=== PATIENT | female | born 1950 | race Caucasian/White ===

== ENCOUNTER 2017-10-17 12:21 | Emergency (ER) | payer MEDICARE, OTHER, SELFPAY ==
[2017-10-17] VITALS (7 sets, daily range): BP systolic 125–179; BP diastolic 56–107; PULSE 92–113; RESP 14–18; TEMP 36.9; O2SAT 89–98; BMI 34.4
--- NOTE | 2017-10-17 12:26 | ED.NEUROSD ---
HPI - Neuro Symptoms/Deficit General Chief Complaint: Neuro Symptoms/Deficit Stated Complaint: stroke Time Seen by Provider: 10/17/17 12:24 Source: EMS Mode of arrival: EMS Limitations: altered mental status History of Present Illness HPI Narrative: EMS reports that they were called to the [facility] for patient to was found unconscious. Code stroke was called secondary to concerns of left-sided facial droop by EMS. EMS reports that blood sugar was between 60 and 70 prior to arrival. They did not give her any glucose. No other history available. Related Data Home Medications Medication Instructions Recorded Confirmed aspirin 325 mg PO DAILY 10/17/17 10/17/17 cilostazol 50 mg PO DAILY 10/17/17 10/17/17 furosemide 20 mg PO PRN PRN 10/17/17 10/17/17 ibuprofen 1 dose PO PRN PRN 10/17/17 10/17/17 insulin aspart U-100 [Novolog 1 dose SUB-Q DIRECTED 10/17/17 10/17/17 Flexpen U-100 Insulin] insulin detemir U-100 [Levemir 60 - 80 units SUB-Q QPM 10/17/17 10/17/17 FlexTouch U-100 Insuln] lisinopril 10 mg PO DAILY 10/17/17 10/17/17 Review of Systems Review of Systems unobtainable due to mental condition PFSH Social History Smoking Status: Current every day smoker Comment: Unable to obtain secondary to physical condition Exam Initial Vital Signs Initial Vital Signs: Vital Signs Temperature 98.4 F 10/17/17 12:25 Pulse Rate 113 H 10/17/17 12:25 Respiratory Rate 18 10/17/17 12:25 Blood Pressure 179/63 H 10/17/17 12:25 Pulse Oximetry 89 L 10/17/17 12:25 Const General: comfortable, well developed and well groomed Nutritional Appearance: obese Orientation: awake, oriented to person, not oriented to place, not oriented to time and confused Limitations: altered mental status HENMT Head: normal to inspection and normocephalic Ears: hearing grossly normal bilaterally Mouth: oral mucosae normal Eyes Sclera: sclerae normal Pupils: PERRL Neck Neck: No midline deformity and No tracheal deviation Resp Effort & Inspection: normal respiratory effort Auscultation: clear to auscultation bilaterally Cardio Rate: tachycardic Rhythm: regular rhythm Pulses: radial pulses present GI Inspection: non-distended Palpation: soft Skin Other: Patient 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 Neuro General: alert, awake and moves all extremities Speech: speech normal Motor: muscle tone normal throughout Sensory Exam: no sensory deficits noted Other: Cranial nerves intact except for what appears to be drooping of the left eyelid and drooping of the left side of the mouth. Tongue not deviated. Extrem Other: No gross deformities. Moves all 4 extremities to command Scores NIH Stroke Scale Level of Conciousness: Alert, keenly responsive Ask month/age: Answers both questions correctly. Open/close eyes, close hand: Performs both tasks correctly Best gaze horizontal: Normal Visual melgar: No visual loss Facial palsy: Minor paralysis, flattened nasolabial fold, asymmetry on smiling Left arm drift: No drift for full 10 sec Right arm drift: No drift for full 10 sec Left leg drift: Drifts down, not to bed Right leg drift: No drift for full 10 sec Limb ataxia: Absent Sensory on face/arms/legs: Normal, no sensory loss Best language: No aphasia, normal Dysarthria: Normal Extinction or inattention: No abnormality Total NIH Stroke scale score: 2 Course Orders Ordered: ED Orders 10/17/17 12:32 Complete Blood Count AUTO DIFF Stat Comprehensive Metabolic Panel Stat Ethanol (ETOH) Stat Partial Thromboplastin Time Stat Prolactin Stat Prothrombin Time INR Stat 10/17/17 12:48 CT angio head and neck Stat 10/17/17 12:56 Lactate (Lactic Acid) Stat Discontinued Medications Dextrose (D50w) 25 gm IV NOW ONE Stop: 10/17/17 12:48 Last Admin: 10/17/17 12:49 Dose: 25 gm Sodium Chloride (Normal Saline 0.9%) 1,000 mls @ 500 mls/hr IV BOLUS ONE Stop: 10/17/17 14:57 Last Admin: 10/17/17 13:36 Dose: 500 mls/hr Vital Signs - 8 hr 10/17/17 12:25 10/17/17 13:01 10/17/17 13:30 Temperature 98.4 F Pulse Rate 113 H 102 H 98 H Respiratory Rate 18 14 14 Blood Pressure 179/63 H Blood Pressure [Left Arm] 142/56 H 125/62 H Pulse Oximetry 89 L 94 90 L 10/17/17 14:00 10/17/17 14:30 10/17/17 15:00 Temperature Pulse Rate 94 H 93 H 92 H Respiratory Rate 14 15 17 Blood Pressure Blood Pressure [Left Arm] 142/66 H 146/107 H 141/65 H Pulse Oximetry 93 92 94 MDM - Neuro Symptoms/Deficit Lab Data Attestation: I reviewed the patient's lab results. Result diagrams: 10/17/17 12:32 10/17/17 12:32 Lab Results 10/17/17 10/17/17 10/17/17 Range/Units 12:32 12:32 12:32 WBC 8.6 (4.5-11.0) X10^3/uL RBC 3.96 L (4.0-5.2) X10^6/uL Hgb 13.7 (12.0-16.0) g/dL Hct 40.8 (36-46) % MCV 102.9 H (80-100) fL MCH 34.6 H (26-34) PG MCHC 33.6 (30-36) % RDW 14.5 (11.6-14.8) % Plt Count 266 (150-400) X10^3/uL Neut % (Auto) 53.9 (50-75) % Lymph % (Auto) 33.3 (25-40) % [place] % (Auto) 10.2 (3-14) % Eos % (Auto) 1.8 L (2-4) % Baso % (Auto) 0.8 (0-2) % Neut # (Auto) 4600 (2656-0574) /uL PT 11.6 (10.1-12.7) SECONDS INR 1.1 (0.9-1.3) APTT 24 L (26.4-36.2) SECONDS Sodium (137-145) mmol/L Potassium (3.4-5.1) mmol/L Chloride (98-107) mmol/L Carbon Dioxide (22-32) mmol/L BUN (7-17) mg/dL Creatinine (0.52-1.04) mg/dL Estimated GFR (>60) mL/min BUN/Creatinine Ratio (6-22) Glucose (80-110) mg/dL Lactate (0.7-2.1) mmol/L Calcium (8.4-10.2) mg/dL Total Bilirubin (0.2-1.3) mg/dL AST (14-36) IU/L ALT (9-52) IU/L Alkaline Phosphatase (38-126) U/L Total Protein (6.3-8.2) g/dL Albumin (3.5-5.0) g/dL Globulin (1.7-4.1) g/dL Albumin/Globulin Ratio (1.0-2.8) Prolactin (3.0-18.6) ng/mL Ethyl Alcohol Cancelled 10/17/17 10/17/17 Range/Units 12:32 12:56 WBC (4.5-11.0) X10^3/uL RBC (4.0-5.2) X10^6/uL Hgb (12.0-16.0) g/dL Hct (36-46) % MCV (80-100) fL MCH (26-34) PG MCHC (30-36) % RDW (11.6-14.8) % Plt Count (150-400) X10^3/uL Neut % (Auto) (50-75) % Lymph % (Auto) (25-40) % [place] % (Auto) (3-14) % Eos % (Auto) (2-4) % Baso % (Auto) (0-2) % Neut # (Auto) (8407-2416) /uL PT (10.1-12.7) SECONDS INR (0.9-1.3) APTT (26.4-36.2) SECONDS Sodium 138 (137-145) mmol/L Potassium 3.2 L (3.4-5.1) mmol/L Chloride 103 (98-107) mmol/L Carbon Dioxide 23 (22-32) mmol/L BUN 12 (7-17) mg/dL Creatinine 0.60 (0.52-1.04) mg/dL Estimated GFR > 60.0 (>60) mL/min BUN/Creatinine Ratio 20.0 (6-22) Glucose 73 L (80-110) mg/dL Lactate 2.9 H (0.7-2.1) mmol/L Calcium 8.5 (8.4-10.2) mg/dL Total Bilirubin 0.3 (0.2-1.3) mg/dL AST 16 (14-36) IU/L ALT 13 (9-52) IU/L Alkaline Phosphatase 79 (38-126) U/L Total Protein 6.7 (6.3-8.2) g/dL Albumin 3.5 (3.5-5.0) g/dL Globulin 3.2 (1.7-4.1) g/dL Albumin/Globulin Ratio 1.1 (1.0-2.8) Prolactin 40.9 H (3.0-18.6) ng/mL Ethyl Alcohol < [address] scan - head: Radiologist's impression: PROCEDURE: CT ANGIO HEAD AND NECK INDICATIONS: Possible stroke TECHNIQUE: Pre-contrast 4.5 mm thick sections acquired from the foramen magnum to the vertex. After the administration of intravenous contrast, 1 mm thick sections acquired from the aortic arch through the [place]. Post-contrast 4.5 mm thick sections then re-acquired from the foramen magnum to the vertex. 3-dimensional gukxlnf-kfqoactoe-bxztrhjhxn (MIP) and/or volume rendering reformats were acquired of the central intracranial vasculature and neck separately. COMPARISON: None. FINDINGS: Image quality: Excellent. BRAIN: CSF spaces: Ventricles are normal in size and shape. Basal cisterns are patent. No extra-axial fluid collections. Brain: No midline shift. No intracranial bleeds or masses. Simmons-white matter interface appears intact. Skull and face: Calvarium and facial bones appear intact, without suspicious lesions. Orbits appear normal. Sinuses: Sinuses and mastoids are clear. HEAD CT ANGIOGRAPHY: Anterior circulation: Intracranial internal carotid arteries are normal in size and flow. The flow within the paired anterior cerebral arteries is normal and symmetric. The flow within the middle cerebral arteries is normal and symmetric. The anterior communicating artery is seen. No aneurysms are seen. Posterior circulation: Visualized portions of the vertebral arteries demonstrate normal caliber, and join to form a normal appearing basilar artery. There is a prominent right posterior communicating artery seen, with an accompanying diminutive right P1 segment. This is attributed to a type origin of the right posterior cerebral artery, which is considered to be a normal developmental variant of typically no clinical consequence. Flow within the posterior cerebral arteries is normal and symmetric. No aneurysms are seen. NECK CT ANGIOGRAPHY: Carotid system: The great vessels demonstrate a conventional anatomy as they arise from the aortic arch. Prominent atherosclerotic change with calcification can be seen involving the aortic arch and the origins of the great vessels. The origins of the common carotid arteries appear patent. The common carotid arteries demonstrate normal caliber and courses. The bifurcation regions demonstrate dense atherosclerotic calcification. There is approximately 40% narrowing seen involving origin of the right internal carotid artery. The origin of the left internal carotid artery demonstrates approximately 80% narrowing. Posterior circulation: The origins of the vertebral arteries both appear widely patent. The more superior extracranial portions of both vertebral arteries also demonstrate normal courses and calibers. They join to form a normal appearing basilar artery. Soft tissues: Visualized neck soft tissues demonstrate no suspicious abnormalities. Prominent centrilobular emphysematous changes are seen at the lung apices. Bones: No suspicious bony lesions. Visualized cervical spine appears normally aligned. Degenerative changes are seen, particularly involving the lower cervical spine. IMPRESSION: No acute intracranial hemorrhage can be seen. No definite CT findings of acute stroke can be seen. No acute intracranial arterial abnormality is seen. There is approximately 80% stenosis of the origin of the left internal carotid artery, with approximately 40% narrowing of the origin of the right internal carotid artery. If there is strong clinical suspicion for an acute stroke, please consider an MRI for further evaluation, as it is more sensitive (assuming that there is no contraindication to MRI). Incidental note is made of: type origin of the right posterior cerebral artery. Any quantitative measurements of stenosis were performed using NASCET criteria. Dictated by: Bijan Otero M.D. on 10/17/2017 at 11:49 Approved by: Bijan Otero M.D. on 10/17/2017 at 11:55 ECG Data Attestation: I personally reviewed and interpreted this ECG as follows: Prior ECG tracings: not available for review Interpretation: Sinus tachycardia Ventricular rate at 0108 Normal axis Normal intervals Normal QRS Normal QTC Nonspecific ST T wave changes MDM Narrative Medical decision making narrative: Patient arrived and went straight to the CT scan for a noncontrast head CT. My wet read of this showed that there was no acute bleed. She then received a CTA of her head neck. Upon returning from the CTA a perform my evaluation. Patient did not remember waking up this morning did not remember where she was prior to coming here. Her blood sugar was 67. She was given an amp of D50. Her symptoms seem to be improving. Her last known normal was approximately 30 min prior to arrival here in the emergency department. Patient did mention that she had a history of seizures however was unsure about this. After continued evaluation here in the emergency department her blood glucose increased. She became more lucid. She states that she has had seizures in the past however if she had 1 today would be the 3rd seizure in 15 years. She is not currently on any medications. She states that she is an insulin-dependent diabetic. She states that she does remember waking up this morning and remembers going to the casino. She states that just prior to entering the casino she felt like her blood sugar was low. She states that she took a prepackaged applesauce and went to a machine and sat down. She states that right before she loses her memory a she remembers feeling just like she does when her blood sugar is low. Patient was not given tPA here in the emergency department secondary to the improvement of her symptoms. During her emergency department stay patient returned to baseline. She was alert and oriented x3. Was cognizant of what happened to her. I have high suspicion that this was a hypoglycemic episode. There is also some concern that this may have been another seizure however secondary to how she felt I feel that it is more likely hypoglycemia. She did tolerate oral intake here in the emergency department. Walked to the bathroom without problems. Knew where her car was. New were her home was. Informed patient that she needed to watch her blood sugars over the weekend. Informed her that she needed to contact her primary care doctor on Friday for follow-up. She she was given return precautions. She expressed understanding and agreement with plan. Discharge Plan Departure Patient Disposition: Home, Self-Care Clinical Impression: Hypoglycemia, Altered mental status Instructions: DI for Hypoglycemia Activity Restrictions/Additional Instructions: Continue all of your medications as directed. Call your primary care doctor on Friday for a follow-up. Return to the emergency department for any new or worsening symptoms Prescriptions: No Action cilostazol 50 mg tablet 50 mg PO DAILY RF: 0 furosemide 20 mg tablet 20 mg PO PRN PRN (Reason: Edema) RF: 0 insulin aspart U-100 [Novolog Flexpen U-100 Insulin] 100 unit/mL insulin pen 1 dose Sub-Q DIRECTED RF: 0 insulin detemir U-100 [Levemir FlexTouch U-100 Insuln] 100 unit/mL (3 mL) insulin pen 60 - 80 units Sub-Q QPM RF: 0 aspirin 325 mg Tablet 325 mg PO DAILY RF: 0 lisinopril 10 mg Tablet 10 mg PO DAILY RF: 0 ibuprofen 200 mg Tablet 1 dose PO PRN PRN (Reason: Pain, Mild) RF: 0
--- NOTE | 2017-10-17 12:48 | DI.CT.S_ITS ---
PROCEDURE: CT ANGIO HEAD AND NECK INDICATIONS: Possible stroke TECHNIQUE: Pre-contrast 4.5 mm thick sections acquired from the foramen magnum to the vertex. After the administration of intravenous contrast, 1 mm thick sections acquired from the aortic arch through the [place]. Post-contrast 4.5 mm thick sections then re-acquired from the foramen magnum to the vertex. 3-dimensional ypxgkxp-bhphtiqhf-tnpwatmzof (MIP) and/or volume rendering reformats were acquired of the central intracranial vasculature and neck separately. COMPARISON: None. FINDINGS: Image quality: Excellent. BRAIN: CSF spaces: Ventricles are normal in size and shape. Basal cisterns are patent. No extra-axial fluid collections. Brain: No midline shift. No intracranial bleeds or masses. Simmons-white matter interface appears intact. Skull and face: Calvarium and facial bones appear intact, without suspicious lesions. Orbits appear normal. Sinuses: Sinuses and mastoids are clear. HEAD CT ANGIOGRAPHY: Anterior circulation: Intracranial internal carotid arteries are normal in size and flow. The flow within the paired anterior cerebral arteries is normal and symmetric. The flow within the middle cerebral arteries is normal and symmetric. The anterior communicating artery is seen. No aneurysms are seen. Posterior circulation: Visualized portions of the vertebral arteries demonstrate normal caliber, and join to form a normal appearing basilar artery. There is a prominent right posterior communicating artery seen, with an accompanying diminutive right P1 segment. This is attributed to a type origin of the right posterior cerebral artery, which is considered to be a normal developmental variant of typically no clinical consequence. Flow within the posterior cerebral arteries is normal and symmetric. No aneurysms are seen. NECK CT ANGIOGRAPHY: Carotid system: The great vessels demonstrate a conventional anatomy as they arise from the aortic arch. Prominent atherosclerotic change with calcification can be seen involving the aortic arch and the origins of the great vessels. The origins of the common carotid arteries appear patent. The common carotid arteries demonstrate normal caliber and courses. The bifurcation regions demonstrate dense atherosclerotic calcification. There is approximately 40% narrowing seen involving origin of the right internal carotid artery. The origin of the left internal carotid artery demonstrates approximately 80% narrowing. Posterior circulation: The origins of the vertebral arteries both appear widely patent. The more superior extracranial portions of both vertebral arteries also demonstrate normal courses and calibers. They join to form a normal appearing basilar artery. Soft tissues: Visualized neck soft tissues demonstrate no suspicious abnormalities. Prominent centrilobular emphysematous changes are seen at the lung apices. Bones: No suspicious bony lesions. Visualized cervical spine appears normally aligned. Degenerative changes are seen, particularly involving the lower cervical spine. IMPRESSION: No acute intracranial hemorrhage can be seen. No definite CT findings of acute stroke can be seen. No acute intracranial arterial abnormality is seen. There is approximately 80% stenosis of the origin of the left internal carotid artery, with approximately 40% narrowing of the origin of the right internal carotid artery. If there is strong clinical suspicion for an acute stroke, please consider an MRI for further evaluation, as it is more sensitive (assuming that there is no contraindication to MRI). Incidental note is made of: type origin of the right posterior cerebral artery. Any quantitative measurements of stenosis were performed using NASCET criteria. Dictated by: Bijan Otero M.D. on 10/17/2017 at 11:49 Approved by: Bijan Otero M.D. on 10/17/2017 at 11:55
[2017-10-17 12:49] LABS: INR 1.1 (0.9-1.3); Prothrombin Time 11.6 SECONDS (10.1-12.7)
[2017-10-17] MEDS: DEXTROSE 50 % IN WATER 25 GM/50 ML SYRINGE IV (12:49)
[2017-10-17 12:51] LABS: PTT Partial Thromboplastin Tim 24 SECONDS (26.4-36.2)
[2017-10-17 12:52] LABS: Add Manual Diff / Slide Review NO; Basophils Percent Auto 0.8 % (0-2); Eosinophils Percent Auto 1.8 % (2-4); Hematocrit 40.8 % (36-46); Hemoglobin 13.7 g/dL (12.0-16.0); Lymphocytes Percent Auto 33.3 % (25-40); Mean Corpuscular HGB Conc 33.6 % (30-36); Mean Corpuscular Hemoglobin 34.6 PG (26-34); Mean Corpuscular Volume 102.9 fL (80-100); Monocytes Percent Auto 10.2 % (3-14); Neutrophils Absolute Auto 4600 /uL (3000-5900); Neutrophils Percent Auto 53.9 % (50-75); Platelet Count 266 X10^3/uL (150-400); Red Blood Cell Count 3.96 X10^6/uL (4.0-5.2); Red Cell Distribution Width 14.5 % (11.6-14.8); White Blood Cell Count 8.6 X10^3/uL (4.5-11.0)
[2017-10-17 12:55] LABS: Alanine Aminotransferase 13 IU/L (9-52); Albumin 3.5 g/dL (3.5-5.0); Albumin Globulin Ratio 1.1 (1.0-2.8); Alkaline Phosphatase 79 U/L (38-126); Aspartate Aminotransferase 16 IU/L (14-36); Bilirubin Total 0.3 mg/dL (0.2-1.3); Blood Urea Nitrogen 12 mg/dL (7-17); Calcium 8.5 mg/dL (8.4-10.2); Carbon Dioxide 23 mmol/L (22-32); Chloride 103 mmol/L (98-107); Estimated Glomerular Filt Rate > 60.0 mL/min (>60); Ethanol (ETOH) < 10 mg/dL; Globulin 3.2 g/dL (1.7-4.1); Glucose 73 mg/dL (80-110); HEMOLYSIS < 15 (0-50); Potassium 3.2 mmol/L (3.4-5.1); Sodium 138 mmol/L (137-145); Total Protein 6.7 g/dL (6.3-8.2)
[2017-10-17 13:11] LABS: Prolactin 40.9 ng/mL (3.0-18.6)
[2017-10-17 13:11] LABS: Lactate (Lactic Acid) 2.9 mmol/L (0.7-2.1)
--- NOTE | 2017-10-17 13:22 | PC.NURSE ---
Originally, patient repeatedly asking same question about what happened. She could not recall being at the casino, or passing out. Could not remember about leg wounds on left leg. Able to state where she live. After receiving d50, pt is more alert, not asking repetative questions anymore. She remembers going to the casino and up to the point of passing out.
[2017-10-17] MEDS: SODIUM CHLORIDE 0.9% 1,000 ML 500 ML IV (13:36)
[2017-10-17 16:57] LABS: Reflexed Lactate in 2 Hours Y
== END 2017-10-17 16:00 | disposition home or self-care (01) ==
PROVIDERS: Emergency Provider Emergency Medicine; PCP Physician Assistant
DX: E16.2 Hypoglycemia, unspecified (principal); R41.82 Altered mental status, unspecified; R00.0 Tachycardia, unspecified
CPT/HCPCS: 36415; 70496; 70498; 80053; 80320; 82962; 83605; 84146; 85025; 85610; 85730; 93005; 93010; 96360; 99283; 99285; 99291; Q9967

== ENCOUNTER 2017-11-28 19:13 | Inpatient (IN) | payer MEDICARE, OTHER, SELFPAY ==
[2017-11-28] VITALS (23 sets, daily range): BP systolic 82–184; BP diastolic 39–77; PULSE 112–132; RESP 14–116; TEMP 35.9–37.6; O2SAT 82–100; BMI 31.5
[2017-11-28] MEDS: SUCCINYLCHOLINE 200 MG/10 ML VIAL 120 MG IV (19:15)
[2017-11-28] MEDS: SODIUM CHLORIDE 0.9% 1,000 ML 1000 ML IV ×2 (19:15→21:34)
--- NOTE | 2017-11-28 19:21 | DI.CT.S_ITS ---
PROCEDURE: CT HEAD/BRAIN WO CON INDICATIONS: found down right josie neglect TECHNIQUE: Noncontrast 4.5 mm thick angled axial sections acquired from the foramen magnum to the vertex, with coronal and sagittal reformats. For radiation dose reduction, the following was used: automated exposure control, adjustment of mA and/or kV according to patient size. COMPARISON: None. FINDINGS: Image quality: Excellent. CSF spaces: Basal cisterns are patent. No extra-axial fluid collections. Ventricles are normal in size and shape. Brain: No midline shift. No intracranial masses or hemorrhage. Simmons-white matter interface is normal. Skull and face: Calvarium and visualized facial bones are intact, without suspicious lesions. Sinuses: Visualized sinuses and mastoids are clear. IMPRESSION: Normal for age, source of current symptoms is not seen. Dictated by: Giovanni Barahona M.D. on 11/28/2017 at 19:50 Approved by: Giovanni Barahona M.D. on 11/28/2017 at 19:51
--- NOTE | 2017-11-28 19:22 | DI.RAD.S_ITS ---
PROCEDURE: XR CHEST 1V INDICATIONS: intubated TECHNIQUE: One view of the chest was acquired. COMPARISON: [facility], CR, XR CHEST 2VW, 08/16/2015, 17:24. FINDINGS: Surgical changes and devices: Endotracheal tube appears in normal position. Lungs and pleura: No pleural effusions or pneumothorax. Lungs are abnormal with a generalized interstitial prominence and mild pulmonary edema. Mediastinum: Mediastinal contours appear normal. Heart size is normal. Bones and chest wall: No suspicious bony lesions. Overlying soft tissues appear unremarkable. IMPRESSION: Pulmonary edema pattern bilaterally, suspect retrocardiac left lower lobe mild atelectasis. Endotracheal tube in normal position. Dictated by: Giovanni Barahona M.D. on 11/28/2017 at 19:33 Approved by: Giovanni Barahona M.D. on 11/28/2017 at 19:33
[2017-11-28] MEDS: PROPOFOL 200 MG/20 ML VIAL 40 MG IV ×2 (19:25→19:29)
[2017-11-28] MEDS: PROPOFOL 1,000 MG/100 ML VIAL 3 MG IV (19:31)
[2017-11-28] MEDS: MIDAZOLAM 5 MG/ML VIAL 2.5 MG IV (19:35)
[2017-11-28] MEDS: LORazepam 2 MG/ML SYRINGE 1 MG IV (20:04)
--- NOTE | 2017-11-28 20:20 | PC.NURSE ---
PROPOFOL DRIP TITRATED
--- NOTE | 2017-11-28 20:20 | PC.NURSE ---
PROPOFOL DRIP TITRATED PER VERBAL ORDERS BY PROVIDER. PT BITING ET TUBE. PT RESTLESS.
[2017-11-28] MEDS: ETOMIDATE 2 MG/ML VIAL 10 MG IV (20:26)
[2017-11-28] MEDS: HYDROMORPHONE 2 MG INJ 1 MG IV (20:28)
[2017-11-28] MEDS: LORazepam 2 MG/ML SYRINGE IV (20:34)
[2017-11-28 20:51] LABS: Add Manual Diff / Slide Review NO; Basophils Percent Auto 0.6 % (0-2); Hematocrit 51.4 % (36-46); Hemoglobin 16.9 g/dL (12.0-16.0); Lymphocytes Percent Auto 3.4 % (25-40); Mean Corpuscular HGB Conc 32.8 % (30-36); Mean Corpuscular Hemoglobin 34.1 PG (26-34); Mean Corpuscular Volume 103.8 fL (80-100); Monocytes Percent Auto 8.5 % (3-14); Neutrophils Absolute Auto 10400 /uL (3000-5900); Neutrophils Percent Auto 87.5 % (50-75); Platelet Count 239 X10^3/uL (150-400); Red Blood Cell Count 4.95 X10^6/uL (4.0-5.2); Red Cell Distribution Width 14.8 % (11.6-14.8); White Blood Cell Count 11.9 X10^3/uL (4.5-11.0)
[2017-11-28 20:54] LABS: INR 1.1 (0.9-1.3); Prothrombin Time 12.1 SECONDS (10.1-12.7)
[2017-11-28 20:57] LABS: PTT Partial Thromboplastin Tim 27 SECONDS (26.4-36.2)
[2017-11-28 20:58] LABS: Bacteria Urine None Seen; RBC Urine None Seen (0-5/HPF); WBC Urine None Seen (0-5/HPF)
[2017-11-28 21:00] LABS: Alanine Aminotransferase 17 IU/L (9-52); Albumin 4.2 g/dL (3.5-5.0); Albumin Globulin Ratio 1.4 (1.0-2.8); Alkaline Phosphatase 86 U/L (38-126); Aspartate Aminotransferase 21 IU/L (14-36); BUN Creatinine Ratio 31.8 (6-22); Bilirubin Total 0.9 mg/dL (0.2-1.3); Blood Urea Nitrogen 35 mg/dL (7-17); Calcium 9.5 mg/dL (8.4-10.2); Carbon Dioxide 13 mmol/L (22-32); Chloride 97 mmol/L (98-107); Creatine Kinase 196 U/L (30-135); Estimated Glomerular Filt Rate 49.7 mL/min (>60); Globulin 3.1 g/dL (1.7-4.1); HEMOLYSIS 15 (0-50); Sodium 132 mmol/L (137-145); Total Protein 7.3 g/dL (6.3-8.2)
[2017-11-28 21:00] LABS: Bilirubin Urine UA NEGATIVE (NEGATIVE); Color Urine UA YELLOW; Glucose Urine UA 2+ g/dL (Normal); Ketones Urine UA 3+ (NEGATIVE); Leukocyte Esterase Urine UA NEGATIVE (NEGATIVE); Nitrite Urine UA Negative (Negative); Occult Blood Urine UA 2+ (Negative); Protein Urine UA 2+ (Negative); Urobilinogen Urine UA 0.2 E.U./dL (0.2)
--- NOTE | 2017-11-28 21:00 | PC.NURSE ---
PT PROPOFOL DRIP TITRATED PER PROVIDER VERBAL ORDERS. PT BITING ET TUBE. PT RESTLESS.
[2017-11-28 21:03] LABS: Ketones (Beta-Hydroxybutyrate) 6.13 mmol/L (<0.27)
[2017-11-28 21:15] LABS: CKMB % Relative Index 1.6 % (1.5-5.0); Creatine Kinase MB 3.14 ng/mL (<2.37)
[2017-11-28 21:17] LABS: Glucose 595 mg/dL (80-110)
[2017-11-28 21:23] LABS: Appearance Urine UA Slightly Cloudy
[2017-11-28 21:23] LABS: Procalcitonin 0.08 ng/mL (<0.5)
[2017-11-28 21:26] LABS: Amorphous Sediment Urine 1+; Culture Indicated Urine Cult Not Indicated
[2017-11-28 21:33] LABS: Ethanol (ETOH) < 10 mg/dL
[2017-11-28 21:54] LABS: Urine Amphetamines Negative (Negative); Urine Cocaine Negative (Negative); Urine Methamphetamines Negative (Negative); Urine Morphine/Opi cutoff 2000 Negative (Negative); Urine Tetrahydrocannabinol Negative (Negative)
[2017-11-28 21:55] LABS: Urine Barbiturates Negative (Negative); Urine Benzodiazepines Negative (Negative); Urine MDMA Negative (Negative); Urine Methadone Negative (Negative); Urine Oxycodone Negative (Negative); Urine Phencyclidine Negative (Negative); Urine Tricyclic Antidepressant Negative (Negative)
--- NOTE | 2017-11-28 23:22 | PC.NURSE ---
221- Patient arrived via stretcher vented and sedated. Transferred to bed in room 103. Patient ETT 7.5 and 20 at the lip. Patient has a wound to the left genao, skin otherwise intact. Peripheral pulses attained via doppler. Cotto draining clear yellow urine. Propofol running at 25mic/kg/min. BG 433. Iv from the ER in the Left forearm, another IV started in the ICU to the right antecube. Patients wrists are restrained with soft wrist restraints per protocol. Patients last known normal was on the 26 of November.
[2017-11-29] VITALS (33 sets, daily range): BP systolic 70–156; BP diastolic 31–93; PULSE 91–136; RESP 10–29; TEMP 36.1–37; O2SAT 93–100
--- NOTE | 2017-11-29 | DI.RAD.S_ITS ---
PROCEDURE: XR CHEST 1V INDICATIONS: ventilated TECHNIQUE: One view of the chest was acquired. COMPARISON: [facility], CR, XR CHEST 2VW, 08/16/2015, 17:24. [facility], CR, XR CHEST 1V, 11/28/2017, 19:23. FINDINGS: Surgical changes and devices: The endotracheal tube tip is 5 cm above sabas. There is a nasogastric tube within the stomach. Lungs and pleura: Bilateral interstitial infiltrates are present, unchanged. No pleural effusions or pneumothorax. Lungs are clear. Mediastinum: Mediastinal contours appear normal. Heart size is normal. Bones and chest wall: No suspicious bony lesions. Overlying soft tissues appear unremarkable. IMPRESSION: Stable chest. Dictated by: Stefanie Vences M.D. on 11/29/2017 at 8:10 Approved by: Stefanie Vences M.D. on 11/29/2017 at 8:12
--- NOTE | 2017-11-29 00:21 | PM.HP.1 ---
History of Present Illness Date Patient Seen: 11/29/17 Time Patient Seen: 00:21 Chief complaint: Unresponsive Narrative: Critical care history and physical. Patient is a 67-year-old female who was found down unresponsive. Her sister had called her today she did not answer so she came in over to check on her. The last time she talked to her sister was on November 26 so she has been not heard of for 2 days. Uncertain how long she has actually been down however. She was unresponsive and was intubated due to failure to per tube protect her airway she was reportedly thrashing about but not responsive to verbal commands. Currently she is heavily sedated with propofol on the ventilator she responds to painful stimuli moving in response to pain but no does not open her eyes to pain or to spontaneously. 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, managed as type 1 (Acute) Hyperlipidemia (Acute) Peripheral vascular disease (Acute) Sleep apnea in adult (Acute) Family & Social History Social History: household members none Prior Living Arrangements House Safety & Behavioral: Feels Safe in Current Unwilling to Answer Environment Been Physically Hurt or Unwilling to Answer Threatened By a Person Suicidal Ideation Description None Suicide Plan Description No Plan Tobacco & Substance use: Tobacco type cigarettes Smoking Status Current every day smoker alcohol intake frequency 0-2 drinks per day Substance Use Type does not use Meds Home Medications Medication Instructions Recorded Confirmed Type aspirin 325 mg PO QDAY #0 05/15/16 History atorvastatin [Lipitor] 5 mg PO QDAY #0 05/15/16 History cilostazol 50 mg PO QDAY #0 05/15/16 History ibuprofen [Advil] 600 mg PO Q6HP PRN #0 05/15/16 History lisinopril 10 mg PO QDAY #0 05/15/16 History insulin glargine [Lantus U-100 40 u SQ HS #0 05/29/16 History Insulin] insulin lispro [Humalog U-100 0 u SQ #0 05/29/16 History Insulin] aspirin 325 mg PO DAILY 10/17/17 10/17/17 History cilostazol 50 mg PO DAILY 10/17/17 10/17/17 History furosemide 20 mg PO PRN PRN 10/17/17 10/17/17 History ibuprofen 1 dose PO PRN PRN 10/17/17 10/17/17 History insulin aspart U-100 [Novolog 1 dose SUB-Q DIRECTED 10/17/17 10/17/17 History Flexpen U-100 Insulin] insulin detemir U-100 [Levemir 60 - 80 units SUB-Q QPM 10/17/17 10/17/17 History FlexTouch U-100 Insuln] lisinopril 10 mg PO DAILY 10/17/17 10/17/17 History Allergies Allergy/AdvReac Type Severity Reaction Status Date / Time adhesive [ADHESIVE] Allergy Unknown RASH, Unverified 08/06/17 12:57 ITCHING, TEARS SKIN Latex, Natural Rubber Allergy Unknown RASH, Unverified 08/06/17 12:57 [LATEX, NATURAL RUBBER] ITCHING Penicillins [PENICILLINS] Allergy Unknown EXTREME Unverified 08/06/17 12:57 HEADACHES Review of Systems Review of Systems due to endotracheal tube and unobtainable due to mental condition Exam Vital Signs (past 8 hours): - 11/28/17 19:05 11/28/17 19:20 11/28/17 19:40 Temperature 99.6 F 99.2 F Pulse Rate 118 H 128 H 132 H Respiratory Rate 32 H 26 H 14 Blood Pressure 171/75 H Blood Pressure [Left Arm] 184/49 H 157/75 H Pulse Oximetry 100 86 L 82 L 11/28/17 19:50 11/28/17 20:00 11/28/17 20:10 Temperature Pulse Rate 129 H 124 H 117 H Respiratory Rate 14 14 14 Blood Pressure Blood Pressure [Left Arm] 148/69 H 87/47 L 82/44 L Pulse Oximetry 100 100 100 11/28/17 20:20 11/28/17 20:29 11/28/17 20:30 Temperature Pulse Rate 116 H 118 H 117 H Respiratory Rate 14 14 Blood Pressure Blood Pressure [Left Arm] 92/39 L 92/39 L 105/43 L Pulse Oximetry 100 100 100 11/28/17 20:40 11/28/17 20:50 11/28/17 21:00 Temperature Pulse Rate 119 H 119 H 118 H Respiratory Rate 14 14 14 Blood Pressure Blood Pressure [Left Arm] 118/45 L 106/43 L 124/43 H Pulse Oximetry 100 100 100 11/28/17 21:07 11/28/17 21:10 11/28/17 21:20 Temperature Pulse Rate 118 H 120 H 119 H Respiratory Rate 14 14 Blood Pressure Blood Pressure [Left Arm] 124/43 H 136/63 H 124/55 H Pulse Oximetry 100 100 11/28/17 21:35 11/28/17 21:50 11/28/17 22:05 Temperature Pulse Rate 117 H 117 H 119 H Respiratory Rate 14 14 14 Blood Pressure 147/77 H Blood Pressure [Left Arm] 130/59 H 130/59 H Pulse Oximetry 98 100 100 11/28/17 22:35 11/28/17 22:40 11/28/17 22:50 Temperature 96.6 F L Pulse Rate 119 H 114 H Respiratory Rate 17 116 H 15 Blood Pressure 134/62 H 125/59 H 125/60 H Blood Pressure [Left Arm] Pulse Oximetry 100 100 100 11/28/17 23:30 Temperature 96.9 F L Pulse Rate 113 H Respiratory Rate 16 Blood Pressure 126/58 H Blood Pressure [Left Arm] Pulse Oximetry 100 Fraction of Inspired Oxygen 40 Oxygen Delivery Method Mechanical Ventilation Narrative Exam Narrative: Patient intubated she does not respond to verbal commands she does move in response to painful stimuli endotracheal tube is in place Lungs coarse breath sounds throughout Heart tachycardic systolic murmur is noted Abdomen is soft obese bowel sounds hypoactive Extremities decreased pulses in both feet they were detectable by Doppler. Trace edema bilateral distal lower extremities are cool to touch. Distal genao there is a ulceration that is dressed there is also scar from surgery on the medial lower leg that is healed no longer open Neuro exam she does not respond to verbal commands she does withdraw and localized pain. Objective Labs Result Diagrams: 11/28/17 20:35 11/28/17 20:35 Labs: Laboratory Results - last 24 hr 11/28/17 11/28/17 11/28/17 20:12 20:12 20:35 WBC 11.9 H RBC 4.95 Hgb 16.9 H Hct 51.4 H MCV 103.8 H MCH 34.1 H MCHC 32.8 RDW 14.8 Plt Count 239 Neut % (Auto) 87.5 H Lymph % (Auto) 3.4 L Faulkner % (Auto) 8.5 Eos % (Auto) 0.0 L Baso % (Auto) 0.6 Neut # (Auto) 76859 H PT INR APTT Sodium Potassium Chloride Carbon Dioxide BUN Creatinine Estimated GFR BUN/Creatinine Ratio Glucose Lactate Calcium Total Bilirubin AST ALT Alkaline Phosphatase Total Creatine Kinase CK-MB (CK-2) CK-MB (CK-2) Rel Index Troponin I Total Protein Albumin Globulin Albumin/Globulin Ratio Procalcitonin Urine Color Yellow Urine Appearance Slightly cloudy Urine pH 5.0 Ur Specific [place] 1.020 Urine Protein 2+ H Urine Glucose (UA) 2+ Urine Ketones 3+ H Urine Occult Blood 2+ H Urine Nitrate Negative Urine Bilirubin Negative Urine Urobilinogen 0.2 Ur Leukocyte Esterase Negative Urine RBC None seen Urine WBC None seen Amorphous Sediment 1+ Urine Bacteria None seen Ur Culture Indicated? Cult not indicated Micro UA Comment Not Reportable Urine Opiates Screen Negative Ur Oxycodone Screen Negative Urine Methadone Screen Negative Ur Barbiturates Screen Negative U Tricyclic Antidepress Negative Ur Phencyclidine Scrn Negative Ur Amphetamines Screen Negative U Methamphetamines Scrn Negative Ur MDMA Scrn (Ecstasy) Negative U Benzodiazepines Scrn Negative Urine Cocaine Screen Negative U Marijuana (THC) Screen Negative Ethyl Alcohol Ketones 11/28/17 11/28/17 11/28/17 20:35 20:35 20:35 WBC RBC Hgb Hct MCV MCH MCHC RDW Plt Count Neut % (Auto) Lymph % (Auto) [place] % (Auto) Eos % (Auto) Baso % (Auto) Neut # (Auto) PT INR APTT Sodium 132 L Potassium 5.0 Chloride 97 L Carbon Dioxide 13 L BUN 35 H Creatinine 1.10 H Estimated GFR 49.7 L BUN/Creatinine Ratio 31.8 H Glucose 595 H* Lactate 3.0 H Calcium 9.5 Total Bilirubin 0.9 AST 21 ALT 17 Alkaline Phosphatase 86 Total Creatine Kinase 196 H CK-MB (CK-2) 3.14 H CK-MB (CK-2) Rel Index 1.6 Troponin I 0.050 H Total Protein 7.3 Albumin 4.2 Globulin 3.1 Albumin/Globulin Ratio 1.4 Procalcitonin 0.08 Urine Color Urine Appearance Urine pH Ur Specific [place] Urine Protein Urine Glucose (UA) Urine Ketones Urine Occult Blood Urine Nitrate Urine Bilirubin Urine Urobilinogen Ur Leukocyte Esterase Urine RBC Urine WBC Amorphous Sediment Urine Bacteria Ur Culture Indicated? Micro UA Comment Urine Opiates Screen Ur Oxycodone Screen Urine Methadone Screen Ur Barbiturates Screen U Tricyclic Antidepress Ur Phencyclidine Scrn Ur Amphetamines Screen U Methamphetamines Scrn Ur MDMA Scrn (Ecstasy) U Benzodiazepines Scrn Urine Cocaine Screen U Marijuana (THC) Screen Ethyl Alcohol Ketones 6.13 H 11/28/17 11/28/17 20:35 20:35 WBC RBC Hgb Hct MCV MCH MCHC RDW Plt Count Neut % (Auto) Lymph % (Auto) [place] % (Auto) Eos % (Auto) Baso % (Auto) Neut # (Auto) PT 12.1 INR 1.1 APTT 27 D Sodium Potassium Chloride Carbon Dioxide BUN Creatinine Estimated GFR BUN/Creatinine Ratio Glucose Lactate Calcium Total Bilirubin AST ALT Alkaline Phosphatase Total Creatine Kinase CK-MB (CK-2) CK-MB (CK-2) Rel Index Troponin I Total Protein Albumin Globulin Albumin/Globulin Ratio Procalcitonin Urine Color Urine Appearance Urine pH Ur Specific [place] Urine Protein Urine Glucose (UA) Urine Ketones Urine Occult Blood Urine Nitrate Urine Bilirubin Urine Urobilinogen Ur Leukocyte Esterase Urine RBC Urine WBC Amorphous Sediment Urine Bacteria Ur Culture Indicated? Micro UA Comment Urine Opiates Screen Ur Oxycodone Screen Urine Methadone Screen Ur Barbiturates Screen U Tricyclic Antidepress Ur Phencyclidine Scrn Ur Amphetamines Screen U Methamphetamines Scrn Ur MDMA Scrn (Ecstasy) U Benzodiazepines Scrn Urine Cocaine Screen U Marijuana (THC) Screen Ethyl Alcohol < 10 Ketones Assessment & Plan Plan: Assessment/Plan Narrative: One. DKA with acidosis on blood gas 7.21 and bicarb of 13 on her chemistry profile. Patient will be treated aggressively with IV fluids she had positive ketones noted on her serum also. IV fluids with normal saline and IV insulin. We will start D5 half normal saline when her blood glucose drops below 150. We will watch carefully like to lytes potassium phosphorus calcium and kidney function. Uncertain as to the etiology of the DKA hopefully as she wakes up she give us more history 2. Respiratory failure patient intubated due to unable to protect her airway she is oxygenating well on the ventilator with FiO2 of 40% P O2 of 97 so there is an AA gradient x-ray showing some pulmonary edema plan to place her on some Lasix IV once a day 3. Hypertension plan to hold oral lisinopril but give her enalapril IV 4. Acute metabolic encephalopathy secondary to DKA possible underlying infection we will culture her blood and watch carefully for any signs of infection. 5. Pulmonary edema by chest x-ray plan to check her BNP echo done a few months ago showed normal systolic function. Plan to check troponin and recheck BNP. 6. History of peripheral vascular disease with an ulcer on her lower extremities plan to continue Local dressing for that 7. DVT prophylaxis Lovenox to be used Scores [facility] [place] coma scale eye opening: None Tiffany coma scale verbal response: None Tiffany coma scale motor response: Localising Tiffany coma scale total score: 7 Quality VTE Deep Vein Thrombosis/Pulmonary Embolism Present on Admission: No
[2017-11-29] MEDS: SODIUM CHLORIDE 0.9% 1,000 ML 150 ML IV ×4 (00:30→20:20)
[2017-11-29 00:44] LABS: Reflexed Lactate in 2 Hours Y
[2017-11-29 00:56] LABS: HCO3 ABG 12 mmol/L (23-27); Oxygen Saturation ABG 98 % (95-100); PCO2 ABG 29.2 mmHg (35-45); PO2 ABG 127 mmHg (80-105); TCO2 ABG 13 mmol/L (23-27); pH ABG 7.22 (7.35-7.45)
[2017-11-29 00:57] LABS: Fractionated Inspired Oxygen 50
[2017-11-29 00:59] LABS: HCO3 ABG 14 mmol/L (23-27); PO2 ABG 97 mmHg (80-105); TCO2 ABG 15 mmol/L (23-27); pH ABG 7.24 (7.35-7.45)
[2017-11-29 01:00] LABS: Fractionated Inspired Oxygen 40; Oxygen Saturation ABG 96 % (95-100)
[2017-11-29] MEDS: ENALAPRILAT 1.25 MG/ML VIAL 0.625 MG IV ×3 (01:00→18:47)
[2017-11-29 01:20] LABS: Lactate 2HR (Lactic Acid Rflx) 1.6 mmol/L (0.7-2.1)
[2017-11-29] MEDS: PROPOFOL 1,000 MG/100 ML VIAL 17.011 MG IV (02:06)
--- NOTE | 2017-11-29 02:58 | ED_ITS ---
HPI - General Adult General Chief complaint: Altered Mental Status Stated complaint: Unresponsive Time Seen by Provider: 11/28/17 19:21 Source: family and EMS Mode of arrival: EMS Limitations: altered mental status and physical limitation History of Present Illness HPI narrative: Patient is a 67-year-old female diabetic found down for at least 2 days. She and her sister apparently are very close her sister did not talk to her yesterday she did not hear from her today and sent a neighbor over who found her down. Glucose, 2 red high for EMS. He was brought to the ED immediately intubated for airway protection. Minimally responsive. Having all left sided gaze. No sign of trauma. Related Data Home Medications Medication Instructions Recorded Confirmed aspirin 325 mg PO QDAY #0 05/15/16 atorvastatin [Lipitor] 5 mg PO QDAY #0 05/15/16 cilostazol 50 mg PO QDAY #0 05/15/16 ibuprofen [Advil] 600 mg PO Q6HP PRN #0 05/15/16 lisinopril 10 mg PO QDAY #0 05/15/16 insulin glargine [Lantus U-100 40 u SQ HS #0 05/29/16 Insulin] insulin lispro [Humalog U-100 0 u SQ #0 05/29/16 Insulin] aspirin 325 mg PO DAILY 10/17/17 10/17/17 cilostazol 50 mg PO DAILY 10/17/17 10/17/17 furosemide 20 mg PO PRN PRN 10/17/17 10/17/17 ibuprofen 1 dose PO PRN PRN 10/17/17 10/17/17 insulin aspart U-100 [Novolog 1 dose SUB-Q DIRECTED 10/17/17 10/17/17 Flexpen U-100 Insulin] insulin detemir U-100 [Levemir 60 - 80 units SUB-Q QPM 10/17/17 10/17/17 FlexTouch U-100 Insuln] lisinopril 10 mg PO DAILY 10/17/17 10/17/17 Allergies Allergy/AdvReac Type Severity Reaction Status Date / Time adhesive [ADHESIVE] Allergy Intermediate RASH, Verified 11/29/17 01:59 ITCHING, TEARS SKIN Latex, Natural Rubber Allergy Intermediate RASH, Verified 11/29/17 02:01 [LATEX, NATURAL RUBBER] ITCHING Penicillins [PENICILLINS] Allergy Intermediate EXTREME Verified 11/29/17 02:01 HEADACHES Review of Systems Review of Systems Unable to obtain [facility] Medical History 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, managed as type 1 (Acute) Hyperlipidemia (Acute) Peripheral vascular disease (Acute) Sleep apnea in adult (Acute) Family History Father Diabetes mellitus Coronary artery disease Mother Coronary artery disease Diabetes mellitus Social History household members: none Smoking Status: Current every day smoker Exam Initial Vital Signs Initial Vital Signs: Vital Signs Temperature 99.6 F 11/28/17 19:05 Pulse Rate 118 H 11/28/17 19:05 Respiratory Rate 32 H 11/28/17 19:05 Blood Pressure 171/75 H 11/28/17 19:05 Pulse Oximetry 100 11/28/17 19:05 Const General: acute distress, ill appearing, lethargic and No well hydrated Other: GAze off to the left severely dry mucous membranes minimally responsive to pain poor gag reflex HENMT Head: normal to inspection, normocephalic and atraumatic Mouth: No moist mucous membranes and malodorous breath Eyes Alignment and Position: alignment normal Pupils: PERRL Neck Neck: normal visual inspection and No JVD Chest Chest: normal inspection of the chest Resp Effort & Inspection: decreased respiratory effort, no stridor and tachypneic Cardio Rate: regular rate and tachycardic Heart Sounds: S1 normal and S2 normal GI Palpation: soft, No firm and No tender Skin General: no rashes or lesions noted, crusts (Around lips), dry skin, No ecchymosis and No erythema Neuro Comatose Patient: response to noxious stimuli absent Procedures Intubation Time out performed: Yes sedative: Etomidate Mg Given: 10 paralytic: Succinylcholine Mg Given: 120 Laryngoscope: other ([place] scope) ET Tube Size: 7.5 Tube Secured Depth (cm): 21 Tube Secured Location: lips Tube Placement Confirmation: Visualized tube passing through cords, Equal breath sounds bilaterally, No breath sounds over epigastrium, Confirmation by capnometry and Chest Xray Patient Tolerated Procedure: Well Intubation Complications: none Course Orders Ordered: ED Orders 11/28/17 19:21 CT head/brain wo con Stat EKG-12 Lead Stat 11/28/17 19:22 XR chest 1V Stat 11/28/17 20:05 Arterial Blood Gas Urgent 11/28/17 20:12 Urinalysis and Microscopic Stat Urine Drug Screen, Rapid Stat 11/28/17 20:25 Blood Culture Stat 11/28/17 20:35 Complete Blood Count AUTO DIFF Stat Comprehensive Metabolic Panel Stat Ethanol (ETOH) Stat Ketones (Beta-Hydroxybutyrate) Stat Lactate (Lactic Acid) Stat Partial Thromboplastin Time Stat Procalcitonin Stat Prothrombin Time INR Stat Troponin & CK Cardiac Panel Stat 11/28/17 22:45 MRSA PCR Urgent 11/28/17 23:57 Determine readiness for weanin RT PROTOCOL Ventilator Order 11/29/17 Wound Culture and Gram Stain Urgent 11/29/17 00:00 Consult to Dietitian, Adult Routine XR chest 1V DAILY Complete Blood Count AUTO DIFF DAILY Comprehensive Metabolic Panel DAILY Endotracheal tube suction As needed 11/29/17 00:20 Consult to Respiratory Therapy Evaluate & Treat 11/29/17 00:25 ABG [Arterial Blood Gas] Stat 11/29/17 01:00 Lactate 4HR (Lactic Acid Rflx) Stat 11/29/17 05:00 B Type Natriuretic Peptide Routine Magnesium Routine Thyroid Stimulating Hormone Routine Troponin I Routine 11/30/17 00:00 XR chest 1V DAILY Complete Blood Count AUTO DIFF DAILY Comprehensive Metabolic Panel DAILY 12/01/17 00:00 XR chest 1V DAILY Complete Blood Count AUTO DIFF DAILY Comprehensive Metabolic Panel DAILY 12/02/17 00:00 XR chest 1V DAILY Complete Blood Count AUTO DIFF DAILY Comprehensive Metabolic Panel DAILY 12/03/17 00:00 XR chest 1V DAILY Complete Blood Count AUTO DIFF DAILY Comprehensive Metabolic Panel DAILY 12/04/17 00:00 XR chest 1V DAILY Complete Blood Count AUTO DIFF DAILY Comprehensive Metabolic Panel DAILY 12/05/17 00:00 XR chest 1V DAILY Complete Blood Count AUTO DIFF DAILY Comprehensive Metabolic Panel DAILY 12/06/17 00:00 XR chest 1V DAILY Complete Blood Count AUTO DIFF DAILY Comprehensive Metabolic Panel DAILY 12/07/17 00:00 XR chest 1V DAILY Complete Blood Count AUTO DIFF DAILY Comprehensive Metabolic Panel DAILY 12/08/17 00:00 XR chest 1V DAILY Complete Blood Count AUTO DIFF DAILY Comprehensive Metabolic Panel DAILY 12/09/17 00:00 XR chest 1V DAILY Complete Blood Count AUTO DIFF DAILY Comprehensive Metabolic Panel DAILY 12/10/17 00:00 XR chest 1V DAILY Complete Blood Count AUTO DIFF DAILY Comprehensive Metabolic Panel DAILY 12/11/17 00:00 XR chest 1V DAILY Complete Blood Count AUTO DIFF DAILY Comprehensive Metabolic Panel DAILY 12/12/17 00:00 XR chest 1V DAILY Complete Blood Count AUTO DIFF DAILY Comprehensive Metabolic Panel DAILY Dextrose (D50w) 25 gm IV PRN PRN PRN Reason: Hypoglycemia Enalaprilat (Vasotec) 0.625 mg IV Q6H ANDRES Last Admin: 11/29/17 01:00 Dose: 0.625 mg Enoxaparin Sodium (Lovenox) 40 mg SUBCUT DAILY ANDRES Furosemide (Lasix) 20 mg IV DAILY ANDRES Propofol (Propofol) 1,000 mg in 100 mls @ 9 mls/hr IV TITRATE ANDRES; Protocol Last Titration: 11/29/17 00:00 Dose: 30 mcg/kg/min, 15.948 mls/hr Titration: 11/28/17 22:05 Dose: 0 mcg/kg/min, 0 mls/hr Titration: 11/28/17 21:00 Dose: 28.21 mcg/kg/min, 15 mls/hr Titration: 11/28/17 20:20 Dose: 18.81 mcg/kg/min, 10 mls/hr Admin: 11/28/17 19:31 Dose: 3 mls/hr Insulin Human Regular 100 unit (/ Sodium Chloride) 100 mls @ 6 mls/hr IV TITRATE ANDRES; Protocol Propofol (Propofol) 1,000 mg in 100 mls @ 2.658 mls/hr IV TITRATE ANDRES; Protocol Last Admin: 11/29/17 02:06 Dose: 32 mcg/kg/min, 17.011 mls/hr Insulin Human Regular 100 unit (/ Sodium Chloride) 100 mls @ 0 mls/hr IV TITRATE ANDRES; Protocol Sodium Chloride (Normal Saline 0.9%) 1,000 mls @ 150 mls/hr IV CONT ANDRES Stop: 11/30/17 00:14 Last Admin: 11/29/17 00:30 Dose: 150 mls/hr Dextrose/Sodium Chloride (Dextrose 5%-0.45% Ns) 1,000 mls @ 125 mls/hr IV CONT PRN PRN Reason: BG<150 Ondansetron HCl (Zofran) 4 mg IV Q4H PRN PRN Reason: Nausea And Vomiting Pantoprazole Sodium (Protonix) 40 mg IV DAILY ANDRES Discontinued Medications Etomidate (Amidate) 10 mg IV NOW ONE Stop: 11/28/17 19:16 Last Admin: 11/28/17 20:26 Dose: 10 mg Hydromorphone HCl (Dilaudid) 1 mg IV NOW ONE Stop: 11/28/17 20:05 Last Admin: 11/28/17 20:28 Dose: 1 mg Sodium Chloride (Normal Saline 0.9%) 1,000 mls @ 1,000 mls/hr IV BOLUS ONE Stop: 11/28/17 22:15 Last Infusion: 11/28/17 22:05 Dose: 0 mls/hr Admin: 11/28/17 21:34 Dose: 1,000 mls/hr Sodium Chloride (Normal Saline 0.9%) 1,000 mls @ 1,000 mls/hr IV BOLUS ONE Stop: 11/28/17 20:14 Last Infusion: 11/28/17 20:15 Dose: 0 mls/hr Admin: 11/28/17 19:15 Dose: 1,000 mls/hr Lorazepam (Ativan) 1 mg IV NOW ONE Stop: 11/28/17 20:05 Last Admin: 11/28/17 20:04 Dose: 1 mg Lorazepam (Ativan) 2 mg IV NOW ONE Stop: 11/28/17 20:35 Last Admin: 11/28/17 20:34 Dose: 2 mg Midazolam HCl (Versed) 2.5 mg IV NOW ONE Stop: 11/28/17 17:36 Last Admin: 11/28/17 19:35 Dose: 2.5 mg Propofol (Diprivan) 40 mg IV NOW ONE Stop: 11/28/17 19:26 Last Admin: 11/28/17 19:25 Dose: 40 mg Propofol (Diprivan) 40 mg IV NOW ONE Stop: 11/28/17 19:30 Last Admin: 11/28/17 19:29 Dose: 40 mg Succinylcholine Chloride (Quelicin) 120 mg IV PROTOCOL ONE Stop: 11/28/17 17:16 Last Admin: 11/28/17 19:15 Dose: 120 mg Vital Signs - 8 hr 11/28/17 19:20 11/28/17 19:40 11/28/17 19:50 Temperature 99.2 F Pulse Rate 128 H 132 H 129 H Respiratory Rate 26 H 14 14 Blood Pressure Blood Pressure [Left Arm] 184/49 H 157/75 H 148/69 H Pulse Oximetry 86 L 82 L 100 11/28/17 20:00 11/28/17 20:10 11/28/17 20:20 Temperature Pulse Rate 124 H 117 H 116 H Respiratory Rate 14 14 14 Blood Pressure Blood Pressure [Left Arm] 87/47 L 82/44 L 92/39 L Pulse Oximetry 100 100 100 11/28/17 20:29 11/28/17 20:30 11/28/17 20:40 Temperature Pulse Rate 118 H 117 H 119 H Respiratory Rate 14 14 Blood Pressure Blood Pressure [Left Arm] 92/39 L 105/43 L 118/45 L Pulse Oximetry 100 100 100 11/28/17 20:50 11/28/17 21:00 11/28/17 21:07 Temperature Pulse Rate 119 H 118 H 118 H Respiratory Rate 14 14 Blood Pressure Blood Pressure [Left Arm] 106/43 L 124/43 H 124/43 H Pulse Oximetry 100 100 11/28/17 21:10 11/28/17 21:20 11/28/17 21:35 Temperature Pulse Rate 120 H 119 H 117 H Respiratory Rate 14 14 14 Blood Pressure Blood Pressure [Left Arm] 136/63 H 124/55 H 130/59 H Pulse Oximetry 100 100 98 11/28/17 21:50 11/28/17 22:05 11/28/17 22:35 Temperature 96.6 F L Pulse Rate 117 H 119 H 119 H Respiratory Rate 14 14 17 Blood Pressure 147/77 H 134/62 H Blood Pressure [Left Arm] 130/59 H Pulse Oximetry 100 100 100 11/28/17 22:40 11/28/17 22:50 11/28/17 23:30 Temperature 96.9 F L Pulse Rate 114 H 113 H Respiratory Rate 116 H 15 16 Blood Pressure 125/59 H 125/60 H 126/58 H Blood Pressure [Left Arm] Pulse Oximetry 100 100 100 11/29/17 00:00 11/29/17 01:00 11/29/17 02:00 Temperature Pulse Rate 115 H 128 H 127 H Respiratory Rate 17 20 26 H Blood Pressure 117/54 L 107/50 L 110/50 L Blood Pressure [Left Arm] Pulse Oximetry 100 99 99 Medical Decision Making MDM Narrative Medical decision making narrative: Patient found unresponsive with unknown down time. His she is noted to be in DKA with a pH of 7.2 and anion gap of 22. Once she was intubated she actually started to move both arms her. He was sedated with propofol and benzodiazepines. According to family she does have a history of drinking alcohol. Head CT is negative for any acute bleeding. Normal saline and insulin drip started. Patient has no children and her 9 years ago. Sister is DPOA. Dr. Heath has been updated and symptoms test results. he will be into the ICU to see and evaluate patient. Lab Data Lab results reviewed: Yes I reviewed the patient's lab results. Lab results narrative: Anion gap 22 Result diagrams: 11/28/17 20:35 11/28/17 20:35 Lab Results 11/28/17 11/28/17 11/28/17 Range/Units 20:05 20:12 20:12 WBC (4.5-11.0) X10^3/uL RBC (4.0-5.2) X10^6/uL Hgb (12.0-16.0) g/dL Hct (36-46) % MCV (80-100) fL MCH (26-34) PG MCHC (30-36) % RDW (11.6-14.8) % Plt Count (150-400) X10^3/uL Neut % (Auto) (50-75) % Lymph % (Auto) (25-40) % [place] % (Auto) (3-14) % Eos % (Auto) (2-4) % Baso % (Auto) (0-2) % Neut # (Auto) (4908-4265) /uL PT (10.1-12.7) SECONDS INR (0.9-1.3) APTT (26.4-36.2) SECONDS ABG pH 7.22 L* (7.35-7.45) ABG pCO2 29.2 L (35-45) mmHg ABG pO2 127 H (80-105) mmHg ABG HCO3 12 L (23-27) mmol/L ABG Total CO2 13 L (23-27) mmol/L ABG O2 Saturation 98 (95-100) % ABG Base Excess -16.0 L (-2-3) mmol/L FiO2 50 Sodium (137-145) mmol/L Potassium (3.4-5.1) mmol/L Chloride (98-107) mmol/L Carbon Dioxide (22-32) mmol/L BUN (7-17) mg/dL Creatinine (0.52-1.04) mg/dL Estimated GFR (>60) mL/min BUN/Creatinine Ratio (6-22) Glucose (80-110) mg/dL Lactate (0.7-2.1) mmol/L Calcium (8.4-10.2) mg/dL Total Bilirubin (0.2-1.3) mg/dL AST (14-36) IU/L ALT (9-52) IU/L Alkaline Phosphatase (38-126) U/L Total Creatine Kinase (30-135) U/L CK-MB (CK-2) (<2.37) ng/mL CK-MB (CK-2) Rel Index (1.5-5.0) % Troponin I (0.01-0.034) ng/mL Total Protein (6.3-8.2) g/dL Albumin (3.5-5.0) g/dL Globulin (1.7-4.1) g/dL Albumin/Globulin Ratio (1.0-2.8) Procalcitonin (<0.5) ng/mL Urine Color Yellow Urine Appearance Slightly cloudy Urine pH 5.0 (4.5-8.0) Ur Specific [place] 1.020 (1.000-1.035) Urine Protein 2+ H (Negative) Urine Glucose (UA) 2+ (Normal) g/dL Urine Ketones 3+ H (NEGATIVE) Urine Occult Blood 2+ H (Negative) Urine Nitrate Negative (Negative) Urine Bilirubin Negative (NEGATIVE) Urine Urobilinogen 0.2 (0.2) E.U./dL Ur Leukocyte Esterase Negative (NEGATIVE) Urine RBC None seen (0-5/HPF) Urine WBC None seen (0-5/HPF) Amorphous Sediment 1+ Urine Bacteria None seen (None) Ur Culture Indicated? Cult not indicated Micro UA Comment Not Reportable Nasal Screen MRSA (PCR) (Negative) Urine Opiates Screen Negative (Negative) Ur Oxycodone Screen Negative (Negative) Urine Methadone Screen Negative (Negative) Ur Barbiturates Screen Negative (Negative) U Tricyclic Antidepress Negative (Negative) Ur Phencyclidine Scrn Negative (Negative) Ur Amphetamines Screen Negative (Negative) U Methamphetamines Scrn Negative (Negative) Ur MDMA Scrn (Ecstasy) Negative (Negative) U Benzodiazepines Scrn Negative (Negative) Urine Cocaine Screen Negative (Negative) U Marijuana (THC) Screen Negative (Negative) Ethyl Alcohol mg/dL Ketones (<0.27) mmol/L 11/28/17 11/28/17 11/28/17 Range/Units 20:35 20:35 20:35 WBC 11.9 H (4.5-11.0) X10^3/uL RBC 4.95 (4.0-5.2) X10^6/uL Hgb 16.9 H (12.0-16.0) g/dL Hct 51.4 H (36-46) % MCV 103.8 H (80-100) fL MCH 34.1 H (26-34) PG MCHC 32.8 (30-36) % RDW 14.8 (11.6-14.8) % Plt Count 239 (150-400) X10^3/uL Neut % (Auto) 87.5 H (50-75) % Lymph % (Auto) 3.4 L (25-40) % [place] % (Auto) 8.5 (3-14) % Eos % (Auto) 0.0 L (2-4) % Baso % (Auto) 0.6 (0-2) % Neut # (Auto) 52001 H (6149-4970) /uL PT (10.1-12.7) SECONDS INR (0.9-1.3) APTT (26.4-36.2) SECONDS ABG pH (7.35-7.45) ABG pCO2 (35-45) mmHg ABG pO2 (80-105) mmHg ABG HCO3 (23-27) mmol/L ABG Total CO2 (23-27) mmol/L ABG O2 Saturation (95-100) % ABG Base Excess (-2-3) mmol/L FiO2 Sodium 132 L (137-145) mmol/L Potassium 5.0 (3.4-5.1) mmol/L Chloride 97 L (98-107) mmol/L Carbon Dioxide 13 L (22-32) mmol/L BUN 35 H (7-17) mg/dL Creatinine 1.10 H (0.52-1.04) mg/dL Estimated GFR 49.7 L (>60) mL/min BUN/Creatinine Ratio 31.8 H (6-22) Glucose 595 H* (80-110) mg/dL Lactate (0.7-2.1) mmol/L Calcium 9.5 (8.4-10.2) mg/dL Total Bilirubin 0.9 (0.2-1.3) mg/dL AST 21 (14-36) IU/L ALT 17 (9-52) IU/L Alkaline Phosphatase 86 (38-126) U/L Total Creatine Kinase 196 H (30-135) U/L CK-MB (CK-2) 3.14 H (<2.37) ng/mL CK-MB (CK-2) Rel Index 1.6 (1.5-5.0) % Troponin I 0.050 H (0.01-0.034) ng/mL Total Protein 7.3 (6.3-8.2) g/dL Albumin 4.2 (3.5-5.0) g/dL Globulin 3.1 (1.7-4.1) g/dL Albumin/Globulin Ratio 1.4 (1.0-2.8) Procalcitonin 0.08 (<0.5) ng/mL Urine Color Urine Appearance Urine pH (4.5-8.0) Ur Specific [place] (1.000-1.035) Urine Protein (Negative) Urine Glucose (UA) (Normal) g/dL Urine Ketones (NEGATIVE) Urine Occult Blood (Negative) Urine Nitrate (Negative) Urine Bilirubin (NEGATIVE) Urine Urobilinogen (0.2) E.U./dL Ur Leukocyte Esterase (NEGATIVE) Urine RBC (0-5/HPF) Urine WBC (0-5/HPF) Amorphous Sediment Urine Bacteria (None) Ur Culture Indicated? Micro UA Comment Nasal Screen MRSA (PCR) (Negative) Urine Opiates Screen (Negative) Ur Oxycodone Screen (Negative) Urine Methadone Screen (Negative) Ur Barbiturates Screen (Negative) U Tricyclic Antidepress (Negative) Ur Phencyclidine Scrn (Negative) Ur Amphetamines Screen (Negative) U Methamphetamines Scrn (Negative) Ur MDMA Scrn (Ecstasy) (Negative) U Benzodiazepines Scrn (Negative) Urine Cocaine Screen (Negative) U Marijuana (THC) Screen (Negative) Ethyl Alcohol mg/dL Ketones 6.13 H (<0.27) mmol/L 11/28/17 11/28/17 11/28/17 Range/Units 20:35 20:35 20:35 WBC (4.5-11.0) X10^3/uL RBC (4.0-5.2) X10^6/uL Hgb (12.0-16.0) g/dL Hct (36-46) % MCV (80-100) fL MCH (26-34) PG MCHC (30-36) % RDW (11.6-14.8) % Plt Count (150-400) X10^3/uL Neut % (Auto) (50-75) % Lymph % (Auto) (25-40) % [place] % (Auto) (3-14) % Eos % (Auto) (2-4) % Baso % (Auto) (0-2) % Neut # (Auto) (0512-1948) /uL PT 12.1 (10.1-12.7) SECONDS INR 1.1 (0.9-1.3) APTT 27 D (26.4-36.2) SECONDS ABG pH (7.35-7.45) ABG pCO2 (35-45) mmHg ABG pO2 (80-105) mmHg ABG HCO3 (23-27) mmol/L ABG Total CO2 (23-27) mmol/L ABG O2 Saturation (95-100) % ABG Base Excess (-2-3) mmol/L FiO2 Sodium (137-145) mmol/L Potassium (3.4-5.1) mmol/L Chloride (98-107) mmol/L Carbon Dioxide (22-32) mmol/L BUN (7-17) mg/dL Creatinine (0.52-1.04) mg/dL Estimated GFR (>60) mL/min BUN/Creatinine Ratio (6-22) Glucose (80-110) mg/dL Lactate 3.0 H (0.7-2.1) mmol/L Calcium (8.4-10.2) mg/dL Total Bilirubin (0.2-1.3) mg/dL AST (14-36) IU/L ALT (9-52) IU/L Alkaline Phosphatase (38-126) U/L Total Creatine Kinase (30-135) U/L CK-MB (CK-2) (<2.37) ng/mL CK-MB (CK-2) Rel Index (1.5-5.0) % Troponin I (0.01-0.034) ng/mL Total Protein (6.3-8.2) g/dL Albumin (3.5-5.0) g/dL Globulin (1.7-4.1) g/dL Albumin/Globulin Ratio (1.0-2.8) Procalcitonin (<0.5) ng/mL Urine Color Urine Appearance Urine pH (4.5-8.0) Ur Specific [place] (1.000-1.035) Urine Protein (Negative) Urine Glucose (UA) (Normal) g/dL Urine Ketones (NEGATIVE) Urine Occult Blood (Negative) Urine Nitrate (Negative) Urine Bilirubin (NEGATIVE) Urine Urobilinogen (0.2) E.U./dL Ur Leukocyte Esterase (NEGATIVE) Urine RBC (0-5/HPF) Urine WBC (0-5/HPF) Amorphous Sediment Urine Bacteria (None) Ur Culture Indicated? Micro UA Comment Nasal Screen MRSA (PCR) (Negative) Urine Opiates Screen (Negative) Ur Oxycodone Screen (Negative) Urine Methadone Screen (Negative) Ur Barbiturates Screen (Negative) U Tricyclic Antidepress (Negative) Ur Phencyclidine Scrn (Negative) Ur Amphetamines Screen (Negative) U Methamphetamines Scrn (Negative) Ur MDMA Scrn (Ecstasy) (Negative) U Benzodiazepines Scrn (Negative) Urine Cocaine Screen (Negative) U Marijuana (THC) Screen (Negative) Ethyl Alcohol < 10 mg/dL Ketones (<0.27) mmol/L 11/28/17 11/29/17 11/29/17 Range/Units 22:45 00:25 01:00 WBC (4.5-11.0) X10^3/uL RBC (4.0-5.2) X10^6/uL Hgb (12.0-16.0) g/dL Hct (36-46) % MCV (80-100) fL MCH (26-34) PG MCHC (30-36) % RDW (11.6-14.8) % Plt Count (150-400) X10^3/uL Neut % (Auto) (50-75) % Lymph % (Auto) (25-40) % [place] % (Auto) (3-14) % Eos % (Auto) (2-4) % Baso % (Auto) (0-2) % Neut # (Auto) (1792-9112) /uL PT (10.1-12.7) SECONDS INR (0.9-1.3) APTT (26.4-36.2) SECONDS ABG pH 7.24 L* (7.35-7.45) ABG pCO2 32.0 L (35-45) mmHg ABG pO2 97 (80-105) mmHg ABG HCO3 14 L (23-27) mmol/L ABG Total CO2 15 L (23-27) mmol/L ABG O2 Saturation 96 (95-100) % ABG Base Excess -14.0 L (-2-3) mmol/L FiO2 40 Sodium (137-145) mmol/L Potassium (3.4-5.1) mmol/L Chloride (98-107) mmol/L Carbon Dioxide (22-32) mmol/L BUN (7-17) mg/dL Creatinine (0.52-1.04) mg/dL Estimated GFR (>60) mL/min BUN/Creatinine Ratio (6-22) Glucose (80-110) mg/dL Lactate 1.6 (0.7-2.1) mmol/L Calcium (8.4-10.2) mg/dL Total Bilirubin (0.2-1.3) mg/dL AST (14-36) IU/L ALT (9-52) IU/L Alkaline Phosphatase (38-126) U/L Total Creatine Kinase (30-135) U/L CK-MB (CK-2) (<2.37) ng/mL CK-MB (CK-2) Rel Index (1.5-5.0) % Troponin I (0.01-0.034) ng/mL Total Protein (6.3-8.2) g/dL Albumin (3.5-5.0) g/dL Globulin (1.7-4.1) g/dL Albumin/Globulin Ratio (1.0-2.8) Procalcitonin (<0.5) ng/mL Urine Color Urine Appearance Urine pH (4.5-8.0) Ur Specific [place] (1.000-1.035) Urine Protein (Negative) Urine Glucose (UA) (Normal) g/dL Urine Ketones (NEGATIVE) Urine Occult Blood (Negative) Urine Nitrate (Negative) Urine Bilirubin (NEGATIVE) Urine Urobilinogen (0.2) E.U./dL Ur Leukocyte Esterase (NEGATIVE) Urine RBC (0-5/HPF) Urine WBC (0-5/HPF) Amorphous Sediment Urine Bacteria (None) Ur Culture Indicated? Micro UA Comment Nasal Screen MRSA (PCR) Negative for mrsa (Negative) Urine Opiates Screen (Negative) Ur Oxycodone Screen (Negative) Urine Methadone Screen (Negative) Ur Barbiturates Screen (Negative) U Tricyclic Antidepress (Negative) Ur Phencyclidine Scrn (Negative) Ur Amphetamines Screen (Negative) U Methamphetamines Scrn (Negative) Ur MDMA Scrn (Ecstasy) (Negative) U Benzodiazepines Scrn (Negative) Urine Cocaine Screen (Negative) U Marijuana (THC) Screen (Negative) Ethyl Alcohol mg/dL Ketones (<0.27) mmol/L Imaging Data CT scan - head: Radiologist's impression: PROCEDURE: CT HEAD/BRAIN WO CON INDICATIONS: found down right josie neglect TECHNIQUE: Noncontrast 4.5 mm thick angled axial sections acquired from the foramen magnum to the vertex, with coronal and sagittal reformats. For radiation dose reduction, the following was used: automated exposure control, adjustment of mA and/or kV according to patient size. COMPARISON: None. FINDINGS: Image quality: Excellent. CSF spaces: Basal cisterns are patent. No extra-axial fluid collections. Ventricles are normal in size and shape. Brain: No midline shift. No intracranial masses or hemorrhage. Simmons-white matter interface is normal. Skull and face: Calvarium and visualized facial bones are intact, without suspicious lesions. Sinuses: Visualized sinuses and mastoids are clear. IMPRESSION: Normal for age, source of current symptoms is not seen. Dictated by: Giovanni Barahona M.D. on 11/28/2017 at 19:50 Chest x-ray: Attestation: I personally reviewed and interpreted this imaging study as follows: My impression: ETT noted in right mainstem Radiologist's impression: PROCEDURE: XR CHEST 1V INDICATIONS: intubated TECHNIQUE: One view of the chest was acquired. COMPARISON: [facility], , XR CHEST 2VW, 08/16/2015, 17:24. FINDINGS: Surgical changes and devices: Endotracheal tube appears in normal position. Lungs and pleura: No pleural effusions or pneumothorax. Lungs are abnormal with a generalized interstitial prominence and mild pulmonary edema. Mediastinum: Mediastinal contours appear normal. Heart size is normal. Bones and chest wall: No suspicious bony lesions. Overlying soft tissues appear unremarkable. IMPRESSION: Pulmonary edema pattern bilaterally, suspect retrocardiac left lower lobe mild atelectasis. Endotracheal tube in normal position. Dictated by: Giovanni Barahona M.D. on 11/28/2017 at 19:33 ECG Data Attestation: I personally reviewed and interpreted this ECG as follows: Prior ECG tracings: available for review Interpretation: Sinus tachycardia rate [address] changes Discharge Plan Departure Patient Disposition: Admitted As Inpatient Discharge Date/Time: 11/28/17 22:05 Interventions: ED Discharge Assessment Last Done: 11/28/17 22:05 Admit Date/Time: 11/28/17 21:58 Admit Provider: Tod Heath
[2017-11-29 05:25] LABS: Add Manual Diff / Slide Review NO; Basophils Percent Auto 0.4 % (0-2); Hematocrit 46.7 % (36-46); Lymphocytes Percent Auto 7.9 % (25-40); Mean Corpuscular HGB Conc 34.3 % (30-36); Mean Corpuscular Hemoglobin 34.7 PG (26-34); Mean Corpuscular Volume 101.2 fL (80-100); Neutrophils Absolute Auto 8800 /uL (3000-5900); Neutrophils Percent Auto 77.7 % (50-75); Platelet Count 228 X10^3/uL (150-400); Red Blood Cell Count 4.62 X10^6/uL (4.0-5.2); Red Cell Distribution Width 14.6 % (11.6-14.8); White Blood Cell Count 11.3 X10^3/uL (4.5-11.0)
[2017-11-29 05:37] LABS: Alanine Aminotransferase 19 IU/L (9-52); Albumin 3.6 g/dL (3.5-5.0); Albumin Globulin Ratio 1.1 (1.0-2.8); Alkaline Phosphatase 80 U/L (38-126); Aspartate Aminotransferase 22 IU/L (14-36); BUN Creatinine Ratio 37.5 (6-22); Bilirubin Total 0.7 mg/dL (0.2-1.3); Blood Urea Nitrogen 45 mg/dL (7-17); Calcium 9.7 mg/dL (8.4-10.2); Carbon Dioxide 18 mmol/L (22-32); Chloride 106 mmol/L (98-107); Estimated Glomerular Filt Rate 44.9 mL/min (>60); Globulin 3.2 g/dL (1.7-4.1); Glucose 330 mg/dL (80-110); HEMOLYSIS < 15 (0-50); Potassium 3.8 mmol/L (3.4-5.1); Sodium 136 mmol/L (137-145); Total Protein 6.8 g/dL (6.3-8.2)
[2017-11-29] MEDS: PROPOFOL 1,000 MG/100 ML VIAL 18.606 MG IV (06:14)
[2017-11-29 07:17] LABS: Magnesium 2.3 mg/dL (1.6-2.3)
[2017-11-29 07:30] LABS: Troponin I 0.109 ng/mL (0.01-0.034)
[2017-11-29] MEDS: ENOXAPARIN 40 MG/0.4 ML SYRINGE SUBCUT (08:33)
[2017-11-29] MEDS: FUROSEMIDE 20 MG/2 ML VIAL IV (08:33)
[2017-11-29] MEDS: PANTOPRAZOLE 40 MG VIAL IV (08:33)
[2017-11-29] MEDS: DEXTROSE 5%-0.45% NS 1,000 ML 125 ML IV (10:43)
[2017-11-29] MEDS: INSULIN REGULAR, HUMAN 100 UNIT in SODIUM CHLORIDE 0.9% 100 ML IV (13:02)
--- NOTE | 2017-11-29 14:38 | PC.NURSE ---
pt with cpap trial x 1.5 h and unable to maintain resp rate above 10, all propofol off since about 10am with no purposeful movement noted- occassional upward right gaze - family at [facility] and updated frequently, fay patent, iv insulin per current dka orders - copious amount of thick clear oral secretions and whitish from ett
--- NOTE | 2017-11-29 15:25 | CM.DANOTE ---
Patient is a 67 year old female who was admitted to ICU on 11/28/17 for DKA/Unresponsive. Pt has [facility] and [facility] for insurance and her PCP is Dr. Gayle Lassiter. EMR was reviewed. Per MD, pt still currently intubated on Vent and will try weaning trial today. Per RN, pt tolerated about an hour off vent but then had to be placed back on and has not had sedation since around 1000 today and pt is still nonresponsive. SW met bedside with pt, who could not participate in discussion, and pt's sister Nhung (Fiona) ([phone]) who lives in [place] and explained role. Fiona confirmed that the pt lives in [facility] alone but has supportive friends nearby and pt's brother lives in [facility] and 2 other sisters live in [place] and plan to fly out in the next day or two. Fiona is not aware if pt has completed DPOA pwk in the past but plans to be bedside with the pt while she is admitted and states that she can stay with the pt at discharge if needed. Pt seems to have been declining in health over the past few months with infections that are not healing and an incident about a month ago at the [facility] where she passed out for a little bit according to Fiona. Pt does not have a hx of HH or SNF and has been able to be Independent with ADL's at baseline with no need for caregivers and still drives. SW needs unclear at this time. Plan: SW to follow closely to determine d/c planning needs and bedside assessment with pt when more medically appropriate and responsive. 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 Is this patient on Medicare? Yes Is the admit diagnosis the same? Yes Prior Living Arrangements House Household Members none Type of transporation used prior to Drives own vehicle admit Independent with ADL's Yes Is patient alert and oriented? No: Intubated and nonresponsive Caregiver for Another No Comment Pt independent with ADL's at baseline. Comment Pt still intubated and d/c needs unclear at this time. Discharge Plan [facility] Transportation Arrangement Pt's sister fiona is bedside and plans to be available for d/c planning needs. Review Status In Process Next Review Type Discharge Review
--- NOTE | 2017-11-29 17:52 | P.PN_ITS ---
Subjective Interval history: There has been no new events no new problems since admission. The patient was admitted with DKA she is on insulin drip for this with improvement of her acidemia and her glucose Exam Vital Signs (past 8 hours): - 11/29/17 10:30 11/29/17 11:30 11/29/17 13:11 Temperature 97.5 F L Pulse Rate 97 H 101 H 105 H Respiratory Rate 19 20 Blood Pressure 97/51 L 110/55 L 105/55 L Pulse Oximetry 100 11/29/17 13:30 11/29/17 15:46 11/29/17 17:00 Temperature 97.8 F Pulse Rate 105 H 105 H 101 H Respiratory Rate 18 14 14 Blood Pressure 110/54 L 125/56 H 113/56 L Pulse Oximetry 100 99 99 Fraction of Inspired Oxygen 30 Oxygen Delivery Method Mechanical Ventilation Narrative Exam Narrative: General: Intubated and sedated HEENT normocephalic atraumatic extraocular movement was intact pupils equal round reactive funduscopic exam was not viewed oral pharynx not viewed because of being intubated Neck: Supple without thyromegaly bruits or jugular venous distention Lungs: Clear to auscultation Heart: Regular rhythm S1-S2 was normal renal issues rubs murmurs gallops present Abdomen: Benign bowel sounds active Extremities: No clubbing edema or cyanosis Neurologic: Grossly physiologic Psychiatric is stated above patient is sedated Objective Labs Result Diagrams: 11/29/17 04:30 11/29/17 04:30 Labs: Laboratory Results - last 24 hr 11/28/17 11/28/17 11/28/17 20:05 20:12 20:12 WBC RBC Hgb Hct MCV MCH MCHC RDW Plt Count Neut % (Auto) Lymph % (Auto) [place] % (Auto) Eos % (Auto) Baso % (Auto) Neut # (Auto) PT INR APTT ABG pH 7.22 L* ABG pCO2 29.2 L ABG pO2 127 H ABG HCO3 12 L ABG Total CO2 13 L ABG O2 Saturation 98 ABG Base Excess -16.0 L FiO2 50 Sodium Potassium Chloride Carbon Dioxide BUN Creatinine Estimated GFR BUN/Creatinine Ratio Glucose Lactate Calcium Magnesium Total Bilirubin AST ALT Alkaline Phosphatase Total Creatine Kinase CK-MB (CK-2) CK-MB (CK-2) Rel Index Troponin I B-Natriuretic Peptide Total Protein Albumin Globulin Albumin/Globulin Ratio Procalcitonin TSH Urine Color Yellow Urine Appearance Slightly cloudy Urine pH 5.0 Ur Specific [place] 1.020 Urine Protein 2+ H Urine Glucose (UA) 2+ Urine Ketones 3+ H Urine Occult Blood 2+ H Urine Nitrate Negative Urine Bilirubin Negative Urine Urobilinogen 0.2 Ur Leukocyte Esterase Negative Urine RBC None seen Urine WBC None seen Amorphous Sediment 1+ Urine Bacteria None seen Ur Culture Indicated? Cult not indicated Micro UA Comment Not Reportable Nasal Screen MRSA (PCR) Urine Opiates Screen Negative Ur Oxycodone Screen Negative Urine Methadone Screen Negative Ur Barbiturates Screen Negative U Tricyclic Antidepress Negative Ur Phencyclidine Scrn Negative Ur Amphetamines Screen Negative U Methamphetamines Scrn Negative Ur MDMA Scrn (Ecstasy) Negative U Benzodiazepines Scrn Negative Urine Cocaine Screen Negative U Marijuana (THC) Screen Negative Ethyl Alcohol Ketones 11/28/17 11/28/17 11/28/17 20:35 20:35 20:35 WBC 11.9 H RBC 4.95 Hgb 16.9 H Hct 51.4 H MCV 103.8 H MCH 34.1 H MCHC 32.8 RDW 14.8 Plt Count 239 Neut % (Auto) 87.5 H Lymph % (Auto) 3.4 L [place] % (Auto) 8.5 Eos % (Auto) 0.0 L Baso % (Auto) 0.6 Neut # (Auto) 18538 H PT INR APTT ABG pH ABG pCO2 ABG pO2 ABG HCO3 ABG Total CO2 ABG O2 Saturation ABG Base Excess FiO2 Sodium 132 L Potassium 5.0 Chloride 97 L Carbon Dioxide 13 L BUN 35 H Creatinine 1.10 H Estimated GFR 49.7 L BUN/Creatinine Ratio 31.8 H Glucose 595 H* Lactate Calcium 9.5 Magnesium Total Bilirubin 0.9 AST 21 ALT 17 Alkaline Phosphatase 86 Total Creatine Kinase 196 H CK-MB (CK-2) 3.14 H CK-MB (CK-2) Rel Index 1.6 Troponin I 0.050 H B-Natriuretic Peptide Total Protein 7.3 Albumin 4.2 Globulin 3.1 Albumin/Globulin Ratio 1.4 Procalcitonin 0.08 TSH Urine Color Urine Appearance Urine pH Ur Specific [place] Urine Protein Urine Glucose (UA) Urine Ketones Urine Occult Blood Urine Nitrate Urine Bilirubin Urine Urobilinogen Ur Leukocyte Esterase Urine RBC Urine WBC Amorphous Sediment Urine Bacteria Ur Culture Indicated? Micro UA Comment Nasal Screen MRSA (PCR) Urine Opiates Screen Ur Oxycodone Screen Urine Methadone Screen Ur Barbiturates Screen U Tricyclic Antidepress Ur Phencyclidine Scrn Ur Amphetamines Screen U Methamphetamines Scrn Ur MDMA Scrn (Ecstasy) U Benzodiazepines Scrn Urine Cocaine Screen U Marijuana (THC) Screen Ethyl Alcohol Ketones 6.13 H 11/28/17 11/28/17 11/28/17 20:35 20:35 20:35 WBC RBC Hgb Hct MCV MCH MCHC RDW Plt Count Neut % (Auto) Lymph % (Auto) [place] % (Auto) Eos % (Auto) Baso % (Auto) Neut # (Auto) PT 12.1 INR 1.1 APTT 27 D ABG pH ABG pCO2 ABG pO2 ABG HCO3 ABG Total CO2 ABG O2 Saturation ABG Base Excess FiO2 Sodium Potassium Chloride Carbon Dioxide BUN Creatinine Estimated GFR BUN/Creatinine Ratio Glucose Lactate 3.0 H Calcium Magnesium Total Bilirubin AST ALT Alkaline Phosphatase Total Creatine Kinase CK-MB (CK-2) CK-MB (CK-2) Rel Index Troponin I B-Natriuretic Peptide Total Protein Albumin Globulin Albumin/Globulin Ratio Procalcitonin TSH Urine Color Urine Appearance Urine pH Ur Specific [place] Urine Protein Urine Glucose (UA) Urine Ketones Urine Occult Blood Urine Nitrate Urine Bilirubin Urine Urobilinogen Ur Leukocyte Esterase Urine RBC Urine WBC Amorphous Sediment Urine Bacteria Ur Culture Indicated? Micro UA Comment Nasal Screen MRSA (PCR) Urine Opiates Screen Ur Oxycodone Screen Urine Methadone Screen Ur Barbiturates Screen U Tricyclic Antidepress Ur Phencyclidine Scrn Ur Amphetamines Screen U Methamphetamines Scrn Ur MDMA Scrn (Ecstasy) U Benzodiazepines Scrn Urine Cocaine Screen U Marijuana (THC) Screen Ethyl Alcohol < 10 Ketones 11/28/17 11/29/17 11/29/17 22:45 00:25 01:00 WBC RBC Hgb Hct MCV MCH MCHC RDW Plt Count Neut % (Auto) Lymph % (Auto) [place] % (Auto) Eos % (Auto) Baso % (Auto) Neut # (Auto) PT INR APTT ABG pH 7.24 L* ABG pCO2 32.0 L ABG pO2 97 ABG HCO3 14 L ABG Total CO2 15 L ABG O2 Saturation 96 ABG Base Excess -14.0 L FiO2 40 Sodium Potassium Chloride Carbon Dioxide BUN Creatinine Estimated GFR BUN/Creatinine Ratio Glucose Lactate 1.6 Calcium Magnesium Total Bilirubin AST ALT Alkaline Phosphatase Total Creatine Kinase CK-MB (CK-2) CK-MB (CK-2) Rel Index Troponin I B-Natriuretic Peptide Total Protein Albumin Globulin Albumin/Globulin Ratio Procalcitonin TSH Urine Color Urine Appearance Urine pH Ur Specific [place] Urine Protein Urine Glucose (UA) Urine Ketones Urine Occult Blood Urine Nitrate Urine Bilirubin Urine Urobilinogen Ur Leukocyte Esterase Urine RBC Urine WBC Amorphous Sediment Urine Bacteria Ur Culture Indicated? Micro UA Comment Nasal Screen MRSA (PCR) Negative for mrsa Urine Opiates Screen Ur Oxycodone Screen Urine Methadone Screen Ur Barbiturates Screen U Tricyclic Antidepress Ur Phencyclidine Scrn Ur Amphetamines Screen U Methamphetamines Scrn Ur MDMA Scrn (Ecstasy) U Benzodiazepines Scrn Urine Cocaine Screen U Marijuana (THC) Screen Ethyl Alcohol Ketones 11/29/17 11/29/17 11/29/17 04:30 04:30 04:30 WBC 11.3 H RBC 4.62 Hgb 16.0 Hct 46.7 H MCV 101.2 H MCH 34.7 H MCHC 34.3 RDW 14.6 Plt Count 228 Neut % (Auto) 77.7 H Lymph % (Auto) 7.9 L [place] % (Auto) 14.0 Eos % (Auto) 0.0 L Baso % (Auto) 0.4 Neut # (Auto) 8800 H PT INR APTT ABG pH ABG pCO2 ABG pO2 ABG HCO3 ABG Total CO2 ABG O2 Saturation ABG Base Excess FiO2 Sodium 136 L Potassium 3.8 D Chloride 106 Carbon Dioxide 18 L BUN 45 H Creatinine 1.20 H Estimated GFR 44.9 L BUN/Creatinine Ratio 37.5 H Glucose 330 H D Lactate Calcium 9.7 Magnesium 2.3 Total Bilirubin 0.7 AST 22 ALT 19 Alkaline Phosphatase 80 Total Creatine Kinase CK-MB (CK-2) CK-MB (CK-2) Rel Index Troponin I 0.109 H B-Natriuretic Peptide Total Protein 6.8 Albumin 3.6 Globulin 3.2 Albumin/Globulin Ratio 1.1 Procalcitonin TSH Urine Color Urine Appearance Urine pH Ur Specific [place] Urine Protein Urine Glucose (UA) Urine Ketones Urine Occult Blood Urine Nitrate Urine Bilirubin Urine Urobilinogen Ur Leukocyte Esterase Urine RBC Urine WBC Amorphous Sediment Urine Bacteria Ur Culture Indicated? Micro UA Comment Nasal Screen MRSA (PCR) Urine Opiates Screen Ur Oxycodone Screen Urine Methadone Screen Ur Barbiturates Screen U Tricyclic Antidepress Ur Phencyclidine Scrn Ur Amphetamines Screen U Methamphetamines Scrn Ur MDMA Scrn (Ecstasy) U Benzodiazepines Scrn Urine Cocaine Screen U Marijuana (THC) Screen Ethyl Alcohol Ketones 11/29/17 11/29/17 11/29/17 04:30 04:30 12:50 WBC RBC Hgb Hct MCV MCH MCHC RDW Plt Count Neut % (Auto) Lymph % (Auto) [place] % (Auto) Eos % (Auto) Baso % (Auto) Neut # (Auto) PT INR APTT ABG pH ABG pCO2 ABG pO2 ABG HCO3 ABG Total CO2 ABG O2 Saturation ABG Base Excess FiO2 Sodium Potassium Chloride Carbon Dioxide BUN Creatinine Estimated GFR BUN/Creatinine Ratio Glucose Lactate Calcium Magnesium Total Bilirubin AST ALT Alkaline Phosphatase Total Creatine Kinase CK-MB (CK-2) CK-MB (CK-2) Rel Index Troponin I 0.080 H B-Natriuretic Peptide 200.0 H Total Protein Albumin Globulin Albumin/Globulin Ratio Procalcitonin TSH 1.40 Urine Color Urine Appearance Urine pH Ur Specific [place] Urine Protein Urine Glucose (UA) Urine Ketones Urine Occult Blood Urine Nitrate Urine Bilirubin Urine Urobilinogen Ur Leukocyte Esterase Urine RBC Urine WBC Amorphous Sediment Urine Bacteria Ur Culture Indicated? Micro UA Comment Nasal Screen MRSA (PCR) Urine Opiates Screen Ur Oxycodone Screen Urine Methadone Screen Ur Barbiturates Screen U Tricyclic Antidepress Ur Phencyclidine Scrn Ur Amphetamines Screen U Methamphetamines Scrn Ur MDMA Scrn (Ecstasy) U Benzodiazepines Scrn Urine Cocaine Screen U Marijuana (THC) Screen Ethyl Alcohol Ketones Assessment & Plan Plan: Assessment/Plan Narrative: 1. DKA Her glucoses are now better controlled and 218, 295, 198, 198, 209 Her acidemia as an improved with her C02 18. Will continue to follow her Chem panel to follow her CO2 2.. ACUTE RENAL INSUFFICIENCY THIS IS SECONDARY TO HER DKA. WILL CONTINUE FLUID RESUSCITATION WILL CONTINUE SERIAL BMPS 3. VENT DEPENDENT RESPIRATORY FAILURE PATIENT WILL BE ON WEANING TRIALS TODAY AND HOPEFULLY SHE WILL BE ABLE TO BE EXTUBATED Quality VTE Deep Vein Thrombosis/Pulmonary Embolism Present on Admission: No
[2017-11-29] MEDS: PROPOFOL 1,000 MG/100 ML VIAL 10.632 MG IV (19:02)
[2017-11-30] VITALS (38 sets, daily range): BP systolic 99–159; BP diastolic 47–100; PULSE 74–136; RESP 14–26; TEMP 35.8–37.2; O2SAT 86–100; BMI 34.5
--- NOTE | 2017-11-30 | DI.RAD.S_ITS ---
PROCEDURE: XR CHEST 1V INDICATIONS: intubated TECHNIQUE: One view of the chest was acquired. COMPARISON: [facility], CR, XR CHEST 1V, 11/30/2017, 0:12. [facility], CR, XR CHEST 1V, 11/29/2017, 5:41. [facility], CR, XR CHEST 1V, 11/28/2017, 19:23. FINDINGS: Surgical changes and devices: Endotracheal tube in normal position, and the esophagogastric tube is no longer seen. Lungs and pleura: No pleural effusions or pneumothorax. Lungs are mildly edematous. Mediastinum: Mediastinal contours appear normal. Heart size is normal. Bones and chest wall: No suspicious bony lesions. Overlying soft tissues appear unremarkable. IMPRESSION: Mild generalized pulmonary edema, endotracheal tube in normal position. Dictated by: Giovanni Barahona M.D. on 11/30/2017 at 12:06 Approved by: Giovanni Barahona M.D. on 11/30/2017 at 12:14
--- NOTE | 2017-11-30 | DI.RAD.S_ITS ---
PROCEDURE: XR CHEST 1V INDICATIONS: vent TECHNIQUE: One view of the chest was acquired. COMPARISON: [facility], CT, THORAX WITHOUT CONTRAST, 05/21/2016, 10:32. [facility], CR, XR CHEST 1V, 11/29/2017, 5:41. [facility], CR, XR CHEST 1V, 11/28/2017, 19:23. FINDINGS: Surgical changes and devices: Endotracheal tube in normal position, nasogastric tube side port extends below the EG junction. Lungs and pleura: No pleural effusions or pneumothorax. Lungs are mildly edematous and the inspiratory volume is reduced. The edema pattern is mildly improved. Mediastinum: Mediastinal contours appear normal. Heart size is normal. Bones and chest wall: No suspicious bony lesions. Overlying soft tissues appear unremarkable. IMPRESSION: A definite source of respiratory insufficiency is not found. Endotracheal and nasogastric tubes appear in normal position. Mild generalized pulmonary edema pattern. Mild improvement from recent chest length films. Dictated by: Giovanni Barahona M.D. on 11/30/2017 at 9:34 Approved by: Giovanni Barahona M.D. on 11/30/2017 at 9:35
[2017-11-30] MEDS: ENALAPRILAT 1.25 MG/ML VIAL 0.625 MG IV ×3 (00:01→14:37)
[2017-11-30] MEDS: SODIUM CHLORIDE 0.9% 1,000 ML 150 ML IV ×2 (02:29→20:19)
[2017-11-30] MEDS: PROPOFOL 1,000 MG/100 ML VIAL 15.948 MG IV ×3 (02:29→21:54)
[2017-11-30 05:40] LABS: Add Manual Diff / Slide Review NO; Basophils Percent Auto 0.2 % (0-2); Eosinophils Percent Auto 0.1 % (2-4); Hematocrit 44.8 % (36-46); Lymphocytes Percent Auto 10.4 % (25-40); Mean Corpuscular HGB Conc 33.4 % (30-36); Mean Corpuscular Volume 101.8 fL (80-100); Monocytes Percent Auto 12.3 % (3-14); Neutrophils Absolute Auto 8900 /uL (3000-5900); Platelet Count 169 X10^3/uL (150-400); Red Cell Distribution Width 14.6 % (11.6-14.8); White Blood Cell Count 11.6 X10^3/uL (4.5-11.0)
[2017-11-30 05:52] LABS: Alanine Aminotransferase 33 IU/L (9-52); Albumin 3.1 g/dL (3.5-5.0); Albumin Globulin Ratio 1.1 (1.0-2.8); Alkaline Phosphatase 69 U/L (38-126); Aspartate Aminotransferase 95 IU/L (14-36); BUN Creatinine Ratio 45.7 (6-22); Bilirubin Total 0.6 mg/dL (0.2-1.3); Blood Urea Nitrogen 32 mg/dL (7-17); Calcium 9.2 mg/dL (8.4-10.2); Carbon Dioxide 22 mmol/L (22-32); Chloride 112 mmol/L (98-107); Estimated Glomerular Filt Rate > 60.0 mL/min (>60); Globulin 2.9 g/dL (1.7-4.1); Glucose 205 mg/dL (80-110); HEMOLYSIS 16 (0-50); Magnesium 2.4 mg/dL (1.6-2.3); Potassium 3.3 mmol/L (3.4-5.1); Sodium 143 mmol/L (137-145)
[2017-11-30] MEDS: PANTOPRAZOLE 40 MG VIAL IV (09:34)
[2017-11-30] MEDS: FUROSEMIDE 20 MG/2 ML VIAL IV (09:34)
[2017-11-30] MEDS: ENOXAPARIN 40 MG/0.4 ML SYRINGE SUBCUT (09:34)
[2017-11-30] MEDS: ALBUTEROL/IPRATROPIUM 3 ML AMPUL INH (10:30)
[2017-11-30] MEDS: RACEPINEPHRINE 0.5 ML NEB INH ×2 (10:35→10:37)
[2017-11-30] MEDS: methylPREDNISolone 125 MG/2 ML VIAL 60 MG IV ×2 (10:45→18:02)
[2017-11-30] MEDS: POTASSIUM CHLORIDE 40 MEQ in SODIUM CHLORIDE 0.9% 500 ML 130 ML IV (12:42)
[2017-11-30 13:08] LABS: Oxygen Saturation ABG 88 % (95-100); PCO2 ABG 34.1 mmHg (35-45); PO2 ABG 57 mmHg (80-105); pH ABG 7.35 (7.35-7.45)
[2017-11-30 13:09] LABS: Fractionated Inspired Oxygen 30
--- NOTE | 2017-11-30 13:23 | PC.NURSE ---
PT EXTUBATED FOLLOWING WEANING PROTOCOLS AND ORDERS RECEIVED ( CPAP TRIAL LASTING 2 HOURS) POST EXTUBATION PT BECAME STRIDOROUS AND BEGAN TO DESAT , - REQUIIRED RESPIRATORY TO ASSIST VENTILATION BY BAGGING PT AND BRINGING SATURATIONS BACK UP TO AN ACCEPTABLE LEVEL- REINTUBATED BY ER MD, AND RESITUATED ON VENTILATOR, RESTRAINTS REAPPLIED AND PROPOFOL RESTARTED TO ALLOW FOR EASE OF VENTILATION- UPDATE TO FAMILY, STEROIDS INITIATED AND INSULIN GTT CONTINUES
[2017-11-30] MEDS: PROPOFOL 1,000 MG/100 ML VIAL 21.264 MG IV (14:38)
[2017-11-30] MEDS: INSULIN REGULAR, HUMAN 100 UNIT in SODIUM CHLORIDE 0.9% 100 ML IV (15:06)
[2017-11-30] MEDS: PROPOFOL 1,000 MG/100 ML VIAL 26.58 MG IV (17:54)
--- NOTE | 2017-11-30 19:51 | PC.NURSE ---
Addendum entered by Soledad Elizabeth R.N. 11/30/17 23:23: Pt has bilateral soft wrist restraints. pt turned and restraints checked every 1-2 hours. Original Note: Addendum entered by Soledad Elizabeth R.N. 11/30/17 22:04: pt initially restless, wakeful. IV tubing connection to IV was loose, leaking. Had to increase propofol to 50 mcg to get pt sedated again. Right AC IV patent, flushes, but is positional. When pt moves arm, IV occludes. New IV started in left forearm. Took 5 tries between 2 RNs to get new IV. RT titrated FiO2 down to 35%. vent set at 14 bpm, pt breathing 15-16 after sedated. Pt is frequently sweaty. Full bath given. Oral care done with each repositioning and also by RT. Original Note: hari kenny
--- NOTE | 2017-11-30 20:47 | PM.PN.1 ---
Subjective Interval history: This morning the patient had gone through weaning trial and did well. It was felt that she was stable and could be extubated. She was extubated. Post extubation she developed expiratory stridor. She was treated with racemic epinephrine and despite this her respiratory status remained poor and she required re-intubation. Exam Vital Signs (past 8 hours): - 11/30/17 13:09 11/30/17 14:17 11/30/17 14:18 Temperature Pulse Rate 101 H 98 H Respiratory Rate 19 19 17 Blood Pressure 145/65 H 146/64 H Pulse Oximetry 98 99 95 11/30/17 16:30 11/30/17 18:00 11/30/17 18:15 Temperature 97.7 F 98.5 F Pulse Rate 103 H 96 H 88 Respiratory Rate 15 19 Blood Pressure 144/62 H 151/77 H 151/77 H Pulse Oximetry 100 98 11/30/17 19:00 11/30/17 20:00 Temperature 97.1 F L 96.5 F L Pulse Rate 87 77 Respiratory Rate 16 15 Blood Pressure 132/65 H 121/56 H Pulse Oximetry 99 99 Fraction of Inspired Oxygen 0.40 Oxygen Delivery Method Aerosol Mask Oxygen Flow Rate 3 Narrative Exam Narrative: General: Intubated and sedated HEENT normocephalic atraumatic extraocular movement was intact pupils equal round reactive funduscopic exam was not viewed oral pharynx not viewed because of being intubated Neck: Supple without thyromegaly bruits or jugular venous distention Lungs: Clear to auscultation Heart: Regular rhythm S1-S2 was normal renal issues rubs murmurs gallops present Abdomen: Benign bowel sounds active Extremities: The left leg is warm to touch but there is no erythema induration fluctuance noted. There is a healed wound of the medial left lower extremity. Neurologic: Grossly physiologic Psychiatric is stated above patient is sedated Objective Labs Result Diagrams: 11/30/17 04:38 11/30/17 04:38 Labs: Laboratory Results - last 24 hr 11/30/17 11/30/17 11/30/17 04:38 04:38 12:48 WBC 11.6 H RBC 4.40 Hgb 15.0 Hct 44.8 MCV 101.8 H MCH 34.0 MCHC 33.4 RDW 14.6 Plt Count 169 Neut % (Auto) 77.0 H Lymph % (Auto) 10.4 L [place] % (Auto) 12.3 Eos % (Auto) 0.1 L Baso % (Auto) 0.2 Neut # (Auto) 8900 H ABG pH 7.35 ABG pCO2 34.1 L ABG pO2 57 L ABG HCO3 -7 L ABG Total CO2 19 L ABG O2 Saturation 88 L ABG Base Excess 20.0 H FiO2 30 Sodium 143 Potassium 3.3 L Chloride 112 H Carbon Dioxide 22 BUN 32 H Creatinine 0.70 Estimated GFR > 60.0 BUN/Creatinine Ratio 45.7 H Glucose 205 H D Calcium 9.2 Magnesium 2.4 H Total Bilirubin 0.6 AST 95 H ALT 33 Alkaline Phosphatase 69 Total Protein 6.0 L Albumin 3.1 L Globulin 2.9 Albumin/Globulin Ratio 1.1 Assessment & Plan Plan: Assessment/Plan Narrative: 1. DKA This has resolved. Her CO2 is now 22. Her glucoses are now better controlled and 177, 183, 1, 153 She will remain on her insulin infusion. The patient is on steroids for her inflammatory process leading to her stridor and her glycemic control will worsen slightly. But she is on insulin infusion 2.. ACUTE RENAL INSUFFICIENCY This was secondary to her DKA. With fluid resuscitation her creatinine has normalized and is 0 0.70 today she still has some mild intravascular volume depletion as her BUN is still mildly elevated at 32. Will continue her IV fluid resuscitation WILL CONTINUE SERIAL BMPS 3. VENT DEPENDENT RESPIRATORY FAILURE She still requires vent support. As mentioned in subjective above weaning trial was successful however postextubation patient developed expiratory stridor and despite treatment continued to have poor pulmonary function and required re-intubation To hopefully prevent a future problem with post extubation expiratory stridor the patient is on intravenous steroids Quality VTE Deep Vein Thrombosis/Pulmonary Embolism Present on Admission: No
[2017-11-30 21:11] LABS: HCO3 ABG 19 mmol/L (23-27)
[2017-11-30 21:12] LABS: TCO2 ABG 20 mmol/L (23-27)
[2017-12-01] VITALS (29 sets, daily range): BP systolic 120–165; BP diastolic 48–80; PULSE 67–97; RESP 0–27; TEMP 36.1–36.9; O2SAT 90–100
--- NOTE | 2017-12-01 | DI.RAD.S_ITS ---
PROCEDURE: XR CHEST 1V INDICATIONS: vent TECHNIQUE: One view of the chest was acquired. COMPARISON: [facility], CR, XR CHEST 1V, 11/30/2017, 11:06. FINDINGS: Surgical changes and devices: Endotracheal tube is present with tip 4.4 cm above the sabas. Lungs and pleura: No pleural effusions or pneumothorax. Minimal atelectasis at the left base medially. interval resolution of mild pulmonary edema on prior study.. Mediastinum: Mediastinal contours appear normal. Heart size is normal. Aortic calcifications. Bones and chest wall: No suspicious bony lesions. Overlying soft tissues appear unremarkable. IMPRESSION: 1. Mild left lower lobe atelectasis otherwise lung is clear. 2. Endotracheal tube in expected location. Dictated by: Zach Oliveira M.D. on 12/01/2017 at 8:25 Approved by: Zach Oliveira M.D. on 12/01/2017 at 8:26
[2017-12-01] MEDS: methylPREDNISolone 125 MG/2 ML VIAL 60 MG IV ×4 (00:15→18:01)
[2017-12-01] MEDS: ENALAPRILAT 1.25 MG/ML VIAL 0.625 MG IV ×4 (00:20→18:03)
[2017-12-01] MEDS: PROPOFOL 1,000 MG/100 ML VIAL 18.606 MG IV (02:59)
[2017-12-01] MEDS: SODIUM CHLORIDE 0.9% 1,000 ML 150 ML IV (03:46)
[2017-12-01 05:51] LABS: Add Manual Diff / Slide Review NO; Basophils Percent Auto 0.1 % (0-2); Hematocrit 44.9 % (36-46); Hemoglobin 14.9 g/dL (12.0-16.0); Mean Corpuscular HGB Conc 33.2 % (30-36); Mean Corpuscular Hemoglobin 33.8 PG (26-34); Mean Corpuscular Volume 101.6 fL (80-100); Monocytes Percent Auto 4.4 % (3-14); Neutrophils Absolute Auto 10300 /uL (3000-5900); Neutrophils Percent Auto 89.5 % (50-75); Platelet Count 158 X10^3/uL (150-400); Red Blood Cell Count 4.42 X10^6/uL (4.0-5.2); Red Cell Distribution Width 15.1 % (11.6-14.8); White Blood Cell Count 11.5 X10^3/uL (4.5-11.0)
[2017-12-01 06:04] LABS: Alanine Aminotransferase 34 IU/L (9-52); Albumin 3.2 g/dL (3.5-5.0); Alkaline Phosphatase 68 U/L (38-126); Aspartate Aminotransferase 79 IU/L (14-36); BUN Creatinine Ratio 46.7 (6-22); Bilirubin Total 0.4 mg/dL (0.2-1.3); Blood Urea Nitrogen 28 mg/dL (7-17); Calcium 9.4 mg/dL (8.4-10.2); Carbon Dioxide 24 mmol/L (22-32); Chloride 115 mmol/L (98-107); Estimated Glomerular Filt Rate > 60.0 mL/min (>60); Globulin 3.1 g/dL (1.7-4.1); Glucose 215 mg/dL (80-110); HEMOLYSIS 19 (0-50); Potassium 3.6 mmol/L (3.4-5.1); Sodium 148 mmol/L (137-145); Total Protein 6.3 g/dL (6.3-8.2)
--- NOTE | 2017-12-01 09:17 | PM.PN.1 ---
Subjective Date Patient Seen: 12/01/17 Time Patient Seen: 09:18 Interval history: Events reviewed. Patient seen and examined. Patient is intubated. She is unable to provide any verbal history. Exam Vital Signs (past 8 hours): - 12/01/17 02:00 12/01/17 04:00 12/01/17 06:00 Temperature 96.9 F L Pulse Rate 75 78 68 Respiratory Rate 16 17 14 Blood Pressure 151/55 H 162/78 H 120/55 L Pulse Oximetry 98 99 100 12/01/17 06:21 12/01/17 07:17 12/01/17 08:00 Temperature 97.3 F L Pulse Rate 71 71 75 Respiratory Rate 11 L Blood Pressure 120/55 L 145/77 H 154/74 H Pulse Oximetry 100 12/01/17 08:45 Temperature Pulse Rate Respiratory Rate Blood Pressure Pulse Oximetry 98 Fraction of Inspired Oxygen 35 Oxygen Delivery Method Mechanical Ventilation Oxygen Flow Rate 3 Narrative Exam Narrative: HEENT: Normocephalic atraumatic, extraocular muscles are intact, patient is intubated Lungs: Decreased but clear to auscultation CV: Regular rate rhythm normal S1 and S2 Abdomen: Soft nontender nondistended Extremities: No edema, left lower extremity with a 2 x 4 cm open ulcer. Objective Labs Result Diagrams: 12/01/17 04:47 12/01/17 04:47 Labs: Laboratory Results - last 24 hr 11/30/17 12/01/17 12/01/17 12:48 04:47 04:47 WBC 11.5 H RBC 4.42 Hgb 14.9 Hct 44.9 MCV 101.6 H MCH 33.8 MCHC 33.2 RDW 15.1 H Plt Count 158 Neut % (Auto) 89.5 H Lymph % (Auto) 6.[address] [place] % (Auto) 4.4 Eos % (Auto) 0.0 L Baso % (Auto) 0.1 Neut # (Auto) 80403 H ABG pH 7.35 ABG pCO2 34.1 L ABG pO2 57 L ABG HCO3 19 L ABG Total CO2 20 L ABG O2 Saturation 88 L ABG Base Excess -7.0 L FiO2 30 Sodium 148 H Potassium 3.6 Chloride 115 H Carbon Dioxide 24 BUN 28 H Creatinine 0.60 Estimated GFR > 60.0 BUN/Creatinine Ratio 46.7 H Glucose 215 H Calcium 9.4 Total Bilirubin 0.4 AST 79 H ALT 34 Alkaline Phosphatase 68 Total Protein 6.3 Albumin 3.2 L Globulin 3.1 Albumin/Globulin Ratio 1.0 Assessment & Plan Plan: Assessment/Plan Narrative: Diabetic ketoacidosis improved Respiratory failure currently intubated, plan today is for breathing trial and extubation Type 2 diabetes improved Hypernatremia will replace with D5W and labs in the morning Quality VTE Deep Vein Thrombosis/Pulmonary Embolism Present on Admission: No
--- NOTE | 2017-12-01 09:21 | P.PN_ITS ---
Subjective Date Patient Seen: 12/01/17 Time Patient Seen: 09:18 Interval history: Events reviewed. Patient seen and examined. Patient is intubated. She is unable to provide any verbal history. Exam Vital Signs (past 8 hours): - 12/01/17 02:00 12/01/17 04:00 12/01/17 06:00 Temperature 96.9 F L Pulse Rate 75 78 68 Respiratory Rate 16 17 14 Blood Pressure 151/55 H 162/78 H 120/55 L Pulse Oximetry 98 99 100 12/01/17 06:21 12/01/17 07:17 12/01/17 08:00 Temperature 97.3 F L Pulse Rate 71 71 75 Respiratory Rate 11 L Blood Pressure 120/55 L 145/77 H 154/74 H Pulse Oximetry 100 12/01/17 08:45 Temperature Pulse Rate Respiratory Rate Blood Pressure Pulse Oximetry 98 Fraction of Inspired Oxygen 35 Oxygen Delivery Method Mechanical Ventilation Oxygen Flow Rate 3 Narrative Exam Narrative: HEENT: Normocephalic atraumatic, extraocular muscles are intact , patient is intubated Lungs: Decreased but clear to auscultation CV: Regular rate rhythm normal S1 and S2 Abdomen: Soft nontender nondistended Extremities: No edema, left lower extremity with a 2 x 4 cm open ulcer. Objective Labs Result Diagrams: 12/01/17 04:47 12/01/17 04:47 Labs: Laboratory Results - last 24 hr 11/30/17 12/01/17 12/01/17 12:48 04:47 04:47 WBC 11.5 H RBC 4.42 Hgb 14.9 Hct 44.9 MCV 101.6 H MCH 33.8 MCHC 33.2 RDW 15.1 H Plt Count 158 Neut % (Auto) 89.5 H Lymph % (Auto) 6.0 L [place] % (Auto) 4.4 Eos % (Auto) 0.0 L Baso % (Auto) 0.1 Neut # (Auto) 71500 H ABG pH 7.35 ABG pCO2 34.1 L ABG pO2 57 L ABG HCO3 19 L ABG Total CO2 20 L ABG O2 Saturation 88 L ABG Base Excess -7.0 L FiO2 30 Sodium 148 H Potassium 3.6 Chloride 115 H Carbon Dioxide 24 BUN 28 H Creatinine 0.60 Estimated GFR > 60.0 BUN/Creatinine Ratio 46.7 H Glucose 215 H Calcium 9.4 Total Bilirubin 0.4 AST 79 H ALT 34 Alkaline Phosphatase 68 Total Protein 6.3 Albumin 3.2 L Globulin 3.1 Albumin/Globulin Ratio 1.0 Assessment & Plan Plan: Assessment/Plan Narrative: Diabetic ketoacidosis improved Respiratory failure currently intubated, plan today is for breathing trial and extubation Type 2 diabetes improved Hypernatremia will replace with D5W and labs in the morning Quality VTE Deep Vein Thrombosis/Pulmonary Embolism Present on Admission: No
[2017-12-01] MEDS: ENOXAPARIN 40 MG/0.4 ML SYRINGE SUBCUT (10:09)
[2017-12-01] MEDS: PANTOPRAZOLE 40 MG VIAL IV (10:10)
[2017-12-01] MEDS: FUROSEMIDE 20 MG/2 ML VIAL IV (10:16)
[2017-12-01] MEDS: PROPOFOL 1,000 MG/100 ML VIAL 7.974 MG IV (10:27)
[2017-12-01] MEDS: RACEPINEPHRINE 0.5 ML NEB INH ×4 (11:54→21:35)
--- NOTE | 2017-12-01 12:57 | PC.NURSE ---
PT EXTUBATED TO 3L NC AT 1120- WHISPER VOICE, MOIST HARSH STRONG PRODUCTIVE COUGH- INSTRUCTED ON SELF USE OF YANKAUR TO ASSIST WITH SECRETIONS, LUNGS COARSE BILAT, INSULIN GTT CONTINUES - MONITORING BLOOD GLUCOSE Q 2 H, WILL ATTEMPT NURSING SWALLOW STUDY PT RECUPERATES FROM EXTUBATION- SHE DID REQUIRE RACEMIC INHALANT X 1 FROM RESP THERAPY.
[2017-12-01] MEDS: SODIUM CHLORIDE 0.9% 1,000 ML 50 ML IV (14:13)
--- NOTE | 2017-12-01 16:55 | PC.NURSE ---
Addendum entered by Soledad Elizabeth R.N. 12/01/17 23:10: pt weaned to room air with sats 94% while awake. When pt fell asleep, sats dropped to 86%. O2 added at 2 L/min via high flow nasal cannula with humidity. sats now up to 94%. Original Note: Addendum entered by Soledad Elizabeth R.N. 12/01/17 20:28: Sat pt at edge of bed. Pt tends to lean backwards and slightly right. 2 person assist with FWW to stand up. Pt was leaning backwards, unable to keep weight over her heels. Sat back down and positioned in bed to partial chair position. Bed alarm on. Original Note: hari note Pt asked for water. Gave pt a teaspoon of cold water via spoon. pt immediately coughed and choked. Made pt NPO and ordered speech therapy consult.
[2017-12-01] MEDS: INSULIN REGULAR, HUMAN 100 UNIT in SODIUM CHLORIDE 0.9% 100 ML IV (19:58)
[2017-12-02] VITALS (19 sets, daily range): BP systolic 133–180; BP diastolic 48–80; PULSE 77–100; RESP 15–20; TEMP 36.1–37.1; O2SAT 87–100
[2017-12-02] MEDS: methylPREDNISolone 125 MG/2 ML VIAL 60 MG IV ×3 (00:01→11:54)
[2017-12-02] MEDS: ENALAPRILAT 1.25 MG/ML VIAL 0.625 MG IV ×4 (00:03→17:40)
[2017-12-02] MEDS: RACEPINEPHRINE 0.5 ML NEB INH ×3 (00:51→14:19)
[2017-12-02 05:43] LABS: Add Manual Diff / Slide Review NO; Basophils Percent Auto 0.2 % (0-2); Hematocrit 45.2 % (36-46); Hemoglobin 15.2 g/dL (12.0-16.0); Lymphocytes Percent Auto 3.7 % (25-40); Mean Corpuscular HGB Conc 33.6 % (30-36); Mean Corpuscular Hemoglobin 34.2 PG (26-34); Mean Corpuscular Volume 101.7 fL (80-100); Monocytes Percent Auto 4.7 % (3-14); Neutrophils Absolute Auto 9800 /uL (3000-5900); Neutrophils Percent Auto 91.4 % (50-75); Platelet Count 169 X10^3/uL (150-400); Red Blood Cell Count 4.44 X10^6/uL (4.0-5.2); Red Cell Distribution Width 15.1 % (11.6-14.8); White Blood Cell Count 10.8 X10^3/uL (4.5-11.0)
[2017-12-02 05:50] LABS: Alanine Aminotransferase 33 IU/L (9-52); Albumin 3.2 g/dL (3.5-5.0); Alkaline Phosphatase 66 U/L (38-126); Aspartate Aminotransferase 44 IU/L (14-36); Bilirubin Total 0.6 mg/dL (0.2-1.3); Blood Urea Nitrogen 35 mg/dL (7-17); Calcium 9.8 mg/dL (8.4-10.2); Carbon Dioxide 28 mmol/L (22-32); Chloride 117 mmol/L (98-107); Estimated Glomerular Filt Rate > 60.0 mL/min (>60); Globulin 3.1 g/dL (1.7-4.1); Glucose 197 mg/dL (80-110); HEMOLYSIS < 15 (0-50); Potassium 3.1 mmol/L (3.4-5.1); Sodium 153 mmol/L (137-145); Total Protein 6.3 g/dL (6.3-8.2)
[2017-12-02] MEDS: SODIUM CHLORIDE 0.9% 1,000 ML 50 ML IV (08:15)
[2017-12-02] MEDS: FUROSEMIDE 20 MG/2 ML VIAL IV (08:16)
[2017-12-02] MEDS: ENOXAPARIN 40 MG/0.4 ML SYRINGE SUBCUT (08:16)
[2017-12-02] MEDS: PANTOPRAZOLE 40 MG VIAL IV (08:19)
--- NOTE | 2017-12-02 10:34 | CM.DANOTE ---
DCP Assessment Per MD and RN, pt extubated successfully and now tolerating room air and voice is hoarse but pt is alert and oriented and able to communicate. ST ordered for swallow eval due to having challenging with drinking liquids. PT/OT likely to be ordered today due to pt feeling weak and below baseline. SW met bedside with pt and explained role and pt alert and oriented and confirmed that she does not remember what happened that led to her being found down in her home. Pt states that she has completed DPOA pwk previously and states her DPOA is her sister Nhung Orona ([phone] cell, ) and SW encouraged her to get the hospital a copy. Pt confirms that she is Independent at baseline and is feeling weaker than normal and is looking forward to ST/PT/OT evals to determine her d/c planning needs and seems to be motivated to leave the hospital when medically stable. Pt states that her other 2 sisters are flying in from [place] and between her 3 sisters and one brother she should have adequate support at d/c. Plan: SW to follow closely after ST/PT/OT eval and recommendations to determine pt's d/c planning needs of possible home with family support vs SNF rehab. DENICE Samaniego
--- NOTE | 2017-12-02 12:49 | ST.IPIE ---
Current Diagnoses Type 1 diabetes mellitus with ketoacidosis with coma (11/28/17) Past Medical History (This Medical Record has been edited. 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, managed as type 1 (Acute Medical) On insulin since 1997 history of hypoglycemic seizure in 2006 and 2001 Hyperlipidemia (Acute Medical) Peripheral vascular disease (Acute Medical) Left common femoral [id number] popliteal artery bypass in 2010 redo left femoral popliteal below the knee bypass with reverse greater saphenous vein 2018 left femoral endarterectomy also 2018 Sleep apnea in adult (Acute Medical) ST IP Initial Evaulation Report LUMBER SORTER Clinical Swallow Evaluation Start: 12/02/17 11:17 Freq: Status: Active Protocol: Document 12/02/17 11:18 MRM (Rec: 12/02/17 11:22 MRM [id number]) Clinical Swallow Evaluation Session Time Visit Start Time 10:25 Visit Stop Time 10:50 Total Visit Minutes [address] Velarde Reason for Referral Extubation Setting Assessment Location Acute Care Visit Type Note Type Initial Evaluation Next Note Type Next Note Type Treatment Note Patient Information Identification Type Name Date of ID Wristband History Patient is a 67-year-old female admitted to [facility] on 11/28/17 after being found down and unresponsive at home. She was intubate don 11/28 for airway protection. Extubation was attempted on 11/30 but was unsuccessful due to poor respiratory tolerance. She was reintubated on 11/30 and extubated at 11:35 on 12/01. A swallow evaluation was ordered per protocol. Subjective Observations Patient awake and alert, resting in bed with no family present. RT student present for obesrvation. No complaint of pain pre/post evaluation. Patinet's O2 bebeto and respiratory rate fluctuated significantly throughout the evaluation. Patient presented with a left facial droop. Evaluation Liquids Trialed Ice Chips [place] [facility] Type Dependent Feeding Oral Impairment Mildly Impaired Oral Strategies Upright at 90 degrees Double Swallow Oral Phase Comments Mild oral impairment observed with reduced lingual ROM and strength. Observed slowed, mildly dysarthric speech as well. Suspect reduced lingua- velar seal. No oral residue observed, however, no trials of solids performed. Pharyngeal Impairment Severely Impaired Pharyngeal Strategies Sitting Upright (90 deg) Chin Tuck Double Swallow Effortful Swallow [place]n Maneuver Small Bites and Sips Pharyngeal Phase Comments Observed immediate and significant s/s of aspiration after ice chips x2 and 1/4 tsp sip of nectar thick water. Cough unproductive and suction required. Watery eyes. Hyolaryngeal elevation/ excursion significantly reduced. Mild elevation, minimal excursion. Suspect aspiration with thin and nectar thick liquids. Findings Dysphagia Type Severe pharyngeal dyspahgia Rehabilitation Potential Good Impressions Patient presents with severe pharyngeal dysphagia significant for immediate s/s of aspiration with ice chips and nectar thick water. LUMBER SORTER provided strategies to improve PO tolerance such as brief oral hold, chin tuck, effortful swallow, double swallow, throat clear/swallow, etc. However, these strategies were unsuccessful in preventing consistent s/s of aspiration. Due to patient' s intubation/extubation/ intubation which occurred since 11/28 and her reportedly new difficulty tolerating PO, LUMBER SORTER will recommend NPO and MBS to determine the nature and safety of the patient's swallow function. Diet Recommendations Liquids Order NPO Diet Order NPO Medication Recommendations Not Recommended by Mouth Comments Hold all PO until MBS can be completed this afternoon Aspiration Precautions Recommended Precautions Upright at 90 Degrees Frequent Rest Periods Small Bites/Sips Effortful Swallow Double Swallow Check for Pocketing Supersupraglottic Swallow Ama Maneuvor Treatment Plan Placement Recommendations after Intermediate Facility Discharge Appropriate for Therapy Yes Therapy Recommendations An MBS is strongly recommended prior to initiation of diet. NPO until MBS can be compelted . Dysphagia Goals Patient will participate in MBS to determine the nature and safety of her swallow function post-extubation. Patient will tolerate the safest, least restrictive diet , post-MBS findings, in order to maintain adequate nutrition /hydration. LUMBER SORTER Oral Motor Exam Start: 12/02/17 11:17 Freq: Status: Active Protocol: Document 12/02/17 11:25 [facility] (Rec: 12/02/17 12:48 [facility] [id number]) Oral Motor Examination Face Facial Symmetry Left Side Asymmetry Facial Movement Controlled Comments Left facial droop Mouth Teeth Characteristics Missing Dental Appliance Pucker Lips Droops Left Smile Reduced ROM Puff Cheeks Reduced Strength Tongue Size Normal Comments Left-sided weakness. Lingual ROM and strength reduced Tongue Movement Protrusion/Retraction Strength Mildly Reduced Protrusion/Retraction Range of Movement Reduced Protrusion/Retraction Coordination Mildly Discoordinated Elevation/Depression Strength Mildly Reduced Elevation/Despression Range of Movement Reduced elevation Elevation/Depression Coordination Mildly Discoordinated Lateralization Strength Mildly Reduced Lateralization Range of Movement Reduced Lateralization Coordination Mildly Discoordinated Comments General reduced lingual strength Palate Soft Palate Description Normal Normal Arch Hard Palate Description Normal Normal Arch Velopharyngeal Movement WFL Hyolaryngeal Movement Hyolaryngeal Movement Reduced Elevation Reduced Excursion Hyolaryngeal Movement Comments Significantly reduced elevation and excirsion Volitional Cough/Swallow Comments Unproductive,breathy cough and throat clear, raspy sounding voice and cough
--- NOTE | 2017-12-02 14:11 | PC.NURSE ---
Day Shift Note Alert and oriented to self and place, reports little memory of admission or hospital course. Denies pain. Voice is hoarse, upper airway coarseness/rhonchi. Insp. wheeze bilaterally. Weak, coarse, and ineffective cough. Tolerated RA whil at rest in bed but required 2L NC after transferring to chair (RA sats 87%). 2 person assist to transfer with FWW, unsteady on feet/weak. Insulin gtt infusing and titrating per order. NPO per speech therapy, coughing with mouth swabs. Barium swallow to be done tomorrow morning. Call light within reach using appropriately to make needs known.
--- NOTE | 2017-12-02 14:11 | ST.IPDYTX ---
SVP MONETIZATION Dysphagia Treatment SVP MONETIZATION Dysphagia Treatment Start: 12/02/17 11:17 Freq: Status: Active Protocol: Document 12/02/17 14:04 MRM (Rec: 12/02/17 14:10 MRM [id number]) Dysphagia Treatment Session Time Visit Start Time 13:35 Visit Stop Time 14:55 Total Visit Minutes 20 Setting Assessment Location Acute Care Visit Type Note Type Treatment Note Next Note Type Next Note Type Treatment Note Patient Information Identification Type Name ID Wristband Subjective Observations Patient awake, sitting up in chair. Using lemon swabs and coughing immediately after swallow initiation. This was observed by RN and SVP MONETIZATION. SVP MONETIZATION spoke with nursing regarding the patient's preparation before MBS. RN and SVP MONETIZATION agreed that the patient is still very medically compromised and continues to show significant respiratory weakness. At this time, RN did not feel confident that the MBS would be safest for the patient. RN requested that MBS be postponed until tomorrow to allow patient more time post- extubation. SVP MONETIZATION agreed to this . MBS rescheduled for Friday at 1300. SVP MONETIZATION spoke with patient who agreed to this change. Dr Velarde present to round and agreed to the schedule change as well. Treatment Liquids Trialed Ice Chips Oral Strategies Upright at 90 degrees Other Pharyngeal Strategies Sitting Upright (90 deg) Double Swallow Effortful Swallow Additional Dysphagia Treatment Throat clear, double swallow Strategies Treatment Activities SVP MONETIZATION observed patient's use of lemon swab and noted immediate s/s of aspiration. SVP MONETIZATION did trial ice chips x2 with cues for moistening the mouth and then spitting out ice chip into cup. However, x2 s/s of aspiration were again observed . Respiratory rate shifted from high 20s to high 30s after these two episodes as well. SVP MONETIZATION provided extensive education regarding the breathing/swallowing coordination required for success and recommended discontinuing ice chips due to consistent s/s of aspiration. Patient verablized understanding. Lemon swabs not recommended as well due to consistent coughing observed. Assessment Patient Response to Treatment Poor Rehab Potential Good Assessment of Improvement Patient continues to demonstrate s/s of aspiration with ice chips and lemon swabs . Hyolaryngeal elevation and excursion continue be minimal and voicing is severely reduced as well. Patient unable to demonstrate safety with minimal ice chips and immediate expectoration. Recommend continue NPO and MBS to be performed tomorrow, per nursing request. Diet Recommendations Recommendations Continue Current Diet Liquids Order NPO Diet Order NPO/Alternative Means of Nutrition/Hydration Medication Recommendations Not Recommended by Mouth Treatment Plan Therapy Recommendations An MBS is strongly recommended prior to initiation of diet. NPO until MBS can be compelted . Dysphagia Goals Patient will participate in MBS to determine the nature and safety of her swallow function post-extubation. Patient will tolerate the safest, least restrictive diet , post-MBS findings, in order to maintain adequate nutrition /hydration.
--- NOTE | 2017-12-02 14:16 | PM.PN.1 ---
Subjective Date Patient Seen: 12/02/17 Time Patient Seen: 14:16 Interval history: Her voice is very hoarse. She is unable to pass a swallow evaluation. She will have a modified barium swallow tomorrow. She is hungry She has no shortness of breath Exam Vital Signs (past 8 hours): - 12/02/17 08:05 12/02/17 09:00 12/02/17 09:30 Temperature 98.5 F Pulse Rate 80 Respiratory Rate 15 Blood Pressure 159/79 H Pulse Oximetry 98 96 93 12/02/17 12:18 12/02/17 12:28 Temperature 98.5 F Pulse Rate 84 Respiratory Rate 20 Blood Pressure 160/65 H Pulse Oximetry 87 L 92 Fraction of Inspired Oxygen 35 Oxygen Delivery Method Nasal Cannula Oxygen Flow Rate 2 Narrative Exam Narrative: HEENT: NC/AT, EOMI, ORopharyx clear Neck: supple Lungs: Decreased breath sounds coarse bilaterally CV: RRR nl S1S2 Abd: soft/non tender/ non distended Ext: 1+ edema on left leg, with bandage over leg ulcer Objective Labs Result Diagrams: 12/02/17 04:53 12/02/17 04:53 Labs: Laboratory Results - last 24 hr 12/02/17 12/02/17 04:53 04:53 WBC 10.8 RBC 4.44 Hgb 15.2 Hct 45.2 MCV 101.7 H MCH 34.2 H MCHC 33.6 RDW 15.1 H Plt Count 169 Neut % (Auto) 91.4 H Lymph % (Auto) 3.7 L [place] % (Auto) 4.7 Eos % (Auto) 0.0 L Baso % (Auto) 0.2 Neut # (Auto) 9800 H Sodium 153 H Potassium 3.1 L Chloride 117 H Carbon Dioxide 28 BUN 35 H Creatinine 0.70 Estimated GFR > 60.0 BUN/Creatinine Ratio 50.0 H Glucose 197 H Calcium 9.8 Total Bilirubin 0.6 AST 44 H ALT 33 Alkaline Phosphatase 66 Total Protein 6.3 Albumin 3.2 L Globulin 3.1 Albumin/Globulin Ratio 1.0 Assessment & Plan (1) Hypernatremia: Problem details: Will increase free water and discontinue IV Lasix. Recheck labs in am Current visit: Yes Status: Acute (2) DKA (diabetic ketoacidoses): Problem details: Patient has improved glucose control. Will discontinue insulin drip and start basal/bolus insulin Current visit: Yes Status: Acute (3) Hypokalemia: Problem details: Will replace potassium in IVF today Current visit: Yes Status: Acute (4) Dysphagia: Problem details: Modified barium swallow evaluation tomorrow Current visit: Yes Status: Acute (5) Respiratory failure: Current visit: Yes Status: Acute Quality VTE Deep Vein Thrombosis/Pulmonary Embolism Present on Admission: No
[2017-12-02] MEDS: DEXTROSE 5% IV (14:41)
[2017-12-02] MEDS: POTASSIUM CHLORIDE IV (14:41)
[2017-12-02] MEDS: WATER IV (14:41)
[2017-12-02] MEDS: NICOTINE 21 MG PATCH TOP (14:41)
[2017-12-02] MEDS: INSULIN ASPART 100 UNIT/ML INSULN PEN SUBCUT ×2 (15:33→21:15)
--- NOTE | 2017-12-02 15:50 | PC.NURSE ---
Addendum entered by Kelly Calvert R.N. 12/02/17 22:51: 2200 - Pt c/o of bilateral hip pain. 7 of 10. Aching Pt requested to ambulate, however generalized weakness results in unsteady gait even with transfer to [facility]. Pt educated to safety. Offered chair following commode use. Pt declined. Warm blanket provided. MD notified of reports of pain. Orders obtained. Bed alarm on. Original Note: 1530 - Insulin gtt off. Sub Q insulin given as ordered. Monitor.
[2017-12-02 16:35] LABS: Alanine Aminotransferase 45 IU/L (9-52)
[2017-12-02 17:11] LABS: Hepatitis B Surface Antigen NEGATIVE s/c (NEGATIVE)
[2017-12-02 17:31] LABS: HIV 1 and 2 Antibody NEGATIVE (NEGATIVE); Hep C Virus Ab w/Reflex Quant NEGATIVE s/c (NEGATIVE)
[2017-12-02] MEDS: INSULIN DETEMIR 100 UNIT/ML INSULN.PEN 20 UNIT SUBCUT (21:15)
[2017-12-02] MEDS: MORPHINE 2 MG/ML INJ 1 MG IV (22:16)
[2017-12-03] VITALS (9 sets, daily range): BP systolic 151–168; BP diastolic 63–83; PULSE 73–89; RESP 14–22; TEMP 36.2–36.9; O2SAT 90–96
[2017-12-03] MEDS: ENALAPRILAT 1.25 MG/ML VIAL 0.625 MG IV ×4 (00:51→18:33)
[2017-12-03] MEDS: INSULIN ASPART 100 UNIT/ML INSULN PEN SUBCUT ×4 (02:19→17:58)
[2017-12-03] MEDS: MORPHINE 2 MG/ML INJ 1 MG IV (02:26)
[2017-12-03 05:52] LABS: Add Manual Diff / Slide Review NO; Basophils Percent Auto 0.2 % (0-2); Hematocrit 50.5 % (36-46); Lymphocytes Percent Auto 7.6 % (25-40); Mean Corpuscular HGB Conc 33.6 % (30-36); Mean Corpuscular Hemoglobin 34.5 PG (26-34); Mean Corpuscular Volume 102.5 fL (80-100); Monocytes Percent Auto 6.8 % (3-14); Neutrophils Absolute Auto 7900 /uL (3000-5900); Neutrophils Percent Auto 85.4 % (50-75); Platelet Count 169 X10^3/uL (150-400); Red Blood Cell Count 4.92 X10^6/uL (4.0-5.2); Red Cell Distribution Width 14.8 % (11.6-14.8); White Blood Cell Count 9.3 X10^3/uL (4.5-11.0)
[2017-12-03 06:19] LABS: Alanine Aminotransferase 51 IU/L (9-52); Albumin 3.6 g/dL (3.5-5.0); Albumin Globulin Ratio 1.2 (1.0-2.8); Alkaline Phosphatase 75 U/L (38-126); Aspartate Aminotransferase 45 IU/L (14-36); BUN Creatinine Ratio 57.1 (6-22); Blood Urea Nitrogen 40 mg/dL (7-17); Calcium 9.5 mg/dL (8.4-10.2); Carbon Dioxide 32 mmol/L (22-32); Chloride 109 mmol/L (98-107); Estimated Glomerular Filt Rate > 60.0 mL/min (>60); Globulin 3.1 g/dL (1.7-4.1); Glucose 386 mg/dL (80-110); HEMOLYSIS < 15 (0-50); Potassium 3.4 mmol/L (3.4-5.1); Sodium 150 mmol/L (137-145); Total Protein 6.7 g/dL (6.3-8.2)
[2017-12-03 06:29] LABS: Macrocytosis 3+
--- NOTE | 2017-12-03 08:00 | ST.IPDYTX ---
SECURITIES COUNSELOR Dysphagia Treatment SECURITIES COUNSELOR Dysphagia Treatment Start: 12/03/17 0800 Freq: Status: Active Protocol: Document 12/03/17 08:00 TLC (Rec: 12/03/17 14:44 TLC [id number]) Dysphagia Treatment Session Time Total Visit Minutes 15 Setting Assessment Location Acute Care Visit Type Note Type Treatment Note Next Note Type Next Note Type Treatment Note Patient Information Identification Type Name Subjective Observations Patient was awake and moving from the chair to the bed when I entered the room. She was oriented, pleasant and conversant. Treatment Liquids Trialed Ice Chips Oral Strategies Upright at 90 degrees Other Pharyngeal Strategies Sitting Upright (90 deg) Double Swallow Effortful Swallow Additional Dysphagia Treatment Throat clear, double swallow Strategies Treatment Activities Thermal tactile stimulation applied to oral cavity with swallow elicited x10. Trial of ice chips x5 resulted in coughing on 2 occasions. Education provided to patient regarding general swallow anatomy and physiology as well as MBSS. Assessment Patient Response to Treatment Fair Rehab Potential Good Assessment of Improvement Nursing reports patient's voice is somewhat stronger today compared to yesterday, though still weak and hoarse. Patient reports swallowing is effortful, but not painful. Diet Recommendations Comment Continue NPO, MBS @ 1300 today Treatment Plan Dysphagia Goals Patient will participate in MBS to determine the nature and safety of her swallow function post-extubation. Patient will tolerate the safest, least restrictive diet , post-MBS findings, in order to maintain adequate nutrition /hydration.
[2017-12-03] MEDS: PANTOPRAZOLE 40 MG VIAL IV (08:28)
[2017-12-03] MEDS: ENOXAPARIN 40 MG/0.4 ML SYRINGE SUBCUT (08:29)
[2017-12-03] MEDS: INSULIN DETEMIR 100 UNIT/ML INSULN.PEN 20 UNIT SUBCUT (08:29)
--- NOTE | 2017-12-03 09:25 | PT.IIE ---
Current Diagnoses Type 1 diabetes mellitus with ketoacidosis with coma (11/28/17) Other specified diabetes mellitus with ketoacidosis without coma (11/28/17) Hyperosmolality and hypernatremia (11/28/17) Hypokalemia (11/28/17) Respiratory failure, unspecified, unspecified whether with hypoxia or hypercapnia (11/28/17) Dysphagia, unspecified (11/28/17) Medical History (This Medical Record has been edited. 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, managed as type 1 (Acute) Hyperlipidemia (Acute) Peripheral vascular disease (Acute) Sleep apnea in adult (Acute) Physical Therapy Inpatient Evaluation/Re-Eval M1 PT/OT-IP Prior Functional Status Start: 12/03/17 10:14 Freq: NEEDED Status: Active Protocol: Document 12/03/17 09:25 MDD (Rec: 12/03/17 10:37 [facility] [id number]) Medical Review Prior Functional Status Medical History Reviewed Yes Communication normal Mobility and Gait independent, occasionally used a walking stick for community ambulation Activities of Daily Living and IADL's independent with cooking, cleaning, showering, driving Social History Household Members none Living Arrangements House Number of Floors (Floors) One Floor Number of Stairs To Enter/Railing? 2 stairs to enter, R railing Home Environment Standard Height Toilet High Toilet Walk in Shower Home Equipment Front Wheel Walker Employment Status Unemployed Additional Social History Comment Has 3 sisters that will be coming to stay with her for the next few weeks. M2 PT-IP Current Condition Start: 12/03/17 10:14 Freq: NEEDED Status: Active Protocol: Document 12/03/17 09:25 MDD (Rec: 12/03/17 10:37 [facility] [id number]) Physical Therapy Current Condition Current Condition Evaluation Date 12/03/17 Treatment Diagnosis DKA, impaired mobility Onset Date 11/28/17 M3 PT-IP Subjective Start: 12/03/17 10:14 Freq: NEEDED Status: Active Protocol: Document 12/03/17 09:25 MDD (Rec: 12/03/17 10:37 [facility] [id number]) Subjective Physical Therapy Visit Type Type Initial Evaluation Visit Start Time 08:59 Visit Stop Time 09:25 Total Visit Minutes 26 Notes O2 sats on RA 93% sitting EOB. Attempted to read O2 sats after activity, but pulse oximeter was not functioning. Continue to monitor with activity. Number of HEAD OF MARKETING Visits 0 Physical Therapy Visit Comments Patient Comments She reports she is excited to get up with PT today. Therapy Pain Assessment Pain When Pain Assessed During Mobility Pain Present Pain Present Pain Reported Location anterior hips Intensity 5 Scale Used Numeric (1 - 10) Description Aching M4 PT-IP Mobility and Gait Start: 12/03/17 10:14 Freq: NEEDED Status: Active Protocol: Document 12/03/17 09:25 MDD (Rec: 12/03/17 10:37 [facility] [id number]) PT-Bed Mobility Assessment Rolling Level of Assist Independent Supine to Sit Supine to Sit Standby Assistance Bedrails Sit to Supine Sit to Supine Independent Scooting Scooting to Edge of Bed Independent Scooting Up and Down in Bed Independent PT-Transfer Assessment Sit to and From Stand Sit to and from Stand Minimal Assistance Equipment Transfer Assistive Device Gait Belt Front Wheeled Walker Gait Assessment Gait Gait Assistance Required: Contact Guard Assist Minimum Assistance Distance (Feet) (feet) 50 Assistive Devices Assistive Device Gait Belt Front Wheeled Walker Gait Deviations General Gait Pattern Decreased Feet Clearance Wide Based Gait Comments Gait Comments mild L foot drop, requires cues for dorsiflexing L ankle, increasing hip flexion. Pt with some difficulty navigating the walker, running into things on the L PT-Balance Assessment Sitting Balance and Reactions Static Sitting Balance Ability Normal Dynamic Sitting Balance Ability Normal Standing Balance and Reactions Static Standing Balance Ability Fair Dynamic Standing Balance Ability Fair Balance Tests Romberg unsteady, requires UE assist on FWW M5 PT-IP Objective Assessments Start: 12/03/17 10:14 Freq: NEEDED Status: Active Protocol: Document 12/03/17 09:25 MDD (Rec: 12/03/17 10:37 [facility] [id number]) Orientation Orientation/Cognition Level of Alertness Alert Orientation Name Age Birthday Month Date Year Day of Week Place Situation Language Function Ability No Deficits Noted Safety Awareness Decreased Safety Awareness Memory Description No Deficits Noted Comments Pt's voice is hoarse, but clear and intelligible. Gross Range of Motion Lower Extremity ROM Assessment Within Functional Limits Strength Lower Extremity Strength Assessment Left Impaired Hip R hip flexion 4/5, L 4+/5, hip IR/ER 4+/5 B Knee R knee extension 4/5, L knee extension 4+/5, R knee flexion 4/5, L 4+/5 Ankle 1/5 L ankle dorsiflexion Comments Strength Comments Pt reports weakness in L ankle is new Sensation Assessment Sensation Gross Sensation Left LE Impaired Light Touch Absent Sensation Description Paresthesia Numbness Comments Sensation Comments light touch sensation absent L medial malleolus, impaired plantar surface of foot to shins M6 PT-IP Treatment Start: 12/03/17 10:14 Freq: NEEDED Status: Active Protocol: Document 12/03/17 09:25 MDD (Rec: 12/03/17 10:37 [facility] [id number]) Physical Therapy Treatment Education Education Provided Precautions Safety M7 PT-IP Assessment and Plan Start: 12/03/17 10:14 Freq: NEEDED Status: Active Protocol: Document 12/03/17 09:25 MDD (Rec: 12/03/17 10:37 [facility] [id number]) PT Summary Assessment and Plan Potential Rehabilitation Potential Good Status of Condition at Evaluation Evolving Summary Impairments Pain Strength Bed Mobility Transfers Gait Activity Tolerance Progress Towards Goals Progressing Toward Goals Assessment Summary Pt demonstrates some deficits with bed mobility, balance and gait this day. She presents well below her prior functional baseline. Will benefit from inpatient therapy to maximize function for safe d/c home. Goals Bed Mobility Goal Independent Transfer Goal Independent Gait Goal Independent Gait Distance 50 with FWW Other Goals Ascend/descend 2 steps with R railing Frequency of Treatment Frequency Of Treatment Once a Day Treatment Plan Physical Therapy Treatment Plan Bed Mobility Training Transfer Training Gait Training Therapeutic Exercise Balance Retraining Discharge Planning Recommendations To Nursing Amount of Assist Needed 1 Person Assist Discharge Recommendations PT Discharge Recommendations Home with Assistance Home Health
--- NOTE | 2017-12-03 10:45 | OT.IP.EVAL ---
Current Diagnoses Type 1 diabetes mellitus with ketoacidosis with coma (11/28/17) Other specified diabetes mellitus with ketoacidosis without coma (11/28/17) Hyperosmolality and hypernatremia (11/28/17) Hypokalemia (11/28/17) Respiratory failure, unspecified, unspecified whether with hypoxia or hypercapnia (11/28/17) Dysphagia, unspecified (11/28/17) Past Medical History (This Medical Record has been edited. 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, managed as type 1 (Acute) Hyperlipidemia (Acute) Peripheral vascular disease (Acute) Sleep apnea in adult (Acute) Occupational Therapy Inpatient Evaluation/Re-Eval M1 PT/OT-IP Prior Functional Status Start: 12/03/17 10:14 Freq: NEEDED Status: Active Protocol: Document 12/03/17 10:45 PJM (Rec: 12/03/17 13:31 PJM [id number]) Medical Review Prior Functional Status Medical History Reviewed Yes Diet/Fluid Consistency Regular Communication normal Mobility and Gait independent, occasionally used a walking stick for community ambulation Activities of Daily Living and IADL's independent with cooking, cleaning, showering, driving Prior Functional Level (Other details) Pt's sister lives 50 miles away and calls her daily. Social History Household Members none Living Arrangements House Number of Floors (Floors) One Floor Number of Stairs To Enter/Railing? 2 stairs to enter, R railing Home Environment Standard Height Toilet High Toilet Walk in Shower Home Equipment Front Wheel Walker Employment Status Unemployed Additional Social History Comment Has 3 sisters that will be coming to stay with her for the next few weeks. M2 OT-IP Current Condition Start: 12/03/17 13:08 Freq: Status: Active Protocol: Document 12/03/17 10:45 PJM (Rec: 12/03/17 13:31 PJM [id number]) Occupational Therapy Current Condition Current Condition Evaluation Date 12/03/17 Treatment Diagnosis decreased self care, mobility, cognition s/p diabetic coma w /intubation Post Operative Precautions Other Precautions NPO with barium swallow pending, fall risk M3 OT- IP Subjective and Pain Start: 12/03/17 13:08 Freq: Status: Active Protocol: Document 12/03/17 10:45 PJM (Rec: 12/03/17 13:31 PJM [id number]) OT- Subjective Occupational Therapy Visit Type Type Initial Evaluation Visit Start Time 01:10 Visit Stop Time 10:45 Total Visit Minutes 35 Occupational Therapy Visit Comments Patient Comments I think my voice is getting a little better. Patient/Caregiver Goals to get stronger and go home OT Pain Assessment Pain When Pain Assessed After Treatment Pain Present Pain Present Pain Reported Location Left Calf Intensity 7 Scale Used Numeric (1 - 10) Description Aching M4 OT- IP ADL's Start: 12/03/17 13:08 Freq: Status: Active Protocol: Document 12/03/17 10:45 PJM (Rec: 12/03/17 13:31 PJ [id number]) OT [id number] Comments OT Self-Feeding Comments Pt NPO at present. OT ADL-Grooming General Evaluation Grooming Ability Standby Assistance Areas Needing Assistance Face Washing Comments OT Grooming Comments after set up in bed OT ADL-Dressing General Eval Lower Body Dressing Ability Minimal Assistance Areas Needing Assistance Retrieving/Set-up of Clothing Pants/Shorts Socks Comments OT Dressing Comments Pt needs CGA for standing balance and min assist to pull pants over hips. Pt SBA with B socks seated EOB ,but with decreased dynamic sitting balance noted. OT ADL-Toileting Comments OT Toileting Comments did not occur, set up BSC over toilet so pt can walk to bathroom with RN assist OT ADL-Bathing Bathing Type Bathing Type Shower General Evaluation Bathing Ability Minimal Assistance Devices Bathing Equipment Hand Held Shower Sprayer Shower Chair without Arms Grab Bars Comments OT Bathing Comments Pt did most of bathing but decreased standing balance for franck care per COKE BURNER. Recommend shower seat for home. Began education re: bathroom safety equipment options. M5 OT- IP IADL's Start: 12/03/17 13:08 Freq: Status: Active Protocol: Document 12/03/17 10:45 PJM (Rec: 12/03/17 13:31 PJ [id number]) OT-Instrumental Activities of Daily Living Deficits IADL Deficits Identified Deficits Home Safety Awareness Awareness of Need for Assistance at Home Good Awareness Medication Management Medication Management Caregiver Provides Supervision Medication Management Comments Recommend RN for diabetic management Money Management Money Management Caregiver Provides Supervision Money Management Comments Pt's sister is POA and can supervise/assist with finances PRN. Meal Preparation Meal Preparation Caregiver Provides Assist Meal Preparation Comments Sisters to assist with meal prep at home Leadership Development Manager Leadership Development Manager Caregiver Provides Assist Leadership Development Manager Comments Sisters to provide assist at home Driving Driving Caregiver Provides Assist Driving Comments Sisters to provide assist M6 OT- IP Functional Cognition Start: 12/03/17 13:08 Freq: Status: Active Protocol: Document 12/03/17 10:45 PJM (Rec: 12/03/17 13:31 PJ [id number]) Cognitive Factors Limiting Selfcare Function Cognitive Ability Level of Alertness Alert Patient Orientation Name Month Date Year Attention Span Ability Capable of Focused Attention Ability to Follow Commands Able to Follow One Step Commands Memory Description Short Term Impaired Safety Awareness Underestimates Need for Assistance Problem Solving Ability Needs Assist to Identify Solutions Cognitive Comments Cognitive Assessment Comments Pt demonstrating short term memory deficits re: date and place and needs to look at white board for clues. OT- Vision and Hearing OT- Hearing Assessment OT- Hearing Assessment WFL OT- Vision Assessment Visual Acuity WFL Glasses For Reading Vision Assessment Comments Pt wears glasses for reading and driving. Denies any recent vision changes. She reads all clock accurately. M7 OT- IP Mobility and Balance Start: 12/03/17 13:08 Freq: Status: Active Protocol: Document 12/03/17 10:45 PJM (Rec: 12/03/17 13:31 [facility] [id number]) OT- Bed Mobility Assessment Rolling Type of Rolling Roll to Right Level of Assistance Standby Assistance Head of Bed Elevated Bedrails Supine to Sit Supine to Sit Assist Standby Assistance Head of Bed Elevated Bedrails Sit to Supine Sit to Supine Assist Standby Assistance Head of Bed Elevated Scooting Scooting to Edge of Bed Standby Assistance OT-Transfer Assessment Sit to and From Stand Sit to and from Stand Contact Guard Assistance OT- Balance Assessment Sitting Balance and Reactions Static Sitting Balance Ability Good Dynamic Sitting Balance Ability Fair Standing Balance and Reactions Static Standing Balance Ability Fair Dynamic Standing Balance Ability Fair M8 OT- IP Objective Assessments Start: 12/03/17 13:08 Freq: Status: Active Protocol: Document 12/03/17 10:45 PJM (Rec: 12/03/17 13:31 [facility] [id number]) OT Gross Range of Motion Upper Extremity Range of Motion Assessment Within Functional Limits ROM Impairments LUE lags at shoulder during BUE AROM. OT Strength Upper Extremity Strength Assessment Within Functional Limits Comments Strength Comments No obvious focal weakness noted except mild LUE lag with BUE AROM OT- Coordination Assessment Comments Coordination Comments Appears WFL; further assessment to follow OT-Muscle Tone Assessment Muscle Tone WNL Yes OT Sensation Assessment Comments Summary Comments Pt detects lt touch in BUE/ hands. Edema Edema Present Edema Comments generalized LLE edema M9 OT- IP Assessment and Plan Start: 12/03/17 13:08 Freq: Status: Active Protocol: Document 12/03/17 10:45 PJM (Rec: 12/03/17 13:31 PJM [id number]) OT Summary Assessment and Plan Potential Rehabilitation Potential Good Analytic Complexity at Evaluation Moderate Summary OT Impairments Strength Balance Functional Cognition Functional Mobility Grooming Dressing Toileting Bathing Toilet Transfers Shower Transfers Assessment Summary Moderate complexity OT assessment completed due to pt 's complex medical issues including diabetic coma requiring intubation x2 for respiratory distress. Pt currently has performance deficits in functional cognition with short term memory deficits noted. Pt also has deficits in transfers/ functional mobility, standing grooming, dressing, bathing and toileting. Pt had loss of balance when standing for part of shower per COKE BURNER. Pt currently NPO and awaiting barium swallow. Pt will benefit from OT services here to address the goals below. Pt reports that she has 3 sisters who will provide 24 hr assist for several weeks. Two sisters are here from [place] . Goals Grooming Goal Independent Dressing Goal Independent Toileting Goal Independent Bathing Goal Standby Assistance Toilet Transfer Goal Standby Assistance Shower Transfer Goal Standby Assistance OT-Other Goals Pt able to feed self independently with good safety awareness when allowed PO intake. Days to Meet Goals 5 Frequency of Treatment Frequency Of Treatment Once a Day Treatment Plan OT Treatment Plan ADL Training Functional Cognition Training Functional Mobility Patient/Family Education Discharge Planning Discharge Recommendations OT Discharge Recommendations Home with 24/7 Assist, home health RN/OT/PT Home Equipment Needs shower seat, grab bars by shower and toilet
[2017-12-03] MEDS: WATER IV ×2 (12:12→22:11)
[2017-12-03] MEDS: POTASSIUM CHLORIDE IV ×2 (12:12→22:11)
[2017-12-03] MEDS: DEXTROSE 5% IV ×2 (12:12→22:11)
[2017-12-03] MEDS: ALBUTEROL/IPRATROPIUM 3 ML AMPUL INH ×2 (12:51→19:01)
--- NOTE | 2017-12-03 13:00 | DI.RAD.S_ITS ---
PROCEDURE: FL BARIUM SWALLOW W SPEECH INDICATIONS: aspiration TECHNIQUE: Examination was conducted in conjunction with speech pathology per standard protocol. In the lateral projection, filming was performed of the patient swallowing. AP projection filming may also be performed with patient swallowing. COMPARISON: None. FINDINGS: Function: The oral preparatory phase appears normal, with proper containment. However, subsequent swallowing resulted in frequent anterior penetration and aspiration of thin and nectar thick liquids into the upper tracheal airway, with associated coughing. No pathologic vallecular pooling. Morphology: No cricopharyngeal bar is identified. No cervical esophageal webs. No Zenker's diverticulum. No strictures. IMPRESSION: Recurrent aspiration, mild in overall severity, with thin and nectar thick liquids. Please also refer to the dedicated speech therapy report which will be independently generated. Dictated by: Giovanni Barahona M.D. on 12/03/2017 at 13:49 Approved by: Giovanni Barahona M.D. on 12/03/2017 at 13:50
--- NOTE | 2017-12-03 13:57 | PM.PN.1 ---
Subjective Date Patient Seen: 12/03/17 Interval history: Patient is somewhat despondent as she failed during the modified barium swallow She reports some shortness of breath. She is somewhat tearful. Patient reports she misses her to dogs Exam Vital Signs (past 8 hours): - 12/03/17 06:13 12/03/17 07:41 12/03/17 12:30 Temperature 98 F 97.8 F Pulse Rate 85 89 80 Respiratory Rate 18 20 Blood Pressure 157/63 H 168/74 H 157/83 H Pulse Oximetry 93 96 12/03/17 12:51 Temperature Pulse Rate 83 Respiratory Rate 15 Blood Pressure Pulse Oximetry 94 Fraction of Inspired Oxygen 35 Oxygen Delivery Method Room Air Oxygen Flow Rate 0 Narrative Exam Narrative: Lungs: decreased breath sounds but clear to auscultation CV:RRR nl Sl S2 Abd: soft/ non tender/ nondistended Ext: no edema, right leg with dressing along anterior lower extremity Objective Labs Result Diagrams: 12/03/17 05:15 12/03/17 05:15 Labs: Laboratory Results - last 24 hr 12/02/17 12/02/17 12/03/17 15:45 15:45 05:15 WBC 9.3 RBC 4.92 Hgb 17.0 H Hct 50.5 H MCV 102.5 H MCH 34.5 H MCHC 33.6 RDW 14.8 Plt Count 169 Neut % (Auto) 85.4 H Lymph % (Auto) 7.6 L Sweet Grass % (Auto) 6.8 Eos % (Auto) 0.0 L Baso % (Auto) 0.2 Neut # (Auto) 7900 H RBC Morphology Not Reportable Macrocytosis 3+ H Sodium Potassium Chloride Carbon Dioxide BUN Creatinine Estimated GFR BUN/Creatinine Ratio Glucose Calcium Total Bilirubin AST ALT 45 Alkaline Phosphatase Total Protein Albumin Globulin Albumin/Globulin Ratio Hep Bs Antigen Negative Hepatitis C Antibody Negative HIV 1&2 Antibody Negative 12/03/17 05:15 WBC RBC Hgb Hct MCV MCH MCHC RDW Plt Count Neut % (Auto) Lymph % (Auto) Sweet Grass % (Auto) Eos % (Auto) Baso % (Auto) Neut # (Auto) RBC Morphology Macrocytosis Sodium 150 H Potassium 3.4 Chloride 109 H Carbon Dioxide 32 BUN 40 H Creatinine 0.70 Estimated GFR > 60.0 BUN/Creatinine Ratio 57.1 H Glucose 386 H D Calcium 9.5 Total Bilirubin 1.0 AST 45 H ALT 51 Alkaline Phosphatase 75 Total Protein 6.7 Albumin 3.6 Globulin 3.1 Albumin/Globulin Ratio 1.2 Hep Bs Antigen Hepatitis C Antibody HIV 1&2 Antibody Assessment & Plan (1) Respiratory failure: Problem details: Continue current treatment plan. The patient has been successfully extubated. Current visit: Yes Status: Acute (2) Dysphagia: Problem details: Modified barium swallow evaluation tomorrow Will continue to keep NPO for now her NPO for now Current visit: Yes Status: Acute (3) Hypernatremia: Problem details: Will increase free water and discontinue IV Lasix. Recheck labs in am Current visit: Yes Status: Acute (4) DKA (diabetic ketoacidoses): Problem details: Patient has improved glucose control. Will discontinue insulin drip and start basal/bolus insulin Will increase her insulin Current visit: Yes Status: Acute Quality VTE Deep Vein Thrombosis/Pulmonary Embolism Present on Admission: No
--- NOTE | 2017-12-03 14:13 | ST.SWALLOW ---
Care Team Visit Care Team Role Provider Type Gayle Decker PA-C Family Provider Physician Primary Care Provider Specialty: Internal Medicine Address: [address] [place] [address] Email: Laverne Joe DO Emergency Provider Physician Specialty: Emergency Medicine Address: [address] [place] [address] Email: Tod Heath MD Admit Provider Physician Attending Provider Specialty: Internal Medicine Address: [address] [place] [address] Email: Modified Barium Swallow Study MANUFACTURING QUALITY TECHNICIAN Modified Barium Swallow Study Start: 12/02/17 11:17 Freq: Status: Active Protocol: Document 12/03/17 13:48 MRM (Rec: 12/03/17 14:13 MRM [id number]) Modified Barium Swallow Study Total Time Visit Start Time 13:00 Visit Stop Time 14:00 Total Visit Minutes [address] Velarde Reason for Referral Aspiration after extubation Setting Setting Acute Care Patient Information Identification Type Name ID Wristband Patient History Patient is a 67-year-old female admitted to [facility] on 11/28/17 after being found down and unresponsive at home. She was intubate don 11/28 for airway protection. Extubation was attempted on 11/30 but was unsuccessful due to poor respiratory tolerance. She was reintubated on 11/30 and extubated at 11:35 on 12/01. A swallow evaluation was ordered per protocol. Swallow evaluation completed on 12/02/17 . Patient demonstrated significant s/s of aspiration with ice chips x2 and nectar thick liquids. Patient was made NPO and an MBS was ordered. MANUFACTURING QUALITY TECHNICIAN followed up to see patient later in the day to reassess and these symptoms continued to be present. At that time, nursing requested that MANUFACTURING QUALITY TECHNICIAN delay the MBS until to allow the patient more time to recover in the ICU. The MBS was rescheduled from 12/02/17 to 12/03/17. Subjective Observations Patient arrived to the radiology suite for MBS following a breathing treatment with respiratory therapy. RT and RT student present to observe. MANUFACTURING QUALITY TECHNICIAN had suction set up for patient, should she need it. No complaints of pain. Patient awake and oriented, able to verbalize understanding of the procedure of the MBS. Dr. Barahona present during the study. Patient Positioning Position View Lateral Imaging Lateral View Textures Administered Trials Presented Thin Liquid via Spoon [place] Liquid via Spoon [place] Liquid via Cup Honey Liquid via Spoon Oral Phase Source: MBSIMP (TM) (C) Bolus Specific Scoring Grid Lip Closure No Impairment (WNL) Tongue Control During Bolus Hold Minimal Impairment Bolus Prep/Mastication Moderate Impairment Bolus Transport/Lingual Motion Moderate Impairment A/P Lingual Propulsion Delay WFL Oral Residue No Impairment (WNL) Residue Clearing Minimal Impairment Nasal Regurgitation No Additional Oral Phase Observations Moderate oral dysphagia secondary to reduced lingual strength and ROM. Reduced bolus control and propulsion evident in all trials. Lingua- velar seal functional, but slightly reduced, allowing trace amount of liquid to leak into pharynx prior to swallow initiation. Minimal oral residue observed after the swallow. Patient able to clear oral residue without cues from MANUFACTURING QUALITY TECHNICIAN. Pharyngeal Phase Source: MBSIMP (TM) (C) Bolus Specific Scoring Grid Delayed Initiation of Pharyngeal Swallow Yes Number of Seconds Delayed (seconds) 1 second Soft Palate Elevation Mild Impairment Tongue Base Strength/Range of Motion Moderate Impairment Residue Along the Tongue Base Yes Clearance of Residue Along Tongue Base Mild Impairment Laryngeal Elevation Severe Impairment Anterior Hyoid Movement Severe Impairment Epiglottic Range of Motion Severe Impairment Vallecular Residue Yes: Mild-moderate amount Clearance of Vallecular Residue Mild Impairment Laryngeal Vestibular Closure Severe Impairment Pharyngeal Contraction Moderate Impairment Posterior Pharyngeal Wall Residue Yes Clearance of Posterior Pharyngeal Wall Mild Impairment Residue Upper Esophageal Sphincter Opening Mild Impairment Residue in the Pyriform Sinuses Yes: Trace amount Clearance of Residue in the Pyriform Mild Impairment Sinuses Esophageal Clearance Upright Position Mild Impairment Pharyngoesophageal Backflow Observed No Additional Pharyngeal Phase Observations Severe pharyngeal dysphagia. Aspiration of all liquids - thin, nectar and honey. A/P View Esophageal Observations Esophageal Function No significant findings. Please see Radiologist's report for further details Clinical Impressions Dysphagia Type Severe oropharyngeal dysphagia Findings Patient presents with severe oropharyngeal dysphagia following extubation. Trials completed: Thin liquid via spoon x2, nectar thick liquid via spoon x2, cup with chin tuck x1, cup without chin tuck x1, honey thick liquid via spoon without chin tuck x1 . Observed reduced lingual strength and coordination, allowing premature posterior spillage into pharynx and reducing bolus control during swallow initiation. Delayed swallow initiation to the level of the pyriform sinuses consistently. Observed minimal epiglottic inversion secondary to severely reduced hyolaryngeal elevation and excursion as well as reduced tongue base strength. As a result, minimal to no epiglottic inversion achieved, allowing opening to the laryngeal vestibule consistently. In addition, laryngeal elevation was reduced, which contributed to decreased larynegal seal. Liquids observed to spill past the valleculae into the pyriform sinuses prior to swallow intiation, then penetrate forward into the laryngeal vestibule and to the level of the folds during the swallow. Aspiration occurred after penetration. Delayed, breathy and unproductive cough response observed after each episode of aspiration. Penetration and aspiration consistently worse with implementation of chin tuck due to insufficient laryngeal closure and premature spillage leaking into laryngeal vestibule. Mild oropharyngeal residue observed on tongue base, mildly in valleculae and in the pyriform sinuses after swallow. Able to clear without difficulty. Observed what appeared to be a cervical osteophyte at C5-C6. Please see Radiologist's report for further details. Further trials discontinued due to consistent aspiration. RECOMMEND: NPO due to consistent aspiration with thin, nectar and honey thick. Intense oroparhygeal exercises to improve strength in order to safely trial additional PO intake, when able. Rehabilitation Potential Excellent Patient Appropriate for Therapy Yes Recommendations Diet Liquids Order NPO Diet Order NPO/Alternative Means of Nutrition/Hydration Medication Recommendation Not Recommended by Mouth Additional Dietary Needs Reminders to Use Strategies Aspiration Precautions Recommended Precautions Upright at 90 Degrees Effortful Swallow Double Swallow Supraglottic Swallow Supersupraglottic Swallow Ama Maneuvor Additional Precautions Strict oral care and liquid swish and spit to help with dry mouth Treatment Plan Therapy Recommendations Inpatient Speech Therapy Outpatient Speech Therapy Oral Motor Exercises Lingual Exercises Base of Tongue Exercises Vocal Fold Adduction Exercises Compensatory Strategy Education GERD/Vocal Hygiene Education Recommended Referrals Primary Care Physician Compensatory Strategies Recommendations Sitting Upright (90 deg) Double Swallow Supraglottic Swallow Supersupraglottic Swallow Mendelsonn Maneuver Short Term Goals Patient will complete oropahryngeal exercises to improve overall strength needed to improve swallow function. Patient will improve on layngeal function in order to safely trial PO. Patient will complete thorough oral care prior to lingual swish and spit. Final Inspector Truck Trailer Goals Patient will improve in oropharyngeal strength in order to safetly participate in repeat MBS and/or PO trials for possible diet upgrade. Patient will tolerate the safest, least restrictive diet without overt s/s of aspiration. Placement Recommendation After Discharge Half-Way Facility Outpatient Therapy Additional Recommendations/Comments MANUFACTURING QUALITY TECHNICIAN to follow up with Dr Velarde to discuss proper nutrition/ hydration plan following NPO recommendations after MBS.
[2017-12-03] MEDS: NICOTINE 21 MG PATCH TOP (14:40)
--- NOTE | 2017-12-03 14:53 | PC.NURSE ---
Day Shift Note Alert and oriented to self and place, confusion related to time and occ. to sequence of events. Up walking in halls with PT, transferring into bathroom with 1 person assist. Weakness present to BLEs and greater to LLE. Oxygen sats 92-94% on RA. Exp. rhonchi to bilateral lung melgar. No coarseness or wheezing noted, upper airway clear on AM assessment. Voice continues to be hoarse and cough is weak and ineffective. Impulsive, bed alarm on. Barium swallow done this afternoon - see DRAWER IN STITCH BONDING MACHINE report.
--- NOTE | 2017-12-03 15:12 | CM.DPC ---
DCP Cont: Patient is NPO at this time, due to swallowing issues. Is to have barium swallow tomorrow. P.T/O.T to work with patient to determine if she will be able to go home, or skilled facility. P: DCP to continue to plan and assess. to be determined whether patient is in need of snf, as opposed to going home. Camila Ruiz RN/Range Management Specialist
[2017-12-03] MEDS: INSULIN DETEMIR 100 UNIT/ML INSULN.PEN 25 UNIT SUBCUT (21:05)
--- NOTE | 2017-12-03 22:02 | PC.NURSE ---
2100- Patient remains very hoarse and c/o feeling hungry. Patient is aware of the NPO status and understands that her swallow is not safe. Patient is compliant lemon swabs provided for comfort. Patient lungs are bronchial sounding and expiratory rhonchi. saturation is 90%
[2017-12-04] VITALS (19 sets, daily range): BP systolic 143–174; BP diastolic 73–102; PULSE 64–87; RESP 13–20; TEMP 36.1–37.5; O2SAT 88–97
--- NOTE | 2017-12-04 | DI.CT.S_ITS ---
PROCEDURE: CT CHEST W CON INDICATIONS: r/o malignancy TECHNIQUE: After the administration of intravenous contrast, 5 mm thick sections acquired from the pulmonary apices to the posterior costophrenic angles. 7 mm thick coronal and sagittal MIP reformats were acquired. For radiation dose reduction, the following was used: automated exposure control, adjustment of mA and/or kV according to patient size. COMPARISON: [facility], CT, THORAX WITHOUT CONTRAST, 05/21/2016, 10:32. FINDINGS: Image quality: Excellent. Lungs and pleura: No acute consolidation. Upper lobe predominant centrilobular emphysema. No pleural effusions or pneumothorax. Central and peripheral airways are patent and normal in caliber. Mediastinum: Heart size is normal. There are coronary artery calcifications No pericardial effusion. No mediastinal or hilar adenopathy by size criteria. Few calcified mediastinal lymph nodes Thoracic aorta and central pulmonary arteries are normal in size. Esophagus is normal in caliber. No hiatal hernia. Bones and chest wall: No suspicious bony lesions. No vertebral body compression fractures. No axillary or supraclavicular adenopathy by size criteria. Thyroid gland unremarkable. Abdomen: Hepatic steatosis is seen. There are multiple cystic lesions within the pancreatic body and uncinate process measuring 1.4 x 0.9 cm on image 61 series 2 and approximately 0.9 x 0.9 cm body on image 58. These may be unchanged since 05/21/16 although limited evaluation and comparison if no contrast on the prior study. Probable geographic fatty infiltration involving the left lobe of the liver image 51 series 2 which is also unchanged. Nonobstructive left renal calculus measuring 2 mm. IMPRESSION: Overall, no acute disease or interval change since 05/21/16. Multiple cystic foci within the pancreas, and cystic pancreatic neoplasm cannot be entirely excluded. I suspect there is unchanged appearance since 05/21/16 however limited comparison given no contrast enhancement on the prior study. If clinically warranted, pancreatic protocol contrast-enhanced CT or MRI could be performed for further assessment Additional chronic and incidental findings as above. Dictated by: Mateusz Han M.D. on 12/04/2017 at 18:27 Approved by: Mateusz Han M.D. on 12/04/2017 at 18:37
[2017-12-04] MEDS: ENALAPRILAT 1.25 MG/ML VIAL 0.625 MG IV ×5 (00:17→23:52)
[2017-12-04] MEDS: INSULIN ASPART 100 UNIT/ML INSULN PEN SUBCUT ×3 (00:20→12:49)
[2017-12-04] MEDS: ALBUTEROL/IPRATROPIUM 3 ML AMPUL INH ×2 (04:57→20:55)
[2017-12-04 05:52] LABS: BUN Creatinine Ratio 51.7 (6-22); Blood Urea Nitrogen 31 mg/dL (7-17); Calcium 9.1 mg/dL (8.4-10.2); Carbon Dioxide 33 mmol/L (22-32); Chloride 105 mmol/L (98-107); Estimated Glomerular Filt Rate > 60.0 mL/min (>60); Glucose 330 mg/dL (80-110); HEMOLYSIS < 15 (0-50); Potassium 3.1 mmol/L (3.4-5.1); Sodium 145 mmol/L (137-145)
[2017-12-04] MEDS: POTASSIUM CHLORIDE IV (08:20)
[2017-12-04] MEDS: WATER IV (08:20)
[2017-12-04] MEDS: DEXTROSE 5% IV (08:20)
--- NOTE | 2017-12-04 08:25 | ST.IPDYTX ---
WASTEWATER PLANT OPERATOR Dysphagia Treatment WASTEWATER PLANT OPERATOR Dysphagia Treatment Start: 12/02/17 11:17 Freq: Status: Active Protocol: Document 12/04/17 08:16 TLC (Rec: 12/04/17 08:25 TLC [id number]) Dysphagia Treatment Session Time Visit Start Time 07:45 Visit Stop Time 08:15 Total Visit Minutes 30 Setting Assessment Location Acute Care Visit Type Note Type Treatment Note Next Note Type Next Note Type Treatment Note Patient Information Identification Type Name Subjective Observations Patient awake, sitting up in bed. She agreed to participate in dysphagia therapy. Treatment Treatment Activities Provided patient with handout and education on pharyngeal strengthening exercises: Yuridia, Effortful, Michael, Shaker. Patient able to demonstrate understanding by performing exercises following therapist model. Completed Shaker exercise (isotonic x8 reps, isometric for 10 seconds x5 reps), Effortful swallow x5, michael x3, shaker x5. Discussed recommendations for performing each exercise 10xs at least 3x/day. More if able to tolerate. Patient expressed understanding. Nursing education provided re: recommendations for completing exercises as well as oral care. Assessment Patient Response to Treatment Good Rehab Potential Good Assessment of Improvement No visible change since yesterday. Voice remains hoarse, weak. Cough nonproductive. Rehab potential is good given patient's age and cognitive ability to complete exercises as recommended. Diet Recommendations Comment Continue NPO Treatment Plan Dysphagia Goals Patient will complete oropharyngeal exercises ( effortful, michael, shaker and yuridia) to improve overall strength needed to improve swallow function. Patient will complete thorough oral care prior to lingual swish and spit.
[2017-12-04] MEDS: methylPREDNISolone 125 MG/2 ML VIAL 60 MG IV (09:17)
[2017-12-04] MEDS: ENOXAPARIN 40 MG/0.4 ML SYRINGE SUBCUT (09:17)
[2017-12-04] MEDS: PANTOPRAZOLE 40 MG VIAL IV (09:18)
[2017-12-04] MEDS: INSULIN DETEMIR 100 UNIT/ML INSULN.PEN 25 UNIT SUBCUT (09:18)
--- NOTE | 2017-12-04 10:30 | PT.IPTN ---
Current Diagnoses Type 1 diabetes mellitus with ketoacidosis with coma (11/28/17) Other specified diabetes mellitus with ketoacidosis without coma (11/28/17) Hyperosmolality and hypernatremia (11/28/17) Hypokalemia (11/28/17) Respiratory failure, unspecified, unspecified whether with hypoxia or hypercapnia (11/28/17) Dysphagia, unspecified (11/28/17) Physical Therapy Treatment Note M2 PT-IP Current Condition Start: 12/03/17 10:14 Freq: NEEDED Status: Active Protocol: Document 12/03/17 09:25 MDD (Rec: 12/03/17 10:37 MDD [id number]) Physical Therapy Current Condition Current Condition Evaluation Date 12/03/17 Treatment Diagnosis DKA, impaired mobility Onset Date 11/28/17 M3 PT-IP Subjective Start: 12/03/17 10:14 Freq: NEEDED Status: Active Protocol: Document 12/04/17 10:30 MDD (Rec: 12/04/17 12:40 MDD [id number]) Subjective Physical Therapy Visit Type Type Treatment Note Visit Start Time 09:51 Visit Stop Time 10:30 Total Visit Minutes 39 Notes SpO2 on RA at 93%, dropped to 86% with activity, but returned to > 90% within 1 minute seated rest. Number of PEWTER FINISHER Visits 0 Therapy Pain Assessment Pain Present Pain Present Denied Pain M4 PT-IP Mobility and Gait Start: 12/03/17 10:14 Freq: NEEDED Status: Active Protocol: Document 12/03/17 09:25 MDD (Rec: 12/03/17 10:37 MDD [id number]) PT-Bed Mobility Assessment Rolling Level of Assist Independent Supine to Sit Supine to Sit Standby Assistance Bedrails Sit to Supine Sit to Supine Independent Scooting Scooting to Edge of Bed Independent Scooting Up and Down in Bed Independent PT-Transfer Assessment Sit to and From Stand Sit to and from Stand Minimal Assistance Equipment Transfer Assistive Device Gait Belt Front Wheeled Walker Gait Assessment Gait Gait Assistance Required: Contact Guard Assist Minimum Assistance Distance (Feet) (feet) 50 Assistive Devices Assistive Device Gait Belt Front Wheeled Walker Gait Deviations General Gait Pattern Decreased Feet Clearance Wide Based Gait Comments Gait Comments mild L foot drop, requires cues for dorsiflexing L ankle, increasing hip flexion. Pt with some difficulty navigating the walker, running into things on the L PT-Balance Assessment Sitting Balance and Reactions Static Sitting Balance Ability Normal Dynamic Sitting Balance Ability Normal Standing Balance and Reactions Static Standing Balance Ability Fair Dynamic Standing Balance Ability Fair Balance Tests Romberg unsteady, requires UE assist on FWW M5 PT-IP Objective Assessments Start: 12/03/17 10:14 Freq: NEEDED Status: Active Protocol: Document 12/03/17 09:25 MDD (Rec: 12/03/17 10:37 MDD [id number]) Orientation Orientation/Cognition Level of Alertness Alert Orientation Name Age Birthday Month Date Year Day of Week Place Situation Language Function Ability No Deficits Noted Safety Awareness Decreased Safety Awareness Memory Description No Deficits Noted Comments Pt's voice is hoarse, but clear and intelligible. Gross Range of Motion Lower Extremity ROM Assessment Within Functional Limits Strength Lower Extremity Strength Assessment Left Impaired Hip R hip flexion 4/5, L 4+/5, hip IR/ER 4+/5 B Knee R knee extension 4/5, L knee extension 4+/5, R knee flexion 4/5, L 4+/5 Ankle 1/5 L ankle dorsiflexion Comments Strength Comments Pt reports weakness in L ankle is new Sensation Assessment Sensation Gross Sensation Left LE Impaired Light Touch Absent Sensation Description Paresthesia Numbness Comments Sensation Comments light touch sensation absent L medial malleolus, impaired plantar surface of foot to shins M6 PT-IP Treatment Start: 12/03/17 10:14 Freq: NEEDED Status: Active Protocol: Document 12/04/17 10:30 MDD (Rec: 12/04/17 12:40 [facility] [id number]) Physical Therapy Treatment Education Education Provided Safety Other Treatments Other Treatment Performed Performed Lee Balance assessment: 23/56. Also performed therapeutic exercises including: seated hip flexion, seated knee flexion, seated L ankle df and standing heel raises. M7 PT-IP Assessment and Plan Start: 12/03/17 10:14 Freq: NEEDED Status: Active Protocol: Document 12/04/17 10:30 MDD (Rec: 12/04/17 12:40 [facility] [id number]) PT Summary Assessment and Plan Potential Rehabilitation Potential Good Status of Condition at Evaluation Evolving Summary Impairments Strength Balance Gait Progress Towards Goals Progressing Toward Goals Assessment Summary Pt demonstrates slight improvement in ability to actively dorsiflex L ankle today (2/5). Her score on the lee balance assessment was 23/56 which puts her at a very high fall risk. Safest d/c plan may be senior living facility due to this high fall risk. PT would like to coordinate with family regarding timing to work on caregiver training tomorrow if appropriate. Goals Bed Mobility Goal Independent Transfer Goal Independent Gait Goal Independent Gait Distance 50 with FWW Other Goals Ascend/descend 2 steps with R railing Frequency of Treatment Frequency Of Treatment Once a Day Treatment Plan Physical Therapy Treatment Plan Bed Mobility Training Transfer Training Gait Training Therapeutic Exercise Balance Retraining Discharge Planning Recommendations To Nursing Amount of Assist Needed 1 Person Assist Discharge Recommendations PT Discharge Recommendations Home with Assistance Home Health SNF Rehab Other Discharge Recommendations If pt goes home, would need one person able to perform SBA /CGA for mobility at all times , and would benefit from home health OT/PT/TECHNICAL APPLICATIONS SPECIALIST.
--- NOTE | 2017-12-04 11:24 | OT.IP.TRT ---
Current Diagnoses Type 1 diabetes mellitus with ketoacidosis with coma (11/28/17) Other specified diabetes mellitus with ketoacidosis without coma (11/28/17) Hyperosmolality and hypernatremia (11/28/17) Hypokalemia (11/28/17) Respiratory failure, unspecified, unspecified whether with hypoxia or hypercapnia (11/28/17) Dysphagia, unspecified (11/28/17) Occupational Therapy Treatment Note M2 OT-IP Current Condition Start: 12/03/17 13:08 Freq: Status: Active Protocol: Document 12/03/17 10:45 PJM (Rec: 12/03/17 13:31 PJM [id number]) Occupational Therapy Current Condition Current Condition Evaluation Date 12/03/17 Treatment Diagnosis decreased self care, mobility, cognition s/p diabetic coma w /intubation Post Operative Precautions Other Precautions NPO with barium swallow pending, fall risk M3 OT- IP Subjective and Pain Start: 12/03/17 13:08 Freq: Status: Active Protocol: Document 12/04/17 11:24 PJM (Rec: 12/04/17 15:47 PJ [id number]) OT- Subjective Occupational Therapy Visit Type Type Treatment Note Visit Start Time 10:50 Visit Stop Time 11:24 Notes Pt failed barium swallow yesterday; remains strict NPO. Voice more hoarse today with increased stridor earlier this AM requiring 2 breathing tx's per RN. Occupational Therapy Visit Comments Patient Comments I really wish I could eat or drink something. OT Pain Assessment Pain When Pain Assessed After Treatment Pain Present Pain Present Pain Reported Location anterior hips Intensity 4 Description Aching M6 OT- IP Functional Cognition Start: 12/03/17 13:08 Freq: Status: Active Protocol: Document 12/04/17 11:24 PJM (Rec: 12/04/17 15:47 [facility] [id number]) Cognitive Factors Limiting Selfcare Function Cognitive Ability Level of Alertness Alert Patient Orientation Name Month Date Year Day of Week Place Situation Attention Span Ability Capable of Focused Attention Capable of Sustained Attention Ability to Follow Commands Able to Follow One Step Commands Memory Description Short Term Impaired Working Impaired Cognitive Tests SLUMS Pt scored 16/30 (norm is 27/30 ). Pt had difficulty with short term and working memory , unable to do mental math, had slow word generation, had difficulty placing numbers and hands on clock drawing even after 2 trials. She recalls 2/ 4 facts about short paragraph read to her. Cognitive Comments Cognitive Assessment Comments Also administered Trailmaking A/B test with pt completing Trails A in 60 sec (scores >52 sec indicate significant and severe impairment. Pt made one sequencing error, but self corrected Pt completed Trails B in 179 sec (scores >121 sec indicate significant and severe impairment). Pt made no sequencing errors alternating ascending numbers/letters but presents with significantly slowed speed of processing. OT- Vision and Hearing OT- Vision Assessment Visual Attentiveness WFL M7 OT- IP Mobility and Balance Start: 12/03/17 13:08 Freq: Status: Active Protocol: Document 12/03/17 10:45 PJM (Rec: 12/03/17 13:31 PJM [id number]) OT- Bed Mobility Assessment Rolling Type of Rolling Roll to Left Level of Assistance Standby Assistance Head of Bed Elevated Bedrails Supine to Sit Supine to Sit Assist Standby Assistance Head of Bed Elevated Bedrails Sit to Supine Sit to Supine Assist Standby Assistance Head of Bed Elevated Scooting Scooting to Edge of Bed Standby Assistance M9 OT- IP Assessment and Plan Start: 12/03/17 13:08 Freq: Status: Active Protocol: Document 12/04/17 11:24 PJM (Rec: 12/04/17 15:47 PJM [id number]) OT Summary Assessment and Plan Summary Progress Towards Goals Progressing Toward Goals Assessment Summary Pt presents with significant cognitive impairments on both SLUMS and Trailmaking test which raise concern about safe completion of IADL tasks such as medication management (pt has complex diabetes), money management, meal planning, hot meal prep, and driving. Note pt lives alone. Her sisters from [place] are leaving this week, and her local sister can only staywith her only a few days after discharge. Pt may need SNF at d/c pending progress here. She currently needs 24 hr assist for safety. Goals OT-Other Goals Pt to complete grade IADL cognitive tasks with min cues and 90 % accuracy. Days to Meet Goals 5 Frequency of Treatment Frequency Of Treatment Once a Day Treatment Plan OT Treatment Plan ADL Training Functional Cognition Training Functional Mobility Patient/Family Education Discharge Planning Discharge Recommendations OT Discharge Recommendations Home with 24/7 Assist vs. SNF Rehab Other Discharge Recommendations Further recommendations to follow pending pt progress here. Home Equipment Needs shower seat, grab bars by shower and toilet
[2017-12-04] MEDS: RACEPINEPHRINE 0.5 ML NEB INH ×4 (11:32→20:55)
[2017-12-04] MEDS: NICOTINE 21 MG PATCH TOP (12:49)
--- NOTE | 2017-12-04 13:25 | SLP.IPNOTE ---
RECORDS AND TAPE RECORDINGS ENGINEER spoke with Dr Velarde regarding an ENT consult for Ms. Vera due to ongoing aphonic vocal quality, unproductive cough and stridor (observed by RT consistently). RECORDS AND TAPE RECORDINGS ENGINEER is recommending an ENT consult for further investigation of patient's pharynx to identify any underlying cause of the prementioned symptoms. Dr Velarde agreed to this and will attempt to reach [facility] for further plans. RECORDS AND TAPE RECORDINGS ENGINEER to follow up.
[2017-12-04 13:46] LABS: Hepatitis B Surf Ab Qualitativ Nonreactive (Nonreactive)
--- NOTE | 2017-12-04 14:01 | PM.PN.1 ---
Subjective Date Patient Seen: 12/04/17 Time Patient Seen: 14:02 Interval history: Patient still with a very hoarse voice. She is unable to pass her swallow evaluation. Speech Therapy raised concerns about vocal cord paralysis which are valid. Patient states she is hungry and would like to eat Exam Vital Signs (past 8 hours): - 12/04/17 06:20 12/04/17 07:00 12/04/17 09:21 Temperature 99.5 F Pulse Rate 84 81 87 Respiratory Rate 20 Blood Pressure 143/102 H 160/82 H Pulse Oximetry 92 90 L 12/04/17 09:22 12/04/17 09:23 12/04/17 11:00 Temperature 98.6 F Pulse Rate 77 Respiratory Rate 20 Blood Pressure 158/86 H Pulse Oximetry 89 L 95 90 L 12/04/17 13:14 12/04/17 13:34 Temperature Pulse Rate 85 Respiratory Rate 14 Blood Pressure Pulse Oximetry 92 90 L Fraction of Inspired Oxygen 35 Oxygen Delivery Method Room Air Oxygen Flow Rate 0 Narrative Exam Narrative: Lungs: Decreased breath sounds with end expiratory wheezing CV: RRR nl S1S2 Abd: soft/ non tender/ non distended Ext: 1+ edema, left leg with dressing in place Objective Labs Result Diagrams: 12/03/17 05:15 12/04/17 04:55 Labs: Laboratory Results - last 24 hr 12/02/17 12/04/17 15:45 04:55 Sodium 145 Potassium 3.1 L Chloride 105 Carbon Dioxide 33 H BUN 31 H Creatinine 0.60 Estimated GFR > 60.0 BUN/Creatinine Ratio 51.7 H Glucose 330 H Calcium 9.1 Hep Bs Antibody Nonreactive Assessment & Plan (1) Respiratory failure: Problem details: Continue current treatment plan. The patient has been successfully extubated. Still with hoarse voice, will ask ENT to evaluate Current visit: Yes Status: Acute (2) Dysphagia: Problem details: Modified barium swallow evaluation tomorrow Will continue to keep NPO for now her NPO for now ENT consultation, TPN until able to eat Current visit: Yes Status: Acute (3) Hypokalemia: Problem details: Will replace potassium in IVF today Current visit: Yes Status: Acute (4) Hypernatremia: Problem details: Will increase free water and discontinue IV Lasix. Recheck labs in am Continue to replace potassium Improved Current visit: Yes Status: Acute Quality VTE Deep Vein Thrombosis/Pulmonary Embolism Present on Admission: No
--- NOTE | 2017-12-04 14:30 | DI.RAD.S_ITS ---
PROCEDURE: XR CHEST FOR PICC 1V INDICATIONS: line COMPARISON: None. FINDINGS: PICC was placed by the intravenous therapy team from the left side. Fluoroscopic spot film demonstrates tip of PICC in the superior vena cava. IMPRESSION: Tip of PICC lies within the superior vena cava. Dictated by: Stefanie Vences M.D. on 12/04/2017 at 15:22 Approved by: Stefanie Vences M.D. on 12/04/2017 at 15:22
[2017-12-04] MEDS: INSULIN DETEMIR 100 UNIT/ML INSULN.PEN 30 UNIT SUBCUT ×2 (14:44→21:45)
[2017-12-04] MEDS: FAT EMULSIONS 50 GM/250 ML EMULSION IV (18:23)
[2017-12-04] MEDS: CALCIUM IV (18:24)
[2017-12-04] MEDS: LYTES IV (18:24)
[2017-12-04] MEDS: MULTIVITAMIN IV (18:24)
[2017-12-04] MEDS: TRACE ELEMENTS IV (18:24)
[2017-12-04] MEDS: DEXT IV (18:24)
[2017-12-04] MEDS: [UNRECOGNIZED DRUG - OTHER] IV (18:24)
[2017-12-04] MEDS: DEXAMETHASONE 20 MG in SODIUM CHLORIDE 0.9% 50 ML 220 ML IV (18:26)
[2017-12-04 18:27] LABS: INR 1.2 (0.9-1.3); Prothrombin Time 13.1 SECONDS (10.1-12.7)
[2017-12-04] MEDS: INSULIN ASPART 100 UNIT/ML INSULN PEN 8 UNIT SUBCUT (18:29)
[2017-12-04 18:30] LABS: PTT Partial Thromboplastin Tim 25 SECONDS (26.4-36.2)
--- NOTE | 2017-12-04 22:53 | PC.NURSE ---
hari note pt went to CT scan via wheelchair after being seen by ENT Dr. Roca. Pt up with one person assist. Pt doing well with FWW, but almost fell over backwards while standing at sink brushing teeth. Bed alarm on.
[2017-12-05] VITALS (9 sets, daily range): BP systolic 128–178; BP diastolic 58–90; PULSE 76–98; RESP 14–20; TEMP 36.1–36.8; O2SAT 90–97; BMI 30.4
--- NOTE | 2017-12-05 | DI.MRI.S_ITS ---
PROCEDURE: MR HEAD/BRAIN WO CON INDICATIONS: rule out Acute or subacute CVA particularly of brainstem. TECHNIQUE: Non-contrast axial T1 spin echo, axial T2 fast spin echo, sagittal and axial FLAIR, coronal T2 fast spin echo, axial gradient echo, axial diffusion and ADC through the brain. COMPARISON: [facility], CT, CT HEAD/BRAIN WO CON, 11/28/2017, 19:30. [facility], CT, CT ANGIO HEAD AND NECK, 10/17/2017, 12:15. [facility], CT, BRAIN W/O CONTRAST, 01/07/2008, 14:02. FINDINGS: Image quality: Severely degraded by patient motion artifact. CSF spaces: Ventricles appear symmetric in size and shape. Basal cisterns are patent. No extra-axial fluid collections. Brain: No intracranial bleeds or mass effects. There is cerebral volume loss for age. There are periventricular and deep white matter chronic small vessel ischemic changes. Brainstem appears normal. Diffusion-weighted images show no acute ischemic insults. Foci of decreased T1 increased T2 signal noted in the left aspect of the lisa which could represent artifact related to patient motion versus chronic infarcts. Normal intravascular flow voids are present. Skull and face: Calvarial bone marrow is normal in signal. Orbits are normal. Sinuses: Sinuses are clear. Scattered fluid signal noted in the mastoid air cells. IMPRESSION: 1. Image quality severely degraded by patient motion artifact. 2. No acute/subacute infarct. 3. Foci of increased T2 and decreased T1 signal in the lisa compatible with motion artifact versus chronic lacunar infarcts. 4. Scattered fluid signal in the mastoid air cells bilaterally. Dictated by: Michela Ivory MD, PhD on 12/05/2017 at 10:56 Approved by: Michela Ivory MD, PhD on 12/05/2017 at 11:09
--- NOTE | 2017-12-05 02:10 | CONS_ITS ---
DATE OF SERVICE: 12/04/2017 OTOLARYNGOLOGY CONSULTATION/PROCEDURE NOTE CHIEF COMPLAINT: Airway obstruction, stridor, hoarseness. HISTORY OF PRESENT ILLNESS: A 67-year-old female, reportedly a chronic alcoholic, per older sister, who presented 11/28/2017 intubated in [facility]. She tolerated extubation 2 days ago only briefly, requiring urgent reintubation. She has subsequently been extubated with significant new primarily inspiratory stridor and at least 1 failed swallow study with presumably cecilio aspiration. Consultation was requested by Dr. Meg Velarde to view the vocal cords, concern for at least unilateral paralysis. She has received 60 mg of IV Solu-Medrol daily, as well as nebulized epinephrine with some at least mild benefit. PAST MEDICAL HISTORY: Reviewed. Per nursing notes. MEDICATIONS: Reviewed. Per nursing notes. ALLERGIES: REVIEWED. PER NURSING NOTES. SOCIAL HISTORY: Reviewed. Per nursing notes. FAMILY HISTORY: Reviewed. Per nursing notes. REVIEW OF SYSTEMS: Reviewed. Per nursing notes. PHYSICAL EXAMINATION: VITAL SIGNS: On the chart. GENERAL APPEARANCE: Chronically ill female, essentially aphonic with moderate inspiratory stridor and occasional wet cough. No respiratory distress however. HEENT: Her head is normocephalic, atraumatic. External ears are normal. External nose is normal. NECK: Without obvious mass. PROCEDURE: Flexible laryngoscopy. INDICATIONS: Stridor, hoarseness, airway obstruction following urgent reintubation. FINDINGS: Essentially bilaterally immobile vocal folds with marked polypoid corditis (Meaghan's edema), a few millimeter airway that fluctuates slightly with inspiration. Some pooling of secretions. COMPLICATIONS: None. DESCRIPTION OF PROCEDURE: Following verbal consent, the lubricated flexible nasopharyngoscope was passed into the right nostril down to the level of the epiglottis with the above findings noted. Tolerated well without known complication. ASSESSMENT: 1. 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 2. Dysphagia with aspiration, consistent with number 1. 3. Hoarseness, consistent with number 1 and severe Meaghan's edema. PLAN: As discussed with the family and the hospitalist. She may benefit from increased steroid therapy such as Decadron 20 mg IV daily, along with continued nebulized epinephrine. She needs to be watched closely for airway decompensation and may ultimately require tracheostomy, ideally following successful reintubation. Tube feedings versus TPN, per the hospitalist. Follow up as an outpatient. If doing well, may benefit from vocal cord surgery if spontaneous movement does not occur. Carisa Vera - NESS/ana maria/giovanny doc#: [id number]/job#: [id number] dd: 12/04/2017 17:55:00 dt: 12/05/2017 00:17:00 DICTATING MD/COPIES TO: Roby Roca MD; MICHELLE Arnold; Meg Velarde MD COPIES MNE: ARA GORE
[2017-12-05] MEDS: RACEPINEPHRINE 0.5 ML NEB INH ×3 (05:18→18:13)
[2017-12-05] MEDS: ALBUTEROL/IPRATROPIUM 3 ML AMPUL INH ×2 (05:18→18:47)
[2017-12-05] MEDS: MORPHINE 2 MG/ML INJ 1 MG IV (05:45)
[2017-12-05 06:12] LABS: Blood Urea Nitrogen 25 mg/dL (7-17); Calcium 9.2 mg/dL (8.4-10.2); Carbon Dioxide 32 mmol/L (22-32); Chloride 103 mmol/L (98-107); Estimated Glomerular Filt Rate > 60.0 mL/min (>60); Glucose 402 mg/dL (80-110); HEMOLYSIS 23 (0-50); Sodium 145 mmol/L (137-145)
[2017-12-05] MEDS: INSULIN ASPART 100 UNIT/ML INSULN PEN 8 UNIT SUBCUT (06:35)
[2017-12-05] MEDS: ENALAPRILAT 1.25 MG/ML VIAL 0.625 MG IV ×4 (08:11→23:33)
[2017-12-05] MEDS: NICOTINE 21 MG PATCH TOP (08:11)
[2017-12-05] MEDS: ENOXAPARIN 40 MG/0.4 ML SYRINGE SUBCUT (08:11)
[2017-12-05] MEDS: INSULIN DETEMIR 100 UNIT/ML INSULN.PEN 36 UNIT SUBCUT ×2 (08:12→21:24)
[2017-12-05] MEDS: PANTOPRAZOLE 40 MG VIAL IV (08:14)
[2017-12-05] MEDS: SODIUM CHLORIDE 0.9% FLUSH 10 ML IV ×3 (08:15→21:23)
[2017-12-05] MEDS: THIAMINE IV (08:27)
[2017-12-05] MEDS: WATER IV (08:27)
[2017-12-05] MEDS: DEXTROSE 5% IV (08:27)
--- NOTE | 2017-12-05 09:00 | PT.IPTN ---
Current Diagnoses Type 1 diabetes mellitus with ketoacidosis with coma (11/28/17) Other specified diabetes mellitus with ketoacidosis without coma (11/28/17) Hyperosmolality and hypernatremia (11/28/17) Hypokalemia (11/28/17) Respiratory failure, unspecified, unspecified whether with hypoxia or hypercapnia (11/28/17) Dysphagia, unspecified (11/28/17) Physical Therapy Treatment Note M2 PT-IP Current Condition Start: 12/03/17 10:14 Freq: NEEDED Status: Active Protocol: Document 12/03/17 09:25 MDD (Rec: 12/03/17 10:37 MDD [id number]) Physical Therapy Current Condition Current Condition Evaluation Date 12/03/17 Treatment Diagnosis DKA, impaired mobility Onset Date 11/28/17 M3 PT-IP Subjective Start: 12/03/17 10:14 Freq: NEEDED Status: Active Protocol: Document 12/05/17 09:05 GGD (Rec: 12/05/17 11:41 GGD [id number]) Subjective Physical Therapy Visit Type Type Treatment Note Visit Start Time 08:45 Visit Stop Time 09:05 Total Visit Minutes 20 Number of KST OPERATOR Visits 1 Physical Therapy Visit Comments Patient Comments Pt state she getting up to shower. M4 PT-IP Mobility and Gait Start: 12/03/17 10:14 Freq: NEEDED Status: Active Protocol: Document 12/05/17 09:05 GGD (Rec: 12/05/17 11:41 GGD [id number]) PT-Bed Mobility Assessment Rolling Level of Assist Independent Supine to Sit Supine to Sit Independent Scooting Scooting to Edge of Bed Independent Scooting Up and Down in Bed Independent PT-Transfer Assessment Sit to and From Stand Sit to and from Stand Contact Guard Assistance Use of Upper Extremities Equipment Transfer Assistive Device Gait Belt Front Wheeled Walker Gait Assessment Gait Gait Assistance Required: Contact Guard Assist Minimum Assistance Distance (Feet) (feet) 70 Assistive Devices Assistive Device Gait Belt Front Wheeled Walker Gait Deviations General Gait Pattern Decreased Feet Clearance Wide Based Gait Factors Limiting Gait Function Factors Limiting Gait Function Decreased Strength Poor Balance M5 PT-IP Objective Assessments Start: 12/03/17 10:14 Freq: NEEDED Status: Active Protocol: Document 12/03/17 09:25 MDD (Rec: 12/03/17 10:37 MDD [id number]) Orientation Orientation/Cognition Level of Alertness Alert Orientation Name Age Birthday Month Date Year Day of Week Place Situation Language Function Ability No Deficits Noted Safety Awareness Decreased Safety Awareness Memory Description No Deficits Noted Comments Pt's voice is hoarse, but clear and intelligible. Gross Range of Motion Lower Extremity ROM Assessment Within Functional Limits Strength Lower Extremity Strength Assessment Left Impaired Hip R hip flexion 4/5, L 4+/5, hip IR/ER 4+/5 B Knee R knee extension 4/5, L knee extension 4+/5, R knee flexion 4/5, L 4+/5 Ankle 1/5 L ankle dorsiflexion Comments Strength Comments Pt reports weakness in L ankle is new Sensation Assessment Sensation Gross Sensation Left LE Impaired Light Touch Absent Sensation Description Paresthesia Numbness Comments Sensation Comments light touch sensation absent L medial malleolus, impaired plantar surface of foot to shins M6 PT-IP Treatment Start: 12/03/17 10:14 Freq: NEEDED Status: Active Protocol: Document 12/04/17 10:30 MDD (Rec: 12/04/17 12:40 MDD [id number]) Physical Therapy Treatment Education Education Provided Safety Other Treatments Other Treatment Performed Performed Dawson Balance assessment: . Also performed therapeutic exercises including: seated hip flexion, seated knee flexion, seated L ankle df and standing heel raises. M7 PT-IP Assessment and Plan Start: 12/03/17 10:14 Freq: NEEDED Status: Active Protocol: Document 12/05/17 09:05 GGD (Rec: 12/05/17 11:41 GGD [id number]) PT Summary Assessment and Plan Summary Assessment Summary Pt was unsteady with gait, but no LOB. She did need cues for FWW safety and transfer to shower chair. She is below her baseline and lives alone, she would benefit from SNF before returning home. Frequency of Treatment Frequency Of Treatment Once a Day Treatment Plan Physical Therapy Treatment Plan Bed Mobility Training Transfer Training Gait Training Therapeutic Exercise Balance Retraining Discharge Planning Recommendations To Nursing Amount of Assist Needed 1 Person Assist Discharge Recommendations PT Discharge Recommendations Home with Assistance Home Health SNF Rehab
--- NOTE | 2017-12-05 10:05 | RT ---
Patient states she is not interested in receiving smoking cessation education at this time.
--- NOTE | 2017-12-05 11:41 | OT.IP.TRT ---
Current Diagnoses Type 1 diabetes mellitus with ketoacidosis with coma (11/28/17) Other specified diabetes mellitus with ketoacidosis without coma (11/28/17) Hyperosmolality and hypernatremia (11/28/17) Hypokalemia (11/28/17) Respiratory failure, unspecified, unspecified whether with hypoxia or hypercapnia (11/28/17) Dysphagia, unspecified (11/28/17) Occupational Therapy Treatment Note M2 OT-IP Current Condition Start: 12/03/17 13:08 Freq: Status: Active Protocol: Document 12/03/17 10:45 PJM (Rec: 12/03/17 13:31 PJM [id number]) Occupational Therapy Current Condition Current Condition Evaluation Date 12/03/17 Treatment Diagnosis decreased self care, mobility, cognition s/p diabetic coma w /intubattion Post Operative Precautions Other Precautions NPO with barium swallow pending, fall risk M3 OT- IP Subjective and Pain Start: 12/03/17 13:08 Freq: Status: Active Protocol: Document 12/05/17 11:36 CCC (Rec: 12/05/17 11:41 CCC [email or web address]) OT- Subjective Occupational Therapy Visit Type Type Treatment Note Visit Start Time 10:55 Visit Stop Time 11:10 Total Visit Minutes 15 Occupational Therapy Visit Comments Patient Comments Pt really wanting to eat/drink , however still NPO. M4 OT- IP ADL's Start: 12/03/17 13:08 Freq: Status: Active Protocol: Document 12/03/17 10:45 PJM (Rec: 12/03/17 13:31 PJM [id number]) OT [id number] Comments OT Self-Feeding Comments Pt NPO at present. OT ADL-Grooming General Evaluation Grooming Ability Standby Assistance Areas Needing Assistance Face Washing Comments OT Grooming Comments after set up in bed OT ADL-Dressing General Eval Lower Body Dressing Ability Minimal Assistance Areas Needing Assistance Retrieving/Set-up of Clothing Pants/Shorts Socks Comments OT Dressing Comments Pt needs CGA for standing balance and min assist to pull pants over hips. Pt SBA with Bsocks seated EOB ,but with decreased dynamic sitting balance noted. OT ADL-Toileting Comments OT Toileting Comments did not occur, set up BSC over toilet so pt can walk to bathroom with RN assist OT ADL-Bathing Bathing Type Bathing Type Shower General Evaluation Bathing Ability Minimal Assistance Devices Bathing Equipment Hand Held Shower Sprayer Shower Chair without Arms Grab Bars Comments OT Bathing Comments Pt did most of bathing but decreased standing balance for franck care per SAP BW ARCHITECT. Recommend shower seat for home. Began education re: bathroom safety equipment options. M5 OT- IP IADL's Start: 12/03/17 13:08 Freq: Status: Active Protocol: Document 12/03/17 10:45 PJM (Rec: 12/03/17 13:31 PJM [id number]) OT-Instrumental Activities of Daily Living Deficits IADL Deficits Identified Deficits Home Safety Awareness Awareness of Need for Assistance at Home Good Awareness Medication Management Medication Management Caregiver Provides Supervision Medication Management Comments Recommend HH RN for diabetic management Money Management Money Management Caregiver Provides Supervision Money Management Comments Pt's sister is POA and can supervise/assist with finances PRN. Meal Preparation Meal Preparation Caregiver Provides Assist Meal Preparation Comments Sisters to assist with meal prep at home Philosophy Professor Philosophy Professor Caregiver Provides Assist Philosophy Professor Comments Sisters to provide assist at home Driving Driving Caregiver Provides Assist Driving Comments Sisters to provide assist M6 OT- IP Functional Cognition Start: 12/03/17 13:08 Freq: Status: Active Protocol: Document 12/05/17 11:36 CCC (Rec: 12/05/17 11:41 CCC [email or web address]) Cognitive Factors Limiting Selfcare Function Cognitive Ability Patient Orientation Name Month Date Year Day of Week Place Situation Attention Span Ability Capable of Focused Attention Capable of Sustained Attention Ability to Follow Commands Able to Follow One Step Commands Able to Follow Multi-Step Commands Memory Description Short Term Impaired Working Impaired Cognitive Tests ACL Pt scored 4.4 on the [employer] Cognitive Level screen which implies pt may live with someone who does a daily check on the environment and solves any new problems. M7 OT- IP Mobility and Balance Start: 12/03/17 13:08 Freq: Status: Active Protocol: Document 12/03/17 10:45 PJM (Rec: 12/03/17 13:31 PJM [id number]) OT- Bed Mobility Assessment Rolling Type of Rolling Roll to Right Level of Assistance Standby Assistance Head of Bed Elevated Bedrails Supine to Sit Supine to Sit Assist Standby Assistance Head of Bed Elevated Bedrails Sit to Supine Sit to Supine Assist Standby Assistance Head of Bed Elevated Scooting Scooting to Edge of Bed Standby Assistance OT-Transfer Assessment Sit to and From Stand Sit to and from Stand Contact Guard Assistance OT- Balance Assessment Sitting Balance and Reactions Static Sitting Balance Ability Good Dynamic Sitting Balance Ability Fair Standing Balance and Reactions Static Standing Balance Ability Fair Dynamic Standing Balance Ability Fair M8 OT- IP Objective Assessments Start: 12/03/17 13:08 Freq: Status: Active Protocol: Document 12/03/17 10:45 PJM (Rec: 12/03/17 13:31 PJM [id number]) OT Gross Range of Motion Upper Extremity Range of Motion Assessment Within Functional Limits ROM Impairments LUE lacgs at shoulder during BUE AROM. OT Strength Upper Extremity Strength Assessment Within Functional Limits Comments Strength Comments No obvious focal weakness noted except mild LUE lag with BUE AROM OT- Coordination Assessment Comments Coordination Comments Appears WFL; further assessment to follow OT-Muscle Tone Assessment Muscle Tone WNL Yes OT Sensation Assessment Comments Summary Comments Pt detects lt touch in BUE/ hands. Edema Edema Present Edema Comments generalized LLE edema M9 OT- IP Assessment and Plan Start: 12/03/17 13:08 Freq: Status: Active Protocol: Document 12/05/17 11:36 CCC (Rec: 12/05/17 11:41 CCC [email or web address]) OT Summary Assessment and Plan Goals Days to Meet Goals 4 Frequency of Treatment Frequency Of Treatment Once a Day Treatment Plan OT Treatment Plan ADL Training Functional Cognition Training Functional Mobility Patient/Family Education Discharge Planning Discharge Recommendations OT Discharge Recommendations SNF Rehab Home Equipment Needs shower seat, grab bars by shower and toilet
[2017-12-05] MEDS: INSULIN REGULAR 100 UNIT/ML 3 ML VIAL SUBCUT ×3 (12:02→23:40)
--- NOTE | 2017-12-05 12:56 | ST.IPDYTX ---
Care Team Visit Care Team Role Provider Type Gayle Decker PA-C Family Provider Physician Primary Care Provider Specialty: Internal Medicine Address: [address] [place] [address] Email: Laverne Joe DO Emergency Provider Physician Specialty: Emergency Medicine Address: [address] [place] [address] Email: Tod Heath MD Admit Provider Physician Attending Provider Specialty: Internal Medicine Address: [address] [place] [address] Email: CLINICAL ADMINISTRATIVE COORDINATOR Dysphagia Treatment CLINICAL ADMINISTRATIVE COORDINATOR Dysphagia Treatment Start: 12/02/17 11:17 Freq: Status: Active Protocol: Document 12/05/17 12:51 TLC (Rec: 12/05/17 12:56 TLC [id number]) Dysphagia Treatment Session Time Visit Start Time 07:50 Visit Stop Time 08:30 Total Visit Minutes 40 Setting Assessment Location Acute Care Visit Type Note Type Treatment Note Next Note Type Next Note Type Treatment Note Patient Information Identification Type Name Subjective Observations Patient awoke easily and agreed to participate in dysphagia therapy. She was seen by Dr. Roca, ENT for a laryngoscopy which revealed bilateral immobility of the vocal folds with Meaghan's edema and polypoid corditis. Treatment Liquids Trialed Ice Chips Thin Oral Strategies Upright at 90 degrees Other Pharyngeal Strategies Sitting Upright (90 deg) Double Swallow Effortful Swallow Treatment Activities Patient independently performed oral care prior to therapy. Performed pharyngeal strengthening exercises: Yuridia x10, effortful x12, Supraglottic swallow x5. Provided trials of ice chips and teaspoon sips of water. Patient continues to exhibit signs of aspiration - coughing with all intake (less with ice chips compared to water). Trial of vocal fold adduction exercises - pushing and pulling with minimal improvement in voicing. Assessment Patient Response to Treatment Good Rehab Potential Fair Assessment of Improvement No visible change since yesterday. Voice remains hoarse, weak. Cough with all trials of water via teaspoon. Patient was started on TPN. Recommend repeat MBS when appropriate- possible Friday. Diet Recommendations Comment Continue NPO Treatment Plan Dysphagia Goals Patient will complete oropharyngeal exercises ( effortful, michael, shaker and yuridia) to improve overall strength needed to improve swallow function. Patient will complete thorough oral care prior to lingual swish and spit. Patient will participate in repeat MBSS when appropriate.
--- NOTE | 2017-12-05 15:03 | DI.RAD.S_ITS ---
PROCEDURE: XR CHEST 1V INDICATIONS: ngt placement TECHNIQUE: One view of the chest was acquired. COMPARISON: [facility], CR, XR CHEST FOR PICC 1V, 12/04/2017, 15:04. FINDINGS: Surgical changes and devices: Left-sided PICC line is present with tip overlying the distal SVC. Nasogastric tube is present with tip looped in the stomach. Lungs and pleura: No pleural effusions or pneumothorax. Lungs show mild bibasilar atelectasis. Mediastinum: Mediastinal contours appear normal. Heart size is normal. Aortic calcifications. Bones and chest wall: No suspicious bony lesions. Overlying soft tissues appear unremarkable. IMPRESSION: 1. Support tubes in place. 2. Mild bibasilar atelectasis. Dictated by: Zach Oliveira M.D. on 12/05/2017 at 15:28 Approved by: Zach Oliveira M.D. on 12/05/2017 at 15:30
--- NOTE | 2017-12-05 15:53 | CM.DPC ---
DCP Cont: Following up w/pt and her 3 sisters today d/t consensus in the therapy and medical team for SNF rehab need upon DC. See medical prog note for details re: TPN vs peg tube placement and Trach placement ? ENT has been consulted. Met w/pt, sister Linnette (lives in [place]) and 2 other sisters (live out of state). Gave Medicare SNF choice list, reviewed SNF choice options and also provided Senior Resource guide and Brochure for [facility]. Strongly encouraged pt and her sisters to work together to do research about these options and write down any questions they had about upcoming medical interventions (feeding tube, trach, etc). Pt states she will not go to [facility], I hate [place]. Pt would like time to review and discuss with her sisters and especially her DPOA Linnette. Outside of pt's room, one of pt's sisters (name?), joe, told this OCCUPANCY SPECIALIST that pt and sister Linentte are very close but Linnette does not provide good caregiving to her sister. Both are heavy drinkers. Pt states she wants to remain sober and stop drinking. Two sisters present today are heading back to their homes this weekend. No SNF choice at this time although CM team will need to follow closely to obtain this, and stay watchful of the developing POC. PASSR needed. DENICE Henriquez
--- NOTE | 2017-12-05 16:29 | PC.NURSE ---
1515- NGT placed per order. Xray done. Patient tolerated procedure well. Waiting on tube feed orders from .
--- NOTE | 2017-12-05 17:46 | PM.PN.1 ---
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 Patient is NPO as recommended by speech. Note patient with chronic alcoholism and smoker addiction. Review of systems Patient denies having any chest pain or shortness of breath or fever no chills no nausea Exam Vital Signs (past 8 hours): - 12/05/17 09:50 12/05/17 11:58 12/05/17 12:48 Temperature 98.0 F Pulse Rate 98 H 93 H 90 Respiratory Rate 14 16 14 Blood Pressure 128/81 H Pulse Oximetry 97 92 96 12/05/17 16:05 Temperature 96.9 F L Pulse Rate 83 Respiratory Rate 20 Blood Pressure 148/77 H Pulse Oximetry 90 L Fraction of Inspired Oxygen 35 Oxygen Delivery Method Room Air Oxygen Flow Rate 0 Narrative Exam Narrative: General appearance patient has noted awake and alert. Patient appears somewhat disheveled in her appearance. No apparent distress Psychiatric Patient is well oriented to time place and person. Mood is agreeable and cooperative and pleasant affect is appropriate Skin No rashes or lesions noted non jaundiced turgor normal Respiratory Fairly clear to auscultation with good airflow no wheezes no crackles Cardiovascular Regular rate rhythm no murmur rubs or gallops GI Nontender positive bowel sounds no distention no bruits Neurologic No focal neurologic changes cranial nerves 2-12 grossly intact Objective Labs Result Diagrams: 12/03/17 05:15 12/05/17 05:10 Labs: Laboratory Results - last 24 hr 12/04/17 12/05/17 17:40 05:10 PT 13.1 H INR 1.2 APTT 25 L D Sodium 145 Potassium 4.0 Chloride 103 Carbon Dioxide 32 BUN 25 H Creatinine 0.50 L Estimated GFR > 60.0 BUN/Creatinine Ratio 50.0 H Glucose 402 H Calcium 9.2 Assessment & Plan Plan: Assessment/Plan Narrative: (1) Acute Respiratory Failure Note patient was intubated on admission. Patient has been successfully extubated. Patient with history of alcohol abuse as well as continued smoker addiction. Nebulizer treatment as needed. No patient receiving dexamethasone IV steroid to address vocal cord immobility condition. This may in fact also help patient regarding her history of smoking and respiratory related difficulty. 2. Vocal cord immobility ENT specialist consulted and notes the patient having this in mobility disorder. Patient needs to be watched at this point for any airway decompensation. As noted by ENT specialist the patient has to be intubated again she will likely require a trach. At some point in the outpatient setting if this vocal cord immobility persist patient may need vocal cord surgery to address further. At this point will continue with the dexamethasone at 6 mg IV q.8 hours. Patient on nebulizer epinephrine treatment as well. 3. Risk to aspirate Patient is NPO at present. Patient was on TPN up until today. A NG tube was placed for tube feeding. Dietitian to manage the tube feeding. Patient is a known diabetic. Speech will continue to monitor the patient. 4. Chronic alcoholism No evidence of alcohol withdrawal symptoms. Will continue to monitor. 5. Chronic smoker addiction Nicotine patch provided topically. We had a discussion at bedside today regarding her smoker addiction and alcoholism. Patient appeared to be quite receptive under the circumstances in which she has been through recently with the intubation due to respiratory arrest. She is certainly thinking about leaving behind these bad habits as she states. 6. Hypokalemia The potassium is corrected this morning is noted will continue to monitor 7. Hypernatremia This has been corrected as well will continue to monitor Time Spent With Patient Time with patient: Greater than 35 minutes Quality VTE Deep Vein Thrombosis/Pulmonary Embolism Present on Admission: No
[2017-12-05] MEDS: DEXAMETHASONE 10 MG/ML VIAL 6 MG IV (21:23)
[2017-12-06] VITALS (15 sets, daily range): BP systolic 152–180; BP diastolic 68–88; PULSE 62–101; RESP 16–22; TEMP 36.2–36.7; O2SAT 87–95
--- NOTE | 2017-12-06 05:38 | PC.NURSE ---
Assumed care of pt form Krery. Pt asleep at this time. Pt bed alarm on, side rails upx3. belongings and call light within reach. on 2L NC. will continue to monitor. assessment per Kerry.
[2017-12-06] MEDS: DEXAMETHASONE 10 MG/ML VIAL 6 MG IV ×2 (06:12→16:15)
[2017-12-06] MEDS: ENALAPRILAT 1.25 MG/ML VIAL 0.625 MG IV ×4 (06:14→23:38)
[2017-12-06] MEDS: SODIUM CHLORIDE 0.9% FLUSH 10 ML IV ×5 (06:14→21:13)
[2017-12-06] MEDS: DEXTROSE 5%-0.45% NS 1,000 ML 75 ML IV ×2 (09:10→22:40)
[2017-12-06] MEDS: NICOTINE 21 MG PATCH TOP (09:12)
[2017-12-06] MEDS: ENOXAPARIN 40 MG/0.4 ML SYRINGE SUBCUT (09:12)
[2017-12-06] MEDS: DEXTROSE 5% IV (09:13)
[2017-12-06] MEDS: WATER IV (09:13)
[2017-12-06] MEDS: PANTOPRAZOLE 40 MG VIAL IV (09:13)
[2017-12-06] MEDS: THIAMINE IV (09:13)
[2017-12-06] MEDS: ALBUTEROL/IPRATROPIUM 3 ML AMPUL INH ×2 (09:24→19:15)
--- NOTE | 2017-12-06 11:40 | PT.IPTN ---
Current Diagnoses Type 1 diabetes mellitus with ketoacidosis with coma (11/28/17) Other specified diabetes mellitus with ketoacidosis without coma (11/28/17) Hyperosmolality and hypernatremia (11/28/17) Hypokalemia (11/28/17) Respiratory failure, unspecified, unspecified whether with hypoxia or hypercapnia (11/28/17) Dysphagia, unspecified (11/28/17) Physical Therapy Treatment Note M2 PT-IP Current Condition Start: 12/03/17 10:14 Freq: NEEDED Status: Active Protocol: Document 12/03/17 09:25 MDD (Rec: 12/03/17 10:37 MDD [id number]) Physical Therapy Current Condition Current Condition Evaluation Date 12/03/17 Treatment Diagnosis DKA, impaired mobility Onset Date 11/28/17 M3 PT-IP Subjective Start: 12/03/17 10:14 Freq: NEEDED Status: Active Protocol: Document 12/06/17 11:40 GGD (Rec: 12/06/17 12:18 GGD [id number]) Subjective Physical Therapy Visit Type Type Treatment Note Visit Start Time 11:15 Visit Stop Time 11:40 Total Visit Minutes 25 Number of BUSINESS UNIT MANAGER Visits 2 Physical Therapy Visit Comments Patient Comments Pt states that she need to use the bathroom. M4 PT-IP Mobility and Gait Start: 12/03/17 10:14 Freq: NEEDED Status: Active Protocol: Document 12/06/17 11:40 GGD (Rec: 12/06/17 12:18 GGD [id number]) PT-Bed Mobility Assessment Rolling Level of Assist Independent Supine to Sit Supine to Sit Independent Scooting Scooting to Edge of Bed Independent Scooting Up and Down in Bed Independent PT-Transfer Assessment Sit to and From Stand Sit to and from Stand Contact Guard Assistance Use of Upper Extremities Equipment Transfer Assistive Device Gait Belt Front Wheeled Walker Transfers Transfer Destination Chair Bedside Commode Transfer Technique Stand Step Pivot Transfer Ability Level of Assist Contact Guard Assistance Use of Upper Extremities Gait Assessment Gait Gait Assistance Required: Contact Guard Assist Minimum Assistance Distance (Feet) (feet) 80 Assistive Devices Assistive Device Gait Belt Front Wheeled Walker Gait Deviations General Gait Pattern Decreased Feet Clearance Wide Based Gait Factors Limiting Gait Function Factors Limiting Gait Function Decreased Activity Tolerance Decreased Strength Poor Balance PT-Balance Assessment Comments Other Balance Tests/Deviations/Treatment Standing balance WBOS and NBOS : with EO/EC, Head turns. 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 M5 PT-IP Objective Assessments Start: 12/03/17 10:14 Freq: NEEDED Status: Active Protocol: Document 12/03/17 09:25 MDD (Rec: 12/03/17 10:37 MDD [id number]) Orientation Orientation/Cognition Level of Alertness Alert Orientation Name Age Birthday Month Date Year Day of Week Place Situation Language Function Ability No Deficits Noted Safety Awareness Decreased Safety Awareness Memory Description No Deficits Noted Comments Pt's voice is hoarse, but clear and intelligible. Gross Range of Motion Lower Extremity ROM Assessment Within Functional Limits Strength Lower Extremity Strength Assessment Left Impaired Hip R hip flexion 4/5, L 4+/5, hip IR/ER 4+/5 B Knee R knee extension 4/5, L knee extension 4+/5, R knee flexion 4/5, L 4+/5 Ankle 1/5 L ankle dorsiflexion Comments Strength Comments Pt reports weakness in L ankle is new Sensation Assessment Sensation Gross Sensation Left LE Impaired Light Touch Absent Sensation Description Paresthesia Numbness Comments Sensation Comments light touch sensation absent L medial malleolus, impaired plantar surface of foot to shins M6 PT-IP Treatment Start: 12/03/17 10:14 Freq: NEEDED Status: Active Protocol: Document 12/04/17 10:30 MDD (Rec: 12/04/17 12:40 MDD [id number]) Physical Therapy Treatment Education Education Provided Safety Other Treatments Other Treatment Performed Performed Dawson Balance assessment: 23/56. Also performed therapeutic exercises including: seated hip flexion, seated knee flexion, seated L ankle df and standing heel raises. M7 PT-IP Assessment and Plan Start: 12/03/17 10:14 Freq: NEEDED Status: Active Protocol: Document 12/06/17 11:40 GGD (Rec: 12/06/17 12:18 GGD [id number]) PT Summary Assessment and Plan Summary Assessment Summary Pt mild unsteadiness with transfers and gait. She had LOB with tandem stance and need UE support. She needed cues for safety with transfers . Frequency of Treatment Frequency Of Treatment Once a Day Treatment Plan Physical Therapy Treatment Plan Bed Mobility Training Transfer Training Gait Training Therapeutic Exercise Balance Retraining Discharge Planning Recommendations To Nursing Amount of Assist Needed 1 Person Assist Discharge Recommendations PT Discharge Recommendations Home with Assistance Home Health SNF Rehab
[2017-12-06] MEDS: INSULIN REGULAR 100 UNIT/ML 3 ML VIAL SUBCUT ×2 (11:56→18:33)
--- NOTE | 2017-12-06 13:45 | OT.IP.TRT ---
Current Diagnoses Type 1 diabetes mellitus with ketoacidosis with coma (11/28/17) Other specified diabetes mellitus with ketoacidosis without coma (11/28/17) Hyperosmolality and hypernatremia (11/28/17) Hypokalemia (11/28/17) Respiratory failure, unspecified, unspecified whether with hypoxia or hypercapnia (11/28/17) Dysphagia, unspecified (11/28/17) Occupational Therapy Treatment Note M2 OT-IP Current Condition Start: 12/03/17 13:08 Freq: Status: Active Protocol: Document 12/03/17 10:45 PJ (Rec: 12/03/17 13:31 PJ [id number]) Occupational Therapy Current Condition Current Condition Evaluation Date 12/03/17 Treatment Diagnosis decreased self care, mobility, cognition s/p diabetic coma w /intubattion Post Operative Precautions Other Precautions NPO with barium swallow pending, fall risk M3 OT- IP Subjective and Pain Start: 12/03/17 13:08 Freq: Status: Active Protocol: Document 12/06/17 13:37 [facility] (Rec: 12/06/17 13:45 [facility] [id number]) OT- Subjective Occupational Therapy Visit Type Type Treatment Note Visit Start Time 12:05 Visit Stop Time 12:40 Total Visit Minutes 35 Occupational Therapy Visit Comments Patient Comments Pt agreeable to get up. OT Pain Assessment Pain When Pain Assessed At Rest Pain Present Pain Present Denied Pain M4 OT- IP ADL's Start: 12/03/17 13:08 Freq: Status: Active Protocol: Document 12/06/17 13:37 [facility] (Rec: 12/06/17 13:45 [facility] [id number]) OT ADL-Grooming General Evaluation Grooming Ability Standby Assistance Comments OT Grooming Comments Able to comb and braid her hair while sitting. M5 OT- IP IADL's Start: 12/03/17 13:08 Freq: Status: Active Protocol: Document 12/03/17 10:45 PJM (Rec: 12/03/17 13:31 PJM [id number]) OT-Instrumental Activities of Daily Living Deficits IADL Deficits Identified Deficits Home Safety Awareness Awareness of Need for Assistance at Home Good Awareness Medication Management Medication Management Caregiver Provides Supervision Medication Management Comments Recommend RN for diabetic management Money Management Money Management Caregiver Provides Supervision Money Management Comments Pt's sister is POA and can supervise/assist with finances PRN. Meal Preparation Meal Preparation Caregiver Provides Assist Meal Preparation Comments Sisters to assist with meal prep at home Care Partner Care Partner Caregiver Provides Assist Care Partner Comments Sisters to provide assist at home Driving Driving Caregiver Provides Assist Driving Comments Sisters to provide assist M6 OT- IP Functional Cognition Start: 12/03/17 13:08 Freq: Status: Active Protocol: Document 12/06/17 13:37 [facility] (Rec: 12/06/17 13:45 [facility] [id number]) Cognitive Factors Limiting Selfcare Function Cognitive Ability Level of Alertness Alert Patient Orientation Name Month Date Year Day of Week Place Situation Attention Span Ability Capable of Focused Attention Capable of Sustained Attention Ability to Follow Commands Able to Follow One Step Commands Able to Follow Multi-Step Commands Memory Description Short Term Impaired Working Impaired Cognitive Tests ACL Spoke at length with pt on pro 's and con's on going to SNF versus home with sister. Pt able to identify that SNF would be better as to having more medical assistance and help, but unable to make a decision at this time. M7 OT- IP Mobility and Balance Start: 12/03/17 13:08 Freq: Status: Active Protocol: Document 12/06/17 13:37 [facility] (Rec: 12/06/17 13:45 [facility] [id number]) OT- Bed Mobility Assessment Sit to Supine Sit to Supine Assist Standby Assistance OT-Transfer Assessment Transfers Transfer Ability Moderate Assistance Technique Transfer Destination Bed Transfer Technique Stand Step Pivot Devices Transfer Assistive Devices None Front Wheeled Walker Comments Mobility Comments Pt insistent of not to use FWW for stand pivot transfer, transfer MODA poor balance and needing to hold to therapist and bed to get to the bed. OT- Balance Assessment Sitting Balance and Reactions Static Sitting Balance Ability Good Dynamic Sitting Balance Ability Poor Standing Balance and Reactions Static Standing Balance Ability Poor Dynamic Standing Balance Ability Poor M8 OT- IP Objective Assessments Start: 12/03/17 13:08 Freq: Status: Active Protocol: Document 12/03/17 10:45 PJM (Rec: 12/03/17 13:31 PJM [id number]) OT Gross Range of Motion Upper Extremity Range of Motion Assessment Within Functional Limits ROM Impairments LUE lacgs at shoulder during BUE AROM. OT Strength Upper Extremity Strength Assessment Within Functional Limits Comments Strength Comments No obvious focal weakness noted except mild LUE lag with BUE AROM OT- Coordination Assessment Comments Coordination Comments Appears WFL; further assessment to follow OT-Muscle Tone Assessment Muscle Tone WNL Yes OT Sensation Assessment Comments Summary Comments Pt detects lt touch in BUE/ hands. Edema Edema Present Edema Comments generalized LLE edema M9 OT- IP Assessment and Plan Start: 12/03/17 13:08 Freq: Status: Active Protocol: Document 12/06/17 13:37 [facility] (Rec: 12/06/17 13:45 [facility] [email or web address]) OT Summary Assessment and Plan Potential Rehabilitation Potential Good Analytic Complexity at Evaluation Moderate Summary OT Impairments Strength Balance Functional Cognition Functional Mobility Grooming Dressing Toileting Bathing Toilet Transfers Shower Transfers Goals Days to Meet Goals 5 Frequency of Treatment Frequency Of Treatment Once a Day Treatment Plan OT Treatment Plan ADL Training Functional Cognition Training Functional Mobility Patient/Family Education Discharge Planning Discharge Recommendations OT Discharge Recommendations SNF Rehab Home Equipment Needs shower seat, grab bars by shower and toilet
--- NOTE | 2017-12-06 15:08 | CM.DPNOTE ---
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 Yes Advance Directives on File Yes History Provided By Family Member Has Patient been admitted in last 30 No days? Prior Living Arrangements House Household Members none Type of transporation used prior to Drives own vehicle admit Independent with ADL's Yes Is patient alert and oriented? Yes Caregiver for Another No Comment Pt independent with ADL's at baseline. Patient/Family Preference Assisted Facility Home with Home Health Comment Family is leaning towards SNF. Will research SNFs. Discharge Plan Assisted Facility Transportation Arrangement Sisters plan to research SNF and communicate results with patient to make final decision . If patient plan is SNF: Has PASSR been No completed? Inpatient Status as of 11/28/17 Medicare Choice List Provided Yes Review Status In Process Lengthy conference with kin Osborn (JUAN MANUEL), Rosa Maria, along with Dr. Garcia. Patient is currently on tube feedings and may need PEG tube. Consult with surgery possible for Friday. Discussed DCP with family and patient's preference. Ultimately, the goal would be for patient to return home with the support from Irena. Given patient's weakness, family would prefer patient go to SNF prior to returning home. SW also suggested DPOA have thorough conversation with Patient regarding updating her AD (AD is over 10 years old). Plan: SNF. Sisters and patient to provide choice of facilities tomorrow, (Friday).
[2017-12-06] MEDS: predniSONE 20 MG TABLET PO (16:21)
--- NOTE | 2017-12-06 18:20 | P.PN_ITS ---
Subjective Date Patient Seen: 12/06/17 Time Patient Seen: 16:17 Interval history: History of present illness Follow-up on patient who was admitted with respiratory failure status post intubation. Patient noted to have vocal cord immobility with associated stridor dysphagia and risk to aspirate. Patient is NPO as recommended by speech. Patient receiving tube feeding at this time. Tentative plan for patient to have G-tube placement at the beginning of the week with General surgery consult. Patient is a known alcoholic prior to admission. Patient is a known smoker prior to admission. Patient with associated respiratory disease related to the longstanding smoking. Review of systems Patient denies having any chest pain or shortness of breath. No nausea. Peak patient certainly knows that she is hungry has an appetite. Patient is aware that she is at risk to aspirate and NPO at this time Exam Vital Signs (past 8 hours): - 12/06/17 11:20 12/06/17 11:25 12/06/17 11:43 Temperature 98.1 F Pulse Rate 101 H Respiratory Rate 16 Blood Pressure 154/87 H Pulse Oximetry 87 L 92 95 12/06/17 15:28 Temperature 97.1 F L Pulse Rate 92 H Respiratory Rate 22 Blood Pressure 180/86 H Pulse Oximetry 93 Fraction of Inspired Oxygen 24 Oxygen Delivery Method Nasal Cannula Oxygen Flow Rate 1 Narrative Exam Narrative: General appearance patient is awake and alert no apparent distress Psychiatric Well oriented mood is pleasant cooperative she is smiling she has her sister is visiting her all 3 of her sisters. Affect is appropriate. Skin No rashes or lesions Respiratory Fairly clear to auscultation no wheezes no crackles Cardiovascular Regular rate rhythm no murmurs noted pulses +3 to extremities Gastrointestinal Soft nontender positive bowel sounds no masses no distention no bruits Neurologic No focal neurologic changes to extremities. Cranial nerves grossly intact 2-12 apart from patient having this vocal cord immobility. Objective Labs Result Diagrams: 12/03/17 05:15 12/05/17 05:10 Assessment & Plan Plan: Assessment/Plan Narrative: 1. Acute respiratory arrest status post intubation Patient's respiratory status is improved remarkably. Inhaler therapy with nebulizer as needed. 2. Vocal cord immobility ENT consult notes that patient may require a tracheostomy if she has to be intubated again. He also notes that if the vocal cord immobility persist that he could consider doing vocal cord surgical procedure to address. Due to the risk to aspirate patient is NPO and as recommended by speech therapist. Patient was initially started on TPN. Yesterday patient was converted to nasogastric tube feeding. I spoke to the patient and family about patient have a G-tube placement. I requested general surgery consult on Friday a.m. to consider. 3. Diabetes type 2 Patient on adjusted basal insulin therapy. She is also on a sliding scale of insulin. Her sugar yesterday in a.m. was 403. This morning her sugars reported at 1:09 a.m.. There will likely be further adjustment necessary in her insulin therapy once her tube feeding ramps upward. 4. Hypernatremia This was corrected during hospital course. Repeat labs to follow 5. Hypokalemia This was corrected during hospital course. Repeat labs will follow. 6. Alcoholism I spoke to the sister that will be staying with the patient for the next month. Her sister is very reliable and is not alcoholic. Her sister can be a nuclear weapons custodian of the Librium medication and she could continue upon discharge. I am starting at 25 mg p.o. b.i.d. to test her tolerance and its effect. She may benefit with 25 mg t.i.d. to start. This remains to be seen. This can be continued at tapering dose in the outpatient setting. 7. Smoking addiction Nicotine patch as needed. We spoke about the cessation of cigarette smoking as well upon discharge. No patient was admitted to the hospital with respiratory arrest which appears to be somewhat related to her respiratory disease from smoking. Time Spent With Patient Time with patient: Greater than 35 minutes Quality VTE Deep Vein Thrombosis/Pulmonary Embolism Present on Admission: No
[2017-12-06] MEDS: MORPHINE 2 MG/ML INJ 1 MG IV (22:49)
[2017-12-07] VITALS (17 sets, daily range): BP systolic 146–169; BP diastolic 64–94; PULSE 66–95; RESP 15–20; TEMP 36.1–37; O2SAT 87–96
[2017-12-07] MEDS: INSULIN REGULAR 100 UNIT/ML 3 ML VIAL SUBCUT ×4 (00:18→18:56)
[2017-12-07] MEDS: ENALAPRILAT 1.25 MG/ML VIAL 0.625 MG IV ×3 (05:43→18:58)
[2017-12-07] MEDS: ALBUTEROL/IPRATROPIUM 3 ML AMPUL INH ×2 (08:56→18:12)
[2017-12-07] MEDS: chlordiazePOXIDE 25 MG CAPSULE PO ×3 (09:19→21:05)
[2017-12-07] MEDS: WATER IV (09:19)
[2017-12-07] MEDS: THIAMINE IV (09:19)
[2017-12-07] MEDS: DEXTROSE 5% IV (09:19)
[2017-12-07] MEDS: ENOXAPARIN 40 MG/0.4 ML SYRINGE SUBCUT (09:20)
[2017-12-07] MEDS: PANTOPRAZOLE 40 MG VIAL IV (09:21)
[2017-12-07] MEDS: predniSONE 20 MG TABLET PO (09:21)
[2017-12-07] MEDS: NICOTINE 21 MG PATCH TOP (09:21)
[2017-12-07] MEDS: INSULIN DETEMIR 100 UNIT/ML INSULN.PEN 18 UNIT SUBCUT ×2 (09:22→21:05)
[2017-12-07] MEDS: SODIUM CHLORIDE 0.9% FLUSH 10 ML IV ×2 (09:37→21:05)
--- NOTE | 2017-12-07 10:59 | PC.NURSE ---
PT RESISTANT TO SHOWER THIS AM BUT IS CLEARLY IN NEED- FINALLY SHE CONSENTED AND GOT CLEANED UP- SHE REMAINS SOMEWHAT STRIDOROUS AND CONTINUES ON 2L NC - ROOM AIR SPO2 88% WITH 02 - SHE IS 93-97%, INITIATED GLUCERNA TUBE FEEDS PER DR JULIAN ORDERS WHILE DIETARY CONSULT PENDING- REINFORCEMENT GIVEN ABOUT NEED TO MAINTAIN AT LEAST 30% + FOR HEAD ELEVATION WHILE FEEDINGS INFUSING- SHE DOES NOT LIKE THIS AND HAS ATTEMPTED TO GET UP FROM CHAIR AND TRANSFER BACK TO BED- CHAIR ALARM ACTIVE AT THIS TIME
[2017-12-07] MEDS: DEXTROSE 5%-0.45% NS 1,000 ML 75 ML IV (13:47)
--- NOTE | 2017-12-07 14:14 | PC.NURSE ---
REPORT GIVEN TO SAIRA Gutierrez FOR PT TRANSFERRING TO ACUTE CARE FLOOR - ALL QUESTIONS ANSWERED TO BOTH PT / AND ACCEPTING RN-PT TOLERATING TUBE FEEDS WELL
--- NOTE | 2017-12-07 16:20 | PT.IPTN ---
Current Diagnoses Type 1 diabetes mellitus with ketoacidosis with coma (11/28/17) Other specified diabetes mellitus with ketoacidosis without coma (11/28/17) Hyperosmolality and hypernatremia (11/28/17) Hypokalemia (11/28/17) Respiratory failure, unspecified, unspecified whether with hypoxia or hypercapnia (11/28/17) Dysphagia, unspecified (11/28/17) Physical Therapy Treatment Note M2 PT-IP Current Condition Start: 12/03/17 10:14 Freq: NEEDED Status: Active Protocol: Document 12/03/17 09:25 MDD (Rec: 12/03/17 10:37 MDD [id number]) Physical Therapy Current Condition Current Condition Evaluation Date 12/03/17 Treatment Diagnosis DKA, impaired mobility Onset Date 11/28/17 M3 PT-IP Subjective Start: 12/03/17 10:14 Freq: NEEDED Status: Active Protocol: Document 12/07/17 13:02 CLB (Rec: 12/07/17 16:20 CLB [id number]) Subjective Physical Therapy Visit Type Type Treatment Note Visit Start Time 13:02 Visit Stop Time 13:25 Total Visit Minutes 23 Number of COMPENSATION ANALYST Visits 3 Physical Therapy Visit Comments Patient Comments Pt willing to do therapy. M4 PT-IP Mobility and Gait Start: 12/03/17 10:14 Freq: NEEDED Status: Active Protocol: Document 12/07/17 13:02 CLB (Rec: 12/07/17 16:20 CLB [id number]) PT-Bed Mobility Assessment Rolling Level of Assist Independent Supine to Sit Supine to Sit Independent Scooting Scooting to Edge of Bed Independent Scooting Up and Down in Bed Independent PT-Transfer Assessment Sit to and From Stand Sit to and from Stand Contact Guard Assistance Use of Upper Extremities Equipment Transfer Assistive Device Gait Belt Front Wheeled Walker Transfers Transfer Destination Bed Transfer Ability Level of Assist Contact Guard Assistance Use of Upper Extremities Gait Assessment Gait Gait Assistance Required: Contact Guard Assist Minimum Assistance Distance (Feet) (feet) 150 Assistive Devices Assistive Device Gait Belt Front Wheeled Walker Gait Deviations General Gait Pattern Decreased Feet Clearance Wide Based Gait Factors Limiting Gait Function Factors Limiting Gait Function Decreased Activity Tolerance Decreased Strength Poor Balance M5 PT-IP Objective Assessments Start: 12/03/17 10:14 Freq: NEEDED Status: Active Protocol: Document 12/03/17 09:25 MDD (Rec: 12/03/17 10:37 MDD [id number]) Orientation Orientation/Cognition Level of Alertness Alert Orientation Name Age Birthday Month Date Year Day of Week Place Situation Language Function Ability No Deficits Noted Safety Awareness Decreased Safety Awareness Memory Description No Deficits Noted Comments Pt's voice is hoarse, but clear and intelligible. Gross Range of Motion Lower Extremity ROM Assessment Within Functional Limits Strength Lower Extremity Strength Assessment Left Impaired Hip R hip flexion 4/5, L 4+/5, hip IR/ER 4+/5 B Knee R knee extension 4/5, L knee extension 4+/5, R knee flexion 4/5, L 4+/5 Ankle 1/5 L ankle dorsiflexion Comments Strength Comments Pt reports weakness in L ankle is new Sensation Assessment Sensation Gross Sensation Left LE Impaired Light Touch Absent Sensation Description Paresthesia Numbness Comments Sensation Comments light touch sensation absent L medial malleolus, impaired plantar surface of foot to shins M6 PT-IP Treatment Start: 12/03/17 10:14 Freq: NEEDED Status: Active Protocol: Document 12/04/17 10:30 MDD (Rec: 12/04/17 12:40 MDD [id number]) Physical Therapy Treatment Education Education Provided Safety Other Treatments Other Treatment Performed Performed Dawson Balance assessment: . Also performed therapeutic exercises including: seated hip flexion, seated knee flexion, seated L ankle df and standing heel raises. M7 PT-IP Assessment and Plan Start: 12/03/17 10:14 Freq: NEEDED Status: Active Protocol: Document 12/07/17 13:02 CLB (Rec: 12/07/17 16:20 CLB [id number]) PT Summary Assessment and Plan Summary Impairments Strength Balance Gait Progress Towards Goals Progressing Toward Goals Assessment Summary Pt continues to have mild unsteadiness with gait and sit -stand. Pt was able to increase her gait distance and needed 2 person assistance with O2 tank and IV pole. Goals Bed Mobility Goal Independent Transfer Goal Independent Gait Goal Independent Gait Distance 50 with FWW Other Goals Ascend/descend 2 steps with R railing Frequency of Treatment Frequency Of Treatment Once a Day Treatment Plan Physical Therapy Treatment Plan Bed Mobility Training Transfer Training Gait Training Therapeutic Exercise Balance Retraining Discharge Planning Recommendations To Nursing Amount of Assist Needed 1 Person Assist Discharge Recommendations PT Discharge Recommendations Home with Assistance Home Health SNF Rehab Other Discharge Recommendations If pt goes home, would need one person able to perform SBA /CGA for mobility at all times , and would benefit from home health OT/PT/RAIL CAR REPAIRMAN.
[2017-12-07] MEDS: DEXAMETHASONE 4 MG/ML VIAL 6 MG IV (18:58)
--- NOTE | 2017-12-07 23:31 | PM.PN.1 ---
Subjective Date Patient Seen: 12/07/17 Time Patient Seen: 11:32 Interval history: History of present illness Follow-up on patient with a vocal cord immobility as noted by ENT specialist. Patient with associated stridor dysphagia and wrist aspirate as a consequence of this vocal cord no immobility. Patient was initially placed on TPN. This was transitioned to the NG tube feeding. In a.m. on FridayDecember 08 general surgeon will consult to consider PEG tube placement. Patient with tentative plan for discharge to nursing facility as an interim. For further physical therapy. Review of system Patient with increasing stridor noted earlier today. No chest pain no nausea no shortness of breath Exam Vital Signs (past 8 hours): - 12/07/17 15:41 12/07/17 18:14 12/07/17 18:58 Temperature 97.6 F Pulse Rate 87 85 84 Respiratory Rate 18 16 Blood Pressure 147/94 H 146/64 H Pulse Oximetry 92 93 12/07/17 20:50 12/07/17 21:52 Temperature 98.6 F Pulse Rate 80 Respiratory Rate 18 Blood Pressure 154/85 H Pulse Oximetry 95 94 Fraction of Inspired Oxygen 28 Oxygen Delivery Method Nasal Cannula Oxygen Flow Rate 2 Narrative Exam Narrative: Patient noted awake and alert with no apparent distress during my exam Psychiatric Well oriented mood is pleasant affect is appropriate Respiratory Fair breath sounds are noted with no significant wheezes or crackles in the lung region Cardiovascular Regular rate rhythm no murmur noted pulses +3 to extremities Gastrointestinal Fairly soft nontender positive bowel sounds no masses no distention no bruits Neurologic No focal neurologic changes cranial nerves 2-12 grossly intact Skin no rashes or lesions noted nonjaundiced Objective Labs Result Diagrams: 12/03/17 05:15 12/05/17 05:10 Assessment & Plan Plan: Assessment/Plan Narrative: 1. Acute respiratory arrest status post intubation Patient's respiratory status is improved remarkably. Inhaler therapy with nebulizer as needed. 2. Vocal cord immobility ENT consult notes that patient may require a tracheostomy if she has to be intubated again. He also notes that if the vocal cord immobility persist that he could consider doing vocal cord surgical procedure to address. Due to the risk to aspirate patient is NPO and as recommended by speech therapist. Patient was initially started on TPN. December 05 patient was converted to nasogastric tube feeding. I spoke to the patient and family about patient have a G-tube placement. I requested general surgery consult on Friday a.m. to to evaluate for PEG placement. Patient with increased stridor noted by respiratory therapist in a.m. today. I resumed the nebulizer with epinephrine treatment given prn by RT. I also reverted back to the dexamethasone IV instead of prednisone orally to optimize treatment in view of the recent stridor worsening. 3. Diabetes type 2 Patient on adjusted basal insulin therapy at 30 units twice daily. She is also on a sliding scale of Regular insulin. There will likely be further adjustment necessary in her insulin therapy once her tube feeding ramps upward. 4. Hypernatremia This was corrected during hospital course. Repeat labs to follow 5. Hypokalemia This was corrected during hospital course. Repeat labs will follow. 6. Alcoholism I spoke to the sister that will be staying with the patient for the next month. Her sister is very reliable and is not alcoholic. Her sister can be a senior security engineer of the [employer] medication and she could continue upon discharge, if sent directly home. This can be continued at tapering dose in the outpatient setting. It appears though patient will be likely discharged to a rehab facility instead upon discharge. 7. Smoking addiction Nicotine patch as needed. We spoke about the cessation of cigarette smoking as well upon discharge. Patient was admitted to the hospital with respiratory arrest, which appears to be related to her respiratory disease from smoking. Time Spent With Patient Time with patient: 25 - 35 minutes Quality VTE Deep Vein Thrombosis/Pulmonary Embolism Present on Admission: No
[2017-12-08] VITALS (16 sets, daily range): BP systolic 121–157; BP diastolic 66–89; PULSE 61–94; RESP 12–25; TEMP 36.4–36.7; O2SAT 88–97
[2017-12-08] MEDS: ENALAPRILAT 1.25 MG/ML VIAL 0.625 MG IV ×2 (00:45→06:31)
[2017-12-08] MEDS: INSULIN REGULAR 100 UNIT/ML 3 ML VIAL SUBCUT ×2 (00:47→06:31)
[2017-12-08] MEDS: SODIUM CHLORIDE 0.9% FLUSH 10 ML IV ×4 (00:49→09:04)
[2017-12-08] MEDS: DEXAMETHASONE 4 MG/ML VIAL 6 MG IV ×2 (02:42→09:05)
[2017-12-08] MEDS: DEXTROSE 5%-0.45% NS 1,000 ML 75 ML IV (04:00)
[2017-12-08] MEDS: ALBUTEROL/IPRATROPIUM 3 ML AMPUL INH ×2 (06:22→17:14)
--- NOTE | 2017-12-08 06:53 | PC.ADMIT ---
Admission Note: Pt arrived to floor at 0100, via stretcher, no family at bedside. PT arouses to voice but is sleepy and lethargic and falls asleep while telling story. Pt arrived on non rebreather 15L, pt 100 %. taken off non rebreather and put on NC 6L- pt still 100%, Pt turned down five minutes later to 2L, still 100%, pt taken off NC and on Room air, saturation between 98 and 100%. remains on Room air, Pt arouses to voice and touch, slightly hard of hearing, Pt answers orientation questions but is sometimes forgetful. Pt vss. facial grimacing with movement, asked where and pt states my bottom, bottom is red, brief changed, barrier cream applied. pt compliant, bed alarm not functioning, chair alarm placed on pt bed and attached to pt, test completed and operational. side rails upx3 and tray next to bed. PT NPO status. except for ice chips and meds with sips of water. will continue to monitor. New IV started. OLD site infiltrated and bruised and painful for pt. Pt incontinent throughout the night. will continue to monitor. chair alarm on pt and bed, bed alarm not functioning.
--- NOTE | 2017-12-08 07:58 | PC.NURSE ---
Assumed care of pt from outgoing shift at 2300 8-12. Pt awake. compliant. Pt denies needs at this time. Pt uses call light. 0700- shift summary- Pt denied pain. breathing treatment this AM per RT. Pt on 2L NC. Pt saturation 94%. Pt SBA to BR. Pt ambulates slowly but steady. Pt uses alistair light. nose tape to NG tube changed, nose cleaned. bed alarm on. side rails upx2 belongings and call light within reach. will continue to monitor.
--- NOTE | 2017-12-08 08:24 | PM.CN ---
History of Present Illness Date Patient Seen: 12/08/17 Time Patient Seen: 08:24 Chief complaint: Unresponsive Reason for consult: placement of PEG Requesting provider: Arturo Garcia Narrative: Patient is a woman who was brought in unresponsive being ventilated and has recovered in part from whatever event transpired. She can provide no history and the cause is still not clear. In any event, she has a vocal cord paralysis and difficulty swallowing. This has led to aspiration issues and she is presently NPO in being fed through a NG tube. Because of the uncertainty as to the length of time assistance with feeding through 2 will be necessary, I have been asked to place a percutaneous endoscopic gastrostomy tube. The patient does have a history of alcohol abuse but no ascites history. The patient has had an open cholecystectomy through a midline incision. No other abdominal procedures in the past. She denies any abdominal pain at this time. 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, managed as type 1 (Acute) Hyperlipidemia (Acute) Peripheral vascular disease (Acute) Sleep apnea in adult (Acute) Surgical History History of cholecystectomy (Resolved) Family History Father Diabetes mellitus Coronary artery disease Mother Coronary artery disease Diabetes mellitus Social History household members: none Smoking Status: Current every day smoker alcohol intake: current Meds Home Medications Medication Instructions Recorded Confirmed Type aspirin 325 mg PO QDAY #0 05/15/16 11/30/17 History atorvastatin [Lipitor] 5 mg PO QDAY #0 05/15/16 11/30/17 History cilostazol 50 mg PO QDAY #0 05/15/16 11/30/17 History ibuprofen [Advil] 600 mg PO Q6HP PRN #0 05/15/16 11/30/17 History furosemide 20 mg PO PRN PRN 10/17/17 11/30/17 History insulin aspart U-100 [Novolog 1 dose SUB-Q DIRECTED 10/17/17 11/30/17 History Flexpen U-100 Insulin] insulin detemir U-100 [Levemir 60 - 80 units SUB-Q QPM 10/17/17 11/30/17 History FlexTouch U-100 Insuln] lisinopril 10 mg PO DAILY 10/17/17 11/30/17 History Allergies Allergy/AdvReac Type Severity Reaction Status Date / Time adhesive [ADHESIVE] Allergy Intermediate RASH, Verified 11/29/17 01:59 ITCHING, TEARS SKIN Latex, Natural Rubber Allergy Intermediate RASH, Verified 11/29/17 02:01 [LATEX, NATURAL RUBBER] ITCHING Penicillins [PENICILLINS] Allergy Intermediate EXTREME Verified 11/29/17 02:01 HEADACHES Review of Systems Review of Systems Patient denies digital difficulties. Is having trouble swallowing since the event occurred. She has a history of blacking out twice prior to but over transpired to cause this admission. She is not sure she had a seizure or syncope. She awoke on the floor. Not clear what evaluation was done. Patient denies cough or cold prior to this. She does have hypertension but has never had a heart attack. No black or bloody blow movements. No problems with her thyroid which she is diabetic on insulin. No history of kidney stones blood in her urine or trouble urinating. Has some difficulty with speaking in breathing right now and this is new. It is felt to be due to vocal cord paralysis. No tooth aches. Exam Vital Signs (past 8 hours): - 12/08/17 00:45 12/08/17 02:56 12/08/17 06:28 Temperature 97.5 F L Pulse Rate 83 74 Respiratory Rate 20 18 Blood Pressure 157/88 H 152/89 H Pulse Oximetry 91 95 Fraction of Inspired Oxygen 28 Oxygen Delivery Method Nasal Cannula Oxygen Flow Rate 2 Narrative Exam Narrative: Co Operative alert patient. Does have loud audible breathing and a very raspy voice. Her eyes are nonicteric. Pupils equal round reactive to light. Ears without lesion. Nasal septum midline. Oral mucosa dry. No splits of the lips. NG tube is in place. There are no nodes in the neck or supraclavicular areas. Trachea is midline and mobile. Thyroid is not enlarged there is no tenderness in the neck. No bruit heard but frankly she has so much audible noise from breathing that is difficult to appreciate. Same is true for her lung exam. I do not hear any rales or rhonchi however. She has good respiratory effort. Lungs are equal percussion. Heart regular rate and rhythm. I do not appreciate a murmur or gallop. Her abdomen is mildly protuberant soft nontender. She has a midline scar in her upper abdomen from xiphoid to the region of her umbilicus. No hernias appreciated. No masses appreciated. Liver and spleen are not palpably enlarged. Extremities without cyanosis clubbing or edema. She has scar she is alert and oriented x3. Speech rate and content are appropriate between gasps of air. Affect is appropriate. Objective Labs Result Diagrams: 12/03/17 05:15 12/05/17 05:10 Assessment & Plan Plan: Assessment/Plan Narrative: Dysphagia with aspiration concerns. Will perform a PEG placement. I have discussed the procedure with the patient. Risks of bleeding, infection, injury to nearby organs which could be lethal was all discussed with the patient. I have attempted to call her sister at the patient's request there was no answer and there is no answering device. Other medical problems like diabetes, hypertension essential, vocal cord paralysis, alcohol abuse, smoking or all under management by her physicians. We will check glucose and if elevated give additional insulin.
[2017-12-08] MEDS: INSULIN DETEMIR 100 UNIT/ML INSULN.PEN 30 UNIT SUBCUT (08:55)
[2017-12-08] MEDS: NICOTINE 21 MG PATCH TOP (08:55)
[2017-12-08] MEDS: INSULIN REGULAR 100 UNIT/ML 3 ML VIAL 8 UNIT SUBCUT ×2 (09:02→12:15)
[2017-12-08] MEDS: ENOXAPARIN 40 MG/0.4 ML SYRINGE SUBCUT (09:03)
[2017-12-08] MEDS: THIAMINE IV (09:04)
[2017-12-08] MEDS: DEXTROSE 5% IV (09:04)
[2017-12-08] MEDS: WATER IV (09:04)
[2017-12-08] MEDS: PANTOPRAZOLE 40 MG VIAL IV (09:04)
--- NOTE | 2017-12-08 09:07 | PM.PREOP ---
Pre-operative Note Interval Note Pre-op Check: Yes History & Physical exam performed today by Physician Changes: No H&P completed within 30 days and has changed as indicated here:: Due to complexity of the patient's airway and the procedural nature of this process we will have an anesthesiologist available to provide care
--- NOTE | 2017-12-08 09:14 | CM.DPNOTE ---
Addendum entered by DENICE Ortiz 12/08/17 12:14: PEG scheduled for 1145. Original Note: Addendum entered by DENICE Ortiz 12/08/17 09:17: PEG scheduled for 1545. Original Note: Message from RN: Family would like another copy of Medicare Choice List to tour facilities. Met with patient: Provided additional copy for family. Patient states sisters will tour them all and take pictures for her to make decision. Patient remains agreeable to SNF. Patient pending PEG placement.
--- NOTE | 2017-12-08 11:19 | PC.NURSE ---
Report given to Anne RN receiving Pt for surgery. IV hl. Pt up to void in br. Pt down to surgery via bed with chart.
[2017-12-08] MEDS: CEFAZOLIN 2 GM/100 ML FROZ.PIGGY IV (12:30)
--- NOTE | 2017-12-08 12:39 | SUR.OPER ---
Supine on padded OR bed, head on pillow, arm padded and tucked at side, legs uncrossed, safety belt at thigh, tape over blanket over lower legs .
--- NOTE | 2017-12-08 12:52 | OT.IP.TRT ---
Current Diagnoses Type 1 diabetes mellitus with ketoacidosis with coma (11/28/17) Other specified diabetes mellitus with ketoacidosis without coma (11/28/17) Hyperosmolality and hypernatremia (11/28/17) Hypokalemia (11/28/17) Respiratory failure, unspecified, unspecified whether with hypoxia or hypercapnia (11/28/17) Dysphagia, unspecified (11/28/17) Surgery Performed Operation Date: 12/08/17 11:45 Actual Procedures p Peg Tube Insertion(Not Applicable) - Rosalio Nevarez MD Occupational Therapy Treatment Note M2 OT-IP Current Condition Start: 12/03/17 13:08 Freq: Status: Active Protocol: Document 12/03/17 10:45 PJM (Rec: 12/03/17 13:31 PJM [id number]) Occupational Therapy Current Condition Current Condition Evaluation Date 12/03/17 Treatment Diagnosis decreased self care, mobility, cognition s/p diabetic coma w /intubattion Post Operative Precautions Other Precautions NPO with barium swallow pending, fall risk M3 OT- IP Subjective and Pain Start: 12/03/17 13:08 Freq: Status: Active Protocol: Document 12/08/17 12:00 CCC (Rec: 12/08/17 12:52 CCC [id number]) OT- Subjective Occupational Therapy Visit Type Type Patient Unavailable Notes Pt having surgery for peg tube today, therefore to see pt tomorrow for OT treatment.
--- NOTE | 2017-12-08 13:04 | PM.OP.ENDO ---
Operative Date/Time/Diagnoses Date of procedure: 12/08/17 Time of procedure: 13:04 Pre-op diagnosis: Dysphagia. Unable to take adequate oral nutrition. Post-op diagnosis: same Procedure & Clinicians Study performed: EGD with percutaneous endoscopic gastrostomy placement(PEG) Same procedure as scheduled: Yes Indications: See preop diagnosis Surgeon: Rosalio Nevarez Procedure Notes SCOAP/Timeout: Perform. Patient given insulin for an elevated glucose Procedure in detail: The patient was placed supine on the OR table and initially we tried to do this with deep sedation. The patient became hypoxic after spraying her with the topical anesthetic and therefore we do general esthesia with past I determined that the stomach did not overlap the colon or small bowel. Wall that deflected it well with palpation was no where near intestine. Marking it with a the area prepped draped. Local anesthetic was titrated with 1% lidocaine with epinephrine. a small miguel incision in the skin. A needle and catheter was inserted on 1st attempt through the abdominal wall and into the stomach. The needle was removed and a guidewire passed through the catheter and grabbed with a snare. The guidewire along with the scope was pulled out through the esophagus and mouth. The tube was affixed to the guidewire and then the guidewire was pulled from the abdominal wall side pulling the tube through the mouth esophagus and into the stomach. The tube was pulled up to pulled up to the abdominal wall and then secured to the abdominal wall. The scope was reinserted and the tube appeared to be in good position. The scope was removed dressings were applied the patient tolerated the procedure well. She was taken extubated to the recovery area in good condition. Scope withdrawal time: Not applicable Findings: other findings (PEG tube in good position) Specimen(s): none sent Complications: none Plan for aftercare: Will follow in hospital
[2017-12-08] MEDS: fentaNYL 100 MCG/2 ML INJ 25 MCG IV ×2 (13:33→13:39)
--- NOTE | 2017-12-08 13:42 | SUR.PHASEI ---
Mouth swab and moisturizer applied. Pt audibly congested, declined oral suction. lungs coarse.
--- NOTE | 2017-12-08 14:00 | SLP.IPNOTE ---
Pt not seen for dysphagia tx due to surgery for PEG tube placement. ST to f/u with pt tomorrow.
--- NOTE | 2017-12-08 14:03 | SUR.PHASEI ---
Report called to Katherin Ramirez RN. Transferred to the floor by Anne Gee
--- NOTE | 2017-12-08 14:15 | PT.IPTN ---
Current Diagnoses Type 1 diabetes mellitus with ketoacidosis with coma (11/28/17) Other specified diabetes mellitus with ketoacidosis without coma (11/28/17) Hyperosmolality and hypernatremia (11/28/17) Hypokalemia (11/28/17) Respiratory failure, unspecified, unspecified whether with hypoxia or hypercapnia (11/28/17) Dysphagia, unspecified (11/28/17) Surgery Performed Operation Date: 12/08/17 11:45 Actual Procedures p Peg Tube Insertion(Not Applicable) - Rosalio Nevarez MD Physical Therapy Treatment Note M2 PT-IP Current Condition Start: 12/03/17 10:14 Freq: NEEDED Status: Active Protocol: Document 12/03/17 09:25 MDD (Rec: 12/03/17 10:37 MDD [id number]) Physical Therapy Current Condition Current Condition Evaluation Date 12/03/17 Treatment Diagnosis DKA, impaired mobility Onset Date 11/28/17 M3 PT-IP Subjective Start: 12/03/17 10:14 Freq: NEEDED Status: Active Protocol: Document 12/08/17 14:14 CLB (Rec: 12/08/17 14:15 CLB [id number]) Subjective Physical Therapy Visit Type Type Patient Unavailable Notes Pt in surgery.
[2017-12-08] MEDS: MORPHINE 2 MG/ML INJ IV ×3 (14:45→21:48)
--- NOTE | 2017-12-08 15:10 | PM.PN.1 ---
Subjective Date Patient Seen: 12/08/17 Time Patient Seen: 15:10 Interval history: Patient had PEG tube placed today. She is back in room with stable vitals. She continues to have hoarseness and mild stridor. She is on 2 L nasal cannula. She has not desaturated when walking with physical therapy. Blood sugars have been running close to 300 on IV dexamethasone. Exam Vital Signs (past 8 hours): - 12/08/17 08:16 12/08/17 10:03 12/08/17 10:04 Temperature 97.8 F Pulse Rate 76 Respiratory Rate 16 Blood Pressure 150/66 H Pulse Oximetry 93 88 L 93 12/08/17 11:02 12/08/17 11:16 12/08/17 13:20 Temperature 97.7 F 97.7 F Pulse Rate 75 75 81 Respiratory Rate 16 17 18 Blood Pressure 147/83 H 147/83 H 121/74 H Pulse Oximetry 94 93 96 12/08/17 13:25 12/08/17 13:30 12/08/17 13:45 Temperature 97.6 F Pulse Rate 79 78 66 Respiratory Rate 16 13 12 Blood Pressure 126/72 H 125/73 H 133/67 H Pulse Oximetry 95 92 94 Fraction of Inspired Oxygen 28 Oxygen Delivery Method Nasal Cannula Oxygen Flow Rate 2 Narrative Exam Narrative: GENERAL: Patient is alert, very pleasant, with mild stridor and moderate to severe hoarseness, but able to be heard sufficiently to understand HEENT: Pupils equal and reactive CHEST: Clear to auscultation bilaterally. CARDIAC: Regular rate and rhythm. ABDOMEN: Nondistended, soft, nontender. Peg tube noted. EXTREMITIES: no edema. NEUROLOGICAL: Nonfocal SKIN: Warm, dry, no petechiae, no rash Objective Labs Result Diagrams: 12/03/17 05:15 12/05/17 05:10 Assessment & Plan Plan: Assessment/Plan Narrative: This is a patient found unresponsive, intubated due to unable to protect airway, in DKA on admission, post extubation has had stridor with bilateral vocal cord paralysis on ENT evaluation. 1. Acute respiratory arrest. Patient extubated 12/01/2017 and subsequently with stridor and hoarseness. Maintaining O2 sats on 2 L nasal cannula and no wheezing on exam. Not desaturating with ambulation. Continue supplemental O2 as required. DuoNeb as needed. 2. Vocal cord paralysis and Reineke's edema. Etiology unclear but may be due to intubation trauma or acute illness. She is strict NPO. She is on IV dexamethasone 6 mg every 8 hr since 12/07/2017. Reviewed case with ENT, Dr. Gregory, who recommends dexamethasone tapered after a few days and not more than 1 week total duration. Hopefully this is self-limited but may take a few weeks to months to resolve. There is chance she may need tracheostomy if starts desaturating but she currently seems quite stable. Continue speech therapy. 3. Nutrition. Patient had PEG tube placed 12/08/2017. She is started on tube feeding diet. Dietitian consulted. 4. Acute diabetic ketoacidosis, resolved. Glucose running 300 range on IV dexamethasone. Current insulin ordered as Lantus 60 units each evening and NovoLog high-dose sliding scale. Expect blood sugars to improve once she is off of steroid. 5. Electrolyte disturbances, resolved. She had hypernatremia and hypokalemia corrected. 6. Hypertension, hyperlipidemia. Discontinued IV enalapril. Started patient back on her lisinopril 10 mg daily. Restarted on her aspirin and atorvastatin as well. 7. Alcohol dependence. Patient received counseling on alcohol abstinence/avoidance. She has not had acute withdrawal. Received thiamine IV. 8. Cigarette dependence. Patient received counseling on smoking cessation. She has nicotine patch in hospital. 9. DVT prophylaxis. On low-dose Lovenox 10. Disposition. Patient clinically stable and likely can discharge in next 24 hr if tolerating tube feeds. Will need taper ordered on dexamethasone. Will need outpatient ENT follow-up. Current plan is to discharge to longterm facility rehab to continue PT, OT and ST. Quality VTE Deep Vein Thrombosis/Pulmonary Embolism Present on Admission: No
--- NOTE | 2017-12-08 15:13 | P.PN_ITS ---
Subjective Date Patient Seen: 12/08/17 Time Patient Seen: 15:10 Interval history: Patient had PEG tube placed today. She is back in room with stable vitals. She continues to have hoarseness and mild stridor. She is on 2 L nasal cannula. She has not desaturated when walking with physical therapy. Blood sugars have been running close to 300 on IV dexamethasone. Exam Vital Signs (past 8 hours): - 12/08/17 08:16 12/08/17 10:03 12/08/17 10:04 Temperature 97.8 F Pulse Rate 76 Respiratory Rate 16 Blood Pressure 150/66 H Pulse Oximetry 93 88 L 93 12/08/17 11:02 12/08/17 11:16 12/08/17 13:20 Temperature 97.7 F 97.7 F Pulse Rate 75 75 81 Respiratory Rate 16 17 18 Blood Pressure 147/83 H 147/83 H 121/74 H Pulse Oximetry 94 93 96 12/08/17 13:25 12/08/17 13:30 12/08/17 13:45 Temperature 97.6 F Pulse Rate 79 78 66 Respiratory Rate 16 13 12 Blood Pressure 126/72 H 125/73 H 133/67 H Pulse Oximetry 95 92 94 Fraction of Inspired Oxygen 28 Oxygen Delivery Method Nasal Cannula Oxygen Flow Rate 2 Narrative Exam Narrative: GENERAL: Patient is alert, very pleasant, with mild stridor and moderate to severe hoarseness, but able to be heard sufficiently to understand HEENT: Pupils equal and reactive CHEST: Clear to auscultation bilaterally. CARDIAC: Regular rate and rhythm. ABDOMEN: Nondistended, soft, nontender. Peg tube noted. EXTREMITIES: no edema. NEUROLOGICAL: Nonfocal SKIN: Warm, dry, no petechiae, no rash Objective Labs Result Diagrams: 12/03/17 05:15 12/05/17 05:10 Assessment & Plan Plan: Assessment/Plan Narrative: This is a patient found unresponsive, intubated due to unable to protect airway , in DKA on admission, post extubation has had stridor with bilateral vocal cord paralysis on ENT evaluation. 1. Acute respiratory arrest. Patient extubated 12/01/2017 and subsequently with stridor and hoarseness. Maintaining O2 sats on 2 L nasal cannula and no wheezing on exam. Not desaturating with ambulation. Continue supplemental O2 as required. DuoNeb as needed. 2. Vocal cord paralysis and Reineke's edema. Etiology unclear but may be due to intubation trauma or acute illness. She is strict NPO. She is on IV dexamethasone 6 mg every 8 hr since 12/07/2017. Reviewed case with ENT, Dr. Gregory, who recommends dexamethasone tapered after a few days and not more than 1 week total duration. Hopefully this is self-limited but may take a few weeks to months to resolve. There is chance she may need tracheostomy if starts desaturating but she currently seems quite stable. Continue speech therapy. 3. Nutrition. Patient had PEG tube placed 12/08/2017. She is started on tube feeding diet. Dietitian consulted. 4. Acute diabetic ketoacidosis, resolved. Glucose running 300 range on IV dexamethasone. Current insulin ordered as Lantus 60 units each evening and NovoLog high-dose sliding scale. Expect blood sugars to improve once she is off of steroid. 5. Electrolyte disturbances, resolved. She had hypernatremia and hypokalemia corrected. 6. Hypertension, hyperlipidemia. Discontinued IV enalapril. Started patient back on her lisinopril 10 mg daily. Restarted on her aspirin and atorvastatin as well. 7. Alcohol dependence. Patient received counseling on alcohol abstinence/ avoidance. She has not had acute withdrawal. Received thiamine IV. 8. Cigarette dependence. Patient received counseling on smoking cessation. She has nicotine patch in hospital. 9. DVT prophylaxis. On low-dose Lovenox 10. Disposition. Patient clinically stable and likely can discharge in next 24 hr if tolerating tube feeds. Will need taper ordered on dexamethasone. Will need outpatient ENT follow-up. [facility] to continue PT, OT and ST. Quality VTE Deep Vein Thrombosis/Pulmonary Embolism Present on Admission: No
[2017-12-08] MEDS: DEXAMETHASONE 10 MG/ML VIAL 6 MG IV (17:40)
[2017-12-08] MEDS: INSULIN ASPART 100 UNIT/ML INSULN PEN SUBCUT ×2 (17:41→21:36)
[2017-12-08] MEDS: SODIUM CHLORIDE 0.45% 1,000 ML 75 ML IV (20:54)
[2017-12-08] MEDS: ATORVASTATIN 10 MG TABLET 5 MG PO (20:59)
[2017-12-08] MEDS: INSULIN GLARGINE 100 UNIT/ML 3ML PEN 60 UNIT SUBCUT (21:33)
[2017-12-09] VITALS (13 sets, daily range): BP systolic 112–157; BP diastolic 54–94; PULSE 58–71; RESP 14–18; TEMP 36.4–36.9; O2SAT 86–98; BMI 30.4
[2017-12-09] MEDS: DEXAMETHASONE 10 MG/ML VIAL 6 MG IV ×3 (00:06→16:29)
[2017-12-09] MEDS: MORPHINE 2 MG/ML INJ IV ×3 (00:08→18:38)
[2017-12-09] MEDS: SODIUM CHLORIDE 0.9% FLUSH 10 ML IV ×3 (00:08→18:38)
--- NOTE | 2017-12-09 06:57 | PC.NURSE ---
Assumed care of pt from outgoing shift at 2300 8-13. Pt asleep at this time belongings and call light within reach. Pt arouses to voice. compliant with nursing assessment, complained of discomfort and soreness at PEG tube insertion and Pt given meds per JUN. Pt asked if she needed a breathing treatment and pt denied need. Pt sba with walker. Pt repositioned in bed. Pt still has the dressing to left leg. dressing to peg tube reinforced. Pt uses call light. blood sugars are better controlled no coverage needed. bed alarm on, side rails up x3 will continue to monitor 0300- bg 150, no coverage, requested pain medication. bed alarm on, side rails upx2. will continue to monitor.
--- NOTE | 2017-12-09 09:41 | OT.IP.TRT ---
Current Diagnoses Type 1 diabetes mellitus with ketoacidosis with coma (11/28/17) Other specified diabetes mellitus with ketoacidosis without coma (11/28/17) Hyperosmolality and hypernatremia (11/28/17) Hypokalemia (11/28/17) Respiratory failure, unspecified, unspecified whether with hypoxia or hypercapnia (11/28/17) Dysphagia, unspecified (11/28/17) Surgery Performed Operation Date: 12/08/17 11:45 Actual Procedures p Peg Tube Insertion(Not Applicable) - Rosalio Nevarez MD Occupational Therapy Treatment Note M2 OT-IP Current Condition Start: 12/03/17 13:08 Freq: Status: Active Protocol: Document 12/03/17 10:45 PJM (Rec: 12/03/17 13:31 PJM [id number]) Occupational Therapy Current Condition Current Condition Evaluation Date 12/03/17 Treatment Diagnosis decreased self care, mobility, cognition s/p diabetic coma w /intubattion Post Operative Precautions Other Precautions NPO with barium swallow pending, fall risk M3 OT- IP Subjective and Pain Start: 12/03/17 13:08 Freq: Status: Active Protocol: Document 12/09/17 09:40 CCC (Rec: 12/09/17 09:41 CCC [id number]) OT- Subjective Occupational Therapy Visit Type Type Patient Refusal Notes Pt states just got up with nursing to use the bathroom and would rather do OT later .
[2017-12-09] MEDS: ENOXAPARIN 40 MG/0.4 ML SYRINGE SUBCUT (10:19)
--- NOTE | 2017-12-09 10:19 | PT.IPTN ---
Current Diagnoses Type 1 diabetes mellitus with ketoacidosis with coma (11/28/17) Other specified diabetes mellitus with ketoacidosis without coma (11/28/17) Hyperosmolality and hypernatremia (11/28/17) Hypokalemia (11/28/17) Respiratory failure, unspecified, unspecified whether with hypoxia or hypercapnia (11/28/17) Dysphagia, unspecified (11/28/17) Surgery Performed Operation Date: 12/08/17 11:45 Actual Procedures p Peg Tube Insertion(Not Applicable) - Rosalio Nevarez MD Physical Therapy Treatment Note M2 PT-IP Current Condition Start: 12/03/17 10:14 Freq: NEEDED Status: Active Protocol: Document 12/03/17 09:25 MDD (Rec: 12/03/17 10:37 MDD [id number]) Physical Therapy Current Condition Current Condition Evaluation Date 12/03/17 Treatment Diagnosis DKA, impaired mobility Onset Date 11/28/17 M3 PT-IP Subjective Start: 12/03/17 10:14 Freq: NEEDED Status: Active Protocol: Document 12/09/17 09:00 CLB (Rec: 12/09/17 10:19 CLB [id number]) Subjective Physical Therapy Visit Type Type Patient Refusal Notes Pt refused stating she had no energy.
[2017-12-09] MEDS: NICOTINE 21 MG PATCH TOP (10:20)
[2017-12-09] MEDS: LISINOPRIL 10 MG TABLET PO (10:22)
[2017-12-09] MEDS: SODIUM CHLORIDE 0.45% 1,000 ML 75 ML IV (10:30)
[2017-12-09] MEDS: INSULIN ASPART 100 UNIT/ML INSULN PEN SUBCUT ×3 (11:23→21:23)
[2017-12-09] MEDS: ASPIRIN 81 MG TAB 324 MG PO (11:41)
--- NOTE | 2017-12-09 15:28 | PC.NURSE ---
SHIFT SUMMARY: PATIENT SLEPT A LARGE PORTION OF SHIFT. STATES SHE IS TIRED AND BORED, AND FEELS SHE WILL PERK UP WHEN FEEDS START. DISCUSSED SAME W/ DR. BUTCHER AT 1150. OKAY TO START FEEDS AT 30CC'/HR AND TITRATE UP 10CC/HR PER HOSPITALIST AND DIETARY RECOMMENDATION. GOAL RATE 60CC'S. PATIENT IS TOLERATING FINE, NO N/V, NO ABD PAIN, RESIDUAL 0. SHE IS NOW RUNNING AT 40CC/HR. REPORT GIVEN TO NEXT SHIFT.
--- NOTE | 2017-12-09 15:50 | PT.IPTN ---
Current Diagnoses Type 1 diabetes mellitus with ketoacidosis with coma (11/28/17) Other specified diabetes mellitus with ketoacidosis without coma (11/28/17) Hyperosmolality and hypernatremia (11/28/17) Hypokalemia (11/28/17) Respiratory failure, unspecified, unspecified whether with hypoxia or hypercapnia (11/28/17) Dysphagia, unspecified (11/28/17) Surgery Performed Operation Date: 12/08/17 11:45 Actual Procedures p Peg Tube Insertion(Not Applicable) - Rosalio Nevarez MD Physical Therapy Treatment Note M2 PT-IP Current Condition Start: 12/03/17 10:14 Freq: NEEDED Status: Active Protocol: Document 12/03/17 09:25 MDD (Rec: 12/03/17 10:37 MDD [id number]) Physical Therapy Current Condition Current Condition Evaluation Date 12/03/17 Treatment Diagnosis DKA, impaired mobility Onset Date 11/28/17 M3 PT-IP Subjective Start: 12/03/17 10:14 Freq: NEEDED Status: Active Protocol: Document 12/09/17 14:50 CLB (Rec: 12/09/17 15:49 CLB [id number]) Subjective Physical Therapy Visit Type Type Treatment Note Visit Start Time 14:50 Visit Stop Time 15:10 Total Visit Minutes 20 Number of PILOT SUPERVISOR Visits 4 Physical Therapy Visit Comments Patient Comments Pt willing to do therapy. M4 PT-IP Mobility and Gait Start: 12/03/17 10:14 Freq: NEEDED Status: Active Protocol: Document 12/09/17 14:50 CLB (Rec: 12/09/17 15:49 CLB [id number]) PT-Bed Mobility Assessment Rolling Level of Assist Independent Supine to Sit Supine to Sit Independent Scooting Scooting to Edge of Bed Independent Scooting Up and Down in Bed Independent PT-Transfer Assessment Sit to and From Stand Sit to and from Stand Contact Guard Assistance Use of Upper Extremities Equipment Transfer Assistive Device Gait Belt Front Wheeled Walker Transfers Transfer Destination Chair Transfer Ability Level of Assist Contact Guard Assistance Use of Upper Extremities Gait Assessment Gait Gait Assistance Required: Contact Guard Assist Minimum Assistance Distance (Feet) (feet) 150 Assistive Devices Assistive Device Gait Belt Front Wheeled Walker Gait Deviations General Gait Pattern Decreased Feet Clearance Wide Based Gait Factors Limiting Gait Function Factors Limiting Gait Function Decreased Activity Tolerance Decreased Strength Poor Balance Comments Gait Comments Pt ambulates slowly with forward posture needing assist with IV pole and O2 tank. M5 PT-IP Objective Assessments Start: 12/03/17 10:14 Freq: NEEDED Status: Active Protocol: Document 12/03/17 09:25 MDD (Rec: 12/03/17 10:37 MDD [id number]) Orientation Orientation/Cognition Level of Alertness Alert Orientation Name Age Birthday Month Date Year Day of Week Place Situation Language Function Ability No Deficits Noted Safety Awareness Decreased Safety Awareness Memory Description No Deficits Noted Comments Pt's voice is hoarse, but clear and intelligible. Gross Range of Motion Lower Extremity ROM Assessment Within Functional Limits Strength Lower Extremity Strength Assessment Left Impaired Hip R hip flexion 4/5, L 4+/5, hip IR/ER 4+/5 B Knee R knee extension 4/5, L knee extension 4+/5, R knee flexion 4/5, L 4+/5 Ankle 1/5 L ankle dorsiflexion Comments Strength Comments Pt reports weakness in L ankle is new Sensation Assessment Sensation Gross Sensation Left LE Impaired Light Touch Absent Sensation Description Paresthesia Numbness Comments Sensation Comments light touch sensation absent L medial malleolus, impaired plantar surface of foot to shins M6 PT-IP Treatment Start: 12/03/17 10:14 Freq: NEEDED Status: Active Protocol: Document 12/04/17 10:30 MDD (Rec: 12/04/17 12:40 MDD [id number]) Physical Therapy Treatment Education Education Provided Safety Other Treatments Other Treatment Performed Performed Dawson Balance assessment: 23/56. Also performed therapeutic exercises including: seated hip flexion, seated knee flexion, seated L ankle df and standing heel raises. M7 PT-IP Assessment and Plan Start: 12/03/17 10:14 Freq: NEEDED Status: Active Protocol: Document 12/09/17 14:50 CLB (Rec: 12/09/17 15:49 CLB [id number]) PT Summary Assessment and Plan Summary Impairments Strength Balance Gait Progress Towards Goals Progressing Toward Goals Assessment Summary Pt is improving with steadiness during gait with slight LOB during a turn, pt able to self correct. Goals Bed Mobility Goal Independent Transfer Goal Independent Gait Goal Independent Gait Distance 50 with FWW Other Goals Ascend/descend 2 steps with R railing Frequency of Treatment Frequency Of Treatment Once a Day Treatment Plan Physical Therapy Treatment Plan Bed Mobility Training Transfer Training Gait Training Therapeutic Exercise Balance Retraining Discharge Planning Recommendations To Nursing Amount of Assist Needed 1 Person Assist Discharge Recommendations PT Discharge Recommendations Home with Assistance Home Health SNF Rehab Other Discharge Recommendations If pt goes home, would need one person able to perform SBA /CGA for mobility at all times , and would benefit from home health OT/PT/INSURANCE INSTRUCTOR.
--- NOTE | 2017-12-09 15:58 | CM.DPC ---
Addendum entered by DENICE Ortiz 12/09/17 16:55: Call from [facility]/Anne: They will need to communicate with [facility] and their ARCHEOLOGIST CLASSICAL to determine who could continue the vital Stim treatments. Anne will also review patient for acceptance. Original Note: Met with patient: Selected [facility]. CM/Jaden faxed referral. Then received call from sister/Irena: They changed their mind and patient wanted [facility] [place]. CM/Jaden faxed additional referral. Speech started vital stim treatments with patient and found that patient responded well. Would like them to continue at [facility]. [facility]: Neither have a ARCHEOLOGIST CLASSICAL that is certified in Vital Stim treatment. 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 Discussed with patient and family and all in agreement to see if [facility] can accept so patient can continue working with clockmaker apprentice. Called to [facility] and left voicemail requesting they review patient for acceptance with discharge possibly tomorrow (Friday). PASRR complete. Plan: Likely discharge to [facility] Friday. [facility] or [facility]. Patient wants to continue with Vital Stim treatments. CM team to confirm acceptance and treatment availability tomorrow and verify selection with patient.
--- NOTE | 2017-12-09 16:35 | PM.PN.1 ---
Subjective Date Patient Seen: 12/09/17 Time Patient Seen: 10:35 Interval history: THIS PATIENT IS ADMITTED 12 DAYS AGO OF IT THEN DKA AND ALTERED MENTAL STATUS SHE HAD BEEN ADD TO BE INTUBATED SHE WAS EXTUBATED AND THEN SUBSEQUENTLY REQUIRED RE-INTUBATION AND THEN AND 2ND TIME THE EXTUBATION WAS COMPLICATED WITH THE STRIDOR AND SHE HAD AN ANTI CONSTIPATION WHICH CONFIRMED PROBLEMS OTHER WORKUP CAUSE PARALYSIS OF THE LOCAL CLOTS SHE ALSO HAD SOME EDEMA FOR WHICH SHE IS ON DEXAMETHASONE THAT NEEDS TO BE TAPERED DOWN PER THE ENT RECOMMENDATIONS PATIENT CONTINUES TO HAVE PERSISTENT STRIDOR BUT DOES NOT APPEAR TO BE IN TOO MUCH OF A DISCOMFORT AT THIS TIME SHE DOES HAVE HOARSENESS OF VOICE BUT IS ABLE TO SPEAK FULL SENTENCES PLAN IS FOR HER TO BE AN TRANSFERRED TO A [facility] FACILITY WHICH IS IN PROCESS Exam Vital Signs (past 8 hours): - 12/09/17 09:00 12/09/17 09:35 12/09/17 09:36 Temperature 97.9 F Pulse Rate 68 Respiratory Rate 16 Blood Pressure 142/94 H Pulse Oximetry 98 86 L 12/09/17 12:00 12/09/17 16:18 Temperature 98.2 F 97.5 F L Pulse Rate 66 68 Respiratory Rate 16 18 Blood Pressure 157/74 H 118/56 L Pulse Oximetry 96 92 Fraction of Inspired Oxygen 28 Oxygen Delivery Method Heated High Flow Oxygen Flow Rate 3 Const General: cooperative, comfortable and well developed [facility] Head: normal to inspection, normocephalic and atraumatic Ears: hearing grossly normal bilaterally Nose: external nose normal Mouth: oral mucosae normal Eyes Conjunctivae: conjunctivae normal Sclera: sclerae normal Pupils: PERRL EOM: EOM intact bilaterally Neck Neck: normal visual inspection and full ROM Thyroid: thyroid normal Resp Effort & Inspection: normal respiratory effort, able to speak in complete sentences (hoarse voice) and stridor (Over the larynx) Auscultation: clear to auscultation bilaterally Cardio Palpation: normal PMI Rate: regular rate Rhythm: regular rhythm Heart Sounds: S1 normal and S2 normal GI Inspection: normal to inspection Palpation: soft Auscultation: normal bowel sounds Back/Spine/Pelvis Back: normal to inspection Skin Trauma: no lacerations or abrasions and abrasion Wounds: no wounds Neuro General: alert, awake and oriented x3 Cranial Nerves: CN's II-XI intact bilaterally Cognition: normal cognition Speech: speech normal (hoarse voice ) Extrem General: normal to inspection, no pedal edema and no calf tenderness Psych Affect: normal affect Attitude: cooperative Thought Process: normal Thought Content: normal Judgment: judgment good Objective Labs Result Diagrams: 12/03/17 05:15 12/05/17 05:10 Assessment & Plan Plan: Assessment/Plan Narrative: 1. Stridor due to vocal cord paralysis ENT has been consulted and was following will continue the dexamethasone by tapering down to be off in 1 weeks time and follow up with ENT in 2 weeks 2.DKA resolved with treatment in the hospital 3. Dysphagia requiring placement of a PEG tube tube feeding is started with the Glucerna will gradually advance to goal For diabetes mellitus on insulin continue to monitor and control the sugars will check a BMP and a CBC tomorrow on Placement in a longterm facility of choice by her 2 sisters who are here from November 28. Mejia and another sister who lives here is also involved in the care Quality VTE Deep Vein Thrombosis/Pulmonary Embolism Present on Admission: No
--- NOTE | 2017-12-09 16:42 | P.PN_ITS ---
Subjective Date Patient Seen: 12/09/17 Time Patient Seen: 10:35 Interval history: THIS PATIENT IS ADMITTED 12 DAYS AGO OF IT THEN DKA AND ALTERED MENTAL STATUS SHE HAD BEEN ADD TO BE INTUBATED SHE WAS EXTUBATED AND THEN SUBSEQUENTLY REQUIRED RE-INTUBATION AND THEN AND 2ND TIME THE EXTUBATION WAS COMPLICATED WITH THE STRIDOR AND SHE HAD AN ANTI CONSTIPATION WHICH CONFIRMED PROBLEMS OTHER WORKUP CAUSE PARALYSIS OF THE LOCAL CLOTS SHE ALSO HAD SOME EDEMA FOR WHICH SHE IS ON DEXAMETHASONE THAT NEEDS TO BE TAPERED DOWN PER THE ENT RECOMMENDATIONS PATIENT CONTINUES TO HAVE PERSISTENT STRIDOR BUT DOES NOT APPEAR TO BE IN TOO MUCH OF A DISCOMFORT AT THIS TIME SHE DOES HAVE HOARSENESS OF VOICE BUT IS ABLE TO SPEAK FULL SENTENCES PLAN IS FOR HER TO BE AN TRANSFERRED TO A ASSISTED FACILITY WHICH IS IN PROCESS Exam Vital Signs (past 8 hours): - 12/09/17 09:00 12/09/17 09:35 12/09/17 09:36 Temperature 97.9 F Pulse Rate 68 Respiratory Rate 16 Blood Pressure 142/94 H Pulse Oximetry 98 86 L 12/09/17 12:00 12/09/17 16:18 Temperature 98.2 F 97.5 F L Pulse Rate 66 68 Respiratory Rate 16 18 Blood Pressure 157/74 H 118/56 L Pulse Oximetry 96 92 Fraction of Inspired Oxygen 28 Oxygen Delivery Method Heated High Flow Oxygen Flow Rate 3 Const General: cooperative, comfortable and well developed [facility] Head: normal to inspection, normocephalic and atraumatic Ears: hearing grossly normal bilaterally Nose: external nose normal Mouth: oral mucosae normal Eyes Conjunctivae: conjunctivae normal Sclera: sclerae normal Pupils: PERRL EOM: EOM intact bilaterally Neck Neck: normal visual inspection and full ROM Thyroid: thyroid normal Resp Effort & Inspection: normal respiratory effort, able to speak in complete sentences (hoarse voice) and stridor (Over the larynx) Auscultation: clear to auscultation bilaterally Cardio Palpation: normal PMI Rate: regular rate Rhythm: regular rhythm Heart Sounds: S1 normal and S2 normal GI Inspection: normal to inspection Palpation: soft Auscultation: normal bowel sounds Back/Spine/Pelvis Back: normal to inspection Skin Trauma: no lacerations or abrasions and abrasion Wounds: no wounds Neuro General: alert, awake and oriented x3 Cranial Nerves: CN's II-XI intact bilaterally Cognition: normal cognition Speech: speech normal (hoarse voice ) Extrem General: normal to inspection, no pedal edema and no calf tenderness Psych Affect: normal affect Attitude: cooperative Thought Process: normal Thought Content: normal Judgment: judgment good Objective Labs Result Diagrams: 12/03/17 05:15 12/05/17 05:10 Assessment & Plan Plan: Assessment/Plan Narrative: 1. Stridor due to vocal cord paralysis ENT has been consulted and was following will continue the dexamethasone by tapering down to be off in 1 weeks time and follow up with ENT in 2 weeks 2.DKA resolved with treatment in the hospital 3. Dysphagia requiring placement of a PEG tube tube feeding is started with the Glucerna will gradually advance to goal For diabetes mellitus on insulin continue to monitor and control the sugars will check a BMP and a CBC tomorrow on Placement in a assisted facility of choice by her 2 sisters who are here from November 28. Mejia and another sister who lives here is also involved in the care Quality VTE Deep Vein Thrombosis/Pulmonary Embolism Present on Admission: No
--- NOTE | 2017-12-09 17:54 | ST.IPDYTX ---
Care Team Visit Care Team Role Provider Type Gayle Decker PA-C Family Provider Physician Primary Care Provider Specialty: Internal Medicine Address: [address] [place] [address] Email: Laverne Joe DO Emergency Provider Physician Specialty: Emergency Medicine Address: [address] [place] [address] Email: Tod Heath MD Admit Provider Physician Attending Provider Specialty: Internal Medicine Address: [address] [place] [address] Email: CAMP NURSE Dysphagia Treatment CAMP NURSE Dysphagia Treatment Start: 12/02/17 11:17 Freq: Status: Active Protocol: Document 12/09/17 17:06 BLANCA (Rec: 12/09/17 17:42 BLANCA [id number]) Dysphagia Treatment Session Time Visit Start Time 12:30 Visit Stop Time 13:30 Total Visit Minutes 60 Setting Assessment Location Acute Care Visit Type Note Type Treatment Note Patient Information Identification Type Name ID Wristband Subjective Observations The pt was transferring from bed to chair with Nsg assistance upon CAMP NURSE's arrival. RT was present and had completed tx prior to transfer . RT student remained to observe ST tx, with the pt's permission. The pt stated she had spoken with KATHIA Mendieta earlier in the day and was agreeable to a trial tx of NMES with this CAMP NURSE. Treatment Oral Strategies Upright at 90 degrees [place] Pharyngeal Strategies Sitting Upright (90 deg) Effortful Swallow Additional Dysphagia Treatment NMES Strategies Treatment Activities The pt was educated on NMES procedure. The pt's skin was prepped and electrodes placed at submandibular triangle and at thyroid notch. Stimulation was advanced to 11.5 mA and the pt verbalized sensations of electrical current. With stimulation, the pt performed swallows dry swallows with no overt s/sx of aspiration. She occasionally reported swallow felt easier with NMES assistance, indicating target stimulation of muscles was being met. Given trials of moist toothette swab x1 and [id number] with thin water x3 to moisten the pt's mouth and promote repetitions of swallow, the pt exhibited immediate strong cough with all trials. Trials with added moisture were discontinued and dry swallows were resumed. Trained pt in Michael technique to increase laryngeal elevation. Pt returned demonstration with minimal laryngeal lift and performed swallows with electrical stimulation for 35 min. Skilled feedback and education was provided. The pt was agreeable to recommendation for ongoing NMES dysphagia tx 1-2x/day during hospital stay and ongoing tx at SNF if able. Advised CM of same recommendations. Assessment Patient Response to Treatment Good Rehab Potential Good Assessment of Improvement The pt responded well to treatment, indicating adequate innervation of suprahyoid and laryngeal musculature for exercising of swallow musculature to improve airway protection and reduce risk of aspiration. She continued to demonstrate immediate overt s/ sx of aspiration with swallows of minimal liquid. Recommend continued NPO status, tx to target exerice with NMES 1-2x/ day over course of hospital stay and continuation at SNF if possible. Diet Recommendations Liquids Order NPO Diet Order NPO/Alternative Means of Nutrition/Hydration Medication Recommendations Not Recommended by Mouth Aspiration Precautions Additional Precautions Strict oral care Treatment Plan Placement Recommendation after [facility] Facility Appropriate for Continued Therapy Yes Therapy Recommendations NMES (VitalStim) tx. Dysphagia Goals Patient will complete oropharyngeal exercises ( effortful, michael, shaker and daren) with and without NMES to improve overall strength needed to improve swallow function. Patient will complete thorough oral care prior to lingual swish and spit. Patient will participate in repeat MBSS when appropriate.
--- NOTE | 2017-12-09 18:58 | PM.PNPO.1 ---
Subjective Date Patient Seen: 12/09/17 Time Patient Seen: 14:00 Interval history: Patient denies abdominal pain. Feels better than yesterday especially with the NG tube out. Breathing a little easier Nisa said. Exam Vital Signs (past 8 hours): - 12/09/17 12:00 12/09/17 16:18 Temperature 98.2 F 97.5 F L Pulse Rate 66 68 Respiratory Rate 16 18 Blood Pressure 157/74 H 118/56 L Pulse Oximetry 96 92 Fraction of Inspired Oxygen 28 Oxygen Delivery Method High Flow Nasal Cannula Oxygen Flow Rate 3 Narrative Exam Narrative: Abdomen is soft there is no unusual tenderness. Dressing is dry and intact. Tube feeds were to start today. Objective Labs Result Diagrams: 12/03/17 05:15 12/05/17 05:10 Assessment & Plan Post-op Postoperative Procedures Operation Date: 12/08/17 11:45 Actual Procedures Side Surgeon p Peg Tube Insertion Not Applicable Rosalio Nevarez MD Postoperative status: doing well (Tube feeds to begin. We will gradually increase if there is low residuals and no increase in pain) Postoperative plan: discharge (Could probably go tomorrow if she tolerates her tube feeds well depending on other issues) Time Spent With Patient less than 15 minutes Quality VTE Deep Vein Thrombosis/Pulmonary Embolism Present on Admission: No
[2017-12-09] MEDS: ATORVASTATIN 10 MG TABLET 5 MG PO (19:43)
[2017-12-09] MEDS: RACEPINEPHRINE 0.5 ML NEB INH (19:58)
[2017-12-09] MEDS: INSULIN GLARGINE 100 UNIT/ML 3ML PEN 60 UNIT SUBCUT (21:23)
[2017-12-10] VITALS (9 sets, daily range): BP systolic 134–144; BP diastolic 56–79; PULSE 54–73; RESP 12–20; TEMP 36.4–36.8; O2SAT 85–95
--- NOTE | 2017-12-10 | DI.RAD.S_ITS ---
PROCEDURE: XR CHEST 2V INDICATIONS: HYPOXIA TECHNIQUE: 2 views of the chest were acquired. COMPARISON: [facility], CR, XR CHEST 1V, 12/05/2017, 15:07. [facility], CR, XR CHEST FOR PICC 1V, 12/04/2017, 15:04. [facility], CR, XR CHEST 1V, 12/01/2017, 6:13. [facility], CR, XR CHEST 1V, 11/30/2017, 11:06. FINDINGS: Surgical changes and devices: Left upper extremity PICC tip projects over the superior vena cava. Lungs and pleura: No pleural effusions or pneumothorax. Diffuse bilateral perihilar reticular opacities are noted. Mediastinum: Mediastinal contours are normal. Heart size is normal. There is prominence of the pulmonary vasculature. Bones and chest wall: Osseous structures are unchanged from prior exam, with a small osseous fragment superior to the left humeral head suggestive of sequela of prior trauma.. IMPRESSION: #1. No focal consolidations concerning for pneumonia. #2. Mild engorgement of the pulmonary vasculature with bilateral perihilar reticular opacities, which may represent early fluid overload/minimal pulmonary edema. Dictated by: Fco Byrd M.D. on 12/10/2017 at 12:27 Approved by: Fco Byrd M.D. on 12/10/2017 at 12:31
[2017-12-10] MEDS: DEXAMETHASONE 10 MG/ML VIAL 6 MG IV ×2 (00:29→08:27)
[2017-12-10] MEDS: SODIUM CHLORIDE 0.45% 1,000 ML 75 ML IV ×2 (00:29→16:06)
[2017-12-10] MEDS: SODIUM CHLORIDE 0.9% FLUSH 10 ML IV ×2 (00:30→09:50)
[2017-12-10] MEDS: INSULIN ASPART 100 UNIT/ML INSULN PEN SUBCUT ×4 (03:08→21:08)
--- NOTE | 2017-12-10 06:41 | PC.NURSE ---
Assumed care of pt from outgoing shift at 2300 8-14. Pt asleep at this time belongings and call light within reach. Pt arouses to voice. compliant with nursing assessment, denied pain and discomfort and soreness at PEG tube insertion. . Pt asked if she needed a breathing treatment and pt denied need. Pt sba with walker. Pt repositioned in bed. Pt still has the dressing to left leg. dressing to peg tube reinforced. bed alarm on, side rails up x3 will continue to monitor. Pt needing increased oxygen through the day today (8-14) and still on 6L high flow. PT lungs coarse. Pt taught how to use IS, used a few times as pt sleeping on and off through the night.
[2017-12-10] MEDS: ENOXAPARIN 40 MG/0.4 ML SYRINGE SUBCUT (09:48)
[2017-12-10] MEDS: NICOTINE 21 MG PATCH TOP (09:50)
[2017-12-10] MEDS: LISINOPRIL 10 MG TABLET PO (09:50)
--- NOTE | 2017-12-10 09:58 | OT.IP.TRT ---
Current Diagnoses Type 1 diabetes mellitus with ketoacidosis with coma (11/28/17) Other specified diabetes mellitus with ketoacidosis without coma (11/28/17) Hyperosmolality and hypernatremia (11/28/17) Hypokalemia (11/28/17) Respiratory failure, unspecified, unspecified whether with hypoxia or hypercapnia (11/28/17) Dysphagia, unspecified (11/28/17) Surgery Performed Operation Date: 12/08/17 11:45 Actual Procedures p Peg Tube Insertion(Not Applicable) - Rosalio Nevarez MD Occupational Therapy Treatment Note M2 OT-IP Current Condition Start: 12/03/17 13:08 Freq: Status: Active Protocol: Document 12/03/17 10:45 PJM (Rec: 12/03/17 13:31 PJM [id number]) Occupational Therapy Current Condition Current Condition Evaluation Date 12/03/17 Treatment Diagnosis decreased self care, mobility, cognition s/p diabetic coma w /intubattion Post Operative Precautions Other Precautions NPO with barium swallow pending, fall risk M3 OT- IP Subjective and Pain Start: 12/03/17 13:08 Freq: Status: Active Protocol: Document 12/10/17 09:53 [facility] (Rec: 12/10/17 09:58 [facility] [id number]) OT- Subjective Occupational Therapy Visit Type Type Treatment Note Visit Start Time 08:58 Visit Stop Time 09:06 Total Visit Minutes 8 Occupational Therapy Visit Comments Patient Comments Pt wanting to use the bathroom . OT Pain Assessment Pain When Pain Assessed At Rest Pain Present Pain Present Denied Pain M4 OT- IP ADL's Start: 12/03/17 13:08 Freq: Status: Active Protocol: Document 12/10/17 09:53 [facility] (Rec: 12/10/17 09:58 [facility] [id number]) OT ADL-Toileting General Evaluation Toileting Ability Standby Assistance Devices Toileting Assistive Devices Grab Bars Comments OT Toileting Comments Pt continue to have diffuculty to stand from lower surfaces and needed heavy use of grab bars and JOSE to help stand. M5 OT- IP IADL's Start: 12/03/17 13:08 Freq: Status: Active Protocol: Document 12/03/17 10:45 PJM (Rec: 12/03/17 13:31 PJM [id number]) OT-Instrumental Activities of Daily Living Deficits IADL Deficits Identified Deficits Home Safety Awareness Awareness of Need for Assistance at Home Good Awareness Medication Management Medication Management Caregiver Provides Supervision Medication Management Comments Recommend RN for diabetic management Money Management Money Management Caregiver Provides Supervision Money Management Comments Pt's sister is POA and can supervise/assist with finances PRN. Meal Preparation Meal Preparation Caregiver Provides Assist Meal Preparation Comments Sisters to assist with meal prep at home Bi Technical Lead Bi Technical Lead Caregiver Provides Assist Bi Technical Lead Comments Sisters to provide assist at home Driving Driving Caregiver Provides Assist Driving Comments Sisters to provide assist M6 OT- IP Functional Cognition Start: 12/03/17 13:08 Freq: Status: Active Protocol: Document 12/10/17 09:53 [facility] (Rec: 12/10/17 09:58 [facility] [id number]) Cognitive Factors Limiting Selfcare Function Cognitive Ability Level of Alertness Alert Patient Orientation Name Year Place Attention Span Ability Capable of Focused Attention Capable of Sustained Attention Ability to Follow Commands Able to Follow One Step Commands Memory Description Working Impaired Safety Awareness Underestimates Need for Assistance Cognitive Comments Cognitive Assessment Comments Pt continues to need vc for safety awareness and safety for FWW. M7 OT- IP Mobility and Balance Start: 12/03/17 13:08 Freq: Status: Active Protocol: Document 12/10/17 09:53 [facility] (Rec: 12/10/17 09:58 [facility] [id number]) OT-Transfer Assessment Sit to and From Stand Sit to and from Stand Minimal Assistance Transfers Transfer Ability Standby Assistance Technique Transfer Destination Toilet Transfer Technique Stand Step Pivot Devices Transfer Assistive Devices Gait Belt Front Wheeled Walker Comments Mobility Comments Pt needing use of FWW, otherwise high fall risk. OT- Balance Assessment Sitting Balance and Reactions Static Sitting Balance Ability Normal Dynamic Sitting Balance Ability Good Standing Balance and Reactions Static Standing Balance Ability Fair Dynamic Standing Balance Ability Poor M8 OT- IP Objective Assessments Start: 12/03/17 13:08 Freq: Status: Active Protocol: Document 12/03/17 10:45 PJM (Rec: 12/03/17 13:31 PJM [id number]) OT Gross Range of Motion Upper Extremity Range of Motion Assessment Within Functional Limits ROM Impairments LUE lacgs at shoulder during BUE AROM. OT Strength Upper Extremity Strength Assessment Within Functional Limits Comments Strength Comments No obvious focal weakness noted except mild LUE lag with BUE AROM OT- Coordination Assessment Comments Coordination Comments Appears WFL; further assessment to follow OT-Muscle Tone Assessment Muscle Tone WNL Yes OT Sensation Assessment Comments Summary Comments Pt detects lt touch in BUE/ hands. Edema Edema Present Edema Comments generalized LLE edema M9 OT- IP Assessment and Plan Start: 12/03/17 13:08 Freq: Status: Active Protocol: Document 12/10/17 09:53 [facility] (Rec: 12/10/17 09:58 [facility] [id number]) OT Summary Assessment and Plan Summary Progress Towards Goals Slow Progress due to Medical Issues Slow Progress due to Activity Tolerance Slow Progress due to Cognition Goals Grooming Goal Independent Dressing Goal Standby Assistance Toileting Goal Independent Bathing Goal Contact Guard Assistance Toilet Transfer Goal Independent Shower Transfer Goal Contact Guard Assistance Patient/Caregiver Education Goal Demonstrate Energy Conservation and Pacing Days to Meet Goals 5 Frequency of Treatment Frequency Of Treatment Once a Day Treatment Plan OT Treatment Plan ADL Training Functional Cognition Training Functional Mobility Patient/Family Education Discharge Planning Discharge Recommendations OT Discharge Recommendations SNF Rehab Home Equipment Needs shower seat, grab bars by shower and toilet
[2017-12-10] MEDS: ASPIRIN 81 MG TAB 324 MG PO (10:00)
--- NOTE | 2017-12-10 10:46 | CM.DPC ---
Addendum entered by DENICE Samaniego 12/10/17 15:03: ADD: SW met bedside with pt and her sister fiona and explained role again and sister Fiona confirms that family toured [facility], [facility], and [facility] yesterday and their preference so far is [facility] and [facility]. Family declines [facility] at this time. RUFINO discussed update from below regarding vital stem tx at [facility] and [facility]. Pt and family plan to consider their preference for d/c and are waiting for bedside visit from Anne at [facility]. SW also discussed possible option of Inpt Rehab with KATHIA Salinas, and she feels pt could be a good candidate for Inpt Rehab. SW called [facility] and they do not have vital stem tx and SW called [facility] and they can provide vital stem tx. Per Anne at [facility], some concerns regarding pt's throat and airways and currently still reviewing to determine if they can accept the pt. Plan: SW to follow after [facility] tx currently happening with pt bedside for further discussion regarding SNF vs possible Inpt Rehab at [facility]. DENICE Samaniego Original Note: SNF Planning with Vital Stem Tx Per MD, pt needing chest xray today and not stable for discharge yet. Per RT, pt currently on 4L oxygen and seems to keep requiring an increase in oxygen. RUFINO received a call from osman James at [facility], confirming that pt's sisters toured their facility yesterday and [facility] currently does not have an [facility] that can do Vital Stem tx in house although they may be able to figure out a way to do tx outpt. [facility] admissions confirmed that they can accept the pt and also can provide Vital Stem tx through their [facility] in house. [facility] admissions states that they are confirming that they could provide the amount of Vital Stem tx through Rita ([facility] and [facility] supervising film or videotape editor [facility]) that the pt needs and Anne will then do an onsight visit with the pt after lunch time today. Plan: SW to follow closely after [facility] bedside visit with the pt today to then confirm with pt her preference of SNF at d/c for ongoing therapy needs and Vital Stem Tx recommendations. DENICE Samaniego
[2017-12-10] MEDS: ALBUTEROL/IPRATROPIUM 3 ML AMPUL INH (11:07)
--- NOTE | 2017-12-10 11:49 | ST.IPDYTX ---
Care Team Visit Care Team Role Provider Type Gayle Decker PA-C Family Provider Physician Primary Care Provider Specialty: Internal Medicine Address: [address] [place] [address] Email: Laverne Joe DO Emergency Provider Physician Specialty: Emergency Medicine Address: [address] [place] [address] Email: Tod Heath MD Admit Provider Physician Attending Provider Specialty: Internal Medicine Address: [address] [place] [address] Email: NITROGEN OPERATOR Dysphagia Treatment NITROGEN OPERATOR Dysphagia Treatment Start: 12/02/17 11:17 Freq: Status: Active Protocol: Document 12/10/17 11:37 [facility]ANCA (Rec: 12/10/17 11:48 [facility] [id number]) Dysphagia Treatment Session Time Visit Start Time 09:40 Visit Stop Time 10:25 Total Visit Minutes 45 Setting Assessment Location Acute Care Visit Type Note Type Treatment Note Next Note Type Next Note Type Treatment Note Patient Information Subjective Observations The pt was awake and reclined in bed upon NITROGEN OPERATOR arrival. She was repositioned to upright in bed for dysphagia tx. Treatment Oral Strategies Upright at 90 degrees Other Pharyngeal Strategies Sitting Upright (90 deg) Effortful Swallow Additional Dysphagia Treatment Lemon swabs Strategies Treatment Activities The pt's skin was prepped and electrodes placed at submandibular triangle and at thyroid notch. Stimulation was initiated at 11.5 mA and advanced to 12.5 mA after 15 min of tx. The pt verbalized sensations of electrical current. With stimulation, the pt performed dry swallows, swallows following lemon swab, and Yuridia, Michael, and straw-suck laryngeal exercises . The pt exhibited immediate cough following lemon swabs in 4 of 6 trials with successful swallows performed with only minimal swabbing. Additional coughing was observed intermittently over the course of tx, not apparently related to swallow of saliva. The pt tolerated NMES tx well and was agreeable to additional tx this afternoon, which is recommended. Assessment Patient Response to Treatment Good Rehab Potential Good Assessment of Improvement The pt responded well to treatment, indicating adequate innervation of suprahyoid and laryngeal musculature for exercising of swallow musculature to improve airway protection and reduce risk of aspiration. With e-stimulation , the pt safely swallowed saliva alone or following minimal salivary stimulation from lemon swab; however, she did continue with overt s/sx of aspiration with moderate salivary stimulation, indicating continued high risk of aspiration. Recommend continued NPO status , tx to target exerice with NMES 1-2x/day over course of hospital stay and continuation at SNF if possible. Diet Recommendations Recommendations Continue Current Diet Comment Continue NPO Liquids Order NPO Diet Order NPO/Alternative Means of Nutrition/Hydration Medication Recommendations Not Recommended by Mouth Comments Hold all PO until MBS can be completed this afternoon Additional Dietary Needs Reminders to Use Strategies Aspiration Precautions Recommended Precautions Upright at 90 Degrees Effortful Swallow Double Swallow Supraglottic Swallow Supersupraglottic Swallow Michael Maneuvor Additional Precautions Strict oral care Treatment Plan Placement Recommendation after [facility]charge [facility] Facility Appropriate for Continued Therapy Yes Therapy Recommendations NMES (VitalStim) tx. Dysphagia Goals Patient will complete oropharyngeal exercises ( effortful, michael, shaker and yuridia) with and without NMES to improve overall strength needed to improve swallow function. Patient will complete thorough oral care prior to lingual swish and spit. Patient will participate in repeat MBSS when appropriate. Referrals/Other Recommended Referrals Primary Care Physician
--- NOTE | 2017-12-10 12:20 | PT.IPTN ---
Current Diagnoses Type 1 diabetes mellitus with ketoacidosis with coma (11/28/17) Other specified diabetes mellitus with ketoacidosis without coma (11/28/17) Hyperosmolality and hypernatremia (11/28/17) Hypokalemia (11/28/17) Respiratory failure, unspecified, unspecified whether with hypoxia or hypercapnia (11/28/17) Dysphagia, unspecified (11/28/17) Surgery Performed Operation Date: 12/08/17 11:45 Actual Procedures p Peg Tube Insertion(Not Applicable) - Rosalio Nevarez MD Physical Therapy Treatment Note M2 PT-IP Current Condition Start: 12/03/17 10:14 Freq: NEEDED Status: Active Protocol: Document 12/03/17 09:25 MDD (Rec: 12/03/17 10:37 MDD [id number]) Physical Therapy Current Condition Current Condition Evaluation Date 12/03/17 Treatment Diagnosis DKA, impaired mobility Onset Date 11/28/17 M3 PT-IP Subjective Start: 12/03/17 10:14 Freq: NEEDED Status: Active Protocol: Document 12/10/17 12:20 GGD (Rec: 12/10/17 12:20 GGD [id number]) Subjective Physical Therapy Visit Type Type Patient Refusal Notes Pt refused states she tired and has done a lot this morning. M4 PT-IP Mobility and Gait Frequency of Treatment Frequency Of Treatment Once a Day Treatment Plan Physical Therapy Treatment Plan Bed Mobility Training Transfer Training Gait Training Therapeutic Exercise Balance Retraining Discharge Planning Recommendations To Nursing Amount of Assist Needed 1 Person Assist Discharge Recommendations PT Discharge Recommendations Home with Assistance Home Health SNF Rehab Other Discharge Recommendations If pt goes home, would need one person able to perform SBA /CGA for mobility at all times , and would benefit from home health OT/PT/SIGNAL REPAIRER.
--- NOTE | 2017-12-10 14:44 | PM.PN.1 ---
Subjective Date Patient Seen: 12/10/17 Time Patient Seen: 09:45 Interval history: CLAY PACHECO WAS ADMITTED INITIALLY WITH DIABETIC KETOACIDOSIS AND AND UNRESPONSIVENESS AND HAD TO BE INTUBATED AND BEING ON MECHANICAL VENTILATION SHE WAS EXTUBATED BUT HAD TO BE REINTUBATED POST EXTUBATION THE 2ND TIME AROUND SHE HAS HOARSENESS OF VOICE STRIDOR AND ENT CONSULTATION WAS ALSO OBTAINED AND SHE HAS FOCAL CORD PARALYSIS IS ON DEXAMETHASONE TAPERING DOSE TO BE TAPERED IN A WEEK'S TIME AND FOLLOWED UP BY ENT IN 2 WEEKS TIME S THIS IS A LOOKING AT PLACEMENT IN [facility] Exam Vital Signs (past 8 hours): - 12/10/17 08:00 12/10/17 09:24 12/10/17 11:10 Temperature 97.8 F Pulse Rate 69 63 Respiratory Rate 20 12 Blood Pressure 142/79 H Pulse Oximetry 93 92 94 12/10/17 12:00 Temperature 98.3 F Pulse Rate 54 L Respiratory Rate 20 Blood Pressure 144/74 H Pulse Oximetry 92 Fraction of Inspired Oxygen 28 Oxygen Delivery Method Nasal Cannula Oxygen Flow Rate 2 Const General: cooperative, healthy appearing and comfortable Orientation: alert, awake and oriented x3 HENMT Head: normal to inspection Ears: hearing grossly normal bilaterally Nose: external nose normal Face and sinus: normal facial exam Eyes Visual Melgar: normal visual melgar by confrontation Eyelids: eyelids normal Conjunctivae: conjunctivae normal Sclera: sclerae normal Pupils: PERRL EOM: EOM intact bilaterally Neck Neck: normal visual inspection Thyroid: thyroid normal Resp Effort & Inspection: stridor Auscultation: bronchovesicular breath sounds Cardio Palpation: normal PMI Rate: regular rate Rhythm: regular rhythm Heart Sounds: S1 normal and S2 normal GI Inspection: normal to inspection Palpation: soft Back/Spine/Pelvis Back: normal to inspection Skin General: no rashes or lesions noted Neuro General: alert, awake and oriented x3 Cranial Nerves: CN's II-XI intact bilaterally Speech: speech normal (BUT HOARSE) Motor: muscle tone normal throughout Sensory Exam: no sensory deficits noted Extrem General: normal to inspection Psych Appearance: grossly normal Speech and Movement: speech and movement normal Mood: congruent mood Affect: normal affect Attitude: cooperative Thought Process: normal Thought Content: normal Judgment: judgment good Objective Labs Result Diagrams: 12/03/17 05:15 12/05/17 05:10 Assessment & Plan Plan: Assessment/Plan Narrative: 1. DKA Unresponsive at admission resolved 2.Stridor due to vocal cord paralysis post intubation ENT has been consulted on taper dexamethasone will follow up with ENT in 2 weeks 3.Hypoxia will get CxR Incentive Sopirometry D/W SISTER WHO IS A DELIVERY ROOM SUPERVISOR Time Spent With Patient Time with patient: 25 - 35 minutes Quality VTE Deep Vein Thrombosis/Pulmonary Embolism Present on Admission: No
--- NOTE | 2017-12-10 15:23 | PC.NURSE ---
patient pleasant and cooperative. Denies pain. Glucerna 1.2 to PEG tube at 60ml/hr, patient tolerating well. Denies n/v or abdominal pain, residual this morning less than 5cc. Dressing to left leg changed, area cleansed with saline and allevyn dressing placed. PICC line dressing to BETH changed, patient tolerated well. Strict NPO maintained. Up with 1 assist to bathroom and chair, tolerating well. RT monitoring oxygen and treatments as indicated. Patient has strong productive cough today, and using IS. call light within reach
--- NOTE | 2017-12-10 16:07 | DIET.PN ---
Started PEG tube feeding. Advanced to 60ml/hr. Tolerating well with minimal residual per RN. Suggest continue at this rate which provides 1728 kcal, 86g protein, 164g carb, 1123 ml free water. Suggest DC IVF and give water rinses of 160ml q4 hours to provide total of 2083ml (TF and rinses) daily
--- NOTE | 2017-12-10 16:22 | PT.IPTN ---
Current Diagnoses Type 1 diabetes mellitus with ketoacidosis with coma (11/28/17) Other specified diabetes mellitus with ketoacidosis without coma (11/28/17) Hyperosmolality and hypernatremia (11/28/17) Hypokalemia (11/28/17) Respiratory failure, unspecified, unspecified whether with hypoxia or hypercapnia (11/28/17) Dysphagia, unspecified (11/28/17) Surgery Performed Operation Date: 12/08/17 11:45 Actual Procedures p Peg Tube Insertion(Not Applicable) - Rosalio Nevarez MD Physical Therapy Treatment Note M2 PT-IP Current Condition Start: 12/03/17 10:14 Freq: NEEDED Status: Active Protocol: Document 12/03/17 09:25 MDD (Rec: 12/03/17 10:37 MDD [id number]) Physical Therapy Current Condition Current Condition Evaluation Date 12/03/17 Treatment Diagnosis DKA, impaired mobility Onset Date 11/28/17 M3 PT-IP Subjective Start: 12/03/17 10:14 Freq: NEEDED Status: Active Protocol: Document 12/10/17 16:13 GGD (Rec: 12/10/17 16:22 GGD [email or web address]) Subjective Physical Therapy Visit Type Type Treatment Note Visit Start Time 15:45 Visit Stop Time 16:10 Total Visit Minutes 25 Number of YARDAGE CONTROL CLERK Visits 5 Physical Therapy Visit Comments Patient Comments Pt states she needs to use the bathroom. M4 PT-IP Mobility and Gait Start: 12/03/17 10:14 Freq: NEEDED Status: Active Protocol: Document 12/10/17 16:13 GGD (Rec: 12/10/17 16:22 GGD [email or web address]) PT-Bed Mobility Assessment Rolling Level of Assist Independent Supine to Sit Supine to Sit Independent Scooting Scooting to Edge of Bed Independent Scooting Up and Down in Bed Independent PT-Transfer Assessment Sit to and From Stand Sit to and from Stand Contact Guard Assistance Use of Upper Extremities Equipment Transfer Assistive Device Gait Belt Front Wheeled Walker Transfers Transfer Destination Chair Transfer Ability Level of Assist Contact Guard Assistance Use of Upper Extremities Gait Assessment Gait Gait Assistance Required: Contact Guard Assist Minimum Assistance 1 Person Assist Distance (Feet) (feet) 50 Assistive Devices Assistive Device Gait Belt Front Wheeled Walker Gait Deviations General Gait Pattern Decreased Feet Clearance Wide Based Gait Factors Limiting Gait Function Factors Limiting Gait Function Decreased Activity Tolerance Decreased Strength Poor Balance Comments Gait Comments O2 on 2 L at rest 93% with activity 91% M5 PT-IP Objective Assessments Start: 12/03/17 10:14 Freq: NEEDED Status: Active Protocol: Document 12/03/17 09:25 MDD (Rec: 12/03/17 10:37 MDD [id number]) Orientation Orientation/Cognition Level of Alertness Alert Orientation Name Age Birthday Month Date Year Day of Week Place Situation Language Function Ability No Deficits Noted Safety Awareness Decreased Safety Awareness Memory Description No Deficits Noted Comments Pt's voice is hoarse, but clear and intelligible. Gross Range of Motion Lower Extremity ROM Assessment Within Functional Limits Strength Lower Extremity Strength Assessment Left Impaired Hip R hip flexion 4/5, L 4+/5, hip IR/ER 4+/5 B Knee R knee extension 4/5, L knee extension 4+/5, R knee flexion 4/5, L 4+/5 Ankle 1/5 L ankle dorsiflexion Comments Strength Comments Pt reports weakness in L ankle is new Sensation Assessment Sensation Gross Sensation Left LE Impaired Light Touch Absent Sensation Description Paresthesia Numbness Comments Sensation Comments light touch sensation absent L medial malleolus, impaired plantar surface of foot to shins M6 PT-IP Treatment Start: 12/03/17 10:14 Freq: NEEDED Status: Active Protocol: Document 12/10/17 16:13 GGD (Rec: 12/10/17 16:22 GGD [email or web address]) Physical Therapy Treatment Exercises Exercises Ankle Pumps Straight Leg Raises Seated Knee Flexion/Extension Other Treatments Other Treatment Performed standing heel raises, and seated marches. M7 PT-IP Assessment and Plan Start: 12/03/17 10:14 Freq: NEEDED Status: Active Protocol: Document 12/10/17 16:13 GGD (Rec: 12/10/17 16:22 GGD [email or web address]) PT Summary Assessment and Plan Summary Assessment Summary Pt had mild unsteadiness with gait with one LOB that need min A. She fatigued qucikly with activity. Frequency of Treatment Frequency Of Treatment Once a Day Treatment Plan Physical Therapy Treatment Plan Bed Mobility Training Transfer Training Gait Training Therapeutic Exercise Balance Retraining Discharge Planning Recommendations To Nursing Amount of Assist Needed 1 Person Assist Discharge Recommendations PT Discharge Recommendations SNF Rehab Acute Rehab
--- NOTE | 2017-12-10 17:09 | ST.IPDYTX ---
Care Team Visit Care Team Role Provider Type Gayle Decker PA-C Family Provider Physician Primary Care Provider Specialty: Internal Medicine Address: [address] [place] [address] Email: Laverne Joe DO Emergency Provider Physician Specialty: Emergency Medicine Address: [address] [place] [address] Email: Tod Heath MD Admit Provider Physician Attending Provider Specialty: Internal Medicine Address: [address] [place] [address] Email: GLASS CUTTING MACHINE FEEDER Dysphagia Treatment GLASS CUTTING MACHINE FEEDER Dysphagia Treatment Start: 12/02/17 11:17 Freq: Status: Active Protocol: Document 12/10/17 16:07 BLANCA (Rec: 12/10/17 16:31 [email or web address]) Dysphagia Treatment Session Time Visit Start Time 14:45 Visit Stop Time 13:35 Total Visit Minutes 60 Setting Assessment Location Acute Care Visit Type Note Type Treatment Note Next Note Type Next Note Type Treatment Note Patient Information Subjective Observations The pt was awake and reclined in bed upon GLASS CUTTING MACHINE FEEDER arrival with her sister present. The pt and her sister had many questions, which were addressed. Treatment Oral Strategies Upright at 90 degrees Pharyngeal Strategies Sitting Upright (90 deg) Effortful Swallow Treatment Activities Consulted with CM and GLASS CUTTING MACHINE FEEDER at [facility] RE discharge planning and availability of this GLASS CUTTING MACHINE FEEDER to provide ongoing NMES tx at [facility] after hospital DC. This clinician is available for that service with the exception of 2 and possibly 4 tx days in December. On those days, [facility] GLASS CUTTING MACHINE FEEDER Jennifer will be available to provide non-NMES dysphagia and/or voice therapy so that the pt will have consistent treatment over the course of her stay, should she be placed at [facility]. Spoke with BELEN RE the possibility of inpatient rehab care. BELEN Avila said she would inquire at [facility] if NMES for dysphagia is available at those facilities and if the pt is a good candidate for that placement. At start of tx, the pt and her sister also had questions related to this clinician's availability to tx the pt at [facility], tx options at [facility], and/or inpt rehab potential. Questions were answered and the pt and family were encouraged to continue discussions with MD and CM to make the best decision for DC planning. NMES tx was then initiated; however, the pt c/o pain at electrode sites with stimulation at 8.5 mA. She experienced significant and extended coughing, which she felt was triggered by pain. The pt did maintain O2 sats at 92% or above during the coughing episode with 2L via nasal cannula. Minimal vocalization was perceived during cough, indicating NMES tx was discontinued at that time. Pt performed laryngeal lift and base of tongue exercises without NMES. Moderate laryngeal elevation and minimal anterior excursion was observed with palpation, indicating laryngeal muscle engagement with swallow. During cough, vegetative phonation was perceived, indicating VF contact. Education was provided to pt/ sister RE oral care, GERD, and aspiration risks/precautions associated with PEG tube feeding. Both verbalized understanding, and the pt reported oral care at least 2x /day. Assessment Patient Response to Treatment Good Rehab Potential Good Assessment of Improvement Unable to perform NMES tx this afternoon. The pt does demonstrate laryngeal elevation and anterior excursion upon palpation, though not adequate for airway protection with PO intake. The pt and her sister asked excellent questions RE discharge decision-making and verbalized understanding and appreciation. Will f/u with pt again tomorrow. Diet Recommendations Recommendations Continue Current Diet Comment Continue NPO Liquids Order NPO Diet Order NPO/Alternative Means of Nutrition/Hydration Medication Recommendations Not Recommended by Mouth Comments Hold all PO until MBS can be completed this afternoon Additional Dietary Needs Reminders to Use Strategies Aspiration Precautions Recommended Precautions Upright at 90 Degrees Effortful Swallow Double Swallow Supraglottic Swallow Supersupraglottic Swallow Michael Maneuvor Additional Precautions Strict oral care Treatment Plan Placement Recommendation after Discharge Nursing Home Facility Inpatient Rehab Facility Appropriate for Continued Therapy Yes Therapy Recommendations NMES (VitalStim) tx. Consideration of inpatient rehab is recommended, as the pt is highly motivated to receive intensive therapy and is cognitively able to follow instructions and participate in tx. ENT re-evaluation is also recommended to assess any changes edema that may affect pt's breath support and to guide POC regarding voice therapy. Dysphagia Goals Patient will complete oropharyngeal exercises ( effortful, michael, shaker and daren) with and without NMES to improve overall strength needed to improve swallow function. Patient will complete thorough oral care prior to lingual swish and spit. Patient will participate in repeat MBSS when appropriate. Referrals/Other Recommended Referrals ENT Consult
[2017-12-10] MEDS: MORPHINE 2 MG/ML INJ IV (18:54)
--- NOTE | 2017-12-10 19:39 | PC.NURSE ---
Addendum entered by Suzi James R.N. 12/10/17 22:44: Improvement post Rac Epi treatment, patient with min Stridor noted at rest. O2 sat 95% on 2L via NC. Original Note: Addendum entered by Suzi James R.N. 12/10/17 21:07: Increased stridor at rest, RT notified, RAc Epi Tx PRN administered, RT at bedside. Original Note: Addendum entered by Suzi James R.N. 12/10/17 20:52: 25 ml Digested residual. NO abdominal distention or discomfort noted. Original Note: Ibeth shift note: Patient awake and alert, up to BR and sitting up in bed. Continue on O2 at 2L via High FLow humidified NC, O2 sats 94%. Continue with mild stridor at end inspiration and hoarseness. Intermittent dry cough, educated and emphasized importance of IS while awake. Continue NPO, Glucerna continous infusing via PEG at 60ml/hr. IVF infusing as ordered to BETH PICC line. C/O pain to left distal genao ulcer, adequate pain control with MS IV. Patient pleasant, calm, and cooperative. States feels much stronger since initiated PEG feedings and expresses recovery optimism. Call light within reach
[2017-12-10] MEDS: ATORVASTATIN 10 MG TABLET 5 MG PO (20:40)
[2017-12-10] MEDS: DEXAMETHASONE 4 MG/ML VIAL IV (20:40)
[2017-12-10] MEDS: RACEPINEPHRINE 0.5 ML NEB INH (21:12)
[2017-12-10] MEDS: INSULIN GLARGINE 100 UNIT/ML 3ML PEN 60 UNIT SUBCUT (21:17)
[2017-12-11] VITALS (9 sets, daily range): BP systolic 146–175; BP diastolic 65–82; PULSE 61–75; RESP 18–20; TEMP 36.3–36.8; O2SAT 85–97
--- NOTE | 2017-12-11 01:19 | PC.NURSE ---
Casualty Claim Adjuster Note: 0000: Awake, assisted up to bedside commode. Pt is alert, oriented X3. Her voice is hoarse and soft but she is able to communicate well. Steady on her feet with walker. She remains on O2 2L/HFNC. Peg tube is patent and Glucerna is infusing at 60cc/hr. PICC in lt upper arm intact, with 1/2NS infusing at 75cc/hr.
[2017-12-11] MEDS: INSULIN ASPART 100 UNIT/ML INSULN PEN SUBCUT ×3 (03:38→18:22)
[2017-12-11] MEDS: SODIUM CHLORIDE 0.45% 1,000 ML 75 ML IV ×2 (06:35→19:16)
[2017-12-11 07:11] LABS: Add Manual Diff / Slide Review NO; Basophils Percent Auto 0.4 % (0-2); Eosinophils Percent Auto 0.2 % (2-4); Hematocrit 45.1 % (36-46); Hemoglobin 14.8 g/dL (12.0-16.0); Lymphocytes Percent Auto 9.9 % (25-40); Mean Corpuscular HGB Conc 32.8 % (30-36); Mean Corpuscular Hemoglobin 33.3 PG (26-34); Mean Corpuscular Volume 101.5 fL (80-100); Monocytes Percent Auto 5.4 % (3-14); Neutrophils Absolute Auto 11400 /uL (3000-5900); Neutrophils Percent Auto 84.1 % (50-75); Platelet Count 141 X10^3/uL (150-400); Red Blood Cell Count 4.44 X10^6/uL (4.0-5.2); Red Cell Distribution Width 14.3 % (11.6-14.8); White Blood Cell Count 13.6 X10^3/uL (4.5-11.0)
[2017-12-11 07:45] LABS: Alanine Aminotransferase 30 IU/L (9-52); Albumin 2.7 g/dL (3.5-5.0); Alkaline Phosphatase 65 U/L (38-126); Aspartate Aminotransferase 15 IU/L (14-36); Bilirubin Total 0.3 mg/dL (0.2-1.3); Blood Urea Nitrogen 20 mg/dL (7-17); Calcium 8.5 mg/dL (8.4-10.2); Chloride 97 mmol/L (98-107); Estimated Glomerular Filt Rate > 60.0 mL/min (>60); Globulin 2.6 g/dL (1.7-4.1); Glucose 212 mg/dL (80-110); HEMOLYSIS < 15 (0-50); Potassium 3.5 mmol/L (3.4-5.1); Sodium 140 mmol/L (137-145); Total Protein 5.3 g/dL (6.3-8.2)
[2017-12-11 07:55] LABS: Carbon Dioxide 40 mmol/L (22-32)
[2017-12-11] MEDS: ENOXAPARIN 40 MG/0.4 ML SYRINGE SUBCUT (08:27)
[2017-12-11] MEDS: NICOTINE 21 MG PATCH TOP (08:27)
[2017-12-11] MEDS: ASPIRIN 81 MG TAB 324 MG PO (08:27)
[2017-12-11] MEDS: DEXAMETHASONE 4 MG/ML VIAL IV ×2 (08:28→20:42)
[2017-12-11] MEDS: LISINOPRIL 10 MG TABLET PO (08:28)
--- NOTE | 2017-12-11 08:51 | CM.DPC ---
Addendum entered by DENICE Samaniego 12/11/17 13:17: ADD: Per Gayatri and Rita, ophthalmic lens inspector, pt was having a bedside consult from Dr. Roca, ENT, again today to determine if pt's throat and vocal cords have made progress with steroid use over the past week and per Dr. Roca pt does not seem to have improved. Dr. Roca consulting with Hospitalist to determine course of treatment and needs. SW inquired with SPONSORSHIP MANAGER's about the possible option of [facility] for pt's ongoing medical needs and possible need for Trach and aggressive ST needs. RUFINO called [facility] liaison Rickey ([phone]) and provided some clinical information and Rickey requested clinicals faxed to [phone] to review to determine if pt meets criteria for [facility]. SW faxed the requested clinicals. Plan: SW to follow closely for [facility] review to determine if pt meets criteria prior to discussing further with pt and medical team to determine best d/c plan of SNF vs [facility] for aggressive treatment for pt's medical needs. DENICE Samaniego Original Note: DCP SNF vs Inpt Rehab SW met bedside with pt and explained role again and discussed Inpt Rehab at [facility] vs SNF rehab. Pt states that she does not want to go to [facility] for Inpt Rehab and her preference is to stay locally and go to [facility] with ongoing vital stem tx and ST. RUFINO called Amanda, osman at [facility], and updated that pt preference is to go to their facility at d/c. Amanda states she will follow up with their SPONSORSHIP MANAGER team and speak with Rita( SPONSORSHIP MANAGER) today to confirm that they can adequately meet the pt's needs at d/c. Plan: SW to follow for final review from [facility] to confirm that they can accept the pt at d/c when medically stable. DENICE Samaniego
--- NOTE | 2017-12-11 09:43 | OT.IP.TRT ---
Current Diagnoses Type 1 diabetes mellitus with ketoacidosis with coma (11/28/17) Other specified diabetes mellitus with ketoacidosis without coma (11/28/17) Hyperosmolality and hypernatremia (11/28/17) Hypokalemia (11/28/17) Respiratory failure, unspecified, unspecified whether with hypoxia or hypercapnia (11/28/17) Dysphagia, unspecified (11/28/17) Surgery Performed Operation Date: 12/08/17 11:45 Actual Procedures p Peg Tube Insertion(Not Applicable) - Rosalio Nevarez MD Occupational Therapy Treatment Note M2 OT-IP Current Condition Start: 12/03/17 13:08 Freq: Status: Active Protocol: Document 12/03/17 10:45 PJM (Rec: 12/03/17 13:31 PJM [id number]) Occupational Therapy Current Condition Current Condition Evaluation Date 12/03/17 Treatment Diagnosis decreased self care, mobility, cognition s/p diabetic coma w /intubattion Post Operative Precautions Other Precautions NPO with barium swallow pending, fall risk M3 OT- IP Subjective and Pain Start: 12/03/17 13:08 Freq: Status: Active Protocol: Document 12/11/17 08:50 [facility] (Rec: 12/11/17 09:43 [facility] [id number]) OT- Subjective Occupational Therapy Visit Type Type Treatment Note Visit Start Time 08:50 Visit Stop Time 09:10 Total Visit Minutes 20 Occupational Therapy Visit Comments Patient Comments Pt states feel comfortable with the idea of going to [facility] for skilled rehab. OT Pain Assessment Pain When Pain Assessed At Rest Pain Present Pain Present Denied Pain M4 OT- IP ADL's Start: 12/03/17 13:08 Freq: Status: Active Protocol: Document 12/11/17 08:50 [facility] (Rec: 12/11/17 09:43 [facility] [id number]) OT ADL-Grooming General Evaluation Grooming Ability Standby Assistance Areas Needing Assistance Retrieving/Set-up of Grooming Items OT ADL-Oral Care General Eval Oral Care Ability Independent Devices Oral Care Devices Sponge/Foam Tipped Swab M5 OT- IP IADL's Start: 12/03/17 13:08 Freq: Status: Active Protocol: Document 12/03/17 10:45 PJM (Rec: 12/03/17 13:31 PJM [id number]) OT-Instrumental Activities of Daily Living Deficits IADL Deficits Identified Deficits Home Safety Awareness Awareness of Need for Assistance at Home Good Awareness Medication Management Medication Management Caregiver Provides Supervision Medication Management Comments Recommend RN for diabetic management Money Management Money Management Caregiver Provides Supervision Money Management Comments Pt's sister is MAXIMEA and can supervise/assist with finances PRN. Meal Preparation Meal Preparation Caregiver Provides Assist Meal Preparation Comments Sisters to assist with meal prep at home Mr Teacher Mr Teacher Caregiver Provides Assist Mr Teacher Comments Sisters to provide assist at home Driving Driving Caregiver Provides Assist Driving Comments Sisters to provide assist M6 OT- IP Functional Cognition Start: 12/03/17 13:08 Freq: Status: Active Protocol: Document 12/11/17 08:50 [facility] (Rec: 12/11/17 09:43 [facility] [id number]) Cognitive Factors Limiting Selfcare Function Cognitive Ability Level of Alertness Alert Patient Orientation Name Age Birthday Month Date Year Day of Week Place Situation Attention Span Ability Capable of Focused Attention Capable of Sustained Attention Ability to Follow Commands Able to Follow Multi-Step Commands Memory Description Short Term Impaired Working Impaired Safety Awareness Underestimates Need for Assistance Problem Solving Ability Unable to Identify Errors Needs Assist to Identify Solutions Cognitive Tests SLUMS Pt scored 22/30 improvement from 12/04/17 score on 16/30 still having difficulty with STM and problem solving skills . Cognitive Comments Cognitive Assessment Comments Pt continues to need vc for safety awareness and safety for FWW. M7 OT- IP Mobility and Balance Start: 12/03/17 13:08 Freq: Status: Active Protocol: Document 12/10/17 09:53 [facility] (Rec: 12/10/17 09:58 [facility] [email or web address]) OT-Transfer Assessment Sit to and From Stand Sit to and from Stand Minimal Assistance Transfers Transfer Ability Standby Assistance Technique Transfer Destination Toilet Transfer Technique Stand Step Pivot Devices Transfer Assistive Devices Gait Belt Front Wheeled Walker Comments Mobility Comments Pt needing use of FWW, otherwise high fall risk. OT- Balance Assessment Sitting Balance and Reactions Static Sitting Balance Ability Normal Dynamic Sitting Balance Ability Good Standing Balance and Reactions Static Standing Balance Ability Fair Dynamic Standing Balance Ability Poor M8 OT- IP Objective Assessments Start: 12/03/17 13:08 Freq: Status: Active Protocol: Document 12/03/17 10:45 PJM (Rec: 12/03/17 13:31 PJM [id number]) OT Gross Range of Motion Upper Extremity Range of Motion Assessment Within Functional Limits ROM Impairments LUE lacgs at shoulder during BUE AROM. OT Strength Upper Extremity Strength Assessment Within Functional Limits Comments Strength Comments No obvious focal weakness noted except mild LUE lag with BUE AROM OT- Coordination Assessment Comments Coordination Comments Appears WFL; further assessment to follow OT-Muscle Tone Assessment Muscle Tone WNL Yes OT Sensation Assessment Comments Summary Comments Pt detects lt touch in BUE/ hands. Edema Edema Present Edema Comments generalized LLE edema M9 OT- IP Assessment and Plan Start: 12/03/17 13:08 Freq: Status: Active Protocol: Document 12/11/17 08:50 [facility] (Rec: 12/11/17 09:43 [facility] [email or web address]) OT Summary Assessment and Plan Summary Progress Towards Goals Slow Progress due to Medical Issues Slow Progress due to Activity Tolerance Slow Progress due to Cognition Goals Days to Meet Goals 5 Frequency of Treatment Frequency Of Treatment Once a Day Treatment Plan OT Treatment Plan ADL Training Functional Cognition Training Functional Mobility Patient/Family Education Discharge Planning Discharge Recommendations OT Discharge Recommendations SNF Rehab Home Equipment Needs shower seat, grab bars by shower and toilet
--- NOTE | 2017-12-11 09:47 | PT.IPTN ---
Current Diagnoses Type 1 diabetes mellitus with ketoacidosis with coma (11/28/17) Other specified diabetes mellitus with ketoacidosis without coma (11/28/17) Hyperosmolality and hypernatremia (11/28/17) Hypokalemia (11/28/17) Respiratory failure, unspecified, unspecified whether with hypoxia or hypercapnia (11/28/17) Dysphagia, unspecified (11/28/17) Surgery Performed Operation Date: 12/08/17 11:45 Actual Procedures p Peg Tube Insertion(Not Applicable) - Rosalio Nevarez MD Physical Therapy Treatment Note M2 PT-IP Current Condition Start: 12/03/17 10:14 Freq: NEEDED Status: Active Protocol: Document 12/03/17 09:25 MDD (Rec: 12/03/17 10:37 MDD [id number]) Physical Therapy Current Condition Current Condition Evaluation Date 12/03/17 Treatment Diagnosis DKA, impaired mobility Onset Date 11/28/17 M3 PT-IP Subjective Start: 12/03/17 10:14 Freq: NEEDED Status: Active Protocol: Document 12/11/17 09:47 MDD (Rec: 12/11/17 11:50 MDD [id number]) Subjective Physical Therapy Visit Type Type Treatment Note Visit Start Time 09:15 Visit Stop Time 09:47 Total Visit Minutes 32 Notes Pt on 2 L O2. Sats at 93% at rest, decreased to 91% with activity. Number of [employer] Visits 0 Physical Therapy Visit Comments Patient Comments Pt reports she is bored. Motivated to participate in PT this am. Therapy Pain Assessment Pain Present Pain Present Denied Pain M4 PT-IP Mobility and Gait Start: 12/03/17 10:14 Freq: NEEDED Status: Active Protocol: Document 12/10/17 16:13 GGD (Rec: 12/10/17 16:22 [facility]GD [email or web address]) PT-Bed Mobility Assessment Rolling Level of Assist Independent Supine to Sit Supine to Sit Independent Scooting Scooting to Edge of Bed Independent Scooting Up and Down in Bed Independent PT-Transfer Assessment Sit to and From Stand Sit to and from Stand Contact Guard Assistance Use of Upper Extremities Equipment Transfer Assistive Device Gait Belt Front Wheeled Walker Transfers Transfer Destination Chair Transfer Ability Level of Assist Contact Guard Assistance Use of Upper Extremities Gait Assessment Gait Gait Assistance Required: Contact Guard Assist Minimum Assistance 1 Person Assist Distance (Feet) (feet) 50 Assistive Devices Assistive Device Gait Belt Front Wheeled Walker Gait Deviations General Gait Pattern Decreased Feet Clearance Wide Based Gait Factors Limiting Gait Function Factors Limiting Gait Function Decreased Activity Tolerance Decreased Strength Poor Balance Comments Gait Comments O2 on 2 L at rest 93% with activity 91% M5 PT-IP Objective Assessments Start: 12/03/17 10:14 Freq: NEEDED Status: Active Protocol: Document 12/03/17 09:25 MDD (Rec: 12/03/17 10:37 MDD [id number]) Orientation Orientation/Cognition Level of Alertness Alert Orientation Name Age Birthday Month Date Year Day of Week Place Situation Language Function Ability No Deficits Noted Safety Awareness Decreased Safety Awareness Memory Description No Deficits Noted Comments Pt's voice is hoarse, but clear and intelligible. Gross Range of Motion Lower Extremity ROM Assessment Within Functional Limits Strength Lower Extremity Strength Assessment Left Impaired Hip R hip flexion 4/5, L 4+/5, hip IR/ER 4+/5 B Knee R knee extension 4/5, L knee extension 4+/5, R knee flexion 4/5, L 4+/5 Ankle 1/5 L ankle dorsiflexion Comments Strength Comments Pt reports weakness in L ankle is new Sensation Assessment Sensation Gross Sensation Left LE Impaired Light Touch Absent Sensation Description Paresthesia Numbness Comments Sensation Comments light touch sensation absent L medial malleolus, impaired plantar surface of foot to shins M6 PT-IP Treatment Start: 12/03/17 10:14 Freq: NEEDED Status: Active Protocol: Document 12/11/17 09:47 MDD (Rec: 12/11/17 11:50 MDD [id number]) Physical Therapy Treatment Education Education Provided Precautions Safety Other Treatments Other Treatment Performed Therapeutic exercises: seated knee extension with L1 theraband, seated marching with theraband x 20 each. Sit to stands x 10, standing hip abduction x 10 B, standing heel raises x 15 B. Therapeutic activities for balance: Romberg 3 x 45 seconds, eyes open feet apart. Romberg with head nods, turns. M7 PT-IP Assessment and Plan Start: 12/03/17 10:14 Freq: NEEDED Status: Active Protocol: Document 12/11/17 09:47 MDD (Rec: 12/11/17 11:50 MDD [id number]) PT Summary Assessment and Plan Potential Rehabilitation Potential Good Status of Condition at Evaluation Evolving Summary Impairments Balance Bed Mobility Transfers Gait Activity Tolerance Progress Towards Goals Slow Progress due to Activity Tolerance Assessment Summary Pt demonstrates good participation this day. Continues to have low activity tolerance and significantly impaired balance. Goals Bed Mobility Goal Independent Transfer Goal Independent Gait Goal Independent Gait Distance 50 with FWW Other Goals Ascend/descend 2 steps with R railing Frequency of Treatment Frequency Of Treatment Once a Day Treatment Plan Physical Therapy Treatment Plan Bed Mobility Training Transfer Training Gait Training Therapeutic Exercise Balance Retraining Discharge Planning Recommendations To Nursing Amount of Assist Needed 1 Person Assist Discharge Recommendations PT Discharge Recommendations SNF Rehab Acute Rehab
--- NOTE | 2017-12-11 12:15 | ST.IPDYTX ---
Care Team Visit Care Team Role Provider Type Gayle Decker PA-C Family Provider Physician Primary Care Provider Specialty: Internal Medicine Address: [address] [place] [address] Email: Laverne Joe DO Emergency Provider Physician Specialty: Emergency Medicine Address: [address] [place] [address] Email: Tod Heath MD Admit Provider Physician Attending Provider Specialty: Internal Medicine Address: [address] [place] [address] Email: CERTIFIED SKI PATROLLER Dysphagia Treatment CERTIFIED SKI PATROLLER Dysphagia Treatment Start: 12/02/17 11:17 Freq: Status: Active Protocol: Document 12/11/17 13:46 MRM (Rec: 12/11/17 14:03 MRM [id number]) Dysphagia Treatment Session Time Visit Start Time 11:30 Visit Stop Time 12:00 Total Visit Minutes 30 Setting Assessment Location Acute Care Visit Type Note Type Treatment Note Next Note Type Next Note Type Treatment Note Patient Information Identification Type Name ID Wristband Subjective Observations Carisa was awake and alert, lying in bed with no family present. CERTIFIED SKI PATROLLER present to administer oral care and re- assess patient's voice and swallowing ability. Discussed reconsult with ENT and explained the need for second visit to look for any laryngeal/pharyngeal changes. Patient agreed to this. Observed increased frequency in coughing, increased vocal quality and increased audible stridor throughout visit. Multiple gasoline pump installer present (Rita Davis, Gayatri Salgado, Elenita Parra). Respiratory thearpy also present. ENT, Dr Roca, present to perform flexible endoscopy. Patient agreed to all care. Treatment Treatment Activities gasoline pump installer collaborated prior to start of treatment. Collectively decided to wait for today's VitalStim treatment until patient could be seen by ENT for an update. For this AM visit, thorough oral care provided. Cues for chin tuck to improve oral control and prevent posterior spillage into pharynx. Cues to swish and spit. Patient able to complete these tasks, but spontaneous coughing observed quickly after initiation of oral care. Suspect pharyngeal aspiration of 1) saliva or 2) mild amount of mouthwash from oral care. Patient's cough continues to be mostly aphonic and unproductive. No need for suction this visit. CERTIFIED SKI PATROLLER allowed to look through flexible endoscope to view patient's vocal folds. Please see ENT's detailed report for further detials. Extensive education provided to the patient regarding the findings of the procedure as well as her rehabilitation options. Assessment Patient Response to Treatment Fair Rehab Potential Fair Assessment of Improvement At this time, NPO is still recommended. Due to the patient's continued vocal fold immobility, she is not an appropriate candidate for initiation of voice therapy at this time. Recommend continue with trials of VitalStim for improved laryngeal/pharyngeal strength. Continue dyspahgia strategies targeting base of tongue strength. Collaboration with RT, ENTMD recommended. Discussed updated information with care management, Michelle, who presented the possibility of discharging to an LTAC ( [facility]) for further care. Per Michelle, this facility has staff trained to work with patients who have trachs and PEG tubes. This may be the most appropriate placement for the patient at this time, as ENT continues to consider if the patient may need a trach tube placement. CERTIFIED SKI PATROLLER to plan to follow up this afternoon. Diet Recommendations Liquids Order NPO Treatment Plan Placement Recommendation after Discharge Bill Poster Installer Care Facility Therapy Recommendations NMES (VitalStim) tx. Consideration of inpatient rehab is recommended, as the pt is highly motivated to receive intensive therapy and is cognitively able to follow instructions and participate in tx. Collaborate with RT, ENT, for apporpriate discharge plans. Dysphagia Goals Patient will complete oropharyngeal exercises ( effortful, michael, shaker and daren) with and without NMES to improve overall strength needed to improve swallow function. Patient will complete thorough oral care prior to lingual swish and spit. Referrals/Other Recommended Referrals ENT Consult
--- NOTE | 2017-12-11 13:42 | OP_ITS ---
DATE OF SERVICE: 12/11/2017 PREOP DIAGNOSES: 1. Bilateral vocal fold immobility. 2. Airway obstruction. 3. Dysphagia. POSTOP DIAGNOSES: 1. Bilateral vocal fold immobility. 2. Airway obstruction. 3. Dysphagia. PROCEDURE: Flexible laryngoscopy. SURGEON: Roby Roca MD ANESTHESIA: None. FINDINGS: Bilateral vocal fold persistent immobility with significant Meaghan edema with the polypoid tissue flapping superiorly with exhalation. No visible abduction or adduction. No pooling of secretions, however, no mass. No significant inflammation. COMPLICATIONS: None. INDICATIONS: A 67-year-old female with the above diagnoses, considering [facility], updated laryngoscopy recommended as it has been approximately 1 week since initial exam. She has been maintained on Decadron but seems to have plateaued from a breathing standpoint. Requires 2 L nasal cannula oxygen at all times. She is currently tube fed. Following discussion of the material risks, benefits, complications, and alternatives, she elected to proceed. DESCRIPTION OF PROCEDURE: Following verbal consent, the lubricated flexible laryngoscope was passed through the right nostril with the above findings noted. She tolerated the procedure well without known complications. PLAN: As discussed with the speech and language pathologist, as well as the hospitalist, I recommend evaluation by a dedicated multi line claims adjuster to discuss airway surgery which could include tracheotomy and excision of the polyps of the vocal folds. The patient agrees with the plan, understands, and is appreciative. She is cleared to transfer to the SNF, with close airway monitoring, with planned outpatient evaluation next week by multi line claims adjuster Pratik Duncan MD in [place], previously discussed. We hope to avoid the need for tracheotomy, ideally allowing time for possible spontaneous resolution of her TVC immobility of unknown etiology, possibly traumatic. [facility] Carisa Vera - NESS/ana maria/ab doc#: [id number]/job#: [id number] dd: 12/11/2017 12:15:00 dt: 12/11/2017 13:28:00 DICTATING MD/COPIES TO: Roby Roca MD COPIES MNE: CHERRY
--- NOTE | 2017-12-11 17:25 | SLP.IPNOTE ---
cast shell grinder Gayatri Salgado and Rita Davis present with RT, Daniel, and RT student, to conference with Hospitalist regarding patient's overall status. ENT visited today and noted no change in patient's status despite continued steroid. Vocal folds remain paralyzed in a neutral position with minimal airway opening. Considerable vocal fold edema and polyps. Per MD, ENT spoke with farm operations manager in [place] who can see patient next week for a consult. RT reported increasing CO2 levels as well as increased white blood count and 02 dependence. cast shell grinder reported continued minimal change in voicing or swallowing ability. cast shell grinder provided documentation from the brain MRI performed on 12/05/17. Results indicated severely degraded image quality due to patient motion. cast shell grinder and RT requested repeat MRI to rule out any neurological episodes (specifically in or around the brainstem) to rule out any possible CVA. Hospitalist agreed that this would be appropriate for the patient. Hospitalist stated that an MRI would be appropriate first thing tomorrow morning.
--- NOTE | 2017-12-11 17:29 | RT ---
Spoke with Gayatri and Dr. Self in regards to this pt.'s continual need for oxygen and no improvement over the last week while being in the hospital. Pt. has required oxygen at 1lpm starting on 12/05/17 but now has required additional oxygen over the last week to keep saturation around 90-92%. Dr. Roca the ENT came over today for a consult and indicated that there has been no improvement compared to his last consult. It doesn't seem at this time that the pt. has respiratory stability for discharge. Will continue to monitor the Pt. until discharge.
--- NOTE | 2017-12-11 18:36 | PM.PN.1 ---
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 Roca from ENT again showed similar findings she also has multiple nodules The plan is to discharge her to a [facility] facility in follow-up ceramic design engineer in [place] next week Over the concern now is for dysphagia paralysis of the vocal cords and the possibility of a pontine brainstem infarction Imaging study was done last Friday with MRI of the brain but the patient was not able to lay still maybe a repeat imaging of the brain he is in order here Exam Vital Signs (past 8 hours): - 12/11/17 14:49 12/11/17 15:40 Temperature 98.0 F 97.9 F Pulse Rate 64 65 Respiratory Rate 18 19 Blood Pressure 150/65 H 162/77 H Pulse Oximetry 94 94 Fraction of Inspired Oxygen 28 Oxygen Delivery Method Nasal Cannula Oxygen Flow Rate 2 Const General: cooperative, healthy appearing, comfortable and well developed Orientation: alert, awake and oriented x3 HENMT Head: normal to inspection, normocephalic and atraumatic Ears: hearing grossly normal bilaterally Nose: external nose normal Face and sinus: normal facial exam Other: speech is hoarse Eyes General: appearance normal, both eyes and all related structures Eyelids: eyelids normal Conjunctivae: conjunctivae normal Sclera: sclerae normal Pupils: PERRL EOM: EOM intact bilaterally Neck Neck: normal visual inspection Thyroid: thyroid normal Resp Effort & Inspection: normal respiratory effort and able to speak in complete sentences (but hoarse voice) Cardio Rate: regular rate Rhythm: regular rhythm Heart Sounds: S1 normal and S2 normal GI Inspection: normal to inspection Palpation: soft Back/Spine/Pelvis Back: normal to inspection and No back tenderness Skin General: no rashes or lesions noted Neuro General: alert, awake and oriented x3 Speech: speech normal Motor: muscle tone normal throughout Sensory Exam: no sensory deficits noted Extrem General: normal to inspection Psych Appearance: grossly normal Mood: congruent mood Affect: normal affect Attitude: cooperative Objective Labs Result Diagrams: 12/11/17 06:45 12/11/17 06:45 Labs: Laboratory Results - last 24 hr 08/16/18 08/16/18 06:45 06:45 WBC 13.6 H RBC 4.44 Hgb 14.8 Hct 45.1 MCV 101.5 H MCH 33.3 MCHC 32.8 RDW 14.3 Plt Count 141 L Neut % (Auto) 84.1 H Lymph % (Auto) 9.9 L York % (Auto) 5.4 Eos % (Auto) 0.2 L Baso % (Auto) 0.4 Neut # (Auto) 70978 H Sodium 140 Potassium 3.5 Chloride 97 L Carbon Dioxide 40 H* BUN 20 H Creatinine 0.50 L Estimated GFR > 60.0 BUN/Creatinine Ratio 40.0 H Glucose 212 H D Calcium 8.5 Total Bilirubin 0.3 AST 15 ALT 30 Alkaline Phosphatase 65 Total Protein 5.3 L Albumin 2.7 L Globulin 2.6 Albumin/Globulin Ratio 1.0 Assessment & Plan Plan: Assessment/Plan Narrative: DKA unresponsive at admission SUGARS BETTER CONTROLLED NOW Vocal cord paralysis stridor ENT following Dysphagia SLUBBER TENDER following PEG tube feeding WILL check ABG for resp status Time spent 25-35 min Quality VTE Deep Vein Thrombosis/Pulmonary Embolism Present on Admission: No
--- NOTE | 2017-12-11 18:50 | P.PN_ITS ---
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 Roca from ENT again showed similar findings she also has multiple nodules The plan is to discharge her to a long-term facility in follow-up pipeman in [place] next week Over the concern now is for dysphagia paralysis of the vocal cords and the possibility of a pontine brainstem infarction Imaging study was done last Friday with MRI of the brain but the patient was not able to lay still maybe a repeat imaging of the brain he is in order here Exam Vital Signs (past 8 hours): - 12/11/17 14:49 12/11/17 15:40 Temperature 98.0 F 97.9 F Pulse Rate 64 65 Respiratory Rate 18 19 Blood Pressure 150/65 H 162/77 H Pulse Oximetry 94 94 Fraction of Inspired Oxygen 28 Oxygen Delivery Method Nasal Cannula Oxygen Flow Rate 2 Const General: cooperative, healthy appearing, comfortable and well developed Orientation: alert, awake and oriented x3 HENMT Head: normal to inspection, normocephalic and atraumatic Ears: hearing grossly normal bilaterally Nose: external nose normal Face and sinus: normal facial exam Other: speech is hoarse Eyes General: appearance normal, both eyes and all related structures Eyelids: eyelids normal Conjunctivae: conjunctivae normal Sclera: sclerae normal Pupils: PERRL EOM: EOM intact bilaterally Neck Neck: normal visual inspection Thyroid: thyroid normal Resp Effort & Inspection: normal respiratory effort and able to speak in complete sentences (but hoarse voice) Cardio Rate: regular rate Rhythm: regular rhythm Heart Sounds: S1 normal and S2 normal GI Inspection: normal to inspection Palpation: soft Back/Spine/Pelvis Back: normal to inspection and No back tenderness Skin General: no rashes or lesions noted Neuro General: alert, awake and oriented x3 Speech: speech normal Motor: muscle tone normal throughout Sensory Exam: no sensory deficits noted Extrem General: normal to inspection Psych Appearance: grossly normal Mood: congruent mood Affect: normal affect Attitude: cooperative Objective Labs Result Diagrams: 12/11/17 06:45 12/11/17 06:45 Labs: Laboratory Results - last 24 hr 08/16/18 08/16/18 06:45 06:45 WBC 13.6 H RBC 4.44 Hgb 14.8 Hct 45.1 MCV 101.5 H MCH 33.3 MCHC 32.8 RDW 14.3 Plt Count 141 L Neut % (Auto) 84.1 H Lymph % (Auto) 9.9 L [place] % (Auto) 5.4 Eos % (Auto) 0.2 L Baso % (Auto) 0.4 Neut # (Auto) 42526 H Sodium 140 Potassium 3.5 Chloride 97 L Carbon Dioxide 40 H* BUN 20 H Creatinine 0.50 L Estimated GFR > 60.0 BUN/Creatinine Ratio 40.0 H Glucose 212 H D Calcium 8.5 Total Bilirubin 0.3 AST 15 ALT 30 Alkaline Phosphatase 65 Total Protein 5.3 L Albumin 2.7 L Globulin 2.6 Albumin/Globulin Ratio 1.0 Assessment & Plan Plan: Assessment/Plan Narrative: DKA unresponsive at admission SUGARS BETTER CONTROLLED NOW Vocal cord paralysis stridor ENT following Dysphagia PBX REPAIRER following PEG tube feeding WILL check ABG for resp status Time spent 25-35 min Quality VTE Deep Vein Thrombosis/Pulmonary Embolism Present on Admission: No
[2017-12-11 19:46] LABS: HCO3 ABG 40 mmol/L (23-27); Oxygen Saturation ABG 94 % (95-100); PCO2 ABG 54.5 mmHg (35-45); PO2 ABG 68 mmHg (80-105); TCO2 ABG 42 mmol/L (23-27); pH ABG 7.47 (7.35-7.45)
[2017-12-11 19:47] LABS: Fractionated Inspired Oxygen 2
[2017-12-11] MEDS: acetaZOLAMIDE 250 MG TABLET PO (20:34)
[2017-12-11] MEDS: ATORVASTATIN 10 MG TABLET 5 MG PO (20:42)
[2017-12-11] MEDS: INSULIN GLARGINE 100 UNIT/ML 3ML PEN 60 UNIT SUBCUT (20:43)
[2017-12-11] MEDS: SODIUM CHLORIDE 0.9% FLUSH 10 ML IV (20:43)
--- NOTE | 2017-12-11 21:19 | PC.NURSE ---
Ibeth shift note: Patient awake, alert, pleasant and cooperative. Up out of bed to BR with steady gait, sitting up in bed otherwise. Remains on O2 at 2L via HFNC, O2 sat 93-96%. Continue with soft spoken hoarse voice, 3-4 word sentences. Stridorous with increased activity, end inspiration and after cough. Intermittently productive cough, clear/white secretions. IVF discontinued per MD. Continue Glucerna via PEG tube at 60ml/hr with Q4 water flushes. Abdomen soft, non distended, and active BS. Wound healing ulcer to left distal genao with Allevyn dressing, CDI. Edema to LLE 2+. Patient states breathing effort unchanged from previous day. Calls for staff assistance appropriately. Sister at bedside providing supportive care.
[2017-12-12] VITALS (7 sets, daily range): BP systolic 150–171; BP diastolic 74–97; PULSE 65–75; RESP 18–20; TEMP 36.1–36.9; O2SAT 92–96
--- NOTE | 2017-12-12 | DI.MRI.S_ITS ---
PROCEDURE: MR ANGIO HEAD WO CON INDICATIONS: clinically suspected brainstem CVA TECHNIQUE: Noncontrast axial 3-D [id number] MR angiogram, with 3-dimensional maximum intensity projection (MIP) reformats of the internal carotid arteries and posterior circulation then performed. COMPARISON: [facility], , MR HEAD/BRAIN WO CON, 12/05/2017, 11:24. FINDINGS: Image quality: Technically limited due to patient's limited ability to tolerate positioning. Anterior circulation: Intracranial internal carotid arteries demonstrate normal size and patent flow signal. The flow within the paired anterior cerebral arteries is grossly patent bilaterally. The flow within the middle cerebral arteries is grossly patent bilaterally. The anterior communicating artery appears patent. No definite high-grade stenoses, occlusions, or aneurysms. Posterior circulation: Visualized portions of the vertebral arteries appear grossly patent and join to form the basilar artery. The proximal basilar artery demonstrates decreased flow related enhancement which may be due to technical artifact, slow flow, or stenosis. The remainder of the basilar artery appears grossly patent. The flow within the posterior cerebral arteries is grossly patent bilaterally. A right posterior communicating artery is demonstrated. IMPRESSION: 1. Limited study secondary to patient's limited ability to tolerate prone positioning for extended period of time. 2. Decreased flow related enhancement in the proximal basilar artery which may be due to slow flow, technical artifact, or stenosis. Consider further evaluation with a contrast enhanced MR angiogram or CT angiogram. Dictated by: Mesfin Mcgovern M.D. on 12/14/2017 at 14:24 Approved by: Mesfin Mcgovern M.D. on 12/14/2017 at 14:30
[2017-12-12 06:10] LABS: Blood Urea Nitrogen 18 mg/dL (7-17); Calcium 8.8 mg/dL (8.4-10.2); Chloride 94 mmol/L (98-107); Estimated Glomerular Filt Rate > 60.0 mL/min (>60); Glucose 197 mg/dL (80-110); HEMOLYSIS 16 (0-50); Potassium 3.7 mmol/L (3.4-5.1); Sodium 140 mmol/L (137-145)
[2017-12-12] MEDS: INSULIN ASPART 100 UNIT/ML INSULN PEN SUBCUT ×3 (06:34→18:31)
[2017-12-12 06:50] LABS: Carbon Dioxide 40 mmol/L (22-32)
[2017-12-12] MEDS: ENOXAPARIN 40 MG/0.4 ML SYRINGE SUBCUT (08:06)
[2017-12-12] MEDS: ASPIRIN 81 MG TAB 324 MG PO (08:07)
[2017-12-12] MEDS: DEXAMETHASONE 4 MG/ML VIAL IV ×2 (08:08→21:27)
[2017-12-12] MEDS: NICOTINE 21 MG PATCH TOP (08:08)
[2017-12-12] MEDS: SODIUM CHLORIDE 0.9% FLUSH 10 ML IV ×2 (08:09→21:29)
[2017-12-12] MEDS: LISINOPRIL 10 MG TABLET PO (08:11)
--- NOTE | 2017-12-12 10:15 | PT.IPTN ---
Current Diagnoses Type 1 diabetes mellitus with ketoacidosis with coma (11/28/17) Other specified diabetes mellitus with ketoacidosis without coma (11/28/17) Hyperosmolality and hypernatremia (11/28/17) Hypokalemia (11/28/17) Respiratory failure, unspecified, unspecified whether with hypoxia or hypercapnia (11/28/17) Dysphagia, unspecified (11/28/17) Surgery Performed Operation Date: 12/08/17 11:45 Actual Procedures p Peg Tube Insertion(Not Applicable) - Rosalio Nevarez MD Physical Therapy Treatment Note M2 PT-IP Current Condition Start: 12/03/17 10:14 Freq: NEEDED Status: Active Protocol: Document 12/03/17 09:25 MDD (Rec: 12/03/17 10:37 MDD [id number]) Physical Therapy Current Condition Current Condition Evaluation Date 12/03/17 Treatment Diagnosis DKA, impaired mobility Onset Date 11/28/17 M3 PT-IP Subjective Start: 12/03/17 10:14 Freq: NEEDED Status: Active Protocol: Document 12/11/17 09:47 MDD (Rec: 12/11/17 11:50 MDD [id number]) Subjective Physical Therapy Visit Type Type Treatment Note Visit Start Time 09:15 Visit Stop Time 09:47 Total Visit Minutes 32 Notes Pt on 2 L O2. Sats at 93% at rest, decreased to 91% with activity. Number of DIRECTOR COUNCIL ON AGING Visits 0 Physical Therapy Visit Comments Patient Comments Pt reports she is bored. Motivated to participate in PT this am. Therapy Pain Assessment Pain Present Pain Present Denied Pain M4 PT-IP Mobility and Gait Start: 12/03/17 10:14 Freq: NEEDED Status: Active Protocol: Document 12/12/17 10:27 LJ (Rec: 12/12/17 10:44 LJ [id number]) PT-Transfer Assessment Sit to and From Stand Sit to and from Stand Contact Guard Assistance 1 Person Assistance Equipment Transfer Assistive Device Gait Belt Front Wheeled Walker Orthotic/Prosthetic Devices or Brace: No Transfers Transfer Destination Chair Transfer Technique Forward/Backward Scoot Transfer Ability Level of Assist Contact Guard Assistance Comments Mobility Comments Pt demonstrates control during sit<>stand with hand holds on either chair or FWW. Gait Assessment Gait Gait Assistance Required: Contact Guard Assist 1 Person Assist Able to Maintain Weight Bearing Status Yes During Gait Assistive Devices Assistive Device Gait Belt Front Wheeled Walker Orthotic/Prosthetic Devices or Brace: No Gait Deviations General Gait Pattern Decreased Stride Length Decreased Feet Clearance Factors Limiting Gait Function Factors Limiting Gait Function Decreased Activity Tolerance Decreased Strength Respiratory Distress Comments Gait Comments Pt requested to ambulate in hallway. Dr interrupted gait training and after speaking with the Dr. pt refused ambulation outside room. Ambulated in room 25' around bed back to chair with no LOB or SOB. PT-Balance Assessment Sitting Balance and Reactions Static Sitting Balance Ability Good Dynamic Sitting Balance Ability Good Standing Balance and Reactions Static Standing Balance Ability Fair Dynamic Standing Balance Ability Fair M5 PT-IP Objective Assessments Start: 12/03/17 10:14 Freq: NEEDED Status: Active Protocol: Document 12/03/17 09:25 MDD (Rec: 12/03/17 10:37 MDD [id number]) Orientation Orientation/Cognition Level of Alertness Alert Orientation Name Age Birthday Month Date Year Day of Week Place Situation Language Function Ability No Deficits Noted Safety Awareness Decreased Safety Awareness Memory Description No Deficits Noted Comments Pt's voice is hoarse, but clear and intelligible. Gross Range of Motion Lower Extremity ROM Assessment Within Functional Limits Strength Lower Extremity Strength Assessment Left Impaired Hip R hip flexion 4/5, L 4+/5, hip IR/ER 4+/5 B Knee R knee extension 4/5, L knee extension 4+/5, R knee flexion 4/5, L 4+/5 Ankle 1/5 L ankle dorsiflexion Comments Strength Comments Pt reports weakness in L ankle is new Sensation Assessment Sensation Gross Sensation Left LE Impaired Light Touch Absent Sensation Description Paresthesia Numbness Comments Sensation Comments light touch sensation absent L medial malleolus, impaired plantar surface of foot to shins M6 PT-IP Treatment Start: 12/03/17 10:14 Freq: NEEDED Status: Active Protocol: Document 12/12/17 10:27 LJ (Rec: 12/12/17 10:44 LJ [id number]) Physical Therapy Treatment Exercises Exercises Gluteal Sets Short Arc Quads Education Education Provided Safety M7 PT-IP Assessment and Plan Start: 12/03/17 10:14 Freq: NEEDED Status: Active Protocol: Document 12/12/17 10:27 LJ (Rec: 12/12/17 10:44 LJ [id number]) PT Summary Assessment and Plan Potential Rehabilitation Potential Good Status of Condition at Evaluation Evolving Summary Impairments Gait Activity Tolerance Progress Towards Goals Slow Progress due to Medical Issues Assessment Summary Pt was able to demonstrate steady gait for short distance . In standing balance pt demonstrated marching and hs curls while holding onto walker. Pt demonstrated safe static balance with FWW for several minutes while speaking with Frequency of Treatment Frequency Of Treatment Once a Day Treatment Plan Physical Therapy Treatment Plan Gait Training Balance Retraining Recommendations To Nursing Amount of Assist Needed 1 Person Assist
--- NOTE | 2017-12-12 11:40 | PC.NURSE ---
Pt alert and oriented - reports pain in her throat and on swallowing that is consistent - no worse than it has been. MD suggested to pt that she should be dc'd to higher level of care due to risk of airway obstruction and need for trach. Pt's sister reports she is upset about this each doctor is telling her something different. SW services now in with pt discussing these issues with her.
--- NOTE | 2017-12-12 14:21 | OT.IP.TRT ---
Current Diagnoses Type 1 diabetes mellitus with ketoacidosis with coma (11/28/17) Other specified diabetes mellitus with ketoacidosis without coma (11/28/17) Hyperosmolality and hypernatremia (11/28/17) Hypokalemia (11/28/17) Respiratory failure, unspecified, unspecified whether with hypoxia or hypercapnia (11/28/17) Dysphagia, unspecified (11/28/17) Surgery Performed Operation Date: 12/08/17 11:45 Actual Procedures p Peg Tube Insertion(Not Applicable) - Rosalio Nevarez MD Occupational Therapy Treatment Note M2 OT-IP Current Condition Start: 12/03/17 13:08 Freq: Status: Active Protocol: Document 12/03/17 10:45 PJM (Rec: 12/03/17 13:31 PJ [id number]) Occupational Therapy Current Condition Current Condition Evaluation Date 12/03/17 Treatment Diagnosis decreased self care, mobility, cognition s/p diabetic coma w /intubattion Post Operative Precautions Other Precautions NPO with barium swallow pending, fall risk M3 OT- IP Subjective and Pain Start: 12/03/17 13:08 Freq: Status: Active Protocol: Document 12/12/17 14:19 [facility] (Rec: 12/12/17 14:21 [facility] [id number]) OT- Subjective Occupational Therapy Visit Type Type Patient Refusal Notes Pt states too tired and wanting to sleep and has been trying to absorb all the information and recommendations given to her. M4 OT- IP ADL's Start: 12/03/17 13:08 Freq: Status: Active Protocol: Document 12/11/17 08:50 [facility] (Rec: 12/11/17 09:43 [facility] [id number]) OT ADL-Grooming General Evaluation Grooming Ability Standby Assistance Areas Needing Assistance Retrieving/Set-up of Grooming Items OT ADL-Oral Care General Eval Oral Care Ability Independent Devices Oral Care Devices Sponge/Foam Tipped Swab M5 OT- IP IADL's Start: 12/03/17 13:08 Freq: Status: Active Protocol: Document 12/03/17 10:45 PJM (Rec: 12/03/17 13:31 PJ [id number]) OT-Instrumental Activities of Daily Living Deficits IADL Deficits Identified Deficits Home Safety Awareness Awareness of Need for Assistance at Home Good Awareness Medication Management Medication Management Caregiver Provides Supervision Medication Management Comments Recommend RN for diabetic management Money Management Money Management Caregiver Provides Supervision Money Management Comments Pt's sister is POA and can supervise/assist with finances PRN. Meal Preparation Meal Preparation Caregiver Provides Assist Meal Preparation Comments Sisters to assist with meal prep at home Mill Operator Helper Mill Operator Helper Caregiver Provides Assist Mill Operator Helper Comments Sisters to provide assist at home Driving Driving Caregiver Provides Assist Driving Comments Sisters to provide assist M6 OT- IP Functional Cognition Start: 12/03/17 13:08 Freq: Status: Active Protocol: Document 12/11/17 08:50 [facility] (Rec: 12/11/17 09:43 [facility] [id number]) Cognitive Factors Limiting Selfcare Function Cognitive Ability Level of Alertness Alert Patient Orientation Name Age Birthday Month Date Year Day of Week Place Situation Attention Span Ability Capable of Focused Attention Capable of Sustained Attention Ability to Follow Commands Able to Follow Multi-Step Commands Memory Description Short Term Impaired Working Impaired Safety Awareness Underestimates Need for Assistance Problem Solving Ability Unable to Identify Errors Needs Assist to Identify Solutions Cognitive Tests SLUMS Pt scored 22/30 improvement from 12/04/17 score on 16/30 still having difficulty with STM and problem solving skills . Cognitive Comments Cognitive Assessment Comments Pt continues to need vc for safety awareness and safety for FWW. M7 OT- IP Mobility and Balance Start: 12/03/17 13:08 Freq: Status: Active Protocol: Document 12/10/17 09:53 [facility] (Rec: 12/10/17 09:58 [facility] [email or web address]) OT-Transfer Assessment Sit to and From Stand Sit to and from Stand Minimal Assistance Transfers Transfer Ability Standby Assistance Technique Transfer Destination Toilet Transfer Technique Stand Step Pivot Devices Transfer Assistive Devices Gait Belt Front Wheeled Walker Comments Mobility Comments Pt needing use of FWW, otherwise high fall risk. OT- Balance Assessment Sitting Balance and Reactions Static Sitting Balance Ability Normal Dynamic Sitting Balance Ability Good Standing Balance and Reactions Static Standing Balance Ability Fair Dynamic Standing Balance Ability Poor M8 OT- IP Objective Assessments Start: 12/03/17 13:08 Freq: Status: Active Protocol: Document 12/03/17 10:45 PJM (Rec: 12/03/17 13:31 PJM [id number]) OT Gross Range of Motion Upper Extremity Range of Motion Assessment Within Functional Limits ROM Impairments LUE lacgs at shoulder during BUE AROM. OT Strength Upper Extremity Strength Assessment Within Functional Limits Comments Strength Comments No obvious focal weakness noted except mild LUE lag with BUE AROM OT- Coordination Assessment Comments Coordination Comments Appears WFL; further assessment to follow OT-Muscle Tone Assessment Muscle Tone WNL Yes OT Sensation Assessment Comments Summary Comments Pt detects lt touch in BUE/ hands. Edema Edema Present Edema Comments generalized LLE edema M9 OT- IP Assessment and Plan Start: 12/03/17 13:08 Freq: Status: Active Protocol: Document 12/11/17 08:50 [facility] (Rec: 12/11/17 09:43 [facility] [email or web address]) OT Summary Assessment and Plan Summary Progress Towards Goals Slow Progress due to Medical Issues Slow Progress due to Activity Tolerance Slow Progress due to Cognition Goals Days to Meet Goals 5 Frequency of Treatment Frequency Of Treatment Once a Day Treatment Plan OT Treatment Plan ADL Training Functional Cognition Training Functional Mobility Patient/Family Education Discharge Planning Discharge Recommendations OT Discharge Recommendations SNF Rehab Home Equipment Needs shower seat, grab bars by shower and toilet
--- NOTE | 2017-12-12 15:48 | ST.IPDYTX ---
Care Team Visit Care Team Role Provider Type Gayle Decker PA-C Family Provider Physician Primary Care Provider Specialty: Internal Medicine Address: [address] [place] [address], [facility] Email: Laverne Joe DO Emergency Provider Physician Specialty: Emergency Medicine Address: [address] [place] [address] Email: Tod Heath MD Admit Provider Physician Attending Provider Specialty: Internal Medicine Address: [address] [place] [address], [id number] Email: COMIC ILLUSTRATOR Dysphagia Treatment COMIC ILLUSTRATOR Dysphagia Treatment Start: 12/02/17 11:17 Freq: Status: Active Protocol: Document 12/12/17 15:23 [facility] (Rec: 12/12/17 15:47 [facility] [id number]) Dysphagia Treatment Session Time Visit Start Time 14:10 Visit Stop Time 15:20 Total Visit Minutes 70 Setting Assessment Location Acute Care Patient Information Subjective Observations Consulted with VP GLOBAL prior to dysphagia tx RE POC and DC planning. The pt was sleeping in bed and easily arouse to voice. When asked how she was, she responded, Shitty and expressed being discouraged at the prospect of going to [place] for LTAC. She appeared to have many misunderstandings and questions RE discharge options and tx options to address dysphagia vs airway access. Treatment Oral Strategies Upright at 90 degrees Pharyngeal Strategies Sitting Upright (90 deg) Effortful Swallow Mendelsonn Maneuver Additional Dysphagia Treatment Swallow exercises with saliva Strategies only. Pt refused NMES. Treatment Activities Extensive education was provided to the pt RE definition of LTAC vs [facility] and vs LT-SNF placement, ENT findings and risks of airway occlusion d/t edema including potential loss of life and/or emergency tracheotomy, dysphagia tx vs tx of edema and/or airway access. The pt vocalized understanding but did indicate some ongoing confusion later in conversation. Information was repeated to the pt, but will require reinforcement. Instructions to swallow exercises were provided to the pt in writing. The pt refused MNES stating It hurts. Pt was agreeable to performing exercises without NMES. The pt was familiar with the exercises and completed 10 reps of each exercise. Pt was able to complete swallows with adequate laryngeal elevation and minimal hyoid excursion in Yuridia maneuver. Exercises were completed with saliva only and the pt exhibited cough x1 after initial Yuridia swallow only. Assessment Patient Response to Treatment Good Rehab Potential Good Assessment of Improvement The pt demonstrated ability to perform all exercises with minimal cues. She demonstrates reduced byt consistent laryngeal vertical movement important for airway protection. She exhibited less coughing with swallows of saliva. The pt remains high risk of aspiration and NPO status is to be continued. The pt also demonstrated basic understanding of education presented but will require reinforcement. Mild cognitive deficits appear to be present secondary to chronic alcoholism and likely impacted by recent hypoxia. Recommend elements of care be broken down for her and discussed individually and in relation to each other so the pt is clear in understanding of options and recommendations. Diet Recommendations Liquids Order NPO Treatment Plan Placement Recommendation after Discharge Other Appropriate for Continued Therapy Yes Therapy Recommendations NMES (VitalStim) tx as tolerated by pt. Dysphagia Goals Patient will complete oropharyngeal exercises ( effortful, michael, shaker and yuridia) with and without NMES to improve overall strength needed to improve swallow function. Patient will complete thorough oral care prior to lingual swish and spit.
--- NOTE | 2017-12-12 15:55 | CM.DPC ---
Addendum entered by DENICE Henriquez 12/13/17 08:17: Pt's ultimate goal: To go home and be able to eat a BLT. Yesterday, this DUAL HOSE CEMENTER requested that Dr Lloyd speak w/pt and sister again to review why the rec for the trach and length of time expected for trach, peg tube, [facility], etc. Original Note: Addendum entered by DENICE Henriquez 12/12/17 16:04: To clarify: Pt's first choice is to remain at [facility] and try less invasive measures to reduce swelling in her throat. This DUAL HOSE CEMENTER and PRODUCTION CONTROL SUPERVISOR Rita attempted conversation w/pt today re:the life threatening nature of her swollen throat and reason for Dr Lloyd's urgency to transfer to [facility] for eval of trach placement and ongoing management. Original Note: DCP Cont: Ongoing effort today to clarify clinical POC and DCP options. Dr Lloyd would like pt transferred to [facility] tomorrow with the likelihood of trach placement. Spoke w/ Rickey at [facility] throughout the day, no determination yet today if pt is clinically approved to transfer here. No ability today to touch base w/[facility], Amanda covering for Anne this week. Dr Roca, ENT, per prog note, recommends [facility] with outpt f/u in [place]. This is pt/sister's first choice but this could be life threatening since pt's airway is not protected at this time and throat is very swollen. Spoke w.pt and her sister today, long conversation. Pt remains fullcode and requests intubation if possible or needed. Talked about DNR/DNI; pt states she understands and I want to think about that. Speech therapist Deena and Rita very involved w/this case and Rita has spent time with pt today to review current medical POC; concerns/recommendations etc. An Updated DUAL HOSE CEMENTER note to follow tomorrow. Hopefully more information available from [facility] tomorrow, Friday. DENICE Henriquez
--- NOTE | 2017-12-12 17:11 | PM.PN.1 ---
Subjective Date Patient Seen: 12/12/17 Time Patient Seen: 08:25 Interval history: This is a 67-year-old female initially admitted with DKA and altered mental status/encephalopathy requiring intubation and mechanical ventilation. Post extubation number recurrent mass with stridor. HEENT examination revealed patulous of the post walk a quarts is abducted position which has not significantly change on interval lower endoscopy by Dr. Roca on 12/11/2017. No significant improvement on the symptomatic/supportive care since admission raising concerns for possible pontine CVA as a cause behind the vocal cord paralysis. Patient might need repeat head MRI progressive those concerns. Exam Vital Signs (past 8 hours): - 12/12/17 11:00 12/12/17 15:15 Temperature 98.5 F 96.9 F L Pulse Rate 74 71 Respiratory Rate 20 20 Blood Pressure 150/84 H 162/89 H Pulse Oximetry 96 92 Fraction of Inspired Oxygen 28 Oxygen Delivery Method High Flow Nasal Cannula Oxygen Flow Rate 3 Narrative Exam Narrative: Constitutional: Well-nourished well-developed female in mild distress she is out of bed with assistance and ambulating within the room. HEENT: This persistently hoarse voice with some stridor Neck: Supple, no jugular venous distention, no bruits on auscultation of the carotid arteries. Pulmonary: Clear to auscultation bilaterally, no obvious rales crepitations or wheezing Cardiovascular: Regular rate and rate, no discernible murmurs Gastrointestinal: Abdomen is soft nontender nondistended bowel sounds present nondistended no organomegaly Extremities: Warm to touch, no edema Skin: No skin lesions, no rashes Objective Imaging Chest x-ray: My impression: Chest x-ray: No acute pulmonary infiltrates seen. Mild pulmonary vascular congestion. MRI - head: My impression: Head MRI : technically inadequate imaging due to motion artifact. Labs Result Diagrams: 12/11/17 06:45 12/12/17 05:50 Labs: Laboratory Results - last 24 hr 12/11/17 12/12/17 19:18 05:50 ABG pH 7.47 H ABG pCO2 54.5 H ABG pO2 68 L ABG HCO3 40 H ABG Total CO2 42 H ABG O2 Saturation 94 L ABG Base Excess 16.0 H FiO2 2 Sodium 140 Potassium 3.7 Chloride 94 L Carbon Dioxide 40 H* BUN 18 H Creatinine 0.50 L Estimated GFR > 60.0 BUN/Creatinine Ratio 36.0 H Glucose 197 H Calcium 8.8 Assessment & Plan Plan: Assessment/Plan Narrative: 1. DKA: Resolved 2. Altered mental status/encephalopathy: Resolved 3. Acute hypoxic respiratory failure requiring intubation/mechanical ventilation ,resolved 4. Vocal cord paralysis, acute, unclear etiology, with suspected vocal cord edema secondary to intubation/mechanical ventilation versus clinical suspected brainstem infarction, versus. 5. Stridor: Secondary to above, persistent 6. Steroid-induced hyperglycemia, persistent 6. Deconditioning/debility, multifactorial, resolving Plan: 1. Social Work to arrange possible transfer to [facility] 2. Continue current symptomatic and supportive care Quality VTE Deep Vein Thrombosis/Pulmonary Embolism Present on Admission: No
--- NOTE | 2017-12-12 18:47 | PC.NURSE ---
Addendum entered by Vito Stanton R.N. 12/12/17 19:22: BACK FROM MRI Original Note: PATINET TAKEN TO MRI IN WHEELCHAIR.
[2017-12-12] MEDS: ATORVASTATIN 10 MG TABLET 5 MG PO (21:27)
[2017-12-12] MEDS: INSULIN GLARGINE 100 UNIT/ML 3ML PEN 60 UNIT SUBCUT (21:28)
[2017-12-13] VITALS (10 sets, daily range): BP systolic 136–171; BP diastolic 75–87; PULSE 61–90; RESP 18–20; TEMP 35.6–36.8; O2SAT 88–94
[2017-12-13] MEDS: INSULIN ASPART 100 UNIT/ML INSULN PEN SUBCUT ×4 (00:29→19:22)
[2017-12-13 07:13] LABS: Add Manual Diff / Slide Review NO; Basophils Percent Auto 0.2 % (0-2); Eosinophils Percent Auto 0.2 % (2-4); Hematocrit 49.1 % (36-46); Hemoglobin 16.5 g/dL (12.0-16.0); Lymphocytes Percent Auto 9.1 % (25-40); Mean Corpuscular HGB Conc 33.6 % (30-36); Mean Corpuscular Hemoglobin 34.1 PG (26-34); Mean Corpuscular Volume 101.3 fL (80-100); Monocytes Percent Auto 5.9 % (3-14); Neutrophils Absolute Auto 7900 /uL (3000-5900); Neutrophils Percent Auto 84.6 % (50-75); Platelet Count 168 X10^3/uL (150-400); Red Blood Cell Count 4.85 X10^6/uL (4.0-5.2); Red Cell Distribution Width 14.1 % (11.6-14.8); White Blood Cell Count 9.4 X10^3/uL (4.5-11.0)
[2017-12-13 07:30] LABS: BUN Creatinine Ratio 38.3 (6-22); Blood Urea Nitrogen 23 mg/dL (7-17); Chloride 92 mmol/L (98-107); Estimated Glomerular Filt Rate > 60.0 mL/min (>60); Glucose 383 mg/dL (80-110); HEMOLYSIS < 15 (0-50); Magnesium 2.2 mg/dL (1.6-2.3); Potassium 4.1 mmol/L (3.4-5.1); Sodium 138 mmol/L (137-145)
[2017-12-13 07:37] LABS: Carbon Dioxide 39 mmol/L (22-32)
[2017-12-13] MEDS: ASPIRIN 81 MG TAB 324 MG PO (08:37)
[2017-12-13] MEDS: DEXAMETHASONE 4 MG/ML VIAL IV ×2 (08:37→21:22)
[2017-12-13] MEDS: ENOXAPARIN 40 MG/0.4 ML SYRINGE SUBCUT (08:37)
[2017-12-13] MEDS: LISINOPRIL 10 MG TABLET PO (08:37)
[2017-12-13] MEDS: SODIUM CHLORIDE 0.9% FLUSH 10 ML IV ×2 (08:37→21:23)
[2017-12-13] MEDS: NICOTINE 21 MG PATCH TOP (08:37)
--- NOTE | 2017-12-13 12:15 | PT.IPTN ---
Current Diagnoses Type 1 diabetes mellitus with ketoacidosis with coma (11/28/17) Other specified diabetes mellitus with ketoacidosis without coma (11/28/17) Hyperosmolality and hypernatremia (11/28/17) Hypokalemia (11/28/17) Respiratory failure, unspecified, unspecified whether with hypoxia or hypercapnia (11/28/17) Dysphagia, unspecified (11/28/17) Surgery Performed Operation Date: 12/08/17 11:45 Actual Procedures p Peg Tube Insertion(Not Applicable) - Rosalio Nevarez MD Physical Therapy Treatment Note M2 PT-IP Current Condition Start: 12/03/17 10:14 Freq: NEEDED Status: Active Protocol: Document 12/03/17 09:25 MDD (Rec: 12/03/17 10:37 MDD [id number]) Physical Therapy Current Condition Current Condition Evaluation Date 12/03/17 Treatment Diagnosis DKA, impaired mobility Onset Date 11/28/17 M3 PT-IP Subjective Start: 12/03/17 10:14 Freq: NEEDED Status: Active Protocol: Document 12/13/17 12:15 AB (Rec: 12/13/17 13:25 AB [id number]) Subjective Physical Therapy Visit Type Type Treatment Note Visit Start Time 12:15 Visit Stop Time 12:50 Total Visit Minutes 35 Number of LADIES[employer] LOCKER ROOM ATTENDANT Visits 0 Physical Therapy Visit Comments Patient Comments pt agreeable to do therapy Therapy Pain Assessment Pain Present Pain Present Denied Pain M4 PT-IP Mobility and Gait Start: 12/03/17 10:14 Freq: NEEDED Status: Active Protocol: Document 12/13/17 12:15 AB (Rec: 12/13/17 13:25 AB [id number]) PT-Bed Mobility Assessment Sit to Supine Sit to Supine Standby Assistance PT-Transfer Assessment Sit to and From Stand Sit to and from Stand Contact Guard Assistance Equipment Transfer Assistive Device Gait Belt Front Wheeled Walker Transfers Transfer Destination Bed Transfer Technique Stand Step Pivot Transfer Ability Level of Assist Contact Guard Assistance Gait Assessment Gait Gait Assistance Required: Contact Guard Assist Distance (Feet) (feet) 20 Able to Maintain Weight Bearing Status Yes During Gait Assistive Devices Assistive Device Gait Belt Front Wheeled Walker Orthotic/Prosthetic Devices or Brace: No Gait Deviations General Gait Pattern Decreased Stride Length Decreased Feet Clearance Wide Based Gait Factors Limiting Gait Function Factors Limiting Gait Function Decreased Activity Tolerance Decreased Sensation Decreased Strength Poor Balance Poor Safety Awareness Comments Gait Comments pt also completed standing balance activities: increasing awareness of COG and JOEL, standing with normal step width, with/without support, eyes open/closed, weight shifting, reaching activities. PT-Balance Assessment Standing Balance and Reactions Static Standing Balance Ability Fair Dynamic Standing Balance Ability Poor Device Used without AD M5 PT-IP Objective Assessments Start: 12/03/17 10:14 Freq: NEEDED Status: Active Protocol: Document 12/03/17 09:25 MDD (Rec: 12/03/17 10:37 MDD [id number]) Orientation Orientation/Cognition Level of Alertness Alert Orientation Name Age Birthday Month Date Year Day of Week Place Situation Language Function Ability No Deficits Noted Safety Awareness Decreased Safety Awareness Memory Description No Deficits Noted Comments Pt's voice is hoarse, but clear and intelligible. Gross Range of Motion Lower Extremity ROM Assessment Within Functional Limits Strength Lower Extremity Strength Assessment Left Impaired Hip R hip flexion 4/5, L 4+/5, hip IR/ER 4+/5 B Knee R knee extension 4/5, L knee extension 4+/5, R knee flexion 4/5, L 4+/5 Ankle 1/5 L ankle dorsiflexion Comments Strength Comments Pt reports weakness in L ankle is new Sensation Assessment Sensation Gross Sensation Left LE Impaired Light Touch Absent Sensation Description Paresthesia Numbness Comments Sensation Comments light touch sensation absent L medial malleolus, impaired plantar surface of foot to shins M6 PT-IP Treatment Start: 12/03/17 10:14 Freq: NEEDED Status: Active Protocol: Document 12/12/17 10:27 LJ (Rec: 12/12/17 10:44 LJ [id number]) Physical Therapy Treatment Exercises Exercises Gluteal Sets Short Arc Quads Education Education Provided Safety M7 PT-IP Assessment and Plan Start: 12/03/17 10:14 Freq: NEEDED Status: Active Protocol: Document 12/13/17 12:15 AB (Rec: 12/13/17 13:25 AB [id number]) PT Summary Assessment and Plan Potential Rehabilitation Potential Good Summary Impairments Strength Balance Sensation Bed Mobility Transfers Gait Activity Tolerance Progress Towards Goals Slow Progress due to Medical Issues Assessment Summary pt requiring one person assist with mobility using FWW. presents with decrease standing balance. pt will benefit from acute rehab to improve mobility and independence. Goals Bed Mobility Goal Independent Transfer Goal Independent Gait Goal Independent Gait Distance 50 with FWW Other Goals Ascend/descend 2 steps with R railing Frequency of Treatment Frequency Of Treatment Once a Day Treatment Plan Physical Therapy Treatment Plan Bed Mobility Training Transfer Training Gait Training Therapeutic Exercise Balance Retraining Discharge Planning Recommendations To Nursing Amount of Assist Needed 1 Person Assist Discharge Recommendations PT Discharge Recommendations Acute Rehab
--- NOTE | 2017-12-13 12:32 | OT.IP.TRT ---
Current Diagnoses Type 1 diabetes mellitus with ketoacidosis with coma (11/28/17) Other specified diabetes mellitus with ketoacidosis without coma (11/28/17) Hyperosmolality and hypernatremia (11/28/17) Hypokalemia (11/28/17) Respiratory failure, unspecified, unspecified whether with hypoxia or hypercapnia (11/28/17) Dysphagia, unspecified (11/28/17) Surgery Performed Operation Date: 12/08/17 11:45 Actual Procedures p Peg Tube Insertion(Not Applicable) - Rosalio Nevarez MD Occupational Therapy Treatment Note M2 OT-IP Current Condition Start: 12/03/17 13:08 Freq: Status: Active Protocol: Document 12/03/17 10:45 PJM (Rec: 12/03/17 13:31 PJM [id number]) Occupational Therapy Current Condition Current Condition Evaluation Date 12/03/17 Treatment Diagnosis decreased self care, mobility, cognition s/p diabetic coma w /intubattion Post Operative Precautions Other Precautions NPO with barium swallow pending, fall risk M3 OT- IP Subjective and Pain Start: 12/03/17 13:08 Freq: Status: Active Protocol: Document 12/13/17 12:22 [facility] (Rec: 12/13/17 12:32 [facility] [id number]) OT- Subjective Occupational Therapy Visit Type Type Treatment Note Visit Start Time 11:50 Visit Stop Time 12:15 Total Visit Minutes 25 Occupational Therapy Visit Comments Patient Comments Pt requesting to sponge off at the sink. OT Pain Assessment Pain When Pain Assessed At Rest Pain Present Pain Present Denied Pain M4 OT- IP ADL's Start: 12/03/17 13:08 Freq: Status: Active Protocol: Document 12/13/17 12:22 [facility] (Rec: 12/13/17 12:32 [facility] [id number]) OT ADL-Grooming General Evaluation Grooming Ability Standby Assistance Contact Guard Assistance Areas Needing Assistance Retrieving/Set-up of Grooming Items Comments OT Grooming Comments CGA for balance while standing without support, otherwis SBA when her hand in on the FWW or counter. OT ADL-Oral Care Comments Oral Care Comments Assist to wash off her dentures. OT ADL-Dressing General Eval Lower Body Dressing Ability Standby Assistance Contact Guard Assistance Areas Needing Assistance Retrieving/Set-up of Clothing Comments OT Dressing Comments Able to pan/doff socks while sitting in the recliner, CGA for balance while pulling up and down her brief for pericare needs. OT ADL-Bathing Bathing Type Bathing Type Sponge Bath General Evaluation Bathing Ability Minimal Assistance Devices Bathing Equipment Shower Chair with Arms Comments OT Bathing Comments JOSE for balance and assist for completeness M5 OT- IP IADL's Start: 12/03/17 13:08 Freq: Status: Active Protocol: Document 12/03/17 10:45 [facility] (Rec: 12/03/17 13:31 [facility] [id number]) OT-Instrumental Activities of Daily Living Deficits IADL Deficits Identified Deficits Home Safety Awareness Awareness of Need for Assistance at Home Good Awareness Medication Management Medication Management Caregiver Provides Supervision Medication Management Comments Recommend HH RN for diabetic management Money Management Money Management Caregiver Provides Supervision Money Management Comments Pt's sister is POA and can supervise/assist with finances PRN. Meal Preparation Meal Preparation Caregiver Provides Assist Meal Preparation Comments Sisters to assist with meal prep at home Training Mgr Training Mgr Caregiver Provides Assist Training Mgr Comments Sisters to provide assist at home Driving Driving Caregiver Provides Assist Driving Comments Sisters to provide assist M6 OT- IP Functional Cognition Start: 12/03/17 13:08 Freq: Status: Active Protocol: Document 12/13/17 12:22 [facility] (Rec: 12/13/17 12:32 [facility] [id number]) Cognitive Factors Limiting Selfcare Function Cognitive Ability Level of Alertness Alert Patient Orientation Name Age Birthday Month Date Year Day of Week Place Situation Attention Span Ability Capable of Focused Attention Capable of Sustained Attention Ability to Follow Commands Able to Follow Multi-Step Commands Memory Description Short Term Impaired Working Impaired Safety Awareness Underestimates Need for Assistance Problem Solving Ability Unable to Identify Errors Needs Assist to Identify Solutions Cognitive Comments Cognitive Assessment Comments Pt continues to need vc for safety awareness and safety for FWW. M7 OT- IP Mobility and Balance Start: 12/03/17 13:08 Freq: Status: Active Protocol: Document 12/13/17 12:22 [facility] (Rec: 12/13/17 12:32 [facility] [id number]) OT-Transfer Assessment Sit to and From Stand Sit to and from Stand Contact Guard Assistance Transfers Transfer Ability Contact Guard Assistance Technique Transfer Destination Chair Transfer Technique Stand Step Pivot Devices Transfer Assistive Devices Gait Belt Front Wheeled Walker Comments Mobility Comments Pt needing use of FWW, otherwise high fall risk. Discharge Recommendations OT Discharge Recommendations SNF Rehab, Acute rehab Home Equipment Needs shower seat, grab bars by shower and toilet
--- NOTE | 2017-12-13 15:37 | CM.DPC ---
DCP Cont: This VOICER connected Dr Prescott (w/ [facility]) and Dr Lloyd this morning. According to RN Coordinator Linnette Veroniquemariluz, pt and her sister Fiona do not want this VOICER to return to her rm today, they would prefer another [place] emergency planner. Update from [facility]: They will accept pt Friday if medically cleared. Dr Lloyd was not able to meet w/pt/family again yesterday, per their request, and was also unable to discuss current POC or code status w/pt and family today. Pt continues to feel apprehensive about leaving town. Update from DEE Parr: Karolyn spoke w/pt and sister about acceptance from [facility]. Karolyn was also able to discuss options re: DCP and code status, ie home plan (and risks therein) vs [facility] vs SNF. Pt does not want to go home to drink and smoke and asks if she could get a Trach placed here at [facility] ? ENT will consult again Friday. According to DEE Parr, pt/family have requested that pt be changed to DNR/DNI, see Karloyn's note. She has notified Dr Lloyd. Following closely. DEE Galvan [place] emergency planner is available to follow up as needed tomorrow since this VOICER has been fired from pt's room. DENICE Henriquez
--- NOTE | 2017-12-13 15:46 | PC.NURSE ---
day shift notified by RUFINO that pt was accepted to [facility] in [place]. Spoke with pt and she refused to go to [place]. States [facility] is my choice. explained to pt that they have to accept her as well and that may not happen, she understood. Pt's sister then came out later to discuss and sister and this RN spoke with pt in her room. RN asked pt if she wanted to continue drinking and smoking, explaining that was her choice and no one would argue with her but that had a different path than what had been discussed previously. She states she did not want to continue and she stated that's done. then talked with pt about going to [place] and asking her what that meant. She stated that meant having a trach placed if necessary. Ideally she would like trach placed here if possible. Explained that if she were to transfer to [place], it would be to have a different level of care than what she is receiving here and she understands that may include a trach if medically necessary and recommened. Conversation continued and pt stated, i know i don't want a tube anymore. clarified with pt and she states her wishes are that she not be intubated. Explained to her that there were different options however her big issue seems to be her airway, if she is not wanting to be intubated, asked pt if she would like to change her code to DNR. she stated she did not want to be intubated and if that's what it was called then yes. notified MD of conversation.
--- NOTE | 2017-12-13 19:31 | P.PN_ITS ---
Subjective Date Patient Seen: 12/13/17 Time Patient Seen: 16:10 Interval history: This is a 67-year-old female initially admitted with DKA and altered mental status/encephalopathy requiring intubation and mechanical ventilation. Post extubation was observed with persistent stridor. HEENT examination revealed patulous vocal cords in abducted position which has not significantly change on interval laryngoscopy by Dr. Roca on 12/11/2017. No significant improvement on the symptomatic/supportive care since admission raising concerns for possible pontine CVA as a cause behind the vocal cord paralysis. Pending repeat head MRI to address those concerns, interval ENT exam was requested on coming Friday to address need for possible tracheostomy to secure airways. Exam Vital Signs (past 8 hours): - 12/13/17 12:00 12/13/17 16:00 12/13/17 16:36 Temperature 96.0 F L 97.6 F Pulse Rate 90 76 Respiratory Rate 18 18 Blood Pressure 141/87 H 136/87 H Pulse Oximetry 93 88 L 92 Fraction of Inspired Oxygen 28 Oxygen Delivery Method High Flow Nasal Cannula Oxygen Flow Rate 3 Narrative Exam Narrative: Constitutional: Well-nourished well-developed female in NAD distress; she is out of bed ambulating with limited assistance. HEENT: signficant for persistently hoarse voice with some stridor Neck: Supple, no jugular venous distention, no bruits on auscultation of the carotid arteries. Pulmonary: Clear to auscultation bilaterally, no obvious rales ,crepitations or wheezing Cardiovascular: Regular rate and rate, no discernible murmurs Gastrointestinal: Abdomen is soft nontender, nondistended , with bowel sounds present . With PEG tuve and ongoing TF present Extremities: Warm to touch, no edema Skin: No skin lesions, no rashes Objective Imaging Chest x-ray: My impression: Chest x-ray: My impression: Chest x-ray: No acute pulmonary infiltrates seen. Mild pulmonary vascular congestion. MRI - head: My impression: Head MRI : technically inadequate imaging due to motion artifact. Labs Result Diagrams: 12/13/17 06:38 12/13/17 06:38 Labs: Laboratory Results - last 24 hr 12/13/17 12/13/17 06:38 06:38 WBC 9.4 RBC 4.85 Hgb 16.5 H Hct 49.1 H MCV 101.3 H MCH 34.1 H MCHC 33.6 RDW 14.1 Plt Count 168 Neut % (Auto) 84.6 H Lymph % (Auto) 9.1 L Fisher % (Auto) 5.9 Eos % (Auto) 0.2 L Baso % (Auto) 0.2 Neut # (Auto) 7900 H Sodium 138 Potassium 4.1 Chloride 92 L Carbon Dioxide 39 H BUN 23 H Creatinine 0.60 Estimated GFR > 60.0 BUN/Creatinine Ratio 38.3 H Glucose 383 H D Calcium 9.0 Magnesium 2.2 Assessment & Plan Plan: Assessment/Plan Narrative: 1. DKA: Resolved 2. Altered mental status/encephalopathy: Resolved 3. Acute hypoxic respiratory failure requiring intubation/mechanical ventilation ,resolved 4. Vocal cord paralysis, acute, with suspected vocal cord edema secondary to intubation/mechanical ventilation versus clinical suspected brainstem infarction : persists, in spite of conservative management in the setting of prolonged hospoitalization. Interval head MRI was requested and pending to address concers for possible pontine CVA. Interval ENT eval was requested to address possible tracheostomy placement to secure airways. 5. Stridor: Secondary to above, slowly resolving.Management as above. 6. Steroid-induced hyperglycemia, persistent. Patient keeps getting steroids as a part of management for vocal cord edema. Continue dose escalation of the insulin tx as needed. 7. Dysphagia: Multifactorial/secondary to above. Currently with PEG tube and ongoing tube feeding 8. Deconditioning/debility, multifactorial, and. Possible disposition to skilled nurse facility versus long-term care hospital. Time Spent With Patient Time with patient: 25 - 35 minutes Quality VTE Deep Vein Thrombosis/Pulmonary Embolism Present on Admission: No
[2017-12-13] MEDS: INSULIN GLARGINE 100 UNIT/ML 3ML PEN 40 UNIT SUBCUT (21:20)
[2017-12-13] MEDS: ATORVASTATIN 10 MG TABLET 5 MG PO (21:22)
[2017-12-14] VITALS (10 sets, daily range): BP systolic 132–175; BP diastolic 75–92; PULSE 70–87; RESP 18–20; TEMP 36.3–37.1; O2SAT 87–97
[2017-12-14] MEDS: INSULIN ASPART 100 UNIT/ML INSULN PEN SUBCUT ×4 (00:13→18:00)
[2017-12-14] MEDS: LISINOPRIL 20 MG TABLET PO (09:50)
[2017-12-14] MEDS: ENOXAPARIN 40 MG/0.4 ML SYRINGE SUBCUT (09:50)
[2017-12-14] MEDS: NICOTINE 21 MG PATCH TOP (09:50)
[2017-12-14] MEDS: ASPIRIN 81 MG TAB 324 MG PO (09:50)
[2017-12-14] MEDS: SODIUM CHLORIDE 0.9% FLUSH 10 ML IV ×2 (09:51→20:57)
[2017-12-14] MEDS: DEXAMETHASONE 4 MG/ML VIAL IV ×2 (09:51→20:57)
[2017-12-14] MEDS: INSULIN GLARGINE 100 UNIT/ML 3ML PEN 40 UNIT SUBCUT ×2 (09:51→20:54)
--- NOTE | 2017-12-14 12:06 | PT.IPTN ---
Current Diagnoses Type 1 diabetes mellitus with ketoacidosis with coma (11/28/17) Other specified diabetes mellitus with ketoacidosis without coma (11/28/17) Hyperosmolality and hypernatremia (11/28/17) Hypokalemia (11/28/17) Respiratory failure, unspecified, unspecified whether with hypoxia or hypercapnia (11/28/17) Dysphagia, unspecified (11/28/17) Surgery Performed Operation Date: 12/08/17 11:45 Actual Procedures p Peg Tube Insertion(Not Applicable) - Rosalio Nevarez MD Physical Therapy Treatment Note M2 PT-IP Current Condition Start: 12/03/17 10:14 Freq: NEEDED Status: Active Protocol: Document 12/03/17 09:25 MDD (Rec: 12/03/17 10:37 MDD [id number]) Physical Therapy Current Condition Current Condition Evaluation Date 12/03/17 Treatment Diagnosis DKA, impaired mobility Onset Date 11/28/17 M3 PT-IP Subjective Start: 12/03/17 10:14 Freq: NEEDED Status: Active Protocol: Document 12/14/17 10:37 CLB (Rec: 12/14/17 12:06 CLB [id number]) Subjective Physical Therapy Visit Type Type Treatment Note Visit Start Time 10:37 Visit Stop Time 11:00 Total Visit Minutes 23 Number of SOFTWARE ENGINEERING ANALYST Visits 1 Physical Therapy Visit Comments Patient Comments pt agreeable to do therapy Therapy Pain Assessment Pain Present Pain Present Denied Pain M4 PT-IP Mobility and Gait Start: 12/03/17 10:14 Freq: NEEDED Status: Active Protocol: Document 12/14/17 10:37 CLB (Rec: 12/14/17 12:06 CLB [id number]) PT-Bed Mobility Assessment Sit to Supine Sit to Supine Standby Assistance PT-Transfer Assessment Sit to and From Stand Sit to and from Stand Contact Guard Assistance Equipment Transfer Assistive Device Gait Belt Front Wheeled Walker Transfers Transfer Destination Bed Transfer Ability Level of Assist Contact Guard Assistance Gait Assessment Gait Gait Assistance Required: Contact Guard Assist Distance (Feet) (feet) 100 Able to Maintain Weight Bearing Status Yes During Gait Assistive Devices Assistive Device Gait Belt Front Wheeled Walker Orthotic/Prosthetic Devices or Brace: No Gait Deviations General Gait Pattern Decreased Stride Length Decreased Feet Clearance Factors Limiting Gait Function Factors Limiting Gait Function Decreased Activity Tolerance Decreased Sensation Decreased Strength Poor Balance Poor Safety Awareness Comments Gait Comments pt having increased difficulty with advancement of LLE with decrease dorsiflexion and mild slap foot with ambulation. M5 PT-IP Objective Assessments Start: 12/03/17 10:14 Freq: NEEDED Status: Active Protocol: Document 12/03/17 09:25 MDD (Rec: 12/03/17 10:37 MDD [id number]) Orientation Orientation/Cognition Level of Alertness Alert Orientation Name Age Birthday Month Date Year Day of Week Place Situation Language Function Ability No Deficits Noted Safety Awareness Decreased Safety Awareness Memory Description No Deficits Noted Comments Pt's voice is hoarse, but clear and intelligible. Gross Range of Motion Lower Extremity ROM Assessment Within Functional Limits Strength Lower Extremity Strength Assessment Left Impaired Hip R hip flexion 4/5, L 4+/5, hip IR/ER 4+/5 B Knee R knee extension 4/5, L knee extension 4+/5, R knee flexion 4/5, L 4+/5 Ankle 1/5 L ankle dorsiflexion Comments Strength Comments Pt reports weakness in L ankle is new Sensation Assessment Sensation Gross Sensation Left LE Impaired Light Touch Absent Sensation Description Paresthesia Numbness Comments Sensation Comments light touch sensation absent L medial malleolus, impaired plantar surface of foot to shins M6 PT-IP Treatment Start: 12/03/17 10:14 Freq: NEEDED Status: Active Protocol: Document 12/12/17 10:27 LJ (Rec: 12/12/17 10:44 LJ [id number]) Physical Therapy Treatment Exercises Exercises Gluteal Sets Short Arc Quads Education Education Provided Safety M7 PT-IP Assessment and Plan Start: 12/03/17 10:14 Freq: NEEDED Status: Active Protocol: Document 12/14/17 10:37 CLB (Rec: 12/14/17 12:06 CLB [id number]) PT Summary Assessment and Plan Summary Impairments Gait Activity Tolerance Progress Towards Goals Slow Progress due to Medical Issues Assessment Summary Pt continues to require on person assist with gait with FWW and assist with lines. Pt able to ambulate short distances with rest breaks. Pt will benefit from acute rehab for improving mobility and independence. Goals Bed Mobility Goal Independent Transfer Goal Independent Gait Goal Independent Gait Distance 50 with FWW Other Goals Ascend/descend 2 steps with R railing Frequency of Treatment Frequency Of Treatment Once a Day Treatment Plan Physical Therapy Treatment Plan Bed Mobility Training Transfer Training Gait Training Therapeutic Exercise Balance Retraining Discharge Planning Recommendations To Nursing Amount of Assist Needed 1 Person Assist Discharge Recommendations PT Discharge Recommendations Acute Rehab
--- NOTE | 2017-12-14 12:16 | PM.PN.1 ---
Subjective Date Patient Seen: 12/14/17 Time Patient Seen: 08:05 Interval history: This is a 67-year-old female initially admitted with DKA and altered mental status/encephalopathy requiring intubation and mechanical ventilation. Post extubation was observed with persistent stridor. HEENT examination revealed patulous vocal cords in abducted position which has not significantly change on interval laryngoscopy by Dr. Roca on 12/11/2017. No significant improvement on the symptomatic/supportive care since admission raising concerns for possible pontine CVA as a cause behind the vocal cord paralysis. Pending repeat head MRI to address those concerns, interval ENT exam was requested on coming Friday to address need for possible tracheostomy to secure airways. Exam Vital Signs (past 8 hours): - 12/14/17 07:50 Temperature 97.8 F Pulse Rate 80 Respiratory Rate 20 Blood Pressure 149/84 H Pulse Oximetry 97 Fraction of Inspired Oxygen 28 Oxygen Delivery Method Nasal Cannula Oxygen Flow Rate 2 Narrative Exam Narrative: Constitutional: Well-nourished well-developed female in NAD distress; she is out of bed ambulating with limited assistance. HEENT: signficant for persistently hoarse voice with some stridor Neck: Supple, no jugular venous distention, no bruits on auscultation of the carotid arteries. Pulmonary: Clear to auscultation bilaterally, no obvious rales ,crepitations or wheezing Cardiovascular: Regular rate and rate, no discernible murmurs Gastrointestinal: Abdomen is soft nontender, nondistended , with bowel sounds present . With PEG tuve and ongoing TF present Extremities: Warm to touch, no edema Skin: No skin lesions, no rashes,old scars from prior bypass surgeries on both LEs Objective Imaging Chest x-ray: My impression: Chest x-ray: My impression: Chest x-ray: No acute pulmonary infiltrates seen. Mild pulmonary vascular congestion. MRI - head: My impression: Head MRI : technically inadequate imaging due to motion artifact. Labs Result Diagrams: 12/13/17 06:38 12/13/17 06:38 Assessment & Plan Plan: Assessment/Plan Narrative: 1. DKA: Resolved 2. Altered mental status/encephalopathy: Resolved 3. Acute hypoxic respiratory failure requiring intubation/mechanical ventilation ,resolved 4. Vocal cord paralysis, acute, with suspected vocal cord edema secondary to intubation/mechanical ventilation versus clinical suspected brainstem infarction: persists, in spite of conservative management in the setting of prolonged hospoitalization. Interval head MRI was requested and pending to address concers for possible pontine CVA. Seen by Dr. Roca: I recommend evaluation by a dedicated blender helper to discuss airway surgery which could include tracheotomy and excision of the polyps of the vocal folds. The patient agrees with the plan, understands, and is appreciative. She is cleared to transfer to the SNF, with close airway monitoring, with planned outpatient evaluation next week by blender helper Pratik Duncan MD in [place], previously discussed. We hope to avoid the need for tracheotomy, ideally allowing time for possible spontaneous resolution of her TVC immobility of unknown etiology, possibly traumatic. Currently with pending Interval ENT eval to address possible tracheostomy placement to secure airways prior to discharge. 5. Stridor: Secondary to above, slowly resolving.Management as above. 6. Steroid-induced hyperglycemia, persistent. Patient keeps getting steroids ( Decadron 4 mg IV q 12h) as a part of management for vocal cord edema. Continue dose escalation of the insulin tx as needed. 7. Dysphagia: Multifactorial/secondary to above. Currently with PEG tube and ongoing tube feeding 8. Nicotine addiction: Counseled to quit smoking, nicotine patch provided. 9. Deconditioning/debility, multifactorial,: Possible disposition to skilled nurse facility versus long-term care hospital next week. Time Spent With Patient Time with patient: 25 - 35 minutes Quality VTE Deep Vein Thrombosis/Pulmonary Embolism Present on Admission: No
--- NOTE | 2017-12-14 12:20 | P.PN_ITS ---
Subjective Date Patient Seen: 12/14/17 Time Patient Seen: 08:05 Interval history: This is a 67-year-old female initially admitted with DKA and altered mental status/encephalopathy requiring intubation and mechanical ventilation. Post extubation was observed with persistent stridor. HEENT examination revealed patulous vocal cords in abducted position which has not significantly change on interval laryngoscopy by Dr. Roca on 12/11/2017. No significant improvement on the symptomatic/supportive care since admission raising concerns for possible pontine CVA as a cause behind the vocal cord paralysis. Pending repeat head MRI to address those concerns, interval ENT exam was requested on coming Friday to address need for possible tracheostomy to secure airways. Exam Vital Signs (past 8 hours): - 12/14/17 07:50 Temperature 97.8 F Pulse Rate 80 Respiratory Rate 20 Blood Pressure 149/84 H Pulse Oximetry 97 Fraction of Inspired Oxygen 28 Oxygen Delivery Method Nasal Cannula Oxygen Flow Rate 2 Narrative Exam Narrative: Constitutional: Well-nourished well-developed female in NAD distress; she is out of bed ambulating with limited assistance. HEENT: signficant for persistently hoarse voice with some stridor Neck: Supple, no jugular venous distention, no bruits on auscultation of the carotid arteries. Pulmonary: Clear to auscultation bilaterally, no obvious rales ,crepitations or wheezing Cardiovascular: Regular rate and rate, no discernible murmurs Gastrointestinal: Abdomen is soft nontender, nondistended , with bowel sounds present . With PEG tuve and ongoing TF present Extremities: Warm to touch, no edema Skin: No skin lesions, no rashes,old scars from prior bypass surgeries on both LEs Objective Imaging Chest x-ray: My impression: Chest x-ray: My impression: Chest x-ray: No acute pulmonary infiltrates seen. Mild pulmonary vascular congestion. MRI - head: My impression: Head MRI : technically inadequate imaging due to motion artifact. Labs Result Diagrams: 12/13/17 06:38 12/13/17 06:38 Assessment & Plan Plan: Assessment/Plan Narrative: 1. DKA: Resolved 2. Altered mental status/encephalopathy: Resolved 3. Acute hypoxic respiratory failure requiring intubation/mechanical ventilation ,resolved 4. Vocal cord paralysis, acute, with suspected vocal cord edema secondary to intubation/mechanical ventilation versus clinical suspected brainstem infarction : persists, in spite of conservative management in the setting of prolonged hospoitalization. Interval head MRI was requested and pending to address concers for possible pontine CVA. Seen by Dr. Roca: I recommend evaluation by a dedicated grocery carrier to discuss airway surgery which could include tracheotomy and excision of the polyps of the vocal folds. The patient agrees with the plan, understands, and is appreciative. She is cleared to transfer to the SNF, with close airway monitoring, with planned outpatient evaluation next week by grocery carrier Pratik Duncan MD in [place], previously discussed. We hope to avoid the need for tracheotomy, ideally allowing time for possible spontaneous resolution of her TVC immobility of unknown etiology, possibly traumatic. Currently with pending Interval ENT eval to address possible tracheostomy placement to secure airways prior to discharge. 5. Stridor: Secondary to above, slowly resolving.Management as above. 6. Steroid-induced hyperglycemia, persistent. Patient keeps getting steroids ( Decadron 4 mg IV q 12h) as a part of management for vocal cord edema. Continue dose escalation of the insulin tx as needed. 7. Dysphagia: Multifactorial/secondary to above. Currently with PEG tube and ongoing tube feeding 8. Nicotine addiction: Counseled to quit smoking, nicotine patch provided. 9. Deconditioning/debility, multifactorial,: Possible disposition to skilled nurse facility versus long-term care hospital next week. Time Spent With Patient Time with patient: 25 - 35 minutes Quality VTE Deep Vein Thrombosis/Pulmonary Embolism Present on Admission: No
--- NOTE | 2017-12-14 12:26 | CM.DPC ---
DCP Cont: Hospitalist stated that he will be consulting with ENT tomorrow to assess if patient will have a tracheotomy done here. Patient is to remain a full code. Original plan was for patient to go to [facility], but she is wishing to be at [facility] because it is closer. Called Kareem at [facility], left him a message and let him know that patient would not be discharged today, but to keep bed and referral for now. Spoke to Tracey at [facility], and she stated that it would be risky to accept her if tracheotomy is not done, due to risk, but could take her for sure if tracheotomy is done. Would be significant to consult with hospitalist tomorrow after meeting with ENT to discuss plan. P: DCP continue to plan and assess. Inquire if tracheotomy will be placed. If not, [facility] may be necessary if [facility] will not accept. Camila Ruiz RN/Foot Specialist
[2017-12-14] MEDS: MAGNESIUM CITRATE 300 ML SOLUTION 150 ML PO (13:55)
--- NOTE | 2017-12-14 14:13 | CM.DPC ---
DCP Cont: Spoke to patient and sisters. They were wondering what the plan is. Patient again stated that she did not want to go to [facility], but would rather go to [facility]. Let her know, that [facility] may be considered, but may depend upon if trach is placed, for [facility] is concerned that if she does not have, patient may be in [place]. Sister is wondering what plan is. Let her know, that this would be based upon conversation tomorrow with ENT and hospitalist, if patient needs a trach or not. Family want to be involved in a conference with decision. Other option would be for patient to go home with home health. Patient in good spirits, but is frustrated with all of the commercials she is seeing for food. P: DCP continue to plan and assess, and consult with hospitalist and ENT upon decision if patient is to have a trach. If no trach, need to follow up if [facility] will accept. Find out if patient needs skilled care, or can she have home health. Camila Ruiz RN/Founder
[2017-12-14] MEDS: ATORVASTATIN 10 MG TABLET 5 MG PO (20:56)
[2017-12-15] VITALS (10 sets, daily range): BP systolic 130–151; BP diastolic 56–103; PULSE 71–96; RESP 20; TEMP 36.6–36.8; O2SAT 84–97
[2017-12-15] MEDS: INSULIN ASPART 100 UNIT/ML INSULN PEN SUBCUT ×4 (00:10→18:31)
[2017-12-15 06:20] LABS: Blood Urea Nitrogen 29 mg/dL (7-17); Calcium 9.5 mg/dL (8.4-10.2); Carbon Dioxide 36 mmol/L (22-32); Chloride 94 mmol/L (98-107); Estimated Glomerular Filt Rate > 60.0 mL/min (>60); Glucose 476 mg/dL (80-110); HEMOLYSIS 21 (0-50); Magnesium 2.4 mg/dL (1.6-2.3); Potassium 4.7 mmol/L (3.4-5.1); Sodium 137 mmol/L (137-145)
[2017-12-15 06:29] LABS: Add Manual Diff / Slide Review NO; Basophils Percent Auto 0.4 % (0-2); Eosinophils Percent Auto 0.1 % (2-4); Hematocrit 52.4 % (36-46); Mean Corpuscular HGB Conc 34.3 % (30-36); Mean Corpuscular Hemoglobin 34.6 PG (26-34); Mean Corpuscular Volume 100.7 fL (80-100); Monocytes Percent Auto 7.2 % (3-14); Neutrophils Absolute Auto 6800 /uL (3000-5900); Neutrophils Percent Auto 80.3 % (50-75); Platelet Count 160 X10^3/uL (150-400); White Blood Cell Count 8.5 X10^3/uL (4.5-11.0)
--- NOTE | 2017-12-15 08:30 | CM.DPC ---
Addendum entered by Kasandra Montaño LPN 12/15/17 16:11: continued to work on this case through out the day, in collaboration with various care steam conditioning operator. 2 hours spent. Details will be provided tomorrow due to lateness of hour. P: at this point, per Dr. Navarro's recommendation: pt will go tomorrow to ENT appt set up by DEE Parr: needs to be there at 1145 and go via ALS and then return to . This will be coordinated by the RN coordinator. Will check in early with whomever is assigned tomorrow and follow accordingly. Pt is agreeable to plan. Original Note: DCP: continued: case received for first time. LOS day 17. EMR from yesterday is reviewed. Spoke with DEE Parr, caring for pt today, who states POC is dependent now on the ENT recommendation. She states MRI was repeated but again the quality was not good enough for a definitive dx. Met now with pt and introduced self and role. Pt identifies her sister Irena as her POA and says she will be in later today. Agreed to meet with them both once she arrived and assured her that by then this DC Box Closing Machine Operator would have had a chance to look at the clinical and social work/d/c planning notes from 11/28 to present. Explained [facility] team morning meeting and that this should also provide further information on current status of her case and likely d/c needs. White board is updated: DC Goals were noted to be [facility] vs [facility]. After discussion with pt this is now deleted. Pt identifies current goals as not [place]. I will go to [place] if I have to go out of town. Had brief discussion of how a tracheostomy may complicate these goals and pt did seem to understand this. P: as noted: will meet with pt and Irena and follow. POC at this point would seem very dependent on whether or not a tracheostomy is placed.
--- NOTE | 2017-12-15 10:15 | OT.IP.TRT ---
Current Diagnoses Type 1 diabetes mellitus with ketoacidosis with coma (11/28/17) Other specified diabetes mellitus with ketoacidosis without coma (11/28/17) Hyperosmolality and hypernatremia (11/28/17) Hypokalemia (11/28/17) Respiratory failure, unspecified, unspecified whether with hypoxia or hypercapnia (11/28/17) Dysphagia, unspecified (11/28/17) Surgery Performed Operation Date: 12/08/17 11:45 Actual Procedures p Peg Tube Insertion(Not Applicable) - Rosalio Nevarez MD Occupational Therapy Treatment Note M2 OT-IP Current Condition Start: 12/03/17 13:08 Freq: Status: Active Protocol: Document 12/03/17 10:45 PJM (Rec: 12/03/17 13:31 PJM [id number]) Occupational Therapy Current Condition Current Condition Evaluation Date 12/03/17 Treatment Diagnosis decreased self care, mobility, cognition s/p diabetic coma w /intubattion Post Operative Precautions Other Precautions NPO with barium swallow pending, fall risk M3 OT- IP Subjective and Pain Start: 12/03/17 13:08 Freq: Status: Active Protocol: Document 12/15/17 08:45 CCC (Rec: 12/15/17 10:15 CCC [id number]) OT- Subjective Occupational Therapy Visit Type Type Patient Refusal Notes Pt states just got up and wanting to rest in bed for now . M4 OT- IP ADL's Start: 12/03/17 13:08 Freq: Status: Active Protocol: Document 12/13/17 12:22 CCC (Rec: 12/13/17 12:32 [facility] [id number]) OT ADL-Grooming General Evaluation Grooming Ability Standby Assistance Contact Guard Assistance Areas Needing Assistance Retrieving/Set-up of Grooming Items Comments OT Grooming Comments CGA for balance while standing without support, otherwis SBA when her hand in on the FWW or counter. OT ADL-Oral Care Comments Oral Care Comments Assist to wash off her dentures. OT ADL-Dressing General Eval Lower Body Dressing Ability Standby Assistance Contact Guard Assistance Areas Needing Assistance Retrieving/Set-up of Clothing Comments OT Dressing Comments Able to pan/doff socks while sitting in the recliner, CGA for balance while pulling up and down her brief for pericare needs. OT ADL-Bathing Bathing Type Bathing Type Sponge Bath General Evaluation Bathing Ability Minimal Assistance Devices Bathing Equipment Shower Chair with Arms Comments OT Bathing Comments JOSE for balance and assist for completeness M5 OT- IP IADL's Start: 12/03/17 13:08 Freq: Status: Active Protocol: Document 12/03/17 10:45 PJM (Rec: 12/03/17 13:31 PJM [id number]) OT-Instrumental Activities of Daily Living Deficits IADL Deficits Identified Deficits Home Safety Awareness Awareness of Need for Assistance at Home Good Awareness Medication Management Medication Management Caregiver Provides Supervision Medication Management Comments Recommend RN for diabetic management Money Management Money Management Caregiver Provides Supervision Money Management Comments Pt's sister is POA and can supervise/assist with finances PRN. Meal Preparation Meal Preparation Caregiver Provides Assist Meal Preparation Comments Sisters to assist with meal prep at home Palliative Care Nurse Palliative Care Nurse Caregiver Provides Assist Palliative Care Nurse Comments Sisters to provide assist at home Driving Driving Caregiver Provides Assist Driving Comments Sisters to provide assist M6 OT- IP Functional Cognition Start: 12/03/17 13:08 Freq: Status: Active Protocol: Document 12/13/17 12:22 [facility] (Rec: 12/13/17 12:32 [facility] [id number]) Cognitive Factors Limiting Selfcare Function Cognitive Ability Level of Alertness Alert Patient Orientation Name Age Birthday Month Date Year Day of Week Place Situation Attention Span Ability Capable of Focused Attention Capable of Sustained Attention Ability to Follow Commands Able to Follow Multi-Step Commands Memory Description Short Term Impaired Working Impaired Safety Awareness Underestimates Need for Assistance Problem Solving Ability Unable to Identify Errors Needs Assist to Identify Solutions Cognitive Comments Cognitive Assessment Comments Pt continues to need vc for safety awareness and safety for FWW. M7 OT- IP Mobility and Balance Start: 12/03/17 13:08 Freq: Status: Active Protocol: Document 12/13/17 12:22 [facility] (Rec: 12/13/17 12:32 [facility] [id number]) OT-Transfer Assessment Sit to and From Stand Sit to and from Stand Contact Guard Assistance Transfers Transfer Ability Contact Guard Assistance Technique Transfer Destination Chair Transfer Technique Stand Step Pivot Devices Transfer Assistive Devices Gait Belt Front Wheeled Walker Comments Mobility Comments Pt needing use of FWW, otherwise high fall risk. M8 OT- IP Objective Assessments Start: 12/03/17 13:08 Freq: Status: Active Protocol: Document 12/03/17 10:45 PJM (Rec: 12/03/17 13:31 PJM [id number]) OT Gross Range of Motion Upper Extremity Range of Motion Assessment Within Functional Limits ROM Impairments LUE lacgs at shoulder during BUE AROM. OT Strength Upper Extremity Strength Assessment Within Functional Limits Comments Strength Comments No obvious focal weakness noted except mild LUE lag with BUE AROM OT- Coordination Assessment Comments Coordination Comments Appears WFL; further assessment to follow OT-Muscle Tone Assessment Muscle Tone WNL Yes OT Sensation Assessment Comments Summary Comments Pt detects lt touch in BUE/ hands. Edema Edema Present Edema Comments generalized LLE edema M9 OT- IP Assessment and Plan Start: 12/03/17 13:08 Freq: Status: Active Protocol: Document 12/11/17 08:50 [facility] (Rec: 12/11/17 09:43 [facility] [id number]) OT Summary Assessment and Plan Summary Progress Towards Goals Slow Progress due to Medical Issues Slow Progress due to Activity Tolerance Slow Progress due to Cognition Goals Days to Meet Goals 5 Frequency of Treatment Frequency Of Treatment Once a Day Treatment Plan OT Treatment Plan ADL Training Functional Cognition Training Functional Mobility Patient/Family Education Discharge Planning Discharge Recommendations OT Discharge Recommendations SNF Rehab Home Equipment Needs shower seat, grab bars by shower and toilet
--- NOTE | 2017-12-15 10:45 | PT.IPTN ---
Current Diagnoses Type 1 diabetes mellitus with ketoacidosis with coma (11/28/17) Other specified diabetes mellitus with ketoacidosis without coma (11/28/17) Hyperosmolality and hypernatremia (11/28/17) Hypokalemia (11/28/17) Respiratory failure, unspecified, unspecified whether with hypoxia or hypercapnia (11/28/17) Dysphagia, unspecified (11/28/17) Surgery Performed Operation Date: 12/08/17 11:45 Actual Procedures p Peg Tube Insertion(Not Applicable) - Rosalio Nevarez MD Physical Therapy Treatment Note M2 PT-IP Current Condition Start: 12/03/17 10:14 Freq: NEEDED Status: Active Protocol: Document 12/03/17 09:25 MDD (Rec: 12/03/17 10:37 MDD [id number]) Physical Therapy Current Condition Current Condition Evaluation Date 12/03/17 Treatment Diagnosis DKA, impaired mobility Onset Date 11/28/17 M3 PT-IP Subjective Start: 12/03/17 10:14 Freq: NEEDED Status: Active Protocol: Document 12/15/17 10:29 LJ (Rec: 12/15/17 10:44 LJ [email or web address]) Subjective Physical Therapy Visit Type Type Treatment Note Visit Start Time 10:00 Visit Stop Time 10:25 Total Visit Minutes 25 Physical Therapy Visit Comments Patient Comments Pt willing to participate in treatment Therapy Pain Assessment Pain Present Pain Present Denied Pain M4 PT-IP Mobility and Gait Start: 12/03/17 10:14 Freq: NEEDED Status: Active Protocol: Document 12/15/17 10:29 LJ (Rec: 12/15/17 10:44 LJ [email or web address]) PT-Bed Mobility Assessment Rolling Level of Assist Standby Assistance Supine to Sit Supine to Sit Standby Assistance Sit to Supine Sit to Supine Standby Assistance Scooting Scooting to Edge of Bed Standby Assistance PT-Transfer Assessment Sit to and From Stand Sit to and from Stand Standby Assistance Equipment Transfer Assistive Device Gait Belt Front Wheeled Walker Orthotic/Prosthetic Devices or Brace: No Transfers Transfer Destination Bed Transfer Technique Forward/Backward Scoot Gait Assessment Gait Gait Assistance Required: Standby Assistance Able to Maintain Weight Bearing Status Yes During Gait Assistive Devices Assistive Device Gait Belt Front Wheeled Walker Gait Deviations General Gait Pattern Decreased Stride Length Decreased Feet Clearance Factors Limiting Gait Function Factors Limiting Gait Function Decreased Activity Tolerance Decreased Sensation Respiratory Distress Comments Gait Comments Pt ambultaed 160' with O2 at 3L without complaints of respiratory distress. Able to self limit activity to within tolerance. PT-Balance Assessment Sitting Balance and Reactions Static Sitting Balance Ability Good Dynamic Sitting Balance Ability Good Standing Balance and Reactions Static Standing Balance Ability Fair Dynamic Standing Balance Ability Fair M5 PT-IP Objective Assessments Start: 12/03/17 10:14 Freq: NEEDED Status: Active Protocol: Document 12/03/17 09:25 MDD (Rec: 12/03/17 10:37 MDD [id number]) Orientation Orientation/Cognition Level of Alertness Alert Orientation Name Age Birthday Month Date Year Day of Week Place Situation Language Function Ability No Deficits Noted Safety Awareness Decreased Safety Awareness Memory Description No Deficits Noted Comments Pt's voice is hoarse, but clear and intelligible. Gross Range of Motion Lower Extremity ROM Assessment Within Functional Limits Strength Lower Extremity Strength Assessment Left Impaired Hip R hip flexion 4/5, L 4+/5, hip IR/ER 4+/5 B Knee R knee extension 4/5, L knee extension 4+/5, R knee flexion 4/5, L 4+/5 Ankle 1/5 L ankle dorsiflexion Comments Strength Comments Pt reports weakness in L ankle is new Sensation Assessment Sensation Gross Sensation Left LE Impaired Light Touch Absent Sensation Description Paresthesia Numbness Comments Sensation Comments light touch sensation absent L medial malleolus, impaired plantar surface of foot to shins M6 PT-IP Treatment Start: 12/03/17 10:14 Freq: NEEDED Status: Active Protocol: Document 12/12/17 10:27 TALAT (Rec: 12/12/17 10:44 LJ [id number]) Physical Therapy Treatment Exercises Exercises Gluteal Sets Short Arc Quads Education Education Provided Safety M7 PT-IP Assessment and Plan Start: 12/03/17 10:14 Freq: NEEDED Status: Active Protocol: Document 12/15/17 10:29 LJ (Rec: 12/15/17 10:44 LJ [email or web address]) PT Summary Assessment and Plan Summary Impairments Sensation Activity Tolerance Progress Towards Goals Progressing Toward Goals Assessment Summary Pt requirres 1 person assist with lines during gait activities. Goals Bed Mobility Goal Independent Transfer Goal Independent Gait Goal Independent
[2017-12-15] MEDS: DEXAMETHASONE 4 MG/ML VIAL IV (12:20)
[2017-12-15] MEDS: ENOXAPARIN 40 MG/0.4 ML SYRINGE SUBCUT (12:21)
[2017-12-15] MEDS: INSULIN GLARGINE 100 UNIT/ML 3ML PEN 40 UNIT SUBCUT (12:21)
[2017-12-15] MEDS: NICOTINE 21 MG PATCH TOP (12:21)
[2017-12-15] MEDS: SODIUM CHLORIDE 0.9% FLUSH 10 ML IV ×2 (12:21→21:05)
[2017-12-15] MEDS: LISINOPRIL 20 MG TABLET PO (12:21)
[2017-12-15] MEDS: ASPIRIN 81 MG TAB 324 MG PO (12:21)
--- NOTE | 2017-12-15 14:35 | PM.PN.1 ---
Subjective Date Patient Seen: 12/15/17 Time Patient Seen: 09:00 Interval history: This is a 67-year-old female initially admitted with DKA and altered mental status/encephalopathy requiring intubation and mechanical ventilation. Post extubation was observed with persistent stridor. HEENT examination revealed patulous vocal cords in abducted position which has not significantly change on interval laryngoscopy by Dr. Roca on 12/11/2017. No significant improvement on the symptomatic/supportive care since admission raising concerns for possible pontine CVA as a cause behind the vocal cord paralysis. Repeat head MRI with the same limitations, no definite findings to suggest CVA. Currently attempting to arrange consultation with Pratik Duncan MD at [facility] on further management. Exam Vital Signs (past 8 hours): - 12/15/17 07:15 12/15/17 08:45 12/15/17 08:52 Temperature 97.9 F Pulse Rate 76 Respiratory Rate 20 Blood Pressure 130/56 H Pulse Oximetry 90 L 91 84 L 12/15/17 08:53 12/15/17 12:00 Temperature 98.0 F Pulse Rate 96 H Respiratory Rate 20 Blood Pressure 144/103 H Pulse Oximetry 90 L 92 Fraction of Inspired Oxygen 28 Oxygen Delivery Method Nasal Cannula Oxygen Flow Rate 3 Narrative Exam Narrative: Constitutional: Well-nourished well-developed female in NAD distress; she is out of bed ambulating with limited assistance. HEENT: signficant for persistently hoarse voice with some stridor Neck: Supple, no jugular venous distention, no bruits on auscultation of the carotid arteries. Pulmonary: Clear to auscultation bilaterally, no obvious rales ,crepitations or wheezing Cardiovascular: Regular rate and rate, no discernible murmurs Gastrointestinal: Abdomen is soft nontender, nondistended , with bowel sounds present . With PEG tuve and ongoing TF present Extremities: Warm to touch, no edema Skin: No skin lesions, no rashes,old scars from prior bypass surgeries on both LEs Objective Imaging MRI - head: Radiologist's impression: IMPRESSION: 1. Limited study secondary to patient's limited ability to tolerate prone positioning for extended period of time. 2. Decreased flow related enhancement in the proximal basilar artery which may be due to slow flow, technical artifact, or stenosis. Consider further evaluation with a contrast enhanced MR angiogram or CT angiogram. Dictated by: Mesfin Mcgovern M.D. on 12/14/2017 at 14:24 Approved by: Mesfin Mcgovern M.D. on 12/14/2017 at 14:30 Labs Result Diagrams: 12/15/17 06:00 12/15/17 06:00 Labs: Laboratory Results - last 24 hr 12/15/17 12/15/17 06:00 06:00 WBC 8.5 RBC 5.20 Hgb 18.0 H Hct 52.4 H MCV 100.7 H MCH 34.6 H MCHC 34.3 RDW 14.0 Plt Count 160 Neut % (Auto) 80.3 H Lymph % (Auto) 12.0 L [place] % (Auto) 7.2 Eos % (Auto) 0.1 L Baso % (Auto) 0.4 Neut # (Auto) 6800 H Sodium 137 Potassium 4.7 Chloride 94 L Carbon Dioxide 36 H BUN 29 H Creatinine 0.50 L Estimated GFR > 60.0 BUN/Creatinine Ratio 58.0 H Glucose 476 H Calcium 9.5 Magnesium 2.4 H Assessment & Plan Plan: Assessment/Plan Narrative: 1. DKA: Resolved 2. Altered mental status/encephalopathy: Resolved 3. Acute hypoxic respiratory failure requiring intubation/mechanical ventilation ,resolved 4. Vocal cord paralysis, acute, with suspected vocal cord edema secondary to intubation/mechanical ventilation versus clinical suspected brainstem infarction: persists, in spite of conservative management in the setting of prolonged hospoitalization. Interval head MRI with no definite finding to suggest possible pontine CVA, though with motion artifacts. Seen by Dr. Roca: I recommend evaluation by a dedicated vocal teacher to discuss airway surgery which could include tracheotomy and excision of the polyps of the vocal folds. The patient agrees with the plan, understands, and is appreciative. She is cleared to transfer to the SNF, with close airway monitoring, with planned outpatient evaluation next week by vocal teacher Pratik Duncan MD in [place], previously discussed. We hope to avoid the need for tracheotomy, ideally allowing time for possible spontaneous resolution of her TVC immobility of unknown etiology, possibly traumatic. Currently trying to arrange consult with Dr.Andrew Dakota JAIN prior patient's discharge. 5. Stridor: Secondary to above, slowly resolving.Management as above. 6. Steroid-induced hyperglycemia, persistent. Patient was getting steroids ( Decadron 4 mg IV q 12h) as a part of management for vocal cord edema for the last 2 weeks ). Start rapid taper.Continue dose escalation of the insulin tx as needed. 7. Dysphagia: Multifactorial/secondary to above. Currently with PEG tube and ongoing tube feeding 8. Nicotine addiction: Counseled to quit smoking, nicotine patch provided. 9. Deconditioning/debility, multifactorial,: PT/OT to evaluate and treat. SW consult regarding disposition options. Time Spent With Patient Time with patient: 25 - 35 minutes Quality VTE Deep Vein Thrombosis/Pulmonary Embolism Present on Admission: No
--- NOTE | 2017-12-15 14:47 | P.PN_ITS ---
Subjective Date Patient Seen: 12/15/17 Time Patient Seen: 09:00 Interval history: This is a 67-year-old female initially admitted with DKA and altered mental status/encephalopathy requiring intubation and mechanical ventilation. Post extubation was observed with persistent stridor. HEENT examination revealed patulous vocal cords in abducted position which has not significantly change on interval laryngoscopy by Dr. Roca on 12/11/2017. No significant improvement on the symptomatic/supportive care since admission raising concerns for possible pontine CVA as a cause behind the vocal cord paralysis. Repeat head MRI with the same limitations, no definite findings to suggest CVA. Currently attempting to arrange consultation with Pratik Duncan MD at [facility] on further management. Exam Vital Signs (past 8 hours): - 12/15/17 07:15 12/15/17 08:45 12/15/17 08:52 Temperature 97.9 F Pulse Rate 76 Respiratory Rate 20 Blood Pressure 130/56 H Pulse Oximetry 90 L 91 84 L 12/15/17 08:53 12/15/17 12:00 Temperature 98.0 F Pulse Rate 96 H Respiratory Rate 20 Blood Pressure 144/103 H Pulse Oximetry 90 L 92 Fraction of Inspired Oxygen 28 Oxygen Delivery Method Nasal Cannula Oxygen Flow Rate 3 Narrative Exam Narrative: Constitutional: Well-nourished well-developed female in NAD distress; she is out of bed ambulating with limited assistance. HEENT: signficant for persistently hoarse voice with some stridor Neck: Supple, no jugular venous distention, no bruits on auscultation of the carotid arteries. Pulmonary: Clear to auscultation bilaterally, no obvious rales ,crepitations or wheezing Cardiovascular: Regular rate and rate, no discernible murmurs Gastrointestinal: Abdomen is soft nontender, nondistended , with bowel sounds present . With PEG tuve and ongoing TF present Extremities: Warm to touch, no edema Skin: No skin lesions, no rashes,old scars from prior bypass surgeries on both LEs Objective Imaging MRI - head: Radiologist's impression: IMPRESSION: 1. Limited study secondary to patient's limited ability to tolerate prone positioning for extended period of time. 2. Decreased flow related enhancement in the proximal basilar artery which may be due to slow flow, technical artifact, or stenosis. Consider further evaluation with a contrast enhanced MR angiogram or CT angiogram. Dictated by: Mesfin Mcgovern M.D. on 12/14/2017 at 14:24 Approved by: Mesfin Mcgovern M.D. on 12/14/2017 at 14:30 Labs Result Diagrams: 12/15/17 06:00 12/15/17 06:00 Labs: Laboratory Results - last 24 hr 12/15/17 12/15/17 06:00 06:00 WBC 8.5 RBC 5.20 Hgb 18.0 H Hct 52.4 H MCV 100.7 H MCH 34.6 H MCHC 34.3 RDW 14.0 Plt Count 160 Neut % (Auto) 80.3 H Lymph % (Auto) 12.0 L [place] % (Auto) 7.2 Eos % (Auto) 0.1 L Baso % (Auto) 0.4 Neut # (Auto) 6800 H Sodium 137 Potassium 4.7 Chloride 94 L Carbon Dioxide 36 H BUN 29 H Creatinine 0.50 L Estimated GFR > 60.0 BUN/Creatinine Ratio 58.0 H Glucose 476 H Calcium 9.5 Magnesium 2.4 H Assessment & Plan Plan: Assessment/Plan Narrative: 1. DKA: Resolved 2. Altered mental status/encephalopathy: Resolved 3. Acute hypoxic respiratory failure requiring intubation/mechanical ventilation ,resolved 4. Vocal cord paralysis, acute, with suspected vocal cord edema secondary to intubation/mechanical ventilation versus clinical suspected brainstem infarction : persists, in spite of conservative management in the setting of prolonged hospoitalization. Interval head MRI with no definite finding to suggest possible pontine CVA, though with motion artifacts. Seen by Dr. Roac: I recommend evaluation by a dedicated tractor operator helper to discuss airway surgery which could include tracheotomy and excision of the polyps of the vocal folds. The patient agrees with the plan, understands, and is appreciative. She is cleared to transfer to the SNF, with close airway monitoring, with planned outpatient evaluation next week by tractor operator helper Pratik Duncan MD in [place], previously discussed. We hope to avoid the need for tracheotomy, ideally allowing time for possible spontaneous resolution of her TVC immobility of unknown etiology, possibly traumatic. Currently trying to arrange consult with Dr.Andrew Dakota JAIN prior patient's discharge. 5. Stridor: Secondary to above, slowly resolving.Management as above. 6. Steroid-induced hyperglycemia, persistent. Patient was getting steroids ( Decadron 4 mg IV q 12h) as a part of management for vocal cord edema for the last 2 weeks ). Start rapid taper.Continue dose escalation of the insulin tx as needed. 7. Dysphagia: Multifactorial/secondary to above. Currently with PEG tube and ongoing tube feeding 8. Nicotine addiction: Counseled to quit smoking, nicotine patch provided. 9. Deconditioning/debility, multifactorial,: PT/OT to evaluate and treat. SW consult regarding disposition options. Time Spent With Patient Time with patient: 25 - 35 minutes Quality VTE Deep Vein Thrombosis/Pulmonary Embolism Present on Admission: No
--- NOTE | 2017-12-15 15:27 | P.CONS_ITS ---
History of Present Illness Date Patient Seen: 12/15/17 Time Patient Seen: 15:09 Chief complaint: Unresponsive Reason for consult: Hoarseness and stridor Requesting provider: Pravin Lloyd Narrative: 67-year-old female known to the general surgery service under the care of Dr. Nevarez who performed a PEG procedure last week due to aspiration risk secondary to bilateral vocal cord paralysis following prolonged intubation after respiratory failure and continues to have issues with hoarseness and stridor. Patient has actually been evaluated on multiple occasions this admission by Dr. Roby Roca with the Otolaryngology Service. Flexible nasopharyngoscopy was performed on 2 occasions under his care showing bilateral vocal cord paralysis with vocal cord polyps and laryngeal edema. Patient did not require tracheostomy at that time as she was able to maintain her airway, and she is actually done so without significant issue over the last 9 or 10 days since extubation. Recommendation last week was for consultation with an expert kiln car repairer in [place], [place]. She actually was scheduled to see that physician in his office earlier today, but the patient was not transported due to concern for her possible tenuous airway. On further history the patient herself denies any significant changes in her symptoms. She continues to have hoarseness but no respiratory insufficiency. She denies any acute shortness of breath. No productive cough. No chest pain. She denies any air hunger. In fact, she feels that her condition has not changed remarkably in the last several days at least. Overall she is anxious to eat when possible and be released from the hospital when indicated. I have been asked see the patient regarding potential need for more urgent tracheostomy in order to facilitate her care. 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, managed as type 1 (Acute) Hyperlipidemia (Acute) Peripheral vascular disease (Acute) Sleep apnea in adult (Acute) Surgical History Status post femoral-popliteal bypass surgery (Acute) Status post insertion of percutaneous endoscopic gastrostomy (PEG) tube (Acute) History of cholecystectomy (Resolved) Family History Father Diabetes mellitus Coronary artery disease Mother Coronary artery disease Diabetes mellitus Social History household members: none Smoking Status: Current every day smoker alcohol intake: current Comment: Patient informs me that she quit smoking 1 month ago but previously smoked 1 pack of cigarettes per day for 45 years Meds Home Medications Medication Instructions Recorded Confirmed Type aspirin 325 mg PO QDAY #0 05/15/16 11/30/17 History atorvastatin [Lipitor] 5 mg PO QDAY #0 05/15/16 11/30/17 History cilostazol 50 mg PO QDAY #0 05/15/16 11/30/17 History ibuprofen [Advil] 600 mg PO Q6HP PRN #0 05/15/16 11/30/17 History furosemide 20 mg PO PRN PRN 10/17/17 11/30/17 History insulin aspart U-100 [Novolog 1 dose SUB-Q DIRECTED 10/17/17 11/30/17 History Flexpen U-100 Insulin] insulin detemir U-100 [Levemir 60 - 80 units SUB-Q QPM 10/17/17 11/30/17 History FlexTouch U-100 Insuln] lisinopril 10 mg PO DAILY 10/17/17 11/30/17 History Allergies Allergy/AdvReac Type Severity Reaction Status Date / Time adhesive [ADHESIVE] Allergy Intermediate RASH, Verified 12/08/17 11:12 ITCHING, TEARS SKIN Latex, Natural Rubber Allergy Intermediate RASH, Verified 12/08/17 11:12 [LATEX, NATURAL RUBBER] ITCHING Penicillins [PENICILLINS] Allergy Intermediate EXTREME Verified 12/08/17 11:12 HEADACHES Review of Systems Review of Systems All systems reviewed & are unremarkable except as noted in HPI and below Exam Vital Signs (past 8 hours): - 12/15/17 07:15 12/15/17 08:45 12/15/17 08:52 Temperature 97.9 F Pulse Rate 76 Respiratory Rate 20 Blood Pressure 130/56 H Pulse Oximetry 90 L 91 84 L 12/15/17 08:53 12/15/17 12:00 Temperature 98.0 F Pulse Rate 96 H Respiratory Rate 20 Blood Pressure 144/103 H Pulse Oximetry 90 L 92 Fraction of Inspired Oxygen 28 Oxygen Delivery Method Nasal Cannula Oxygen Flow Rate 3 Narrative Exam Narrative: Mildly obese female sitting in bed comfortably in no acute distress. She is on 3 L nasal cannula oxygen which has been in place for several days now. Saturations ranged from 88-92%. Patient's voice is clearly horse with some mild inspiratory stridor but no coarse rhonchi or obvious audible wheezes. She has an intermittent dry nonproductive cough. She has not implying significant ancillary respiratory muscles for inspiration. Sclera nonicteric Neck is supple without lymphadenopathy or masses. Trachea is midline. She has no surgical scars or history of trauma to the neck. No history of radiation to the head neck area. Chest clear auscultation bilaterally with no crackles or rhonchi. Regular rate and rhythm Abdomen is soft, nondistended, nontender, no masses. Peg tube is in place and functioning well. Extremities show no clubbing or cyanosis. She has bilateral ankle edema. Well- healed left leg scar consistent with prior arterial bypass surgery. Objective Labs Result Diagrams: 12/15/17 06:00 12/15/17 06:00 Labs: Laboratory Results - last 24 hr 12/15/17 12/15/17 06:00 06:00 WBC 8.5 RBC 5.20 Hgb 18.0 H Hct 52.4 H MCV 100.7 H MCH 34.6 H MCHC 34.3 RDW 14.0 Plt Count 160 Neut % (Auto) 80.3 H Lymph % (Auto) 12.0 L [place] % (Auto) 7.2 Eos % (Auto) 0.1 L Baso % (Auto) 0.4 Neut # (Auto) 6800 H Sodium 137 Potassium 4.7 Chloride 94 L Carbon Dioxide 36 H BUN 29 H Creatinine 0.50 L Estimated GFR > 60.0 BUN/Creatinine Ratio 58.0 H Glucose 476 H Calcium 9.5 Magnesium 2.4 H Chest x-ray shows COPD changes. MRI of the brain including today study does not show any obvious infarct, masses, or significant abnormalities. Assessment & Plan Plan: Assessment/Plan Narrative: 67-year-old female with bilateral vocal cord paralysis, laryngeal edema, and vocal cord polyps likely secondary to prolonged intubation after recent respiratory failure and episode of diabetic ketoacidosis who remains clinically stable without any acute airway changes. I see no indication for immediate or emergent tracheostomy. No need for re-intubation. However, she was easily reintubated at the time of her PEG procedure per the operative report so her airway can be secured via endotracheal intubation if ever indicated. I have also spoken personally with Dr. Roby Roca, and I fully agree with his assessment. I agree that consultation with laryngology is indicated. She can potentially be transported by advanced life support ambulance for that consultation then return to [facility] thereafter for ongoing inpatient care. If that consultation results in recommendation for tracheostomy then I would defer to Dr. Roca and his colleagues regarding that discussion with the patient and their surgical intervention. Her PEG tube is healing nicely and operating well. She therefore has no other acute general surgical issues. I will defer to Dr. Roca' expertise and ongoing management of the patient here at [facility]. General surgery will be available as needed. I discussed all of this with the patient and her family at the bedside today. All questions were answered to their satisfaction, and the patient voiced understanding. I have also discussed the case personally with Dr. Lloyd. Plan is to proceed as above.
--- NOTE | 2017-12-15 15:56 | PC.NURSE ---
day shift called Dr Duncan's office in [facility] made for tomorrow 12/16/17 at 1145 for pt to be seen. Coordinator aware to call and schedule ALS ambulance transport for tomorrow.
[2017-12-15] MEDS: INSULIN GLARGINE 100 UNIT/ML 3ML PEN 50 UNIT SUBCUT (16:30)
--- NOTE | 2017-12-15 20:29 | RT ---
MILD STRIDOR NOTED W/ DECREASED BREATH SOUNDS IN BLL. RR = 16. BRONCHODILATOR NOT NEEDED AT THIS TIME.
[2017-12-15] MEDS: ATORVASTATIN 20 MG TABLET 40 MG PO (21:08)
--- NOTE | 2017-12-15 22:49 | PC.NURSE ---
Pt A/O SpO2 92-94 4L nc, LS rohchi throughout lung melgar. PEG tube to LUQ patent and infusing glurcens 2.1 with water flush 150mL Q-4hrs. Tubing changed and labeled this shift. CBG- 303, 10 units novolog in addition to 50units lantus. BSC to void cloudy yellow urine with normal odor. Denies pain. BETH PICC HL. Pt has attp with Dr. Duncan tomorrow @ [id number], awaiting type of transportation due to ALS not covered by pt's ins.
[2017-12-16] VITALS (10 sets, daily range): BP systolic 117–149; BP diastolic 60–94; PULSE 66–85; RESP 16–22; TEMP 36.3–37; O2SAT 91–95
[2017-12-16] MEDS: INSULIN ASPART 100 UNIT/ML INSULN PEN SUBCUT ×4 (00:11→19:17)
[2017-12-16] MEDS: INSULIN GLARGINE 100 UNIT/ML 3ML PEN 50 UNIT SUBCUT ×2 (03:10→15:49)
[2017-12-16 07:45] LABS: Hematocrit 52.2 % (36-46); Hemoglobin 17.5 g/dL (12.0-16.0); Lymphocytes Percent Auto 21.2 % (25-40); Mean Corpuscular HGB Conc 33.5 % (30-36); Mean Corpuscular Hemoglobin 33.7 PG (26-34); Mean Corpuscular Volume 100.8 fL (80-100); Neutrophils Percent Auto 70.4 % (50-75); Platelet Count 237 X10^3/uL (150-400); Red Blood Cell Count 5.19 X10^6/uL (4.0-5.2); Red Cell Distribution Width 13.9 % (11.6-14.8); White Blood Cell Count 10.1 X10^3/uL (4.5-11.0)
[2017-12-16 07:46] LABS: Add Manual Diff / Slide Review NO; Basophils Percent Auto 0.1 % (0-2); Eosinophils Percent Auto 0.7 % (2-4); Monocytes Percent Auto 7.6 % (3-14); Neutrophils Absolute Auto 7100 /uL (3000-5900)
[2017-12-16 08:25] LABS: Blood Urea Nitrogen 31 mg/dL (7-17); Calcium 9.7 mg/dL (8.4-10.2); Carbon Dioxide 38 mmol/L (22-32); Chloride 93 mmol/L (98-107); Estimated Glomerular Filt Rate > 60.0 mL/min (>60); Glucose 198 mg/dL (80-110); HEMOLYSIS 0 (0-50); Magnesium 2.3 mg/dL (1.6-2.3); Potassium 4.5 mmol/L (3.4-5.1); Sodium 141 mmol/L (137-145)
--- NOTE | 2017-12-16 08:25 | CM.DPC ---
Addendum entered by Kasandra Montaño LPN 12/16/17 15:32: Conference held in room with Dr. Roca, pt, CHUCKING MACHINE SET UP OPERATOR NOAH Mendieta and this d/c sander portable machine. Dr. Roca went over the recommended POC and discussion held about options for d/c settings and the risk that goes with these. Discussion continued after Dr. Roca left the room. Pt has identified that she takes responsibility for her choice not to have a tracheostomy at present and to not consider LTAC as it means [place]. Dr. Roca was supportive of this choice as pt has been relatively stable thus far but he was clear that her airway could be suddenly compromised. POSLT form was discussed and pt and her sister completed same with identification of NO CPR and Limited Interventions. Dr. Cabral was updated and completed the document and copies were made for pt, for Fiona and for IH. Discussed home with HH vs a snf that may now consider pt since she has identified a manageable plan for the snf setting. Pt and Fiona both say that they very much wish [facility] would consider accepting her with these changes in mind. Pt does not have anyone to stay with her at her home. She very much wishes to continue to improve if possible and is eager to learn to do her own tube feeds (started again today) and see the Vocal cord/ENT sub-specialist in [place] that again had to be cancelled today. CHUCKING MACHINE SET UP OPERATOR team is very supportive of this plan. Pt very much wants to be able to go home eventually with her family's prn support but is aware that her rehab may be lengthy. Fiona notes that when she initially toured [facility] and spoke with Erika she was very impressed with the facility. Called Erika/[facility] to discuss. She had noted earlier that pt's needs seemed too complex to be managed in the snf. With these new changes and further clarification of POC she and her DNS can now feel comfortable accepting pt. Pertinent clinic updates from the last few days were faxed as well as the REMI and NOAH paperwork. [facility] Van transport is now set up for [address] Cabral confirms he will have the d/c paperwork completed by time he goes off shift tomorrow at 0600. Pt and Fiona are updated and express great relief and thankfulness for assist with this plan. Will check in tomorrow and follow closely to facilitate. Original Note: Addendum entered by Kasandra Montaño LPN 12/16/17 15:21: Continued to work on appropriate d/c plan for pt throughout the day. Collaborated with pt and her POA sister/Irena, the CHUCKING MACHINE SET UP OPERATOR team, Dr. Roca/ENT and Dr. Cabral. Conferred also with DEE Wood and RN coordinator Liliam. 2 hours spent in facilitation of the d/c plan. Original Note: DCP: continued: Spoke with RN Coordinator Liliam, coordinating the ALS transfer to ENT consult appt in [place]. Alerted her to a vm left for DCP 1358 phone line from the hari RN Coordinator Jayesh noting [facility] giving caution that this would not likely be paid by Medicare and they advise the pt know that she will be liable for about $4000 for the ALS transport. Liliam will confer with CNO Nga Heller. Spoke then with Dr. Navarro and also reviewed his consult from last evening. He confirms firmly that [facility] is not at this time involved in this pt's care and any discussion about a need for tracheostomy would be with the ENT group. Dr. Navarro has discussed this with pt and family as well as hospitalist Dr. Lloyd. P: follow closely
[2017-12-16] MEDS: ASPIRIN 81 MG TAB 324 MG PO (09:46)
[2017-12-16] MEDS: NICOTINE 21 MG PATCH TOP (09:47)
[2017-12-16] MEDS: ENOXAPARIN 40 MG/0.4 ML SYRINGE SUBCUT (09:47)
[2017-12-16] MEDS: LISINOPRIL 20 MG TABLET PO (09:47)
[2017-12-16] MEDS: DEXAMETHASONE 4 MG/ML VIAL 2 MG IV (09:47)
[2017-12-16] MEDS: SODIUM CHLORIDE 0.9% FLUSH 10 ML IV ×2 (09:50→22:43)
--- NOTE | 2017-12-16 10:53 | PT.IPTN ---
Current Diagnoses Type 1 diabetes mellitus with ketoacidosis with coma (11/28/17) Other specified diabetes mellitus with ketoacidosis without coma (11/28/17) Hyperosmolality and hypernatremia (11/28/17) Hypokalemia (11/28/17) Respiratory failure, unspecified, unspecified whether with hypoxia or hypercapnia (11/28/17) Dysphagia, unspecified (11/28/17) Surgery Performed Operation Date: 12/08/17 11:45 Actual Procedures p Peg Tube Insertion(Not Applicable) - Rosalio Nevarez MD Physical Therapy Treatment Note M2 PT-IP Current Condition Start: 12/03/17 10:14 Freq: NEEDED Status: Active Protocol: Document 12/03/17 09:25 MDD (Rec: 12/03/17 10:37 MDD [id number]) Physical Therapy Current Condition Current Condition Evaluation Date 12/03/17 Treatment Diagnosis DKA, impaired mobility Onset Date 11/28/17 M3 PT-IP Subjective Start: 12/03/17 10:14 Freq: NEEDED Status: Active Protocol: Document 12/16/17 10:52 CLB (Rec: 12/16/17 10:53 CLB [id number]) Subjective Physical Therapy Visit Type Type Patient Unavailable Notes Pt unavailable due to appt in [place].
--- NOTE | 2017-12-16 11:42 | ST.IPDYTX ---
Care Team Visit Care Team Role Provider Type Tod Navarro MD Other Providers Physician Specialty: General Surgery Address: [address] [place] [address] Email: [email or web address] Decker PA-C Family Provider Physician Primary Care Provider Specialty: Internal Medicine Address: [address] [place] [address] Email: Laverne Joe DO Emergency Provider Physician Specialty: Emergency Medicine Address: [address] [place] [address] Email: Tod Heath MD Admit Provider Physician Attending Provider Specialty: Internal Medicine Address: [address] [place] [address] Email: TRAINING PERSONNEL SUPERVISOR Dysphagia Treatment TRAINING PERSONNEL SUPERVISOR Dysphagia Treatment Start: 12/02/17 11:17 Freq: Status: Active Protocol: Document 12/16/17 11:26 MRM (Rec: 12/16/17 11:42 MRM [id number]) Dysphagia Treatment Session Time Visit Start Time 10:00 Visit Stop Time 10:50 Total Visit Minutes 50 Setting Assessment Location Acute Care Visit Type Note Type Treatment Note Next Note Type Next Note Type Treatment Note Patient Information Identification Type Name ID Wristband Other Subjective Observations Patient awake and alert, sitting upright in bed with sister (POA) present. RN, Bailee, and RT, Daniel, present at the start of the conversation. Spoke with family regarding transfer to [place] for acute care, which was denied yesterday. Explained that the aquatic centre manager in [place] was unable to see her as an inpatient. Due to Medicare restrictions, an ambulance transfer to and from the specialist's office in [place] is not covered and could cost the family up to $ 4000 should they be requried to pay out of pocket. The patient's sister stated, Well , if we have to sell the house , we'll do it. We aren't talking about money, we are talking about my sister's life . TRAINING PERSONNEL SUPERVISOR and RT spoke with the patient and her sister about different discharge placements (SNF v. acute care) and about various D/C locations ( [facility], [place]). The patient and her sister again stated that they did not want to be sent to [place]. The patient stated, I have had several friends to there ( cancer patients, etc) and they don't come back. If I go down there, it'll be too crowded, the doctors won't listen to me , and I won't have a say in my care. And it's too far away. TRAINING PERSONNEL SUPERVISOR reemphasized that the patient and her sister (NOAH) have the ability to express their wishes for [facility]'s care. They have the ability to accept placement or decline placement. TRAINING PERSONNEL SUPERVISOR also encouraged the patient and her sister to strongly hold a stance regarding the plan of care should they be transferred to [place]. TRAINING PERSONNEL SUPERVISOR explained that the family is not unable to have input regarding patient care and that the staff at [facility] are responsible for presenting them with the safest medical options for discharge or transfer. The family verbalized understanding. They requested follow up contacts to [facility] for possible placement. TRAINING PERSONNEL SUPERVISOR then initiated the discussion regarding use of an AAC device, should the patient need one if aphonia continues or following placement of a possible trach. TRAINING PERSONNEL SUPERVISOR discussed various AAC types and options and will follow up with samples. The patient stated that she would be willing to try one if it would help her. TRAINING PERSONNEL SUPERVISOR also provided additional information regarding the need for a tracheostomy placement as well as therapy options after this. TRAINING PERSONNEL SUPERVISOR explained that therapy can continue to work with speech and swallowing with/without a trach tube. TRAINING PERSONNEL SUPERVISOR explained that not all trach tubes are permanent and discussed the various lengths of time and reasons why they may be needed. This was encouraging to the patient and her sister. The patient stated that she would be willing to consider one should she need it in the future. TRAINING PERSONNEL SUPERVISOR reinforced the importance of following strict aspiration precations to prevent aspiration and/or extensive coughing which could exacerbate her larynegal condition. The patient verbalized understanding and agreed. They thanked TRAINING PERSONNEL SUPERVISOR after lengthy discussion and stated that they were encouraged. Treatment Liquids Trialed Thin Administration Type Tea Spoon Oral Strategies Upright at 90 degrees Double Swallow Other Pharyngeal Strategies Sitting Upright (90 deg) Double Swallow Effortful Swallow Supersupraglottic Swallow Mendelsonn Maneuver Additional Dysphagia Treatment Daren Strategies Treatment Activities Patient independently demonstrate successful implementation of the Daren and the Tammy maneuvers. Observed x2 the ability to tolerate trace amount of thin liquid with toothette to stimulate swallow. No cough or change in vocal quality observed. Patient demonstrated improved hyolaryngeal elevation and excursion as well. Improving respiratory strenth for cough, but still aphonic. Reported that she is also using spirometer from RT and is able to sustain 1000 consistently. Improved swallow function observed through palpation. Assessment Patient Response to Treatment Good Rehab Potential Good Assessment of Improvement Observed through palpation an increase in hyolaryngeal elevation and excursion. Able to tolerate trace amount of liquid x2 from toothette. No cough/change in respiratory status/change in vocal quality observed. Recommend continue ongoing dysphagia strateiges with emphasis on base of tongue exercises as well as pharyngeal elevation exercises . Consider trials of ice chips for possible reassessment of swallowing ability next session. Diet Recommendations Recommendations Continue Current Diet Liquids Order NPO Diet Order NPO/Alternative Means of Nutrition/Hydration Medication Recommendations Not Recommended by Mouth Additional Dietary Needs Reminders to Use Strategies Aspiration Precautions Recommended Precautions Upright at 90 Degrees Effortful Swallow Double Swallow Supraglottic Swallow Supersupraglottic Swallow Michael Maneuvor Treatment Plan Placement Recommendation after Discharge Other Appropriate for Continued Therapy Yes Therapy Recommendations Continue frequent oropharyngeal exercises to improve swallowing ability. Initiate introduction of AAC devices to assist in verbal communication. Dysphagia Goals Patient will complete oropharyngeal exercises ( effortful, michael, shaker and daren) to improve overall strength needed to improve swallow function. Patient will complete thorough oral care prior to lingual swish and spit. Patient will trial various AAC devices to consider for assistive verbal communication .
--- NOTE | 2017-12-16 14:02 | PC.NURSE ---
Pt is on Glucerna 1.2 at 60cc/hr and flushes of 160cc every 4 hours. Pt is also getting free water flushes after medication. 300cc of free water flushed this am after meds crushed and put through peg tube. Site is wnl. Pts bs with strider and decreased bases. Pt is npo and only uses water and sponge to keep her mouth moist. She has been occasionally coughing up pink/bloody sputum. Pt states that this has been happening, per pt she was told that the pollyps in her throat may be having small amounts of bleeding. Pt has denied pain this shift and seems to be comfortable. Tube feeding was stopped for 1.[address] dunaway as he thought maybe that pt may have trach surgery. It has been restarted as she is going to be going to [facility] tomorrow. also wants patient to follow up outpatient with the ENT specialist [place]. Pts sister left for a bit and pt is watching television at this time.
--- NOTE | 2017-12-16 14:20 | OT.IP.TRT ---
Current Diagnoses Type 1 diabetes mellitus with ketoacidosis with coma (11/28/17) Other specified diabetes mellitus with ketoacidosis without coma (11/28/17) Hyperosmolality and hypernatremia (11/28/17) Hypokalemia (11/28/17) Respiratory failure, unspecified, unspecified whether with hypoxia or hypercapnia (11/28/17) Dysphagia, unspecified (11/28/17) Surgery Performed Operation Date: 12/08/17 11:45 Actual Procedures p Peg Tube Insertion(Not Applicable) - Rosalio Nevarez MD Occupational Therapy Treatment Note M2 OT-IP Current Condition Start: 12/03/17 13:08 Freq: Status: Active Protocol: Document 12/03/17 10:45 PJM (Rec: 12/03/17 13:31 PJM [id number]) Occupational Therapy Current Condition Current Condition Evaluation Date 12/03/17 Treatment Diagnosis decreased self care, mobility, cognition s/p diabetic coma w /intubattion Post Operative Precautions Other Precautions NPO with barium swallow pending, fall risk M3 OT- IP Subjective and Pain Start: 12/03/17 13:08 Freq: Status: Active Protocol: Document 12/16/17 14:27 PJM (Rec: 12/16/17 14:30 PJM [id number]) OT- Subjective Occupational Therapy Visit Type Type Administrative Note Visit Start Time 14:20 Notes Pt states she already completed self care tasks today. Per chart notes, no tracheostomy is planned. Per briefcase sewer, pt to d/c to [facility] for further rehab services. Provided education to pt and sister re: best clothing options for rehab and PEG tube and sister to bring appropriate clothes tomorrow. Pt pleasant and cooperative and motivated to improve. Will see pt in early AM tomorrow prior to d/c for self care training. No charge. M
--- NOTE | 2017-12-16 14:56 | PT.IPTN ---
Current Diagnoses Type 1 diabetes mellitus with ketoacidosis with coma (11/28/17) Other specified diabetes mellitus with ketoacidosis without coma (11/28/17) Hyperosmolality and hypernatremia (11/28/17) Hypokalemia (11/28/17) Respiratory failure, unspecified, unspecified whether with hypoxia or hypercapnia (11/28/17) Dysphagia, unspecified (11/28/17) Surgery Performed Operation Date: 12/08/17 11:45 Actual Procedures p Peg Tube Insertion(Not Applicable) - Rosalio Nevarez MD Physical Therapy Treatment Note M2 PT-IP Current Condition Start: 12/03/17 10:14 Freq: NEEDED Status: Active Protocol: Document 12/03/17 09:25 MDD (Rec: 12/03/17 10:37 MDD [id number]) Physical Therapy Current Condition Current Condition Evaluation Date 12/03/17 Treatment Diagnosis DKA, impaired mobility Onset Date 11/28/17 M3 PT-IP Subjective Start: 12/03/17 10:14 Freq: NEEDED Status: Active Protocol: Document 12/16/17 14:20 CLB (Rec: 12/16/17 14:55 CLB [id number]) Subjective Physical Therapy Visit Type Type Treatment Note Visit Start Time 14:20 Visit Stop Time 14:45 Total Visit Minutes 25 Number of VARYING EXCEPTIONALITIES TEACHER Visits 3 Physical Therapy Visit Comments Patient Comments pt agreeable to do therapy Therapy Pain Assessment Pain Present Pain Present Denied Pain M4 PT-IP Mobility and Gait Start: 12/03/17 10:14 Freq: NEEDED Status: Active Protocol: Document 12/16/17 14:20 CLB (Rec: 12/16/17 14:55 CLB [id number]) PT-Bed Mobility Assessment Supine to Sit Supine to Sit Standby Assistance PT-Transfer Assessment Sit to and From Stand Sit to and from Stand Standby Assistance Equipment Transfer Assistive Device Gait Belt Front Wheeled Walker Orthotic/Prosthetic Devices or Brace: No Transfers Transfer Destination Chair Transfer Ability Level of Assist Standby Assistance Gait Assessment Gait Gait Assistance Required: Contact Guard Assist Distance (Feet) (feet) 150 Able to Maintain Weight Bearing Status Yes During Gait Assistive Devices Assistive Device Gait Belt Front Wheeled Walker Gait Deviations General Gait Pattern Decreased Stride Length Decreased Feet Clearance Factors Limiting Gait Function Factors Limiting Gait Function Decreased Activity Tolerance Decreased Sensation Respiratory Distress Comments Gait Comments Pt ambulates slowly needing 2 assist for lines. M5 PT-IP Objective Assessments Start: 12/03/17 10:14 Freq: NEEDED Status: Active Protocol: Document 12/03/17 09:25 MDD (Rec: 12/03/17 10:37 MDD [id number]) Orientation Orientation/Cognition Level of Alertness Alert Orientation Name Age Birthday Month Date Year Day of Week Place Situation Language Function Ability No Deficits Noted Safety Awareness Decreased Safety Awareness Memory Description No Deficits Noted Comments Pt's voice is hoarse, but clear and intelligible. Gross Range of Motion Lower Extremity ROM Assessment Within Functional Limits Strength Lower Extremity Strength Assessment Left Impaired Hip R hip flexion 4/5, L 4+/5, hip IR/ER 4+/5 B Knee R knee extension 4/5, L knee extension 4+/5, R knee flexion 4/5, L 4+/5 Ankle 1/5 L ankle dorsiflexion Comments Strength Comments Pt reports weakness in L ankle is new Sensation Assessment Sensation Gross Sensation Left LE Impaired Light Touch Absent Sensation Description Paresthesia Numbness Comments Sensation Comments light touch sensation absent L medial malleolus, impaired plantar surface of foot to shins M6 PT-IP Treatment Start: 12/03/17 10:14 Freq: NEEDED Status: Active Protocol: Document 12/16/17 14:20 CLB (Rec: 12/16/17 14:55 CLB [id number]) Physical Therapy Treatment Exercises Exercises Seated Knee Flexion/Extension M7 PT-IP Assessment and Plan Start: 12/03/17 10:14 Freq: NEEDED Status: Active Protocol: Document 12/16/17 14:20 CLB (Rec: 12/16/17 14:55 CLB [id number]) PT Summary Assessment and Plan Summary Progress Towards Goals Slow Progress due to Medical Issues Assessment Summary Pt is SBA for transfers with increased assist with gait and lines. Goals Bed Mobility Goal Independent Transfer Goal Independent Gait Goal Independent Gait Distance 50 with FWW Other Goals Ascend/descend 2 steps with R railing Frequency of Treatment Frequency Of Treatment Once a Day Treatment Plan Physical Therapy Treatment Plan Bed Mobility Training Transfer Training Gait Training Therapeutic Exercise Balance Retraining Discharge Planning Recommendations To Nursing Amount of Assist Needed 1 Person Assist Discharge Recommendations PT Discharge Recommendations Acute Rehab
--- NOTE | 2017-12-16 15:52 | PC.NURSE ---
Addendum entered by Alfreda Charlton R.N. 12/16/17 21:49: discharge paperwork including Rx's are on the packet. Original Note: Addendum entered by Alfreda Charlton R.N. 12/16/17 21:42: 0- spoke with pt's brother, Evaristo, and sister in law Margarette, and Evaristo would like to be notified when pt is discharging. His # is [phone]. Original Note: Addendum entered by Alfreda Charlton R.N. 12/16/17 20:54: 1800- [id number], given 2 units novolog to RLQ. Original Note: Addendum entered by Alfreda Charlton R.N. 12/16/17 15:59: Glucerna 1.2 running at 60/hr with 160/hr water flush. Original Note: 1545-Insulin Lantus pen with 34 units remaining in pen, given 16units from new pen, for a total of 50units given @ 1545. Pt reports leaving tomorrow to [facility]. New tubing and bag replaced for PEG tub feeding. PEG site CDI. 92% 2L nc,, LS stridor throughout. Call light in reach and uses appropriately.
--- NOTE | 2017-12-16 16:30 | P.PN_ITS ---
Subjective Date Patient Seen: 12/16/17 Time Patient Seen: 12:45 Interval history: This is a 67-year-old female initially admitted with DKA and altered mental status/encephalopathy requiring intubation and mechanical ventilation. Post extubation was observed with persistent stridor. HEENT examination revealed patulous vocal cords in abducted position which has not significantly change on interval laryngoscopy by Dr. Roca on 12/11/2017. No significant improvement on the symptomatic/supportive care since admission raising concerns for possible pontine CVA as a cause behind the vocal cord paralysis. Repeat head MRI with the same limitations ( motion artifacts) , no definite findings to suggest CVA nor to rule it completely out. Patient declined on multiple occasions evaluation by ENT in higher level facilities; she opted to be DNR/DNI and getting discharged to [facility] in AM SW to arrange consultation with Pratik Duncan MD at [facility] upon dishcarge. Exam Vital Signs (past 8 hours): - 12/16/17 11:30 12/16/17 15:00 Temperature 98.2 F 98.6 F Pulse Rate 85 81 Respiratory Rate 20 18 Blood Pressure 137/94 H 117/60 Pulse Oximetry 92 92 Fraction of Inspired Oxygen 28 Oxygen Delivery Method Nasal Cannula Oxygen Flow Rate 1.5 Narrative Exam Narrative: Constitutional: Well-nourished well-developed female in NAD distress; she is out of bed ambulating with limited assistance. HEENT: signficant for persistently hoarse voice with some stridor Neck: Supple, no jugular venous distention, no bruits on auscultation of the carotid arteries. Pulmonary: Clear to auscultation bilaterally, no obvious rales ,crepitations or wheezing Cardiovascular: Regular rate and rate, no discernible murmurs Gastrointestinal: Abdomen is soft nontender, nondistended , with bowel sounds present . With PEG tuve and ongoing TF present Extremities: Warm to touch, no edema Skin: No skin lesions, no rashes,old scars from prior bypass surgeries on both LEs Objective Imaging MRI - head: Radiologist's impression: MRI - head: Radiologist's impression: IMPRESSION: 1. Limited study secondary to patient's limited ability to tolerate prone positioning for extended period of time. 2. Decreased flow related enhancement in the proximal basilar artery which may be due to slow flow, technical artifact, or stenosis. Consider further evaluation with a contrast enhanced MR angiogram or CT angiogram. Dictated by: Mesfin Mcgovern M.D. on 12/14/2017 at 14:24 Approved by: Mesfin Mcgovern M.D. on 12/14/2017 at 14:30 Labs Result Diagrams: 12/16/17 05:44 12/16/17 05:44 Labs: Laboratory Results - last 24 hr 12/16/17 12/16/17 05:44 05:44 WBC 10.1 RBC 5.19 Hgb 17.5 H Hct 52.2 H MCV 100.8 H MCH 33.7 MCHC 33.5 RDW 13.9 Plt Count 237 Neut % (Auto) 70.4 Lymph % (Auto) 21.2 L [place] % (Auto) 7.6 Eos % (Auto) 0.7 L Baso % (Auto) 0.1 Neut # (Auto) 7100 H Sodium 141 Potassium 4.5 Chloride 93 L Carbon Dioxide 38 H BUN 31 H Creatinine 0.50 L Estimated GFR > 60.0 BUN/Creatinine Ratio 62.0 H Glucose 198 H D Calcium 9.7 Magnesium 2.3 Assessment & Plan Plan: Assessment/Plan Narrative: 1. DKA: Resolved 2. Altered mental status/encephalopathy: Resolved 3. Acute hypoxic respiratory failure requiring intubation/mechanical ventilation ,resolved 4. Vocal cord paralysis, acute, with suspected vocal cord edema secondary to intubation/mechanical ventilation versus clinical suspected brainstem infarction : persists, in spite of conservative management in the setting of prolonged hospoitalization. Interval head MRI with no definite finding to suggest possible pontine CVA, nor top rule it out completely due to motion artifacts. Was co-managed with Dr. Roca (ENT) : per laryngoscopy on 12/11/17 patient with bilateral vocal fold persistent immobility with significant [place]han edema with the polypoid tissue flapping superiorly with exhalation. No visible abduction or adduction. No pooling of secretions, however, no mass. No significant inflammation. I recommend evaluation by a dedicated roll contour grinder to discuss airway surgery which could include tracheotomy and excision of the polyps of the vocal folds. The patient initially agreed with the plan, but later declined possible tracheostomy. She is getting discharged in Am to SNF for close airway monitoring, and outpatient evaluation by roll contour grinder Pratik Duncan MD in [place]. 5. Stridor: Secondary to above, slowly resolving.Management as above. 6. Steroid-induced hyperglycemia, persistent. Patient was getting steroids ( Decadron 4 mg IV q 12h) as a part of management for vocal cord edema for the last 2 weeks ). Start rapid taper with intention to stop in Am.Currently getting 50 units of lantus q 12h. 7. Dysphagia: Multifactorial/secondary to above. Currently with PEG tube and ongoing tube feeding 8. Nicotine addiction: Counseled to quit smoking, nicotine patch provided. 9. Deconditioning/debility, multifactorial,: PT/OT to evaluate and treat. Pending discharge to SNF in AM Time Spent With Patient Time with patient: 25 - 35 minutes Quality VTE Deep Vein Thrombosis/Pulmonary Embolism Present on Admission: No
--- NOTE | 2017-12-16 16:37 | PM.PN.1 ---
Subjective Date Patient Seen: 12/16/17 Time Patient Seen: 11:30 Interval history: Pt reevaluated due to persistent upper airway obstruction, known bilateral vocal fold immobility. stable symptomatically on 2-3 L nasal cannula, no known interval episodes of severe, acute worsening of her obstruction. continues to work with speech and swallow therapy, continues tube feedings. unable to arrange transport for evaluation by subspecialty rn liaison. Exam Vital Signs (past 8 hours): - 12/16/17 11:30 12/16/17 15:00 Temperature 98.2 F 98.6 F Pulse Rate 85 81 Respiratory Rate 20 18 Blood Pressure 137/94 H 117/60 Pulse Oximetry 92 92 Fraction of Inspired Oxygen 28 Oxygen Delivery Method Nasal Cannula Oxygen Flow Rate 1.5 Narrative Exam Narrative: well-developed, well-nourished female, alert, and stable inspiratory stridor and severe hoarseness, but no obvious worsening respiratory obstruction from prior visits. neck is nontender, difficult to palpate landmarks, no masses Objective Labs Result Diagrams: 12/16/17 05:44 12/16/17 05:44 Labs: Laboratory Results - last 24 hr 12/16/17 12/16/17 05:44 05:44 WBC 10.1 RBC 5.19 Hgb 17.5 H Hct 52.2 H MCV 100.8 H MCH 33.7 MCHC 33.5 RDW 13.9 Plt Count 237 Neut % (Auto) 70.4 Lymph % (Auto) 21.2 L [place] % (Auto) 7.6 Eos % (Auto) 0.7 L Baso % (Auto) 0.1 Neut # (Auto) 7100 H Sodium 141 Potassium 4.5 Chloride 93 L Carbon Dioxide 38 H BUN 31 H Creatinine 0.50 L Estimated GFR > 60.0 BUN/Creatinine Ratio 62.0 H Glucose 198 H D Calcium 9.7 Magnesium 2.3 Assessment & Plan (1) Airway obstruction: Current visit: Yes Status: Acute (2) Hoarseness: Current visit: Yes Status: Acute Plan: Assessment/Plan Narrative: as discussed over 30 minutes with the patient, sister, medical planner, nurse, and intermittently with the hospitalist Dr. Lloyd, the patient is at this point unwilling to pursue tracheostomy unless it becomes urgently necessary. I discussed in detail the material risks, benefits, complications, alternatives to tracheostomy, including the possibility of acute airway obstruction and even if not pursued. she voiced understanding that my recommendation was to pursue tracheotomy electively to most definitively secure her airway. after discussing multiple options, she may be interested in discharge to a fpc facility if cleared despite the obvious airway concerns. we hope she would be able to be evaluated as an outpatient by a dedicated rn liaison for video stroboscopy and discussion of other/additional surgical options to improve her airway in the short and long-term. 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 At the completion of the discussion, the patient and sister were going to come to a decision, and possible suitable fpc facilities were being further investigated, if discharge home in the near future was not felt to be in her best interest. The patient and family as well as care team were encouraged to call me with any questions and if I may be of any further assistance. [facility] Quality VTE Deep Vein Thrombosis/Pulmonary Embolism Present on Admission: No
--- NOTE | 2017-12-16 16:51 | P.PN_ITS ---
Subjective Date Patient Seen: 12/16/17 Time Patient Seen: 11:30 Interval history: Pt reevaluated due to persistent upper airway obstruction, known bilateral vocal fold immobility. stable symptomatically on 2-3 L nasal cannula, no known interval episodes of severe, acute worsening of her obstruction. continues to work with speech and swallow therapy, continues tube feedings. unable to arrange transport for evaluation by subspecialty registered health nurse. Exam Vital Signs (past 8 hours): - 12/16/17 11:30 12/16/17 15:00 Temperature 98.2 F 98.6 F Pulse Rate 85 81 Respiratory Rate 20 18 Blood Pressure 137/94 H 117/60 Pulse Oximetry 92 92 Fraction of Inspired Oxygen 28 Oxygen Delivery Method Nasal Cannula Oxygen Flow Rate 1.5 Narrative Exam Narrative: well-developed, well-nourished female, alert, and stable inspiratory stridor and severe hoarseness, but no obvious worsening respiratory obstruction from prior visits. neck is nontender, difficult to palpate landmarks, no masses Objective Labs Result Diagrams: 12/16/17 05:44 12/16/17 05:44 Labs: Laboratory Results - last 24 hr 12/16/17 12/16/17 05:44 05:44 WBC 10.1 RBC 5.19 Hgb 17.5 H Hct 52.2 H MCV 100.8 H MCH 33.7 MCHC 33.5 RDW 13.9 Plt Count 237 Neut % (Auto) 70.4 Lymph % (Auto) 21.2 L [place] % (Auto) 7.6 Eos % (Auto) 0.7 L Baso % (Auto) 0.1 Neut # (Auto) 7100 H Sodium 141 Potassium 4.5 Chloride 93 L Carbon Dioxide 38 H BUN 31 H Creatinine 0.50 L Estimated GFR > 60.0 BUN/Creatinine Ratio 62.0 H Glucose 198 H D Calcium 9.7 Magnesium 2.3 Assessment & Plan (1) Airway obstruction: Current visit: Yes Status: Acute (2) Hoarseness: Current visit: Yes Status: Acute Plan: Assessment/Plan Narrative: as discussed over 30 minutes with the patient, sister, site planner, nurse, and intermittently with the hospitalist Dr. Lloyd, the patient is at this point unwilling to pursue tracheostomy unless it becomes urgently necessary. I discussed in detail the material risks, benefits, complications , alternatives to tracheostomy, including the possibility of acute airway obstruction and even if not pursued. she voiced understanding that my recommendation was to pursue tracheotomy electively to most definitively secure her airway. after discussing multiple options, she may be interested in discharge to a chcf facility if cleared despite the obvious airway concerns. we hope she would be able to be evaluated as an outpatient by a dedicated registered health nurse for video stroboscopy and discussion of other/ additional surgical options to improve her airway in the short and long-term. 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 At the completion of the discussion, the patient and sister were going to come to a decision, and possible suitable chcf facilities were being further investigated, if discharge home in the near future was not felt to be in her best interest. The patient and family as well as care team were encouraged to call me with any questions and if I may be of any further assistance. [facility] Quality VTE Deep Vein Thrombosis/Pulmonary Embolism Present on Admission: No
[2017-12-16] MEDS: ATORVASTATIN 20 MG TABLET 40 MG PO (22:42)
[2017-12-17 03:40] VITALS: BP 138/65; PULSE 74; RESP 19; TEMP 36.3; O2SAT 89
[2017-12-17] MEDS: INSULIN GLARGINE 100 UNIT/ML 3ML PEN 50 UNIT SUBCUT (03:42)
[2017-12-17] MEDS: INSULIN ASPART 100 UNIT/ML INSULN PEN SUBCUT (06:43)
[2017-12-17 07:45] VITALS: BP 121/59; PULSE 85; RESP 22; TEMP 36.6; O2SAT 91
--- NOTE | 2017-12-17 08:43 | CM.DPC ---
DCP: continued: EMR reviewed and completed d/c to snf orders are completed as per plan with Dr. Franklin. He is now off service. Checked in with pt to confirm d/c details. Pt and her sister have been packing up the room and pt says she is eager to go today to [email or web address] [facility]. Her sister will be settling her into [employer] and is home getting clothing etc. Erika/[facility] is updated. Has van set up and Lata will be here at 1100 as planned and with o2. POLST copy goes to snf. Green copy to either pt or her sister as she will need this when she goes home. Will facilitate. DEE Wood is updated and calling report now to Erika as there may be some need for clarity re the insulin orders. P: Tiffanie [place] today as per above.
[2017-12-17] MEDS: ENOXAPARIN 40 MG/0.4 ML SYRINGE SUBCUT (09:07)
[2017-12-17] MEDS: DEXAMETHASONE 4 MG/ML VIAL 2 MG IV (09:07)
[2017-12-17] MEDS: NICOTINE 21 MG PATCH TOP (09:07)
[2017-12-17] MEDS: ASPIRIN 81 MG TAB 324 MG PO (09:08)
[2017-12-17] MEDS: LISINOPRIL 20 MG TABLET PO (09:09)
[2017-12-17] MEDS: SODIUM CHLORIDE 0.9% FLUSH 10 ML IV (09:09)
[2017-12-17 09:18] VITALS: O2SAT 92
[2017-12-17 09:19] VITALS: O2SAT 85
--- NOTE | 2017-12-17 09:59 | OT.IP.TRT ---
Current Diagnoses Type 1 diabetes mellitus with ketoacidosis with coma (11/28/17) Other specified diabetes mellitus with ketoacidosis without coma (11/28/17) Hyperosmolality and hypernatremia (11/28/17) Hypokalemia (11/28/17) Respiratory failure, unspecified, unspecified whether with hypoxia or hypercapnia (11/28/17) Other specified respiratory disorders (11/28/17) Dysphagia, unspecified (11/28/17) Dysphonia (11/28/17) Surgery Performed Operation Date: 12/08/17 11:45 Actual Procedures p Peg Tube Insertion(Not Applicable) - Rosalio Nevarez MD Occupational Therapy Treatment Note M3 OT- IP Subjective and Pain Start: 12/03/17 13:08 Freq: Status: Active Protocol: Document 12/17/17 09:59 PJM (Rec: 12/17/17 14:56 PJM [id number]) OT- Subjective Occupational Therapy Visit Type Type Treatment Note Visit Start Time 09:40 Visit Stop Time 09:59 Total Visit Minutes 19 Notes Pt's sister here and brought street clothes for pt. Occupational Therapy Visit Comments Patient Comments It feels good to have regular clothes on. It's been a long time. Patient/Caregiver Goals to get stronger and go home; be able to eat and speak out loud OT Pain Assessment Pain When Pain Assessed After Treatment Pain Present Pain Present Denied Pain M4 OT- IP ADL's Start: 12/03/17 13:08 Freq: Status: Active Protocol: Document 12/17/17 09:59 PJM (Rec: 12/17/17 14:56 PJM [id number]) OT [id number] General Evaluation Diet Level for Self-Feeding NPO due to vocal fold paralysis OT ADL-Grooming General Evaluation Grooming Ability Standby Assistance Areas Needing Assistance Retrieving/Set-up of Grooming Items Comments OT Grooming Comments seated in chair by pt report OT ADL-Oral Care General Eval Oral Care Ability Standby Assistance Devices Oral Care Devices Sponge/Foam Tipped Swab Comments Oral Care Comments pt swabs mouth OT ADL-Dressing General Eval Upper Body Dressing Ability Standby Assistance Lower Body Dressing Ability Standby Assistance Areas Needing Assistance Retrieving/Set-up of Clothing Pull-Over Shirt Underpants/Brief Pants/Shorts Socks Comments OT Dressing Comments pt able to don knee high light compression hose seated EOB M7 OT- IP Mobility and Balance Start: 12/03/17 13:08 Freq: Status: Active Protocol: Document 12/17/17 09:59 PJM (Rec: 12/17/17 14:56 PJ [id number]) OT- Bed Mobility Assessment Rolling Type of Rolling Roll to Right Level of Assistance Standby Assistance Supine to Sit Supine to Sit Assist Standby Assistance Head of Bed Elevated Bedrails Scooting Scooting to Edge of Bed Independent OT-Transfer Assessment Sit to and From Stand Sit to and from Stand Standby Assistance Transfers Transfer Ability Standby Assistance Technique Transfer Destination Chair Transfer Technique Stand Step Pivot Devices Transfer Assistive Devices Gait Belt Front Wheeled Walker OT- Balance Assessment Sitting Balance and Reactions Static Sitting Balance Ability Good Dynamic Sitting Balance Ability Good Standing Balance and Reactions Static Standing Balance Ability Good Dynamic Standing Balance Ability Fair Comments Other Balance Tests/Deviations/Treatment when standing to pull pants : over hips M9 OT- IP Assessment and Plan Start: 12/03/17 13:08 Freq: Status: Active Protocol: Document 12/17/17 09:59 PJM (Rec: 12/17/17 14:56 PJ [id number]) OT Summary Assessment and Plan Potential Rehabilitation Potential Good Summary OT Impairments Strength Balance Functional Cognition Functional Mobility Bathing Shower Transfers Progress Towards Goals Progressing Toward Goals Assessment Summary Pt making good progress with self care tasks, but still significantly below her baseline level of function. Pt ready to progress to daily dressing in street clothes, showering and light IADLS with emphasis on energy conservation, pacing and functional cognition. Pt to d/ c to rehab facility today. Frequency of Treatment Frequency Of Treatment Discharge Discharge Recommendations OT Discharge Recommendations SNF Rehab Other Discharge Recommendations continue rehab services at SNF Home Equipment Needs to be determined in next rehab setting
--- NOTE | 2017-12-17 11:26 | PC.NURSE ---
Pt just discharged to [facility] and report called. BS 106 and rechecked a few minutes later and bs 113. Picc line taken out and cath tip intact. Pt did say she felt like her bs had dropped but after checking it and it being 106 and 113 pt stated that she felt fine. She did have her glasses on and stated that her eyes felt funny and this could be a sign of hypoglycemia. She states that she has only wore her glasses about 2 times in the last month. Pt just left via wheel chair. Paperwork given to guard driver and another man also driving with promotions team leader. Pt gets car sick at times, Emesis bag brought with patient. Tube feeds set up for patient at [facility] already and she states that it will be started as soon as pt gets in the door.
--- NOTE | 2017-12-17 16:49 | PM.DS.1 ---
History of Present Illness Chief complaint: Unresponsive Discharge Providers Date of admission: 11/28/17 21:58 Primary care physician: Gayle Decker PA-C Consults: 11/29/17 00:00 Consult to Dietitian, Adult Routine Comment: Reason For Exam: Patient on Ventilator and NPO 11/30/17 19:48 Consult to Dietitian, Adult Routine Comment: Reason For Exam: tube feed recommendations. still on ventilator. 12/08/17 15:03 Consult to Dietitian, Adult Routine Comment: Reason For Exam: tube feed Consult to Occupational Therapy Evaluate & Treat Comment: Physician Instructions: Evaluate and treat Consult to Physical Therapy Evaluate & Treat Comment: Physician Instructions: Evaluate and Treat Consult to Speech Therapy Evaluate & Treat Comment: Physician Instructions: Evaluate and treat 12/15/17 13:28 Consult to Physician Routine Comment: Consulting Provider: Tod Navarro Reason for consultation: Stridor Has provider been notified: Yes Discharge provider: Geoffrey Ayala MD Summary Discharge Diagnosis: 1Diabetic Complication Ketoacidosis at admission 2COMA 3 ACUTE RESPIRATORY FAILURE 4. 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 VOCAL CORD NODULES DUE TO PERSISTENT SMOKING Hospital Course: HAD THIS UNFORTUNATE LADY WAS ADMITTED FOLLOWING BEING FOUND DOWN FOR OVER 24-48 HOURS BY HER SISTER IS FOUND TO BE IN DIABETIC KETOACIDOSIS WAS COMATOSE AND TO BE INTUBATED AT THAT THE FIELD AND SHE WAS ON MECHANICAL VENTILATORY SUPPORT SHE WAS EXTUBATED AND HAD TO BE REINTUBATED THE 2ND TIME AND SHE WAS EXTUBATED SHE STARTED DEVELOPING STRIDOR ENT CONSULTATION AND REVEALED NON MOVEMENT OF THE VOCAL CORDS AND EDEMA AROUND THE VOCAL CORD INCLUDING THE NODULES SHE WAS TREATED WITH DEXAMETHASONE TAPERING DOSE AND THAT HAS BEEN DISCONTINUED AT THE TIME OF DISCHARGE ENT SURGEON DR. MARK PERSAUD IS RE-EVALUATED ON AT LEAST 3 OCCASIONS DURING HIS HOSPITAL STAY THE AIRWAY SOMEWHAT TENUOUS HE DID RECOMMEND TRACHEOSTOMY TO THE PATIENT BUT THE PATIENT HAS REFUSED TRACHEOSTOMY DR. PERSAUD RECOMMENDED A REFERRAL TO [facility] [place] THERE IS A DANGER FOR ACUTE OBSTRUCTION OF THE AIRWAYS PATIENT IS WELL AWARE OF THAT AND SHE DID NOT WANT A TRACHEOSTOMY DESPITE THAT POSSIBILITY SHE ALSO HAS DYSPHAGIA AND SO IS ON TUBE FEEDING GENERAL SURGEON PUT IN THE MED AND GASTROSTOMY TUBE AND SHE CAN'T DIABETIC FEED CONTINUE TO MANAGE HER DIABETES WITH INSULIN BOTH BASAL AND BOLUS HE REQUIRES 2 L OF OXYGEN BY NASAL CANNULA HER SPEECH IS HOARSE Time Spent with Patient Greater than 30 minutes Exam Vital Signs (past 8 hours): - 12/17/17 09:18 12/17/17 09:19 Pulse Oximetry 92 85 L Fraction of Inspired Oxygen 28 Oxygen Delivery Method Room Air Oxygen Flow Rate 0 Objective Labs Result Diagrams: 12/16/17 05:44 12/16/17 05:44 Discharge Plan Discharge Plan Patient Disposition: SNF Transfer to: [facility] Under care of provider: need appt with Dr. Duncan ENT in [place] as out patient [phone] Transportation: Ambulance Discharge comment: Getting discharged with DNR/DNI orders and arragements made by for outpatient follow up with ENT with Dr. Pratik Duncan in [place] . I certify the postop hospital prison care is medically necessary on a continuing basis for any conditions for which he/ she received care during this hospitalization.: Yes The receiving facility has agreed to accept transfer and provide medical treatment.: Yes Provider Discharge Instructions Diet: Tube Feeding [facility] Rehab type: Physical therapy, Occupational therapy and Speech therapy Discharge Data Primary Care Provider: Gayle Decker Attending Provider: Tod Heath Admit Date/Time: 11/28/17 21:58 Discharges patient from system. Discharge Date/Time: 12/17/17 11:30 Quality VTE Deep Vein Thrombosis/Pulmonary Embolism Present on Admission: No
--- NOTE | 2017-12-17 16:55 | P.DS_ITS ---
History of Present Illness Chief complaint: Unresponsive Discharge Providers Date of admission: 11/28/17 21:58 Primary care physician: Gayle Decker PA-C Consults: 11/29/17 00:00 Consult to Dietitian, Adult Routine Comment: Reason For Exam: Patient on Ventilator and NPO 11/30/17 19:48 Consult to Dietitian, Adult Routine Comment: Reason For Exam: tube feed recommendations. still on ventilator. 12/08/17 15:03 Consult to Dietitian, Adult Routine Comment: Reason For Exam: tube feed Consult to Occupational Therapy Evaluate & Treat Comment: Physician Instructions: Evaluate and treat Consult to Physical Therapy Evaluate & Treat Comment: Physician Instructions: Evaluate and Treat Consult to Speech Therapy Evaluate & Treat Comment: Physician Instructions: Evaluate and treat 12/15/17 13:28 Consult to Physician Routine Comment: Consulting Provider: Tod Navarro Reason for consultation: Stridor Has provider been notified: Yes Discharge provider: Geoffrey Ayala MD Summary Discharge Diagnosis: 1Diabetic Complication Ketoacidosis at admission 2COMA 3 ACUTE RESPIRATORY FAILURE 4. 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 VOCAL CORD NODULES DUE TO PERSISTENT SMOKING Hospital Course: HAD THIS UNFORTUNATE LADY WAS ADMITTED FOLLOWING BEING FOUND DOWN FOR OVER 24-48 HOURS BY HER SISTER IS FOUND TO BE IN DIABETIC KETOACIDOSIS WAS COMATOSE AND TO BE INTUBATED AT THAT THE FIELD AND SHE WAS ON MECHANICAL VENTILATORY SUPPORT SHE WAS EXTUBATED AND HAD TO BE REINTUBATED THE 2ND TIME AND SHE WAS EXTUBATED SHE STARTED DEVELOPING STRIDOR ENT CONSULTATION AND REVEALED NON MOVEMENT OF THE VOCAL CORDS AND EDEMA AROUND THE VOCAL CORD INCLUDING THE NODULES SHE WAS TREATED WITH DEXAMETHASONE TAPERING DOSE AND THAT HAS BEEN DISCONTINUED AT THE TIME OF DISCHARGE ENT SURGEON DR. MARK PERSAUD IS RE-EVALUATED ON AT LEAST 3 OCCASIONS DURING HIS HOSPITAL STAY THE AIRWAY SOMEWHAT TENUOUS HE DID RECOMMEND TRACHEOSTOMY TO THE PATIENT BUT THE PATIENT HAS REFUSED TRACHEOSTOMY DR. PERSAUD RECOMMENDED A REFERRAL TO SPECIALIST LOCAL [facility] TR[facility] DRIVER IN [place] THERE IS A DANGER FOR ACUTE OBSTRUCTION OF THE AIRWAYS PATIENT IS WELL AWARE OF THAT AND SHE DID NOT WANT A TRACHEOSTOMY DESPITE THAT POSSIBILITY SHE ALSO HAS DYSPHAGIA AND SO IS ON TUBE FEEDING GENERAL SURGEON PUT IN THE MED AND GASTROSTOMY TUBE AND SHE CAN'T DIABETIC FEED CONTINUE TO MANAGE HER DIABETES WITH INSULIN BOTH BASAL AND BOLUS HE REQUIRES 2 L OF OXYGEN BY NASAL CANNULA HER SPEECH IS HOARSE Time Spent with Patient Greater than 30 minutes Exam Vital Signs (past 8 hours): - 12/17/17 09:18 12/17/17 09:19 Pulse Oximetry 92 85 L Fraction of Inspired Oxygen 28 Oxygen Delivery Method Room Air Oxygen Flow Rate 0 Objective Labs Result Diagrams: 12/16/17 05:44 12/16/17 05:44 Discharge Plan Discharge Plan Patient Disposition: SNF Transfer to: [facility] Under care of provider: need appt with Dr. Duncan ENT in [place] as out patient [phone] Transportation: Ambulance Discharge comment: Getting discharged with DNR/DNI orders and arragements made by for outpatient follow up with ENT with Dr. Pratik Duncan in [place] . I certify the postop hospital senior care care is medically necessary on a continuing basis for any conditions for which he/ she received care during this hospitalization.: Yes The receiving facility has agreed to accept transfer and provide medical treatment.: Yes Provider Discharge Instructions Diet: Tube Feeding Special Rehabilitation Services Rehab type: Physical therapy, Occupational therapy and Speech therapy Discharge Data Primary Care Provider: Gayle Decker Attending Provider: Tod Heath Admit Date/Time: 11/28/17 21:58 Discharges patient from system. Discharge Date/Time: 12/17/17 11:30 Quality VTE Deep Vein Thrombosis/Pulmonary Embolism Present on Admission: No
--- NOTE | 2017-12-17 17:08 | P.DS_ITS ---
History of Present Illness Chief complaint: Unresponsive Discharge Providers Date of admission: 11/28/17 21:58 Primary care physician: Gayle Decker PA-C Consults: 11/29/17 00:00 Consult to Dietitian, Adult Routine Comment: Reason For Exam: Patient on Ventilator and NPO 11/30/17 19:48 Consult to Dietitian, Adult Routine Comment: Reason For Exam: tube feed recommendations. still on ventilator. 12/08/17 15:03 Consult to Dietitian, Adult Routine Comment: Reason For Exam: tube feed Consult to Occupational Therapy Evaluate & Treat Comment: Physician Instructions: Evaluate and treat Consult to Physical Therapy Evaluate & Treat Comment: Physician Instructions: Evaluate and Treat Consult to Speech Therapy Evaluate & Treat Comment: Physician Instructions: Evaluate and treat 12/15/17 13:28 Consult to Physician Routine Comment: Consulting Provider: Tod Navarro Reason for consultation: Stridor Has provider been notified: Yes Discharge provider: Geoffrey Ayala MD Exam Vital Signs (past 8 hours): - 12/17/17 09:18 12/17/17 09:19 Pulse Oximetry 92 85 L Fraction of Inspired Oxygen 28 Oxygen Delivery Method Room Air Oxygen Flow Rate 0 Const General: cooperative, healthy appearing and comfortable HENPA Head: normal to inspection, normocephalic and atraumatic Ears: hearing grossly normal bilaterally Nose: external nose normal Face and sinus: normal facial exam Eyes General: appearance normal, both eyes and all related structures Eyelids: eyelids normal Conjunctivae: conjunctivae normal Sclera: sclerae normal Pupils: PERRL EOM: EOM intact bilaterally Neck Neck: normal visual inspection Resp Effort & Inspection: normal respiratory effort and stridor Auscultation: clear to auscultation bilaterally Cardio Rate: regular rate Rhythm: regular rhythm Heart Sounds: S1 normal and S2 normal GI Inspection: normal to inspection Palpation: soft and no hepatosplenomegaly Skin General: no rashes or lesions noted Neuro General: alert, awake, oriented x3 and no meningeal signs Cranial Nerves: CN's II-XI intact bilaterally Cognition: normal cognition Speech: abnormal speech (HOARSE VOICE ) Extrem Other: nil edema Psych Appearance: grossly normal Mood: congruent mood Affect: normal affect Attitude: cooperative Thought Process: normal Thought Content: normal Judgment: judgment good Objective Labs Result Diagrams: 12/16/17 05:44 12/16/17 05:44 Discharge Plan Discharge Plan Patient Disposition: SNF Transfer to: [facility] Under care of provider: moo appt with Dr. Duncan ENT in [place] as out patient [phone] Transportation: Ambulance Discharge comment: Getting discharged with DNR/DNI orders and arragements made by RUFINO for outpatient follow up with ENT with Dr. Pratik Duncan in [place] . I certify the postop hospital prison care is medically necessary on a continuing basis for any conditions for which he/ she received care during this hospitalization.: Yes The receiving facility has agreed to accept transfer and provide medical treatment.: Yes Provider Discharge Instructions Diet: Tube Feeding Oxygen: 2l nc Special Rehabilitation Services Rehab type: Physical therapy, Occupational therapy and Speech therapy Discharge Data Primary Care Provider: Gayle Decker Attending Provider: Tod Heath Admit Date/Time: 11/28/17 21:58 Discharges patient from system. Discharge Date/Time: 12/17/17 11:30 Quality VTE Deep Vein Thrombosis/Pulmonary Embolism Present on Admission: No
== END 2017-12-17 11:30 | DRG 637 ==
LOC: ED 20:04 → ICU 22:00 → AC 12-07 14:33
PROVIDERS: Hospitalist; Internal Medicine; Specialist; Admitting Provider Internal Medicine; Emergency Provider Emergency Medicine; Family Provider Physician Assistant; PCP Physician Assistant; Visit Provider Internal Medicine
PROC: 0DH63UZ Insertion of Feeding Device into Stomach, Percutaneous Approach (ICD-10-PCS; CPT 43246; principal; 2017-12-08 11:45)
DX: E10.11 Type 1 diabetes mellitus with ketoacidosis with coma (principal); J96.01 Acute respiratory failure with hypoxia; R09.2 Respiratory arrest; L97.821 Non-pressure chronic ulcer of other part of left lower leg limited to breakdown of skin; E87.0 Hyperosmolality and hypernatremia; E10.69 Type 1 diabetes mellitus with other specified complication; E10.51 Type 1 diabetes mellitus with diabetic peripheral angiopathy without gangrene; Z79.4 Long term (current) use of insulin; I10 Essential (primary) hypertension; E78.5 Hyperlipidemia, unspecified; G47.30 Sleep apnea, unspecified; F17.210 Nicotine dependence, cigarettes, uncomplicated; J38.00 Paralysis of vocal cords and larynx, unspecified; R13.10 Dysphagia, unspecified; J38.4 Edema of larynx; J38.1 Polyp of vocal cord and larynx; J98.8 Other specified respiratory disorders; E87.6 Hypokalemia; F10.20 Alcohol dependence, uncomplicated; T38.0X5A Adverse effect of glucocorticoids and synthetic analogues, initial encounter; Y92.230 Patient room in hospital as the place of occurrence of the external cause; E10.622 Type 1 diabetes mellitus with other skin ulcer; Z66 Do not resuscitate
CPT/HCPCS: 31500; 36415; 36569; 36592; 36600; 43246; 51701; 70450; 70544; 70551; 71045; 71046; 71260; 74230; 76001; 80048; 80053; 80305; 80320; 81001; 82009; 82550; 82553; 82805; 82962; 83605; 83735; 83880; 84145; 84443; 84484; 85025; 85610; 85730; 87040; 87070; 87075; 87077; 87147; 87186; 87205; 87797; 92526; 92610; 92611; 93005; 93010; 94002; 94003; 94640; 94760; 94762; 94770; 94799; 96361; 96374; 96375; 96376; 97110; 97116; 97127; 97161; 97166; 97530; 97535; 99152; 99222; 99285; 99291; 99292; C9113; J0330; J0690; J1100; J1170; J1642; J1650; J1940; J2060; J2250; J2270; J2704; J2920; J2930; J3010; J3480; J7050; Q9967

== ENCOUNTER 2017-12-18 15:57 | Emergency (ER) | payer MEDICARE, OTHER, SELFPAY ==
[2017-11-30 14:08] VITALS: BMI 34.5
[2017-12-01 09:50] VITALS: PULSE 79; RESP 18; O2SAT 100
[2017-12-18] VITALS (8 sets, daily range): BP systolic 70–107; BP diastolic 45–59; PULSE 72–84; RESP 14–20; TEMP 36.7; O2SAT 95–99
--- NOTE | 2017-12-18 16:24 | ED.WEAKNESS ---
HPI - Weakness General Chief complaint: Weakness Stated complaint: Low BP Time Seen by Provider: 12/18/17 16:11 Source: patient Mode of arrival: EMS Limitations: no limitations History of Present Illness HPI Narrative: Patient is a 67-year-old female just discharged here from the emergency department after she was admitted for an extended period of time with diabetic ketoacidosis/coma. Patient spent a significant period of time intubated and then had issues afterwards. There was report that prior to her discharge there was discussion about whether not the patient needed a trach. This was not done because the patient declined this. She does have a G-tube in place. She just came to [facility] today and when she received a feeding through her G-tube there was concern that the patient had a sudden onset of respiratory distress and then became hypotensive. We received a call from the nurse practitioner there are that the patient was now willing to accept a trach. Patient arrived by EMS. Related Data Home Medications Medication Instructions Recorded Confirmed insulin aspart U-100 1 dose SUB-Q DIRECTED 10/17/17 12/18/17 Previous Rx's Medication Instructions Recorded aspirin 325 mg FEEDING TUBE QDAY #0 tab 12/16/17 atorvastatin [Lipitor] 40 mg FEEDING TUBE QDAY #0 tab 12/16/17 cilostazol 50 mg FEEDING TUBE QDAY #0 tab 12/16/17 furosemide 20 mg FEEDING TUBE PRN PRN #0 tab 12/16/17 insulin detemir U-100 [Levemir 50 unit SUB-Q QPM #0 ml 12/16/17 FlexTouch U-100 Insuln] lisinopril 20 mg PO DAILY #0 tab 12/16/17 Allergies Allergy/AdvReac Type Severity Reaction Status Date / Time adhesive [ADHESIVE] Allergy Intermediate RASH, Verified 12/18/17 16:12 ITCHING, TEARS SKIN Latex, Natural Rubber Allergy Intermediate RASH, Verified 12/18/17 16:12 [LATEX, NATURAL RUBBER] ITCHING Penicillins [PENICILLINS] Allergy Intermediate EXTREME Verified 12/18/17 16:12 HEADACHES Review of Systems Constitutional Denies fever(s), Denies lethargy and Denies malaise ENT Ears, Nose, Mouth, and Throat: Denies vertigo and Denies dizziness Cardiovascular Denies chest pain and Denies dyspnea Respiratory Reports cough and Denies dyspnea Gastrointestinal Gastrointestinal: Denies nausea and Denies vomiting Comments: Possible aspiration after G-tube feeding Genitourinary Denies dysuria Musculoskeletal Denies back pain Integumentary/Breasts Denies lesions and Denies rash Neurologic Denies vertigo and Denies dizziness Psychiatric Denies anxiety Hematologic/Lymphatic Denies easy bleeding and Denies easy bruising [facility] Medical History 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, managed as type 1 (Acute) Hyperlipidemia (Acute) Peripheral vascular disease (Acute) Sleep apnea in adult (Acute) Surgical History Status post femoral-popliteal bypass surgery (Acute) Status post insertion of percutaneous endoscopic gastrostomy (PEG) tube (Acute) History of cholecystectomy (Resolved) Family History Father Diabetes mellitus Coronary artery disease Mother Coronary artery disease Diabetes mellitus Social History household members: none Smoking Status: Current every day smoker alcohol intake: current Exam Initial Vital Signs Initial Vital Signs: Vital Signs Temperature 98.0 F 12/18/17 16:12 Pulse Rate 84 12/18/17 16:12 Respiratory Rate 18 12/18/17 16:12 Blood Pressure 77/58 L 12/18/17 16:12 Pulse Oximetry 99 12/18/17 16:12 Const General: cooperative, healthy appearing, comfortable, well developed, well groomed and No acute distress Orientation: alert, awake and oriented x3 HENMT Head: normal to inspection and normocephalic Resp Effort & Inspection: normal respiratory effort Auscultation: clear to auscultation bilaterally Other: On nasal cannula at baseline Cardio Rate: regular rate Rhythm: regular rhythm Pulses: radial pulses not present GI Inspection: non-distended Palpation: soft, No firm and No guarding Other: G-tube in place Skin Lesions: no lesions Rashes: no rashes Neuro General: alert, awake and oriented x3 Cognition: normal cognition Speech: speech normal Extrem General: normal to inspection and No edema Psych Appearance: grossly normal and well kempt Course Orders Ordered: ED Orders 12/18/17 16:23 XR chest 1V Stat EKG-12 Lead Stat 12/18/17 16:25 B Type Natriuretic Peptide Stat Complete Blood Count AUTO DIFF Stat Comprehensive Metabolic Panel Stat Lactate (Lactic Acid) Stat Partial Thromboplastin Time Stat Procalcitonin Stat Prothrombin Time INR Stat Troponin I Stat Urine Culture Stat Urine Microscopic Stat 12/18/17 17:13 Ammonia (NH3) Stat Blood Culture Stat Discontinued Medications Sodium Chloride (Normal Saline 0.9%) 1,000 mls @ 1,000 mls/hr IV BOLUS ONE Stop: 12/18/17 17:21 Last Infusion: 12/18/17 17:31 Dose: 0 mls/hr Admin: 12/18/17 16:29 Dose: 1,000 mls/hr Vital Signs - 8 hr 12/18/17 16:12 12/18/17 16:21 12/18/17 16:32 Temperature 98.0 F Pulse Rate 84 84 83 Respiratory Rate 18 20 17 Blood Pressure 77/58 L Blood Pressure [Left Arm] 84/49 L 83/59 L Pulse Oximetry 99 95 96 12/18/17 16:46 12/18/17 17:44 12/18/17 18:07 Temperature Pulse Rate 79 73 72 Respiratory Rate 18 15 Blood Pressure Blood Pressure [Left Arm] 70/45 L 99/56 L 107/51 L Pulse Oximetry 95 12/18/17 18:34 12/18/17 18:42 Temperature Pulse Rate 79 80 Respiratory Rate 15 14 Blood Pressure Blood Pressure [Left Arm] 81/56 L 88/50 L Pulse Oximetry 96 96 MDM - Weakness Medical Records Attestation: I reviewed the patient's medical records. Lab Data Attestation: I reviewed the patient's lab results. Result diagrams: 12/18/17 16:25 12/18/17 16:25 Lab Results 12/18/17 12/18/17 12/18/17 Range/Units 16:25 16:25 16:25 WBC 10.5 (4.5-11.0) X10^3/uL RBC 4.94 (4.0-5.2) X10^6/uL Hgb 16.6 H (12.0-16.0) g/dL Hct 48.8 H (36-46) % MCV 98.8 (80-100) fL MCH 33.6 (26-34) PG MCHC 34.0 (30-36) % RDW 13.8 (11.6-14.8) % Plt Count 208 (150-400) X10^3/uL Neut % (Auto) 70.7 (50-75) % Lymph % (Auto) 20.5 L (25-40) % [place] % (Auto) 7.6 (3-14) % Eos % (Auto) 0.6 L (2-4) % Baso % (Auto) 0.6 (0-2) % Neut # (Auto) 7400 H (0496-3831) /uL PT 11.4 (10.1-12.7) SECONDS INR 1.1 (0.9-1.3) APTT 23 L D (26.4-36.2) SECONDS Sodium 138 (137-145) mmol/L Potassium 4.4 (3.4-5.1) mmol/L Chloride 93 L (98-107) mmol/L Carbon Dioxide 39 H (22-32) mmol/L BUN 29 H (7-17) mg/dL Creatinine 0.70 (0.52-1.04) mg/dL Estimated GFR > 60.0 (>60) mL/min BUN/Creatinine Ratio 41.4 H (6-22) Glucose 109 (80-110) mg/dL Lactate (0.7-2.1) mmol/L Calcium 9.3 (8.4-10.2) mg/dL Total Bilirubin 0.9 (0.2-1.3) mg/dL AST 21 (14-36) IU/L ALT 26 (9-52) IU/L Alkaline Phosphatase 79 (38-126) U/L Ammonia (9-30) umol/L Troponin I 0.018 (0.01-0.034) ng/mL B-Natriuretic Peptide < 29.4 (<100) Total Protein 6.5 (6.3-8.2) g/dL Albumin 3.5 (3.5-5.0) g/dL Globulin 3.0 (1.7-4.1) g/dL Albumin/Globulin Ratio 1.2 (1.0-2.8) Procalcitonin (<0.5) ng/mL Urine RBC (0-5/HPF) Urine WBC (0-5/HPF) Ur Squamous Epith Cells Amorphous Sediment Urine Bacteria (None) Ur Culture Indicated? Micro UA Comment 12/18/17 12/18/17 12/18/17 Range/Units 16:25 16:25 16:25 WBC (4.5-11.0) X10^3/uL RBC (4.0-5.2) X10^6/uL Hgb (12.0-16.0) g/dL Hct (36-46) % MCV (80-100) fL MCH (26-34) PG MCHC (30-36) % RDW (11.6-14.8) % Plt Count (150-400) X10^3/uL Neut % (Auto) (50-75) % Lymph % (Auto) (25-40) % [place] % (Auto) (3-14) % Eos % (Auto) (2-4) % Baso % (Auto) (0-2) % Neut # (Auto) (5973-4421) /uL PT (10.1-12.7) SECONDS INR (0.9-1.3) APTT (26.4-36.2) SECONDS Sodium (137-145) mmol/L Potassium (3.4-5.1) mmol/L Chloride (98-107) mmol/L Carbon Dioxide (22-32) mmol/L BUN (7-17) mg/dL Creatinine (0.52-1.04) mg/dL Estimated GFR (>60) mL/min BUN/Creatinine Ratio (6-22) Glucose (80-110) mg/dL Lactate 1.3 (0.7-2.1) mmol/L Calcium (8.4-10.2) mg/dL Total Bilirubin (0.2-1.3) mg/dL AST (14-36) IU/L ALT (9-52) IU/L Alkaline Phosphatase (38-126) U/L Ammonia (9-30) umol/L Troponin I (0.01-0.034) ng/mL B-Natriuretic Peptide (<100) Total Protein (6.3-8.2) g/dL Albumin (3.5-5.0) g/dL Globulin (1.7-4.1) g/dL Albumin/Globulin Ratio (1.0-2.8) Procalcitonin < 0.05 (<0.5) ng/mL Urine RBC 0-1/hpf (0-5/HPF) Urine WBC 0-1/hpf (0-5/HPF) Ur Squamous Epith Cells 0-1 /hpf Amorphous Sediment 1+ Urine Bacteria Occasional (0-1) (None) Ur Culture Indicated? Specimen cultured Micro UA Comment Not Reportable 12/18/17 Range/Units 17:13 WBC (4.5-11.0) X10^3/uL RBC (4.0-5.2) X10^6/uL Hgb (12.0-16.0) g/dL Hct (36-46) % MCV (80-100) fL MCH (26-34) PG MCHC (30-36) % RDW (11.6-14.8) % Plt Count (150-400) X10^3/uL Neut % (Auto) (50-75) % Lymph % (Auto) (25-40) % [place] % (Auto) (3-14) % Eos % (Auto) (2-4) % Baso % (Auto) (0-2) % Neut # (Auto) (3293-4213) /uL PT (10.1-12.7) SECONDS INR (0.9-1.3) APTT (26.4-36.2) SECONDS Sodium (137-145) mmol/L Potassium (3.4-5.1) mmol/L Chloride (98-107) mmol/L Carbon Dioxide (22-32) mmol/L BUN (7-17) mg/dL Creatinine (0.52-1.04) mg/dL Estimated GFR (>60) mL/min BUN/Creatinine Ratio (6-22) Glucose (80-110) mg/dL Lactate (0.7-2.1) mmol/L Calcium (8.4-10.2) mg/dL Total Bilirubin (0.2-1.3) mg/dL AST (14-36) IU/L ALT (9-52) IU/L Alkaline Phosphatase (38-126) U/L Ammonia < 9.0 L (9-30) umol/L Troponin I (0.01-0.034) ng/mL B-Natriuretic Peptide (<100) Total Protein (6.3-8.2) g/dL Albumin (3.5-5.0) g/dL Globulin (1.7-4.1) g/dL Albumin/Globulin Ratio (1.0-2.8) Procalcitonin (<0.5) ng/mL Urine RBC (0-5/HPF) Urine WBC (0-5/HPF) Ur Squamous Epith Cells Amorphous Sediment Urine Bacteria (None) Ur Culture Indicated? Micro UA Comment Imaging Data Chest x-ray: Radiologist's impression: [address] [address] XRay Report Signed Patient: Carisa Vera LMR#: [id number] : 2Acct:[id number] Age/Sex: 67 / FDate of Service: 12/18/17 Loc: ED Accession Number: [id number] Procedure: XR chest 1V Ordering Provider: Kareem Pa D.O. PROCEDURE: XR CHEST 1V INDICATIONS: possible pneumonia TECHNIQUE: One view of the chest was acquired. COMPARISON: [facility], CT, CT CHEST W CON, 12/04/2017, 17:47. [facility], CR, XR CHEST 2V, 12/10/2017, 10:57. [facility], CR, XR CHEST 1V, 12/01/2017, 6:13. [facility], CR, XR CHEST 1V, 12/05/2017, 15:07. FINDINGS: Surgical changes and devices: None. Lungs and pleura: Left basilar scar or atelectasis. Lucency in the upper lung zone consistent with emphysema. No pleural effusions or pneumothorax. Mediastinum: Mediastinal contours appear normal. Heart size is normal. Prominent AP window related to prominent pulmonary outflow tract. Bones and chest wall: No suspicious bony lesions. Overlying soft tissues appear unremarkable. IMPRESSION: 1. No acute cardiopulmonary disease. 2. Left basilar scar or atelectasis. Dictated by: Stefanie Vences M.D. on 12/18/2017 at 16:45 Approved by: Stefanie Vences M.D. on 12/18/2017 at 16:48 ECG Data Attestation: I personally reviewed and interpreted this ECG as follows: Prior ECG tracings: not available for review Interpretation: Sinus rhythm Ventricular rate is 75 Normal axis Normal intervals Normal QRS Normal QTC No ST T wave changes MDM Narrative Medical decision making narrative: Patient was alert and oriented x3 upon arrival. Was not in respiratory distress. Has a normal lung exam. Is on her baseline oxygen by nasal cannula. She denies any chest pain. No abdominal pain. Had a systolic blood pressure in the 80s upon arrival but a mean arterial pressure in the low 60s. This improved to the 100 systolic after 1 L of normal saline. Chest x-ray shows no signs of aspiration pneumonia however if there was only a small amount that was aspirated at this could not show for a couple days. Patient is not expressing any signs or symptoms from the hypotension. Was neurologically intact. I feel that admission to the hospital is not warranted secondary to the fact the patient has no respiratory distress. Blood pressure improved and the fact that she was asymptomatic from this, is at her baseline nasal cannula oxygen. While here in the emergency department the patient expressed multiple times that she does not want a trach. Patient is mentating fine. Family was at bedside for these discussions. I discussed the case with the nurse practitioner at [facility]. We discussed the fact that she does not meet admission criteria currently. We did discuss that she was asymptomatic from her hypotension. Informed them that it may be prudent to have a discussion with GI or General surgery about changing the G-tube to a GJ tube. We also discussed smaller feedings over longer periods of time. Will discharge the patient back to the care facility. I discussed this with the patient and the family expressed understanding and agreement. The nurse practitioner accepts the patient back. Discharge Plan Departure Patient Disposition: Home Clinical Impression: Acute hypotension Instructions: DI for Aspiration Pneumonia Activity Restrictions/Additional Instructions: Recommend that you talk with your primary doctor about the indications of following up with the ear nose and throat providers and also the general surgeons to discuss other options for your G-tube. Return to the emergency department for any new or worsening symptoms. Continue all of your medications as directed. Prescriptions: No Action insulin aspart U-100 100 unit/mL insulin pen 1 dose Sub-Q DIRECTED RF: 0 atorvastatin [Lipitor] 10 MG tablet 40 mg Feeding Tube QDAY Qty: 0 RF: 0 aspirin 325 MG tablet 325 mg Feeding Tube QDAY Qty: 0 RF: 0 cilostazol 50 MG tablet 50 mg Feeding Tube QDAY Qty: 0 RF: 0 lisinopril 10 mg Tablet 20 mg PO DAILY Qty: 0 RF: 0 furosemide 20 mg tablet 20 mg Feeding Tube PRN PRN (Reason: Edema) Qty: 0 RF: 0 insulin detemir U-100 [Levemir FlexTouch U-100 Insuln] 100 unit/mL (3 mL) insulin pen 50 unit Sub-Q QPM Qty: 0 RF: 0
[2017-12-18] MEDS: SODIUM CHLORIDE 0.9% 1,000 ML 1000 ML IV (16:29)
[2017-12-18 16:39] LABS: Amorphous Sediment Urine 1+; Bacteria Urine Occasional (0-1); Culture Indicated Urine Specimen Cultured; RBC Urine 0-1/HPF (0-5/HPF); Squamous Epithelial Cell Urine 0-1 /HPF; WBC Urine 0-1/HPF (0-5/HPF)
[2017-12-18 16:41] LABS: Add Manual Diff / Slide Review NO; Basophils Percent Auto 0.6 % (0-2); Eosinophils Percent Auto 0.6 % (2-4); Hematocrit 48.8 % (36-46); Hemoglobin 16.6 g/dL (12.0-16.0); Lymphocytes Percent Auto 20.5 % (25-40); Mean Corpuscular Hemoglobin 33.6 PG (26-34); Mean Corpuscular Volume 98.8 fL (80-100); Monocytes Percent Auto 7.6 % (3-14); Neutrophils Absolute Auto 7400 /uL (3000-5900); Neutrophils Percent Auto 70.7 % (50-75); Platelet Count 208 X10^3/uL (150-400); Red Blood Cell Count 4.94 X10^6/uL (4.0-5.2); Red Cell Distribution Width 13.8 % (11.6-14.8); White Blood Cell Count 10.5 X10^3/uL (4.5-11.0)
[2017-12-18 16:44] LABS: INR 1.1 (0.9-1.3); Prothrombin Time 11.4 SECONDS (10.1-12.7)
[2017-12-18 16:47] LABS: PTT Partial Thromboplastin Tim 23 SECONDS (26.4-36.2)
[2017-12-18 16:50] LABS: Alanine Aminotransferase 26 IU/L (9-52); Albumin 3.5 g/dL (3.5-5.0); Albumin Globulin Ratio 1.2 (1.0-2.8); Alkaline Phosphatase 79 U/L (38-126); Aspartate Aminotransferase 21 IU/L (14-36); BUN Creatinine Ratio 41.4 (6-22); Bilirubin Total 0.9 mg/dL (0.2-1.3); Blood Urea Nitrogen 29 mg/dL (7-17); Calcium 9.3 mg/dL (8.4-10.2); Carbon Dioxide 39 mmol/L (22-32); Chloride 93 mmol/L (98-107); Estimated Glomerular Filt Rate > 60.0 mL/min (>60); Glucose 109 mg/dL (80-110); HEMOLYSIS 20 (0-50); Lactate (Lactic Acid) 1.3 mmol/L (0.7-2.1); Potassium 4.4 mmol/L (3.4-5.1); Sodium 138 mmol/L (137-145); Total Protein 6.5 g/dL (6.3-8.2)
[2017-12-18 17:02] LABS: B Type Natriuretic Peptide < 29.4 (<100); Troponin I 0.018 ng/mL (0.01-0.034)
[2017-12-18 17:05] LABS: Procalcitonin < 0.05 ng/mL (<0.5)
[2017-12-18 17:37] LABS: Ammonia (NH3) < 9.0 umol/L (9-30)
--- NOTE | 2017-12-18 18:20 | PC.NURSE ---
assisted pt to reclining chair for comfort.
== END 2017-12-18 19:45 | disposition home or self-care (01) ==
PROVIDERS: Nurse Practitioner Family; Emergency Provider Emergency Medicine; Family Provider Physician Assistant; PCP Physician Assistant
DX: I10 Essential (primary) hypertension (principal); R53.1 Weakness
CPT/HCPCS: 36591; 71045; 80053; 81003; 81015; 82140; 82962; 83605; 83880; 84145; 84484; 85025; 85610; 85730; 87040; 87077; 87086; 87186; 93005; 93010; 96360; 99283; 99285

== ENCOUNTER → 2018-01-13 13:24 | Outpatient (CLI) | payer SELFPAY ==
[2017-11-30 14:08] VITALS: BMI 34.5
[2017-12-01 09:50] VITALS: PULSE 79; RESP 18; O2SAT 100
--- NOTE | 2018-01-13 | DI.RAD.S_ITS ---
PROCEDURE: [place] BARIUM SWALLOW W SPEECH INDICATIONS: DETERMINE SWALLOW BASELINE TECHNIQUE: Examination was conducted in conjunction with speech pathology per standard protocol. In the lateral projection, filming was performed of the patient swallowing. AP projection filming may also be performed with patient swallowing. COMPARISON: [facility], , [place] BARIUM SWALLOW W SPEECH, 12/03/2017, 13:01. FINDINGS: Function: The oral preparatory phase appears normal, with proper containment. The subsequent oral propulsive phase, pharyngeal phase, and esophageal phase of swallowing also appear normal with all proffered substances. No laryngotracheal penetration or aspiration. No pathologic vallecular pooling. Morphology: No cricopharyngeal bar is identified. No cervical esophageal webs. No Zenker's diverticulum. No strictures. IMPRESSION: Normal evaluation-no sign of significant anterior penetration or aspiration with all proffered substances. Please also review the dedicated speech therapy swallowing evaluation report which will be independently generated. Dictated by: Giovanni Barahona M.D. on 01/13/2018 at 15:34 Approved by: Giovanni Barahona M.D. on 01/13/2018 at 15:35
--- NOTE | 2018-01-13 14:57 | ST.SWALLOW ---
Care Team Visit Care Team Role Provider Type Gayle Decker PA-C Family Provider Physician Primary Care Provider Specialty: Internal Medicine Address: [address] [place] [address], [place], [id number] Email: Carisa Vergara MD Attending Provider Non-Staff Specialty: Medical Address: [address] [place] [address], [id number] Email: Modified Barium Swallow Study LABOR E[employer]OMICS TEACHER Modified Barium Swallow Study Start: 01/13/18 14:08 Freq: Status: Active Protocol: Document 01/13/18 14:08 MRM (Rec: 01/13/18 14:22 MRM [id number]) Modified Barium Swallow Study Total Time Visit Start Time 13:30 Visit Stop Time 14:10 Total Visit Minutes 40 Referral Referring Physician Carisa Vergara Reason for Referral Dysphagia Setting Setting Outpatient Care Patient Information Identification Type Name Other Patient History Patient is a 67 year old female with a significan medical history. She was an inpatient at [facility] for 3 weeks after being found down at home for an undetermined amount of time. She was intubated twice during her admission. After her second extubation, she presented with vocal fold paralysis, aphonia, significant tracheal edema, vocal polyps, profound dysphagia and oxygen dependence. She had an MBS during her inpatient stay, with cecilio aspiration observed with all trials (liquid only) . No epiglottic movement observed, minimal hyoid elevation observed, limited laryngeal elevation observed. She received a PEG tube during her inpatient stay and participated with daily PT/OT/ LABOR ECONOMICS TEACHER until discharge to [facility] on 12/17/17. She has continued to particiapte with PT/OT/LABOR ECONOMICS TEACHER in SNF and has returned today for a follow up MBS to determine the safety and functionality of her swallow. LABOR ECONOMICS TEACHER, Jennifer Gonzalez, present for observation. Subjective Observations Patient arrived for MBS in wheelchair. Able to stand and sit in MBS chair. No complaints of pain pre/post evaluation. Audible voicing and voicing during cough observed. Hyolaryngeal elevation/excursion palpated prior to initaition of MBS. Patient Positioning Position View Lateral Imaging Lateral View Textures Administered Trials Presented Thin Liquid via Cup Thin Liquid via Straw Dysphagia Blenderized Textures Dysphagia Advanced Textures Regular Textures Oral Phase Source: MBSIMP (TM) (C) Bolus Specific Scoring Grid Lip Closure No Impairment (WNL) Tongue Control During Bolus Hold WFL Bolus Prep/Mastication WFL Bolus Transport/Lingual Motion WFL A/P Lingual Propulsion Delay No Oral Residue WFL Residue Clearing WFL Nasal Regurgitation No Additional Oral Phase Observations No oral dysphagia Pharyngeal Phase Source: MBSIMP (TM) (C) Bolus Specific Scoring Grid Delayed Initiation of Pharyngeal Swallow Yes: Delayed to the level of the vallecula Number of Seconds Delayed (seconds) 1 second Soft Palate Elevation WFL Tongue Base Strength/Range of Motion Minimal Impairment Residue Along the Tongue Base No Clearance of Residue Along Tongue Base WFL Laryngeal Elevation WFL Anterior Hyoid Movement WFL Epiglottic Range of Motion WFL Vallecular Residue No Clearance of Vallecular Residue WFL Laryngeal Vestibular Closure Minimal Impairment Pharyngeal Stripping Wave WFL Pharyngeal Contraction WFL Posterior Pharyngeal Wall Residue No Clearance of Posterior Pharyngeal Wall WFL Residue Upper Esophageal Sphincter Opening WFL Residue in the Pyriform Sinuses No Clearance of Residue in the Pyriform WFL Sinuses Esophageal Clearance Upright Position WFL Pharyngoesophageal Backflow Observed No Additional Pharyngeal Phase Observations Mildly reduced hyolaryngeal movement, but elevation/ excursion functional for swallow response. Swallow initiation mildly delayed as well, to the level of the valleculae. However, after initiation, epiglottic inversion complete, no vallecular residue. Mild penetration observed during the swallow with large sips of thin liquid, but corrected during the swallow, no aspriation. Penetration due to delayed swallow response. A/P View Esophageal Observations Esophageal Function No significant esophageal findings. Clinical Impressions Dysphagia Type Mild pharyngeal dyspahgia Findings Mild pharyngeal dysphagia significant for mildly delayed swallow response with mild penetration with thin liquid during the swallow. However, no aspiration observed. TRIALS COMPLETED: Thin liquid single sips via cup, sequential sips via cup, single sips via straw, puree applesauce x2, soft fruit x2, regular demond cracker x1. ORAL PHASE: No oral dysphagia. Independent in all trials. Lingual coordination and strength WNL for bolus acceptance, formation, control, and A-P propulsion into pharynx. Normal control of all liquids/ solids. No oral residue observed after swallow. Mastication strength WNL. Velopharyngeal seal WNL. No premature spillage into pharynx. PHARYNGEAL PHASE: No aspiration. Mild penetration observed with large cup and straw sips of thin liquids during the swallow due to mildly delayed swallow initiation. Penetration occurred during the swallow and corrected during the swallow. Mild throat clear observed after penetration. No cough. Hyolaryngeal elevation and excursion mildly reduced in strength, but functional for swallowing. Epiglottic inversion complete. No vallecular residue. No residue observed along posterior pharyngeal wall, inidicating adequate pharyngeal stripping wave. No residue observed in the pyriform sinuses, indicating adequate UES opening. Patient observed to have remarkable improvement in oropharyngeal function. RECOMMEND: Thin liqudis, cup and straw allowed. Regular textures. Medication whole in carrier, or as tolerated. Continue to position upright at 90 degrees for all intake. Alternate liquids/solids. Slow rate of intake. Small bites/ sips. Thorough mastication. Recommend begin diet at mechanical soft textures to assist patient in ease of mastication and overall tolerance. Advance as tolerated. Continue with speech therapy services for new diet maintenance and new feeding strategies. Monitor adequate intake for nutrition and hydration. Patient is currently on a continuous tube feeding ( discontinued for outpatient MBS). Recommend attempting to independently tolerate PO, trialing discontinuation of tube feeding. Continue as is safest for the patient. At this time, patient presents with adequate oropharyngeal function and strength to tolerate regular textures and thin liquids without aspiration risk. Recommend progress to full PO intake without need for tube feeding. Consult with MD for further medical planning in this area. Rehabilitation Potential Excellent Patient Appropriate for Therapy Yes Recommendations Diet Liquids Order Thin Diet Order Regular Medication Recommendation As Tolerated Whole in Carrier Additional Dietary Needs Chopped Food Single Sips Reminders to Use Strategies Aspiration Precautions Recommended Precautions Upright at 90 Degrees Alternate Liquids/Solids Frequent Rest Periods Small Bites/Sips Effortful Swallow Double Swallow Ama Maneuvor Additional Precautions No chin tuck Treatment Plan Therapy Recommendations Base of Tongue Exercises Compensatory Strategy Education Additional Therapy Recommendations Continue current speech thearpy; home health speech thearpy after discharge Recommended Referrals Dietary Consult Additional Recommended Referrals Dietary consult for new diet plan due to diet upgrade Compensatory Strategies Recommendations Mendelsonn Maneuver Small Bites and Sips Alternate Liquids/Solids Washer Blanket Goals Advance to PO diet as tolerated. Thin liquids and regular textures recommended. Consider beginning with mechanical soft textures for ease of mastication. Medication in a carrier, or as tolerated. Placement Recommendation After Discharge [facility] Facility Home with Home Health LABOR ECONOMICS TEACHER Oral Motor Exam Start: 01/13/18 14:08 Freq: Status: Active Protocol: Document 01/13/18 14:56 MRM (Rec: 01/13/18 14:57 MRM [id number]) Oral Motor Examination Face Facial Symmetry Symmetrical Facial Movement Controlled Mouth Teeth Comment Dentures Pucker Lips Normal Smile Normal Puff Cheeks Normal Tongue Size Normal Tongue Movement Protrusion/Retraction Strength WFL Protrusion/Retraction Range of Movement Normal Protrusion/Retraction Coordination WFL Elevation/Depression Strength WFL Elevation/Despression Range of Movement Normal Elevation/Depression Coordination WFL Lateralization Strength WFL Lateralization Range of Movement Normal Lateralization Coordination WFL Palate Soft Palate Description Normal Hard Palate Description Normal Velopharyngeal Movement Normal Hyolaryngeal Movement Hyolaryngeal Movement Normal Elevation Normal Excursion Volitional Cough/Swallow Comments Productive cough/throat clear
== END ==
PROVIDERS: Family Provider Physician Assistant; PCP Physician Assistant; Visit Provider Family Medicine
DX: R13.13 Dysphagia, pharyngeal phase (principal); Z93.1 Gastrostomy status
CPT/HCPCS: 74230; 92611

== ENCOUNTER 2018-01-20 08:01 | Inpatient (IN) | payer MEDICARE, SELFPAY ==
[2017-11-30 14:08] VITALS: BMI 34.5
[2017-12-01 09:50] VITALS: PULSE 79; RESP 18; O2SAT 100
[2018-01-20] VITALS (20 sets, daily range): BP systolic 100–147; BP diastolic 53–73; PULSE 98–127; RESP 13–32; TEMP 35.8–37; O2SAT 92–120; BMI 27.3
--- NOTE | 2018-01-20 08:05 | ED.SOB ---
HPI - SOB/Dyspnea General Chief Complaint: Shortness of Breath/Dyspnea Stated Complaint: SOB Time Seen by Provider: 01/20/18 08:03 Source: patient and EMS Mode of arrival: EMS Limitations: no limitations History of Present Illness Patient is a 67-year-old female brought in by EMS for evaluation of shortness of breath. Patient states that approximately 3 days ago she started to have shortness of breath. I evaluated her here in the emergency department sometime ago after she was just discharged from the hospital after an extended stay. She was admitted at that time for coma secondary to DKA. Had respiratory distress and problems with extubation after having to be intubated secondary to respiratory failure. There was discussion at that time that the patient could potentially need a trach however the patient declined this. During my evaluation here the last time there was concerns for aspiration secondary to G-tube feedings. Again at that time patient states that she did not want a trach. She is a DNR. Once limited medical interventions. Does not want intubated. She is okay with antibiotics and noninvasive respiratory support. She states that she does not think that an aspiration event led to this admission today. She does not have a diagnosis of COPD but is a daily smoker. She does have stridor which is baseline for her. She denies any other symptoms. Related Data Home Medications Medication Instructions Recorded Confirmed insulin aspart U-100 1 dose SUB-Q DIRECTED 10/17/17 12/18/17 Previous Rx's Medication Instructions Recorded aspirin 325 mg FEEDING TUBE QDAY #0 tab 12/16/17 atorvastatin [Lipitor] 40 mg FEEDING TUBE QDAY #0 tab 12/16/17 cilostazol 50 mg FEEDING TUBE QDAY #0 tab 12/16/17 furosemide 20 mg FEEDING TUBE PRN PRN #0 tab 12/16/17 insulin detemir U-100 [Levemir 50 unit SUB-Q QPM #0 ml 12/16/17 FlexTouch U-100 Insuln] lisinopril 20 mg PO DAILY #0 tab 12/16/17 Allergies Allergy/AdvReac Type Severity Reaction Status Date / Time adhesive [ADHESIVE] Allergy Intermediate RASH, Verified 12/18/17 16:12 ITCHING, TEARS SKIN Latex, Natural Rubber Allergy Intermediate RASH, Verified 12/18/17 16:12 [LATEX, NATURAL RUBBER] ITCHING Penicillins [PENICILLINS] Allergy Intermediate EXTREME Verified 12/18/17 16:12 HEADACHES Review of Systems Constitutional Denies fever(s) and Denies headache(s) Eyes Denies blurry vision ENT Ears, Nose, Mouth, and Throat: Denies vertigo, Denies headache(s), Denies lip swelling and Denies throat swelling Cardiovascular Denies chest pain and Reports dyspnea Respiratory Denies change in phlegm color, Denies chest congestion, Denies cough, Denies pain with cough and Reports dyspnea Gastrointestinal Gastrointestinal: Denies abdominal pain, Denies diarrhea, Denies nausea and Denies vomiting Genitourinary Denies dysuria and Denies flank pain Musculoskeletal Denies myalgias and Denies arthralgias Integumentary/Breasts Denies lesions and Denies rash Neurologic Denies confusion, Denies vertigo and Denies headache(s) Psychiatric Denies anxiety and Denies confusion Hematologic/Lymphatic Denies easy bleeding and Denies easy bruising Allergic/Immunologic Denies urticaria, Denies lip swelling and Denies throat swelling [facility] Medical History 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, managed as type 1 (Acute) Hyperlipidemia (Acute) Peripheral vascular disease (Acute) Sleep apnea in adult (Acute) Surgical History Status post femoral-popliteal bypass surgery (Acute) Status post insertion of percutaneous endoscopic gastrostomy (PEG) tube (Acute) History of cholecystectomy (Resolved) Family History Father Diabetes mellitus Coronary artery disease Mother Coronary artery disease Diabetes mellitus Social History household members: none Smoking Status: Current every day smoker alcohol intake: current Exam Initial Vital Signs Initial Vital Signs: Vital Signs Temperature 96.5 F L 01/20/18 08:11 Pulse Rate 120 H 01/20/18 08:11 Respiratory Rate 19 01/20/18 08:11 Blood Pressure 147/73 H 01/20/18 08:11 Pulse Oximetry 93 01/20/18 08:11 Const General: well developed, well groomed, in distress and No anxious Orientation: alert, awake and oriented x3 HENMT Head: normal to inspection and normocephalic Eyes Eyelids: eyelids normal Resp Effort & Inspection: labored, no nasal flaring, respiratory distress, retractions, tachypneic, no tripod positioning, uses accessory muscles and prolonged expiratory phase Auscultation: other (Decreased breath sounds bilateral) Cardio Rate: tachycardic Rhythm: regular rhythm Heart Sounds: no murmurs Pulses: radial pulses present GI Inspection: non-distended Palpation: soft, No firm and No tender Other: G-tube in place Back/Spine/Pelvis Back: No CVA tenderness Skin Lesions: no lesions Rashes: no rashes Neuro General: alert, awake and oriented x3 Cognition: normal cognition Motor: muscle tone normal throughout Sensory Exam: no sensory deficits noted Extrem General: normal to inspection and capillary refill normal Psych Appearance: grossly normal and well kempt Course Orders Ordered: ED Orders 01/20/18 07:50 B Type Natriuretic Peptide Stat Complete Blood Count AUTO DIFF Stat Comprehensive Metabolic Panel Stat Procalcitonin Stat 01/20/18 08:06 XR chest 1V Stat Arterial Blood Gas Stat EKG-12 Lead Stat RT Consult Eval and Treat Now 01/20/18 08:45 Blood Culture Stat Lactate (Lactic Acid) Stat Albuterol (Ventolin) 2.5 mg INH NOW PRN PRN Reason: Wheezing Last Admin: 01/20/18 08:17 Dose: 2.5 mg Admin: 01/20/18 08:16 Dose: 2.5 mg Levofloxacin (Levaquin) 750 mg in 150 mls @ 100 mls/hr IV NOW ONE Stop: 01/20/18 10:12 Sodium Chloride (Normal Saline 0.9%) 1,000 mls @ 125 mls/hr IV CONT ANDRES Discontinued Medications Albuterol/Ipratropium (Duoneb) 3 ml INH NOW ONE Stop: 01/20/18 08:06 Last Admin: 01/20/18 08:16 Dose: 3 ml Methylprednisolone (Solu-Medrol 125 Mg Vial) 125 mg IV NOW ONE Stop: 01/20/18 08:30 Vital Signs - 8 hr 01/20/18 08:11 01/20/18 08:32 Temperature 96.5 F L Pulse Rate 120 H 120 H Respiratory Rate 19 22 Blood Pressure 147/73 H Blood Pressure [Right Arm] 110/64 Pulse Oximetry 93 93 MDM - SOB/Dyspnea Medical Records Attestation: I reviewed the patient's medical records. Lab Data Attestation: I reviewed the patient's lab results. Result diagrams: 01/20/18 07:50 01/20/18 07:50 Lab Results 01/20/18 01/20/18 01/20/18 Range/Units 07:50 07:50 07:50 WBC 17.3 H (4.5-11.0) X10^3/uL RBC 4.93 (4.0-5.2) X10^6/uL Hgb 16.6 H (12.0-16.0) g/dL Hct 48.5 H (36-46) % MCV 98.4 (80-100) fL MCH 33.6 (26-34) PG MCHC 34.1 (30-36) % RDW 14.6 (11.6-14.8) % Plt Count 257 (150-400) X10^3/uL Neut % (Auto) 71.0 (50-75) % Lymph % (Auto) 19.4 L (25-40) % Mcduffie % (Auto) 7.9 (3-14) % Eos % (Auto) 0.4 L (2-4) % Baso % (Auto) 1.3 (0-2) % Neut # (Auto) 12505 H (2324-5988) /uL Sodium 147 H (137-145) mmol/L Potassium 3.5 (3.4-5.1) mmol/L Chloride 103 (98-107) mmol/L Carbon Dioxide 33 H (22-32) mmol/L BUN 6 L (7-17) mg/dL Creatinine 0.40 L (0.52-1.04) mg/dL Estimated GFR > 60.0 (>60) mL/min BUN/Creatinine Ratio 15.0 (6-22) Glucose 165 H (80-110) mg/dL Calcium 9.1 (8.4-10.2) mg/dL Total Bilirubin 0.7 (0.2-1.3) mg/dL AST 24 (14-36) IU/L ALT 27 (9-52) IU/L Alkaline Phosphatase 98 (38-126) U/L Total Protein 7.3 (6.3-8.2) g/dL Albumin 4.2 (3.5-5.0) g/dL Globulin 3.1 (1.7-4.1) g/dL Albumin/Globulin Ratio 1.4 (1.0-2.8) Procalcitonin < 0.05 (<0.5) ng/mL Imaging Data Chest x-ray: Radiologist's impression: PROCEDURE: XR CHEST 1V INDICATIONS: shortness of breath TECHNIQUE: One view of the chest was acquired. COMPARISON: [facility], , XR CHEST 1V, 12/18/2017, 16:31. FINDINGS: Surgical changes and devices: None. Lungs and pleura: Mild atelectasis is present at the left lung base. The lungs are otherwise clear. No pleural effusion or pneumothorax. Mediastinum: Mediastinal contours appear normal. Heart size is normal. Bones and chest wall: No suspicious bony lesions. Overlying soft tissues appear unremarkable. IMPRESSION: Mild left basilar atelectasis. Dictated by: Chen Lopez M.D. on 01/20/2018 at 8:36 Approved by: Chen Lopez M.D. on 01/20/2018 at 8:46 ECG Data Attestation: I personally reviewed and interpreted this ECG as follows: Prior ECG tracings: not available for review Interpretation: Sinus tachycardia Ventricular rate of 114 Normal axis Normal QRS Normal QTC No ST T wave changes MDM Narrative Medical decision making narrative: Patient arrived with paperwork stating that she is a DNR and a do not intubate. I did confirm this with her and she did state again with nursing staff in the room that she did not want intubated. Decreased breath sounds bilateral and also increased work of breathing. Her left side did improve after multiple nebulizers here in the ER. An ABG was obtained which shows a respiratory acidosis. She was placed on BiPAP. Was getting continuous nebs. I also gave her Solu-Medrol. Given the elevated white blood cell count and the tachycardia blood cultures and lactate were ordered. She was also given a dose of Levaquin. There was no definitive pneumonia on the chest x-ray in her procalcitonin was negative. I will hold on 30 cc/kilos of normal saline secondary to I feel that her elevated white blood cell count and tachycardia are secondary to respiratory issues not an infectious etiology. I discussed the case with Dr. Velarde who is on-call for Internal Medicine. Will admit the patient to the ICU secondary to the BiPAP. I discussed the admission with the patient. She expressed understanding and agreement. Discharge Plan Departure Patient Disposition: Admitted As Inpatient Clinical Impression: Respiratory failure Prescriptions: No Action insulin aspart U-100 100 unit/mL insulin pen 1 dose Sub-Q DIRECTED RF: 0 atorvastatin [Lipitor] 10 MG tablet 40 mg Feeding Tube QDAY Qty: 0 RF: 0 aspirin 325 MG tablet 325 mg Feeding Tube QDAY Qty: 0 RF: 0 cilostazol 50 MG tablet 50 mg Feeding Tube QDAY Qty: 0 RF: 0 lisinopril 10 mg Tablet 20 mg PO DAILY Qty: 0 RF: 0 furosemide 20 mg tablet 20 mg Feeding Tube PRN PRN (Reason: Edema) Qty: 0 RF: 0 insulin detemir U-100 [Levemir FlexTouch U-100 Insuln] 100 unit/mL (3 mL) insulin pen 50 unit Sub-Q QPM Qty: 0 RF: 0
[2018-01-20] MEDS: ALBUTEROL/IPRATROPIUM 3 ML AMPUL INH ×3 (08:16→20:34)
[2018-01-20] MEDS: ALBUTEROL 2.5 MG/3 ML NEB (ADULT) INH ×2 (08:16→08:17)
[2018-01-20 08:19] LABS: Add Manual Diff / Slide Review NO; Basophils Percent Auto 1.3 % (0-2); Eosinophils Percent Auto 0.4 % (2-4); Hematocrit 48.5 % (36-46); Hemoglobin 16.6 g/dL (12.0-16.0); Lymphocytes Percent Auto 19.4 % (25-40); Mean Corpuscular HGB Conc 34.1 % (30-36); Mean Corpuscular Hemoglobin 33.6 PG (26-34); Mean Corpuscular Volume 98.4 fL (80-100); Monocytes Percent Auto 7.9 % (3-14); Neutrophils Absolute Auto 12300 /uL (3000-5900); Platelet Count 257 X10^3/uL (150-400); Red Blood Cell Count 4.93 X10^6/uL (4.0-5.2); Red Cell Distribution Width 14.6 % (11.6-14.8); White Blood Cell Count 17.3 X10^3/uL (4.5-11.0)
[2018-01-20 08:27] LABS: Alanine Aminotransferase 27 IU/L (9-52); Albumin 4.2 g/dL (3.5-5.0); Albumin Globulin Ratio 1.4 (1.0-2.8); Alkaline Phosphatase 98 U/L (38-126); Aspartate Aminotransferase 24 IU/L (14-36); Bilirubin Total 0.7 mg/dL (0.2-1.3); Blood Urea Nitrogen 6 mg/dL (7-17); Calcium 9.1 mg/dL (8.4-10.2); Carbon Dioxide 33 mmol/L (22-32); Chloride 103 mmol/L (98-107); Estimated Glomerular Filt Rate > 60.0 mL/min (>60); Globulin 3.1 g/dL (1.7-4.1); Glucose 165 mg/dL (80-110); HEMOLYSIS < 15 (0-50); Potassium 3.5 mmol/L (3.4-5.1); Sodium 147 mmol/L (137-145); Total Protein 7.3 g/dL (6.3-8.2)
[2018-01-20 08:41] LABS: Procalcitonin < 0.05 ng/mL (<0.5)
[2018-01-20] MEDS: methylPREDNISolone 125 MG/2 ML VIAL IV (08:49)
[2018-01-20] MEDS: SODIUM CHLORIDE 0.9% 1,000 ML 125 ML IV ×2 (08:49→18:40)
--- NOTE | 2018-01-20 09:01 | PC.NURSE ---
pH 7.20, PaCO2 69.7; PaO2 103; Base Excess -1; Bicar 27.5; Sat 96% ; Patient placed on BiPap 08/11, Fi02 35%; Rate 15;
[2018-01-20] MEDS: LEVALBUTEROL 1.25 MG/0.5 ML NEB INH ×7 (09:18→09:27)
[2018-01-20 09:26] LABS: HCO3 ABG 28 mmol/L (23-27); Oxygen Saturation ABG 96 % (95-100); PCO2 ABG 69.7 mmHg (35-45); PO2 ABG 103 mmHg (80-105); TCO2 ABG 30 mmol/L (23-27)
[2018-01-20 09:27] LABS: Fractionated Inspired Oxygen 0.52
[2018-01-20] MEDS: levoFLOXacin 750 MG/150 ML PIGGYBACK 100 MG IV (09:37)
[2018-01-20 09:48] LABS: Lactate (Lactic Acid) 1.5 mmol/L (0.7-2.1)
--- NOTE | 2018-01-20 10:39 | PC.NURSE ---
Patient on Bipap with same settings; Patient with decreased work of breathing and resting with eyes closed; Patent skin warm, dry, and pink; Oriented x 3; Only able to speak in 5-8 word sentences;
--- NOTE | 2018-01-20 11:05 | PC.ADMIT ---
Addendum entered by Gris Saxena R.N. 01/20/18 14:17: Dressing to LLE changed this shift, wound cleansed with NS and pic taken. New coversite applied. Dressing removed from PEG tube and insertion site cleansed with soap and water - yellow crusty debris removed, skin free of erythema. New dressing then applied. Pt off bipap at about 1400; refused to keep bipap in place. Placed on HFNC by RT. Breathing is labored with intermittent stridor, oxygen sats upper 90s, continues to decline bipap. Original Note: Admission Note: Patient arrived to room 105 from ER via stretcher at 1015. Transferred self from stretcher to bed. Transported on nonrebreather 15L and placed on bipap by RT upon arrival to room. Breathing is labored and stridorous off of bipap, lung sounds tight and decreased. FiO2 25%, oxygen sats 98-100%. Breathing currently nonlabored and in the 14-18 bpm range. Pt denies any pain. Dressing present to the LLE and around PEG tube. ST in the 120s. Cotto in place draining clear yellow urine. No belongings with patient. Oriented to room and to bed/tv/call light controls. Call light within reach and bed alarm. The patient,Carisa Vera,67 y/o, was given written information regarding hospital policies, unit procedures and contact persons. Patient's smoking status: Former smoker. Vital Signs - 8 hr 01/20/18 08:11 01/20/18 08:32 01/20/18 08:55 Temperature 96.5 F L Pulse Rate 120 H 120 H 119 H Respiratory Rate 19 22 18 Blood Pressure 147/73 H Blood Pressure [Right Arm] 110/64 110/68 Pulse Oximetry 93 93 97 01/20/18 09:07 01/20/18 09:08 01/20/18 09:10 Temperature Pulse Rate 120 H 122 H 122 H Respiratory Rate 16 15 16 Blood Pressure Blood Pressure [Right Arm] Pulse Oximetry 92 94 120 H 01/20/18 09:13 01/20/18 09:56 01/20/18 10:07 Temperature 97.2 F L 97.4 F L Pulse Rate 125 H 124 H Respiratory Rate 16 18 Blood Pressure 101/63 101/64 Blood Pressure [Right Arm] 100/53 L Pulse Oximetry 97 97 09/25/18 10:24 Temperature 97.5 F L Pulse Rate 115 H Respiratory Rate 24 Blood Pressure 112/60 Blood Pressure [Right Arm] Pulse Oximetry
--- NOTE | 2018-01-20 11:21 | P.HP_ITS ---
History of Present Illness Date Patient Seen: 01/20/18 Chief complaint: SOB Narrative: Patient is a 67 y/o female well known to the hospitalists service who was admitted twice during the month of November for respiratory failure. 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 It was recommended that she have a tracheostomy but the patient refused. She was ultimately discharge to a SNF with a peg tube and 2 liters of oxygen. She was able to be weaned from the oxygen and was doing well until 3 days ago when she became gradually more short of breath. Patient reports no cough, chills, or fever. She had no chest pain. She reports wheezing and shortness of breath at rest. Patient was brought to the emergency department and found to be markedly hypoxic with a room air saturation of 70%. After multiple nebulizer treatments, BIpap, and steroids her symptoms improved. She had a chest Xray which did not reveal an infiltrate. Her procalcitonin was normal. The patient was given antibiotics in the ED and transferred to the ICU for ongoing care. 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, managed as type 1 (Acute) Hyperlipidemia (Acute) Peripheral vascular disease (Acute) Sleep apnea in adult (Acute) Surgical History Status post femoral-popliteal bypass surgery (Acute) Status post insertion of percutaneous endoscopic gastrostomy (PEG) tube (Acute) History of cholecystectomy (Resolved) Family & Social History Family History: Reviewed 01/20/18 by Meg Velarde MD Social History: household members none Prior Living Arrangements Skilled Nurse Facility Safety & Behavioral: Feels Safe in Current Yes Environment Been Physically Hurt or No Threatened By a Person Suicidal Ideation Description None Suicide Plan Description No Plan Tobacco & Substance use: Tobacco type cigarettes Smoking Status Former smoker alcohol intake former alcohol intake frequency 3 or more drinks per day Substance Use Type does not use Meds Home Medications Medication Instructions Recorded Confirmed Type insulin aspart U-100 1 dose SUB-Q QID 10/17/17 01/20/18 History insulin detemir U-100 [Levemir 50 unit SUB-Q QPM #0 ml 12/16/17 01/20/18 Rx FlexTouch U-100 Insuln] acetaminophen [Acetaminophen Extra 1,000 mg PO Q12H 01/20/18 01/20/18 History Strength] acetaminophen [Acetaminophen Extra 1,000 mg PO Q6H PRN 01/20/18 01/20/18 History Strength] acetazolamide 250 mg PO Q12H 01/20/18 01/20/18 History albuterol sulfate 1 neb INHALATION Q4H PRN 01/20/18 01/20/18 History albuterol sulfate [Ventolin HFA] 2 puff INHALATION Q6H PRN 01/20/18 01/20/18 History aspirin 325 mg PO QDAY 01/20/18 01/20/18 History atorvastatin [Lipitor] 40 mg PO QDAY 01/20/18 01/20/18 History bisacodyl 1 - 2 tab PO PRN PRN 01/20/18 01/20/18 History bisacodyl 10 mg CO PRN PRN 01/20/18 01/20/18 History calcium carbonate [Tums] 2 tab PO Q6H PRN 01/20/18 01/20/18 History cilostazol 50 mg PO QDAY 01/20/18 01/20/18 History furosemide 20 mg PO DAILY PRN 01/20/18 01/20/18 History guaifenesin 1 tab PO Q12H PRN 01/20/18 01/20/18 History magnesium hydroxide [Milk of 30 ml PO PRN PRN 01/20/18 01/20/18 History Magnesia] omeprazole 20 mg PO DAILY 01/20/18 01/20/18 History sodium phosphates [Fleet Enema] 1 ea CO PRN PRN 01/20/18 01/20/18 History Allergies Allergy/AdvReac Type Severity Reaction Status Date / Time adhesive [ADHESIVE] Allergy Intermediate RASH, Verified 12/18/17 16:12 ITCHING, TEARS SKIN Latex, Natural Rubber Allergy Intermediate RASH, Verified 12/18/17 16:12 [LATEX, NATURAL RUBBER] ITCHING Penicillins [PENICILLINS] Allergy Intermediate EXTREME Verified 12/18/17 16:12 HEADACHES Review of Systems Review of Systems All systems reviewed & are unremarkable except as noted in HPI and below Exam Vital Signs (past 8 hours): - 01/20/18 08:11 01/20/18 08:32 01/20/18 08:55 Temperature 96.5 F L Pulse Rate 120 H 120 H 119 H Respiratory Rate 19 22 18 Blood Pressure 147/73 H Blood Pressure [Right Arm] 110/64 110/68 Pulse Oximetry 93 93 97 01/20/18 09:07 01/20/18 09:08 01/20/18 09:10 Temperature Pulse Rate 120 H 122 H 122 H Respiratory Rate 16 15 16 Blood Pressure Blood Pressure [Right Arm] Pulse Oximetry 92 94 120 H 01/20/18 09:13 01/20/18 09:56 01/20/18 10:07 Temperature 97.2 F L 97.4 F L Pulse Rate 125 H 124 H Respiratory Rate 16 18 Blood Pressure 101/63 101/64 Blood Pressure [Right Arm] 100/53 L Pulse Oximetry 97 97 01/20/18 10:24 Temperature 97.5 F L Pulse Rate 115 H Respiratory Rate 24 Blood Pressure 112/60 Blood Pressure [Right Arm] Pulse Oximetry Fraction of Inspired Oxygen 0.25 Oxygen Delivery Method BiPAP Oxygen Flow Rate 8 Narrative Exam Narrative: Pleasant female on bipap HEENT: NC/AT, EOMI, on bipap, Neck supple Lungs: decreased breath sounds with very poor airway movement CV: Tachycardic, regular nl S1S2 Abd: soft/ non tender/ non distended, peg tube in place Ext: 1+ trace edema bilaterally, bandage on left lower extremity, well healed scars on the right leg Neuro: non focal Skin: no lesions Psych: she appear appropriate, responsive, and coherent. No evidence of delusions or hallucinations Objective Labs Result Diagrams: 01/20/18 07:50 01/20/18 07:50 Labs: Laboratory Results - last 24 hr 01/20/18 01/20/18 01/20/18 07:50 07:50 07:50 WBC 17.3 H RBC 4.93 Hgb 16.6 H Hct 48.5 H MCV 98.4 MCH 33.6 MCHC 34.1 RDW 14.6 Plt Count 257 Neut % (Auto) 71.0 Lymph % (Auto) 19.4 L Mccormick % (Auto) 7.9 Eos % (Auto) 0.4 L Baso % (Auto) 1.3 Neut # (Auto) 67709 H ABG pH ABG pCO2 ABG pO2 ABG HCO3 ABG Total CO2 ABG O2 Saturation ABG Base Excess FiO2 Sodium 147 H Potassium 3.5 Chloride 103 Carbon Dioxide 33 H BUN 6 L Creatinine 0.40 L Estimated GFR > 60.0 BUN/Creatinine Ratio 15.0 Glucose 165 H Lactate Calcium 9.1 Total Bilirubin 0.7 AST 24 ALT 27 Alkaline Phosphatase 98 B-Natriuretic Peptide 190.0 H Total Protein 7.3 Albumin 4.2 Globulin 3.1 Albumin/Globulin Ratio 1.4 Procalcitonin < 0.05 01/20/18 01/20/18 08:31 Unknown WBC RBC Hgb Hct MCV MCH MCHC RDW Plt Count Neut % (Auto) Lymph % (Auto) Mccormick % (Auto) Eos % (Auto) Baso % (Auto) Neut # (Auto) ABG pH 7.20 L* ABG pCO2 69.7 H* ABG pO2 103 ABG HCO3 28 H ABG Total CO2 30 H ABG O2 Saturation 96 ABG Base Excess -1.0 FiO2 0.52 Sodium Potassium Chloride Carbon Dioxide BUN Creatinine Estimated GFR BUN/Creatinine Ratio Glucose Lactate 1.5 Calcium Total Bilirubin AST ALT Alkaline Phosphatase B-Natriuretic Peptide Total Protein Albumin Globulin Albumin/Globulin Ratio Procalcitonin Assessment & Plan (1) Respiratory failure: Problem details: Patient will be treated for HCAP/Aspiration, Will continue BIpap, steroids and nebulizers. Will repeat ABG shortly Qualifiers: Chronicity: acute Respiratory failure complication: hypoxia Qualified Code(s): J96.01 - Acute respiratory failure with hypoxia Current visit: Yes Status: Acute (2) Hypernatremia: Problem details: Will increase free water and discontinue IV Lasix. Recheck labs in am Current visit: No Status: Acute (3) Dysphagia causing pulmonary aspiration with swallowing: Problem details: will continue tube feedings. The patient will be made NPO. consider speech evaluation prior to resuming oral intake Current visit: Yes Status: Acute (4) Diabetes mellitus: Problem details: basal bolus insulin Current visit: Yes Status: Acute (5) Hyperlipidemia: Problem details: continue statin Current visit: Yes Status: Acute (6) Vocal cord paralysis: Current visit: Yes Status: Acute Plan: Assessment/Plan Narrative: DNR/DNI per patient wishes
[2018-01-20 11:40] LABS: Fractionated Inspired Oxygen 0.25; HCO3 ABG 25 mmol/L (23-27); Oxygen Saturation ABG 88 % (95-100); PO2 ABG 66 mmHg (80-105); TCO2 ABG 27 mmol/L (23-27); pH ABG 7.24 (7.35-7.45)
[2018-01-20] MEDS: methylPREDNISolone 125 MG/2 ML VIAL 60 MG IV ×3 (12:18→23:56)
[2018-01-20] MEDS: INSULIN ASPART 100 UNIT/ML INSULN PEN SUBCUT ×4 (12:20→17:54)
[2018-01-20] MEDS: FAMOTIDINE 20 MG/50 ML PIGGYBACK 200 MG IV ×2 (14:08→23:55)
[2018-01-20 16:07] LABS: Fractionated Inspired Oxygen 0.32; HCO3 ABG 25 mmol/L (23-27); Oxygen Saturation ABG 95 % (95-100); PCO2 ABG 50.2 mmHg (35-45); TCO2 ABG 27 mmol/L (23-27); pH ABG 7.31 (7.35-7.45)
[2018-01-20 16:08] LABS: PO2 ABG 87 mmHg (80-105)
--- NOTE | 2018-01-20 20:38 | RT ---
PT IS REFUSING BIPAP.
[2018-01-20] MEDS: ATORVASTATIN 20 MG TABLET 40 MG PO (20:39)
[2018-01-20] MEDS: INSULIN DETEMIR 100 UNIT/ML INSULN.PEN 50 UNIT SUBCUT (20:45)
[2018-01-21] VITALS (8 sets, daily range): BP systolic 101–127; BP diastolic 55–72; PULSE 76–111; RESP 10–28; TEMP 35.8–38.1; O2SAT 94–98
[2018-01-21] MEDS: INSULIN ASPART 100 UNIT/ML INSULN PEN SUBCUT ×9 (00:01→21:02)
[2018-01-21] MEDS: SODIUM CHLORIDE 0.9% 1,000 ML 125 ML IV ×3 (04:08→23:08)
[2018-01-21 04:58] LABS: Add Manual Diff / Slide Review NO; Basophils Percent Auto 0.3 % (0-2); Hematocrit 39.5 % (36-46); Hemoglobin 13.4 g/dL (12.0-16.0); Lymphocytes Percent Auto 5.2 % (25-40); Mean Corpuscular HGB Conc 33.9 % (30-36); Mean Corpuscular Hemoglobin 32.9 PG (26-34); Monocytes Percent Auto 3.2 % (3-14); Neutrophils Absolute Auto 11400 /uL (3000-5900); Neutrophils Percent Auto 91.3 % (50-75); Platelet Count 193 X10^3/uL (150-400); Red Blood Cell Count 4.07 X10^6/uL (4.0-5.2); Red Cell Distribution Width 14.4 % (11.6-14.8); White Blood Cell Count 12.4 X10^3/uL (4.5-11.0)
[2018-01-21 05:06] LABS: Blood Urea Nitrogen 10 mg/dL (7-17); Calcium 8.8 mg/dL (8.4-10.2); Carbon Dioxide 31 mmol/L (22-32); Chloride 106 mmol/L (98-107); Estimated Glomerular Filt Rate > 60.0 mL/min (>60); Glucose 249 mg/dL (80-110); HEMOLYSIS < 15 (0-50); Potassium 3.4 mmol/L (3.4-5.1); Sodium 143 mmol/L (137-145)
[2018-01-21] MEDS: ACETAMINOPHEN 325 MG TABLET 650 MG PO ×2 (05:08→13:33)
[2018-01-21] MEDS: methylPREDNISolone 125 MG/2 ML VIAL 60 MG IV ×3 (06:30→18:17)
[2018-01-21] MEDS: ALBUTEROL/IPRATROPIUM 3 ML AMPUL INH ×2 (08:12→17:17)
[2018-01-21] MEDS: DOCUSATE 100 MG CAPSULE PO ×2 (08:43→21:00)
[2018-01-21] MEDS: CILOSTAZOL 50 MG TABLET PO (08:43)
[2018-01-21] MEDS: ENOXAPARIN 40 MG/0.4 ML SYRINGE SUBCUT (08:43)
[2018-01-21] MEDS: ASPIRIN 325 MG TABLET PO (08:44)
[2018-01-21] MEDS: FAMOTIDINE 20 MG/50 ML PIGGYBACK 200 MG IV (12:47)
--- NOTE | 2018-01-21 17:09 | P.PN_ITS ---
Subjective Date Patient Seen: 01/21/18 Time Patient Seen: 17:05 Interval history: Patient seen at bedside. Doing well. States breathing is now back to baseline. She is breathing 98% on RA. Able to come off of bipap. Exam Vital Signs (past 8 hours): - 01/21/18 11:30 01/21/18 12:32 01/21/18 16:09 Temperature 97.9 F 97.8 F Pulse Rate 111 H 105 H 108 H Respiratory Rate 16 18 21 Blood Pressure 122/72 120/66 Pulse Oximetry 96 94 98 Fraction of Inspired Oxygen 0.35 Oxygen Delivery Method Room Air Oxygen Flow Rate 0 Narrative Exam Narrative: General: Pleasant female NAD, AAOx3, on RA saturating well HEENT: NC/AT, EOMI, Neck supple Lungs: Decent air movement all throughout lung melgar. CV: RRR, NL S1S2 Abd: soft/ non tender/ non distended, peg tube in place Ext: 1+ trace edema bilaterally, bandage on left lower extremity, well healed scars on the right leg Neuro: non focal Skin: no lesions Psych: she appear appropriate, responsive, and coherent. No evidence of delusions or hallucinations Objective Labs Result Diagrams: 01/21/18 04:30 01/21/18 04:30 Labs: Laboratory Results - last 24 hr 01/21/18 01/21/18 04:30 04:30 WBC 12.4 H RBC 4.07 Hgb 13.4 Hct 39.5 MCV 97.0 MCH 32.9 MCHC 33.9 RDW 14.4 Plt Count 193 Neut % (Auto) 91.3 H D Lymph % (Auto) 5.2 L [place] % (Auto) 3.2 Eos % (Auto) 0.0 L Baso % (Auto) 0.3 Neut # (Auto) 36807 H Sodium 143 Potassium 3.4 Chloride 106 Carbon Dioxide 31 BUN 10 Creatinine 0.40 L Estimated GFR > 60.0 BUN/Creatinine Ratio 25.0 H Glucose 249 H Calcium 8.8 B-Natriuretic Peptide 242.0 H Assessment & Plan Plan: Assessment/Plan Narrative: 67yo F presented to ED with SOB and wheezing. Was found to have acute respiratory failure likely due to bronchospasm. Admitted for further treatment 1. Acute Respiratory failure - Likely due to bronchospasm from vocal cord paralysis - Improved overnight, now off of bipap and back to baseline, saturating well - Continue Nebulizer treatment and steroids - Unlikely HCAP as patient does not have evidence of PNA on CXR. Leukocytosis improving but patient is on steroids - Will Stop antibiotics tomorrow 2. Hypernatremia - Resolved, Na 143 3. Dysphagia - Patient is back to baseline and is able to swallow - Will start on CLD and get speech pathology evaluation 4. DM - Continue Basal bolus Insulin Detemir 50U QHS 5. HLD - Continue Statin
[2018-01-21] MEDS: ACETAMINOPHEN 325 MG TABLET 975 MG PO (18:15)
[2018-01-21] MEDS: INSULIN DETEMIR 100 UNIT/ML INSULN.PEN 50 UNIT SUBCUT (21:00)
[2018-01-21] MEDS: ATORVASTATIN 20 MG TABLET 40 MG PO (21:00)
--- NOTE | 2018-01-21 21:55 | PC.NURSE ---
Pt able to take po meds without difficulty. Taking sips of clears. 96% on RA. Occasional stridorous breathing and snoring with sleep. Pt denies feeling SOB. Able to clear secretions. Repositioning self in bed. Call light in reach. Bed alarm on.
[2018-01-22 00:30] VITALS: BP 121/46; PULSE 83; RESP 13; TEMP 35.8; O2SAT 98
[2018-01-22] MEDS: methylPREDNISolone 125 MG/2 ML VIAL 60 MG IV ×2 (00:30→06:14)
[2018-01-22 04:35] VITALS: BP 137/72; PULSE 95; RESP 20; TEMP 36.5; O2SAT 94
[2018-01-22 05:21] LABS: Add Manual Diff / Slide Review NO; Basophils Percent Auto 0.4 % (0-2); Hematocrit 38.7 % (36-46); Hemoglobin 13.4 g/dL (12.0-16.0); Lymphocytes Percent Auto 2.9 % (25-40); Mean Corpuscular HGB Conc 34.6 % (30-36); Mean Corpuscular Hemoglobin 33.2 PG (26-34); Mean Corpuscular Volume 96.1 fL (80-100); Monocytes Percent Auto 2.6 % (3-14); Neutrophils Absolute Auto 15200 /uL (3000-5900); Neutrophils Percent Auto 94.1 % (50-75); Platelet Count 196 X10^3/uL (150-400); Red Blood Cell Count 4.03 X10^6/uL (4.0-5.2); Red Cell Distribution Width 14.5 % (11.6-14.8); White Blood Cell Count 16.1 X10^3/uL (4.5-11.0)
[2018-01-22 05:23] VITALS: O2SAT 97
[2018-01-22] MEDS: ALBUTEROL/IPRATROPIUM 3 ML AMPUL INH (05:23)
[2018-01-22 05:24] LABS: BUN Creatinine Ratio 37.5 (6-22); Blood Urea Nitrogen 15 mg/dL (7-17); Calcium 8.5 mg/dL (8.4-10.2); Carbon Dioxide 30 mmol/L (22-32); Chloride 108 mmol/L (98-107); Estimated Glomerular Filt Rate > 60.0 mL/min (>60); Glucose 279 mg/dL (80-110); HEMOLYSIS < 15 (0-50); Potassium 3.1 mmol/L (3.4-5.1); Sodium 143 mmol/L (137-145)
[2018-01-22 07:37] VITALS: BP 142/69; PULSE 89; RESP 18; TEMP 37.6; O2SAT 98
[2018-01-22] MEDS: INSULIN ASPART 100 UNIT/ML INSULN PEN SUBCUT ×4 (08:08→11:41)
[2018-01-22] MEDS: ASPIRIN 325 MG TABLET PO (08:09)
[2018-01-22] MEDS: CILOSTAZOL 50 MG TABLET PO (08:09)
[2018-01-22] MEDS: ENOXAPARIN 40 MG/0.4 ML SYRINGE SUBCUT (08:10)
[2018-01-22] MEDS: SODIUM CHLORIDE 0.9% 1,000 ML 125 ML IV (08:12)
--- NOTE | 2018-01-22 09:51 | PC.NURSE ---
MD cuevas. Reviewed plan of care. Reported labs, K+ Level. Verbal orders received to give 60 meq of KCL per tube, DC aponte. Plan is to d/c back to SNF today. Pt is agreeable to plan of care. Aponte removed at 0945.
--- NOTE | 2018-01-22 10:30 | ST.IPIE ---
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, managed as type 1 (Acute Medical) On insulin since 1997 history of hypoglycemic seizure in 2006 and 2001 Hyperlipidemia (Acute Medical) Peripheral vascular disease (Acute Medical) Left common femoral [id number] popliteal artery bypass in 2010 redo left femoral popliteal below the knee bypass with reverse greater saphenous vein 2018 left femoral endarterectomy also 2018 Sleep apnea in adult (Acute Medical) 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 Velarde Reason for Referral Hx of dysphagia Setting Assessment Location Acute Care Visit Type Note Type Initial Evaluation Next Note Type Next Note Type Treatment Note Patient Information Identification Type Name History (Taken from patient H&P ) Patient is a 67 year old female with a significant medical history. She was an inpatient at [facility] for 3 weeks after being found down at home for an undetermined amount of time. She was intubated twice during her admission. After her second extubation, she presented with vocal fold paralysis, aphonia, significant tracheal edema, vocal polyps, profound dysphagia and oxygen dependence. She had an MBS during her inpatient stay, with cecilio aspiration observed with all trials (liquid only) . No epiglottic movement observed, minimal hyoid elevation observed, limited laryngeal elevation observed. She received a PEG tube during her inpatient stay and was discharged to [facility] on on 2L of O2. She was able to be weaned from the oxygen and was doing well until 3 days ago when she became gradually more short of breath . Patient reports no cough, chills, or fever. She had no chest pain. She reports wheezing and shortness of breath at rest. Patient was brought to the emergency department and found to be markedly hypoxic with a room air saturation of 70%. After multiple nebulizer treatments, BIpap, and steroids her symptoms improved. She had a chest Xray which did not reveal an infiltrate. Her procalcitonin was normal. The patient was given antibiotics in the ED and transferred to the ICU for ongoing care. Since then, she has been weaned from 02. Subjective Observations Carisa was awake, alert and sitting at the edge of the bed . She is currently on a clear liquid diet awaiting diet upgrade pending swallow evaluation. Evaluation Liquids Trialed Thin Solids Trialed Puree Dysphagia Mechanical Dysphagia Advanced Regular Administration Type Controlled Cup Sip Self-Feeding Oral Impairment WFL Oral Strategies Lingual Sweep Pharyngeal Impairment WFL Pharyngeal Strategies Sitting Upright (90 deg) Small Bites and Sips Findings Rehabilitation Potential Good Impressions No s/sx of aspiration observed at bedside. Patient participated in an instrumental assessment one week ago which showed mild pharyngeal dysphagia significant for mildly delayed swallow response with mild penetration with thin liquid during the swallow. However, no aspiration observed. Diet Recommendations Liquids Order Thin Diet Order Regular Medication Recommendations As Tolerated Additional Dietary Needs Controlled Sips Reminders to Use Strategies Aspiration Precautions Recommended Precautions Upright at 90 Degrees Frequent Rest Periods Small Bites/Sips Treatment Plan Placement Recommendations after Long Term Facility Discharge Appropriate for Therapy Yes Therapy Recommendations Per physician note, plan is for patient to d/c back to SNF today; therefore, recommend ongoing therapy for dysphagia management at SNF.
[2018-01-22] MEDS: POTASSIUM CHLORIDE 20 MEQ/15 ML UDC 60 MEQ PO (11:39)
[2018-01-22 11:48] VITALS: BP 137/80; PULSE 110; RESP 16; TEMP 36.2; O2SAT 94
--- NOTE | 2018-01-22 11:52 | PM.DS.1 ---
History of Present Illness Date Patient Seen: 01/22/18 Time Patient Seen: 11:57 Chief complaint: SOB Narrative: 67-year-old female with past medical history of hypertension, paralysis of vocal cords and larynx, Velarde's palsy, diabetes, hyperlipidemia, peripheral vascular disease, and sleep apnea presented to emergency department with shortness of breath. As per patient, 3 days prior to admission she became gradually more short of breath and experienced wheezing. She denied any cough or sputum production. She denied any fevers. On admission to emergency department patient's saturation was 70%. Chest x-ray did not reveal any acute findings or opacities. Procalcitonin was normal. She did have leukocytosis of 17. She was given multiple nebulizer treatments and antibiotics, started on BiPAP, and steroids and transferred to ICU for further therapy. Discharge Providers Date of admission: 01/20/18 09:20 Primary care physician: Gayle Decker PA-C Consults: 01/21/18 17:17 Consult to Speech Therapy Evaluate & Treat Comment: has vocal cord paralysis and peg, but eats at [place] Physician Instructions: Evaluate and treat 01/21/18 17:20 Consult to Dietitian, Adult Routine Comment: HX of Peg tube, not currently using. Reason For Exam: assessed at high risk, Discharge provider: Mary Bauer MD Summary Discharge Diagnosis: One in ICU patient continued to receive DuoNeb treatments as well as steroids, BiPAP, and ceftazidime for presumed pneumonia. Her condition improved the next day and she was able to be weaned off of BiPAP back to room air with saturations of greater than 92%. Her leukocytosis improved to 12,000 thousand however increased back up to 16,000 the next day, likely due to steroid use. Ceftazidime was stopped on day 3, as it was unlikely the patient had pneumonia and likely bronchospasm/COPD exacerbation. She received total of 3 days of methylprednisolone while inpatient, and will be discharged on 3 more days of prednisone 50 mg daily p.o. and Ranitidine 150mg BID. Patient's dysphagia was addressed with speech therapy and who, after evaluating patient cleared her for a soft diet. Patient was back to baseline on day 3 of the admission and was discharged back to long-term. While admitted the patient was also noted to have hypokalemia during which time the potassium was replaced. Exam Vital Signs (past 8 hours): - 01/22/18 04:35 01/22/18 05:23 01/22/18 07:37 Temperature 97.7 F 99.7 F H Pulse Rate 95 H 89 Respiratory Rate 20 18 Blood Pressure 137/72 142/69 H Pulse Oximetry 94 97 98 01/22/18 11:48 Temperature 97.2 F L Pulse Rate 110 H Respiratory Rate 16 Blood Pressure 137/80 Pulse Oximetry 94 Fraction of Inspired Oxygen 0.35 Oxygen Delivery Method Room Air Oxygen Flow Rate 0 Narrative Exam Narrative: Exam Narrative: General: Pleasant female NAD, AAOx3, on RA saturating well HEENT: NC/AT, EOMI, Neck supple Lungs: Decent air movement all throughout lung melgar. CV: RRR, NL S1S2 Abd: soft/ non tender/ non distended, peg tube in place Ext: 1+ trace edema bilaterally, bandage on left lower extremity, well healed scars on the right leg Neuro: non focal Skin: no lesions Psych: she appear appropriate, responsive, and coherent. No evidence of delusions or hallucinations Objective Labs Result Diagrams: 01/22/18 04:42 01/22/18 04:42 Labs: Laboratory Results - last 24 hr 01/22/18 01/22/18 04:42 04:42 WBC 16.1 H RBC 4.03 Hgb 13.4 Hct 38.7 MCV 96.1 MCH 33.2 MCHC 34.6 RDW 14.5 Plt Count 196 Neut % (Auto) 94.1 H Lymph % (Auto) 2.9 L [place] % (Auto) 2.6 L Eos % (Auto) 0.0 L Baso % (Auto) 0.4 Neut # (Auto) 74358 H Sodium 143 Potassium 3.1 L Chloride 108 H Carbon Dioxide 30 BUN 15 Creatinine 0.40 L Estimated GFR > 60.0 BUN/Creatinine Ratio 37.5 H Glucose 279 H Calcium 8.5 Discharge Plan Discharge Plan Transfer to: [facility] Transportation: Wheelchair Discharge comment: please make sure to repeat K levels in the morning of 01/23/18 I certify the postop hospital intermediate care is medically necessary on a continuing basis for any conditions for which he/ she received care during this hospitalization.: Yes The receiving facility has agreed to accept transfer and provide medical treatment.: Yes Discharge Med Rec/Prescriptions Prescriptions: New prednisone 50 mg tablet 50 mg PO DAILY Qty: 3 RF: 0 ranitidine HCl 150 mg Tablet 150 mg PO BID Qty: 60 RF: 0 Continue insulin aspart U-100 100 unit/mL insulin pen 1 dose Sub-Q QID RF: 0 insulin detemir U-100 100 unit/mL (3 mL) insulin pen 50 unit Sub-Q QPM Qty: 0 RF: 0 omeprazole 20 mg Capsule,Delayed Release(Dr/Ec) 20 mg PO DAILY RF: 0 albuterol sulfate 0.63 mg/3 mL Solution For Nebulization 1 neb Inhalation Q4H PRN (Reason: Wheezing) RF: 0 acetaminophen [Acetaminophen Extra Strength] 500 mg Tablet 1,000 mg PO Q6H PRN (Reason: Pain, Mild) RF: 0 magnesium hydroxide [Milk of Magnesia] 400 mg/5 mL Suspension 30 ml PO PRN PRN (Reason: Constipation) RF: 0 bisacodyl 10 mg Suppository 10 mg [place] PRN PRN (Reason: Constipation) RF: 0 calcium carbonate [Tums] 200 mg calcium (500 mg) Tablet,Chewable 2 tab PO Q6H PRN (Reason: Indigestion) RF: 0 sodium phosphates [Fleet Enema] 19-7 gram/118 mL Enema 1 ea [place] PRN PRN (Reason: Constipation) RF: 0 bisacodyl 5 mg Tablet,Delayed Release (Dr/Ec) 1 - 2 tab PO PRN PRN (Reason: mild to severe constipation) RF: 0 furosemide 20 mg Tablet 20 mg PO DAILY PRN (Reason: Edema) RF: 0 albuterol sulfate [Ventolin HFA] 90 mcg/actuation Hfa Aerosol Inhaler 2 puff Inhalation Q6H PRN (Reason: Shortness Of Breath) RF: 0 guaifenesin 600 mg Tablet Extended Release 12hr 1 tab PO Q12H PRN (Reason: Congestion) RF: 0 atorvastatin [Lipitor] 10 MG tablet 40 mg PO QDAY RF: 0 aspirin 325 MG tablet 325 mg PO QDAY RF: 0 cilostazol 50 MG tablet 50 mg PO QDAY RF: 0 Discontinued acetazolamide 250 mg Tablet 250 mg PO Q12H RF: 0 acetaminophen [Acetaminophen Extra Strength] 500 mg Tablet 1,000 mg PO Q12H RF: 0 Other Ambulatory Orders: Basic Metabolic Panel (Routine) Timeframe: 1 Day Location: Laboratory Ordered By: Mary Bauer Discharge Orders: Discharge (Order); Ordered 01/22/18 Ordered By: Mary Bauer Provider Discharge Instructions Diet: Carb-consistent/Diabetic Liquid consistency: Normal/Thin Food texture: Regular Discharge Data Primary Care Provider: Gayle Decker Attending Provider: Meg Velarde Date/Time: 01/20/18 09:20
--- NOTE | 2018-01-22 12:04 | P.DS_ITS ---
History of Present Illness Date Patient Seen: 01/22/18 Time Patient Seen: 11:57 Chief complaint: SOB Narrative: 67-year-old female with past medical history of hypertension, paralysis of vocal cords and larynx, Velarde's palsy, diabetes, hyperlipidemia, peripheral vascular disease, and sleep apnea presented to emergency department with shortness of breath. As per patient, 3 days prior to admission she became gradually more short of breath and experienced wheezing. She denied any cough or sputum production. She denied any fevers. On admission to emergency department patient's saturation was 70%. Chest x-ray did not reveal any acute findings or opacities. Procalcitonin was normal. She did have leukocytosis of 17. She was given multiple nebulizer treatments and antibiotics, started on BiPAP, and steroids and transferred to ICU for further therapy. Discharge Providers Date of admission: 01/20/18 09:20 Primary care physician: Gayle Decker PA-C Consults: 01/21/18 17:17 Consult to Speech Therapy Evaluate & Treat Comment: has vocal cord paralysis and peg, but eats at ID Physician Instructions: Evaluate and treat 01/21/18 17:20 Consult to Dietitian, Adult Routine Comment: HX of Peg tube, not currently using. Reason For Exam: assessed at high risk, Discharge provider: Mary Bauer MD Summary Discharge Diagnosis: One in ICU patient continued to receive DuoNeb treatments as well as steroids, BiPAP, and ceftazidime for presumed pneumonia. Her condition improved the next day and she was able to be weaned off of BiPAP back to room air with saturations of greater than 92%. Her leukocytosis improved to 12,000 thousand however increased back up to 16,000 the next day, likely due to steroid use. Ceftazidime was stopped on day 3, as it was unlikely the patient had pneumonia and likely bronchospasm/COPD exacerbation. She received total of 3 days of methylprednisolone while inpatient, and will be discharged on 3 more days of prednisone 50 mg daily p.o. and Ranitidine 150mg BID. Patient's dysphagia was addressed with speech therapy and who, after evaluating patient cleared her for a soft diet. Patient was back to baseline on day 3 of the admission and was discharged back to halfway. While admitted the patient was also noted to have hypokalemia during which time the potassium was replaced. Exam Vital Signs (past 8 hours): - 01/22/18 04:35 01/22/18 05:23 01/22/18 07:37 Temperature 97.7 F 99.7 F H Pulse Rate 95 H 89 Respiratory Rate 20 18 Blood Pressure 137/72 142/69 H Pulse Oximetry 94 97 98 01/22/18 11:48 Temperature 97.2 F L Pulse Rate 110 H Respiratory Rate 16 Blood Pressure 137/80 Pulse Oximetry 94 Fraction of Inspired Oxygen 0.35 Oxygen Delivery Method Room Air Oxygen Flow Rate 0 Narrative Exam Narrative: Exam Narrative: General: Pleasant female NAD, AAOx3, on RA saturating well HEENT: NC/AT, EOMI, Neck supple Lungs: Decent air movement all throughout lung melgar. CV: RRR, NL S1S2 Abd: soft/ non tender/ non distended, peg tube in place Ext: 1+ trace edema bilaterally, bandage on left lower extremity, well healed scars on the right leg Neuro: non focal Skin: no lesions Psych: she appear appropriate, responsive, and coherent. No evidence of delusions or hallucinations Objective Labs Result Diagrams: 01/22/18 04:42 01/22/18 04:42 Labs: Laboratory Results - last 24 hr 01/22/18 01/22/18 04:42 04:42 WBC 16.1 H RBC 4.03 Hgb 13.4 Hct 38.7 MCV 96.1 MCH 33.2 MCHC 34.6 RDW 14.5 Plt Count 196 Neut % (Auto) 94.1 H Lymph % (Auto) 2.9 L Cuming % (Auto) 2.6 L Eos % (Auto) 0.0 L Baso % (Auto) 0.4 Neut # (Auto) 90916 H Sodium 143 Potassium 3.1 L Chloride 108 H Carbon Dioxide 30 BUN 15 Creatinine 0.40 L Estimated GFR > 60.0 BUN/Creatinine Ratio 37.5 H Glucose 279 H Calcium 8.5 Discharge Plan Discharge Plan Transfer to: [facility] Transportation: Wheelchair Discharge comment: please make sure to repeat K levels in the morning of I certify the postop hospital fdc care is medically necessary on a continuing basis for any conditions for which he/ she received care during this hospitalization.: Yes The receiving facility has agreed to accept transfer and provide medical treatment.: Yes Discharge Med Rec/Prescriptions Prescriptions: New prednisone 50 mg tablet 50 mg PO DAILY Qty: 3 RF: 0 ranitidine HCl 150 mg Tablet 150 mg PO BID Qty: 60 RF: 0 Continue insulin aspart U-100 100 unit/mL insulin pen 1 dose Sub-Q QID RF: 0 insulin detemir U-100 100 unit/mL (3 mL) insulin pen 50 unit Sub-Q QPM Qty: 0 RF: 0 omeprazole 20 mg Capsule,Delayed Release(Dr/Ec) 20 mg PO DAILY RF: 0 albuterol sulfate 0.63 mg/3 mL Solution For Nebulization 1 neb Inhalation Q4H PRN (Reason: Wheezing) RF: 0 acetaminophen [Acetaminophen Extra Strength] 500 mg Tablet 1,000 mg PO Q6H PRN (Reason: Pain, Mild) RF: 0 magnesium hydroxide [Milk of Magnesia] 400 mg/5 mL Suspension 30 ml PO PRN PRN (Reason: Constipation) RF: 0 bisacodyl 10 mg Suppository 10 mg VT PRN PRN (Reason: Constipation) RF: 0 calcium carbonate [Tums] 200 mg calcium (500 mg) Tablet,Chewable 2 tab PO Q6H PRN (Reason: Indigestion) RF: 0 sodium phosphates [Fleet Enema] 19-7 gram/118 mL Enema 1 ea VT PRN PRN (Reason: Constipation) RF: 0 bisacodyl 5 mg Tablet,Delayed Release (Dr/Ec) 1 - 2 tab PO PRN PRN (Reason: mild to severe constipation) RF: 0 furosemide 20 mg Tablet 20 mg PO DAILY PRN (Reason: Edema) RF: 0 albuterol sulfate [Ventolin HFA] 90 mcg/actuation Hfa Aerosol Inhaler 2 puff Inhalation Q6H PRN (Reason: Shortness Of Breath) RF: 0 guaifenesin 600 mg Tablet Extended Release 12hr 1 tab PO Q12H PRN (Reason: Congestion) RF: 0 atorvastatin [Lipitor] 10 MG tablet 40 mg PO QDAY RF: 0 aspirin 325 MG tablet 325 mg PO QDAY RF: 0 cilostazol 50 MG tablet 50 mg PO QDAY RF: 0 Discontinued acetazolamide 250 mg Tablet 250 mg PO Q12H RF: 0 acetaminophen [Acetaminophen Extra Strength] 500 mg Tablet 1,000 mg PO Q12H RF: 0 Other Ambulatory Orders: Basic Metabolic Panel (Routine) Timeframe: 1 Day Location: Laboratory Ordered By: Mary Bauer Discharge Orders: Discharge (Order); Ordered 01/22/18 Ordered By: Mary Bauer Provider Discharge Instructions Diet: Carb-consistent/Diabetic Liquid consistency: Normal/Thin Food texture: Regular Discharge Data Primary Care Provider: Gayle Decker Attending Provider: Meg Velarde Date/Time: 01/20/18 09:20
--- NOTE | 2018-01-22 14:19 | CM.DANOTE ---
Discharge Planning/Care Management DCP: assessment: Case received and met early this morning/0800 with pt. Introduced self and role. Pt is a 67 year old female who admitted 01/20 to care of hospitalist team. Full DX and POC was in process yesterday and triage of caseload yesterday led to decision to see pt this morning to continue the assessment process. Payer: Medicare PCP: Brenda stout/[facility] clinic Pt confirms that she has been residing at [facility] since she was sent there from at last admission to hospital. ENT specialist has recommended a tracheostomy for her but she has chosen not to proceed with this and she reiterates that decision again this admission. Pt says she has had a good experience at [facility] and plans to return there at d/c. Dr. Bauer has now deemed pt stable for return to [facility]. [facility], [facility] has conferred with her team and will take her this afternoon by 1500 if all can be arranged including transport. Transport options limited due to time. Pt's sister lives in [place]. [facility] does not provide transport at this time. As [facility] was not currently available discussed use of [employer] using [employer] with Acute Rn New Grad Felicity Candelario. She readily agreed this was appropriate and said to proceed. [facility] will be here at 1445 to pick pt up at Er entrance. staff to assist her into taxi, [facility] assist out. [facility] paperwork completed and copy of same left for shared services manager Mini Spicer Went over all with [facility] Child and pt. PASRR completed per [facility] request and this plus orders are faxed to [facility] and placed into packet. Dr. Bauer was aware of need to call the [facility] medical case worker team. CM Discharge Assessment Start: 01/22/18 14:17 Freq: Status: Active Protocol: Document 01/22/18 14:17 ITV (Rec: 01/22/18 14:19 ITV [id number]) Discharge Planning Assessment Advance Directives? DPOA for health care/ POLST History Provided By Patient Medical Record Prior Living Arrangements Skilled Nurse Facility Household Members none Facility Name Admitted From: [facility] Willing to Return to Facility? Yes Patient/Family Preference Senior Living Facility Home with Home Health Discharge Plan Senior Living Facility If patient plan is SNF: Has PASSR been Yes completed? Has Agency SNF been contacted Yes Whiteboard Updated in Patient Room with Yes name and ext. # of Stripper Soft Plastic Review Status In Process Next Review Type Continued Stay Review
[2018-01-22] MEDS: ACETAMINOPHEN 325 MG TABLET 975 MG PO (14:21)
[2018-01-22 14:29] VITALS: BMI 28.2
--- NOTE | 2018-01-22 14:58 | PC.NURSE ---
Discharge note Report called to admission nurse at [facility]. Removed PIV with cath tip intact. Dsg change done to l genao and peg tube site after shower. L genao wound healing without drainage, erythema. Peg site WNL. Pt voided 300 ML of urine post aponte cath d/c. Transferred with SBA/FWW to w/c and was escorted to taxi with all belongings in no acute distress.
== END 2018-01-22 15:01 | DRG 189 ==
LOC: ED 09:03 → ICU 09:20
PROVIDERS: Internal Medicine; Admitting Provider Internal Medicine; Emergency Provider Emergency Medicine; Family Provider Physician Assistant; PCP Physician Assistant; Visit Provider Internal Medicine
DX: J96.01 Acute respiratory failure with hypoxia (principal); E87.0 Hyperosmolality and hypernatremia; J44.1 Chronic obstructive pulmonary disease with (acute) exacerbation; J38.00 Paralysis of vocal cords and larynx, unspecified; R13.10 Dysphagia, unspecified; Z93.1 Gastrostomy status; E87.6 Hypokalemia; I10 Essential (primary) hypertension; E78.5 Hyperlipidemia, unspecified; G47.33 Obstructive sleep apnea (adult) (pediatric); E13.9 Other specified diabetes mellitus without complications; Z79.4 Long term (current) use of insulin; F17.210 Nicotine dependence, cigarettes, uncomplicated; J98.01 Acute bronchospasm; Z66 Do not resuscitate
CPT/HCPCS: 36415; 36591; 36600; 71045; 80048; 80053; 82805; 82962; 83605; 83880; 84145; 85025; 87797; 92610; 93005; 94640; 94660; 96361; 96365; 96375; 99285; 99291; J0713; J1650; J1956; J2930; J7613; J7614

== ENCOUNTER → 2018-11-16 10:10 | Outpatient (CLI) | payer MEDICARE, OTHER, SELFPAY ==
[2018-01-20 10:39] VITALS: BMI 27.3
[2018-01-20 10:48] VITALS: PULSE 125; RESP 32; O2SAT 100
--- NOTE | 2018-11-16 | DI.RAD.S_ITS ---
PROCEDURE: XR HAND LT 2V INDICATIONS: Arthralgia of Right Hand TECHNIQUE: 2 views of the hand(s) acquired. COMPARISON: None. FINDINGS: Bones: No fractures or dislocations. Carpal bones are normally aligned. No suspicious bony lesions. Minimal narrowing of the interphalangeal joints of the distal digits, no erosive arthritis. Soft tissues: No suspicious soft tissue calcifications. 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 Dictated by: Giovanni Barahona M.D. on 11/16/2018 at 11:47 Approved by: Giovanni Barahona M.D. on 11/16/2018 at 11:48
--- NOTE | 2018-11-16 | DI.RAD.S_ITS ---
PROCEDURE: XR WRIST RT MIN 3V INDICATIONS: Arthralgia of Right Hand TECHNIQUE: 3 views of the wrist were acquired. COMPARISON: None. FINDINGS: Bones: No fractures or dislocations. No suspicious bony lesions. Scaphoid view: Not obtained of the scaphoid visualized appears normal. Soft tissues: No suspicious soft tissue calcifications. IMPRESSION: Mild degenerative osteoarthritic change at the base of the first metacarpal at the radiocarpal joint, but no trauma is found and no erosive arthritis is suspected. Dictated by: Giovanni Barahona M.D. on 11/16/2018 at 10:58 Approved by: Giovanni Barahona M.D. on 11/16/2018 at 10:59
--- NOTE | 2018-11-16 | DI.RAD.S_ITS ---
PROCEDURE: XR HAND RT 2V INDICATIONS: Arthralgia of Right Hand TECHNIQUE: 2 views of the hand(s) acquired. COMPARISON: None. FINDINGS: Bones: No fractures or dislocations. Minimal narrowing of the distal interphalangeal joints, no erosive arthritis is found. Carpal bones are normally aligned. No suspicious bony lesions. Soft tissues: No suspicious soft tissue calcifications. IMPRESSION: Minimal osteoarthritis, no erosive arthritis. No trauma seen. Dictated by: Giovanni Barahona M.D. on 11/16/2018 at 11:48 Approved by: Giovanni Barahona M.D. on 11/16/2018 at 11:48
== END ==
PROVIDERS: Family Provider Internal Medicine; PCP Internal Medicine; Visit Provider Internal Medicine
DX: M25.541 Pain in joints of right hand (principal); M19.041 Primary osteoarthritis, right hand
CPT/HCPCS: 73110; 73120

== ENCOUNTER → 2018-11-26 07:17 | Outpatient (CLI) | payer MEDICARE, OTHER, SELFPAY ==
[2018-01-20 10:39] VITALS: BMI 27.3
[2018-01-20 10:48] VITALS: PULSE 125; RESP 32; O2SAT 100
[2018-11-26 08:25] LABS: Erythrocyte Sedimentation Rate 2 MM/HR (0-20)
[2018-11-26 08:41] LABS: Alanine Aminotransferase 20 IU/L (9-52); Albumin 4.1 g/dL (3.5-5.0); Albumin Globulin Ratio 1.4 (1.0-2.8); Alkaline Phosphatase 92 U/L (38-126); Aspartate Aminotransferase 21 IU/L (14-36); Bilirubin Total 0.6 mg/dL (0.2-1.3); Blood Urea Nitrogen 9 mg/dL (7-17); C-Reactive Protein Quant 1.6 mg/dL (<1.0); Calcium 9.5 mg/dL (8.4-10.2); Carbon Dioxide 30 mmol/L (22-32); Chloride 102 mmol/L (98-107); Cholesterol 179 mg/dL (140-199); Estimated Glomerular Filt Rate > 60.0 mL/min (>60); Globulin 2.9 g/dL (1.7-4.1); Glucose 126 mg/dL (80-110); HDL Cholesterol 75 mg/dL (40-60); HEMOLYSIS 17 (0-50); LDL Cholesterol Calculated 89 mg/dL (<100); Potassium 4.5 mmol/L (3.4-5.1); Sodium 140 mmol/L (137-145); Triglycerides 73 mg/dL (35-150)
[2018-11-26 08:55] LABS: Rheumatoid Factor < 8.6 IU/mL (<12.0)
== END ==
PROVIDERS: PCP Internal Medicine; Visit Provider Internal Medicine
DX: M25.541 Pain in joints of right hand (principal); E11.9 Type 2 diabetes mellitus without complications; E78.2 Mixed hyperlipidemia; I10 Essential (primary) hypertension
CPT/HCPCS: 36415; 80053; 80061; 84443; 85651; 86140; 86430

== ENCOUNTER → 2019-07-27 07:50 | Outpatient (CLI) | payer MEDICARE, OTHER, SELFPAY ==
[2018-01-20 10:39] VITALS: BMI 27.3
[2018-01-20 10:48] VITALS: PULSE 125; RESP 32; O2SAT 100
--- NOTE | 2019-07-27 | DI.ECHO.S_ITS ---
[facility] +---------+ [facility] +---------+ : : [address] : [address] : : : : [id number] : : : : Phone: [phone]+ Echocardiogram Report + + :Name: CLAY PACHECO Study Date: 07/27/2019 Height: 67 in : :[facility] Weight: 188 lb : : Gender: Female BSA: 2.0 m2 : :: 1950 Age: 68 yrs BP: 138/88 mmHg: :Reason For Study: Aortic Stenosis : : Performed By: Jada Elmore : :Referring: SIMEON CONTRERAS : + + Interpretation Summary Sinus tachycardia. Normal LV size and wall thickness; mild concentric LVH; normal wall motion and LV systolic function. EF is estimated at 50-55%. RV size is at the upper limits of normal. Otherwise normal chamber sizes. Aortic valve leaflets are moderately thickened and calcified with moderately reduced leaflet excursion. There is moderate aortic stenosis with peak velocity of 3.2 m/sec and mean gradient of 22 mm Hg. Moderate MAC with mildly thickened mitral valve leaflets and trace associated mitral regurgitation. Estimated PA systolic pressure is 48 mm hg assuming RA pressure of 5 mm Hg. Procedure: A two-dimensional transthoracic echocardiogram with color flow and Doppler was performed. The study quality was technically adequate. Comparison is made with the echocardiogram of 08/04/2017. The patient was in sinus tachycardia with heart rates between 109-115 bpm during the exam. Left Ventricle: The left ventricle is normal in size. Left ventricular wall thickness is mildly increased. The ejection fraction is estimated to be 50- 55%. Diastolic function could not be accurately assessed due to tachycardia. Right Ventricle: The right ventricle is at the upper limits of normal in size. The right ventricular systolic function is normal. Atria: Both atria are normal in size. There is no Doppler evidence for an interatrial shunt. Mitral Valve: The mitral valve leaflets are mildly calcified. There is moderate mitral annular calcification. There is trace mitral regurgitation. Aortic Valve: The aortic valve is trileaflet. There is moderate aortic stenosis. No aortic regurgitation is present. Tricuspid Valve: The tricuspid valve is normal in structure and function. There is mild tricuspid regurgitation. Pulmonic Valve: The pulmonic valve is not well seen, but is grossly normal. There is no pulmonic valvular regurgitation. Great Vessels: The aortic root is normal size. The ascending aorta could not be visualized. The IVC is dilated (diameter is greater than 2.1 cm) yet it collapses greater than 50% with a sniff. This suggests a right atrial pressure of 8 mm Hg. Pericardium/ Pleura There is no pericardial effusion. There is no pleural effusion. MMode/2D Measurements & Calculations LVIDd: 4.7 cm LVOT diam: 2.0 cm LVIDs: 3.4 cm Ao root diam: 3.2 cm FS: 27.5 % EPSS: 1.2 cm IVSd: 1.2 cm LVPWd: 0.98 cm LV garcia. diameter/BSA (cm/m^2): 2.4 LV sys. diameter/BSA (cm/m^2): 1.7 LA A2 area: 20.6 cm2 RA long axis: 5.1 cm LA A4 area: 15.5 cm2 RA area: 17.5 cm2 LA length (vol): 4.8 cm RA vol: 50.8 ml LA vol: 56.0 ml RA : 25.8 ml/m2 LA vol index: 28.4 ml/m2 IVC diam: 2.2 cm RVD1 (basal): 4.0 cm TAPSE: 2.2 cm Doppler Measurements & Calculations Ao V2 max: 318.8 cm/sec LVOT Max Helio: 113.5 cm/sec Ao V2 mean: 231.9 cm/sec LV V1 max P.2 mmHg Ao max P.4 mmHg LV V1 VTI: 20.3 cm Ao mean P.6 mmHg TRACY(I,D): 1.0 cm2 Ao V2 VTI: 64.2 cm TRACY(V,D): 1.2 cm2 sev ratio: 0.32 TRACY indexed to BSA (cm^2/m^2): 0.53 MV E max helio: 119.0 cm/sec TR max helio: 295.0 cm/sec MV A max helio: 170.9 cm/sec TR max P.2 mmHg MV E/A: 0.70 PA V2 max: 85.2 cm/sec Med Peak E' Helio: 4.3 cm/sec PA V2 mean: 49.5 cm/sec E/E' med: 27.6 PA mean P.2 mmHg Lat Peak E' Helio: 5.2 cm/sec PA pr(Accel): 47.9 mmHg E/E' lat: 23.1 PA Accel Time: 0.07 sec E/e' average: 25.3 MVA(VTI): 2.4 cm2 MV V2 mean: 98.1 cm/sec SV(LVOT): 66.7 ml MV mean P.6 mmHg MV V2 VTI: 27.4 cm Electronically signed by: Heidi Nguyen M.D. on Reading Physician:07/28/2019 07:02 AM
== END ==
PROVIDERS: PCP Internal Medicine; Referring Provider Internal Medicine; Visit Provider Internal Medicine
DX: I08.2 Rheumatic disorders of both aortic and tricuspid valves (principal)
CPT/HCPCS: 93306

== ENCOUNTER → 2020-05-04 11:58 | Outpatient (CLI) | payer MEDICARE, OTHER, SELFPAY ==
[2020-05-02 11:21] VITALS: PULSE 125; RESP 32; O2SAT 100; BMI 27.3
--- NOTE | 2020-05-04 12:03 | DI.US.S_ITS ---
PROCEDURE: US PERIPH VENOUS LOW EXTREM BI INDICATIONS: EDEMA TECHNIQUE: Real-time imaging, as well as color and pulse Doppler interrogation, were performed of the deep veins of both legs from the inguinal ligament to the popliteal fossa. COMPARISON: None. FINDINGS: Right: The common femoral, femoral and popliteal veins are normally compressible, and free of intraluminal thrombus. Color and pulse Doppler demonstrate normal phasic intravascular flow. There is normal augmentation response to distal compression maneuver. Left: The common femoral, femoral and popliteal veins are normally compressible, and free of intraluminal thrombus. Color and pulse Doppler demonstrate normal phasic intravascular flow. There is normal augmentation response to distal compression maneuver. This study is limited by body habitus. IMPRESSION: Negative for deep venous thrombosis. Dictated by: Bijan Otero M.D. on 05/04/2020 at 12:06 Approved by: Bijan Otero M.D. on 05/04/2020 at 12:06
== END ==
PROVIDERS: PCP Internal Medicine; Referring Provider Internal Medicine; Visit Provider Internal Medicine
DX: R60.0 Localized edema (principal)
CPT/HCPCS: 93970

== ENCOUNTER → 2020-05-22 11:38 | Outpatient (CLI) | payer MEDICARE, OTHER, SELFPAY ==
[2020-05-02 11:21] VITALS: PULSE 125; RESP 32; O2SAT 100; BMI 27.3
== END ==
PROVIDERS: PCP Internal Medicine; Referring Provider Internal Medicine; Visit Provider Family Medicine
DX: I87.2 Venous insufficiency (chronic) (peripheral) (principal); E11.621 Type 2 diabetes mellitus with foot ulcer; L97.511 Non-pressure chronic ulcer of other part of right foot limited to breakdown of skin; L97.421 Non-pressure chronic ulcer of left heel and midfoot limited to breakdown of skin; L97.811 Non-pressure chronic ulcer of other part of right lower leg limited to breakdown of skin; L97.211 Non-pressure chronic ulcer of right calf limited to breakdown of skin; E11.51 Type 2 diabetes mellitus with diabetic peripheral angiopathy without gangrene; R60.0 Localized edema; Z79.4 Long term (current) use of insulin
CPT/HCPCS: 97597; 99204; 99213

== ENCOUNTER → 2020-06-05 10:04 | Outpatient (CLI) | payer MEDICARE, OTHER, SELFPAY ==
[2020-05-02 11:21] VITALS: PULSE 125; RESP 32; O2SAT 100; BMI 27.3
== END ==
PROVIDERS: PCP Internal Medicine; Referring Provider Internal Medicine; Visit Provider Family Medicine
DX: I87.2 Venous insufficiency (chronic) (peripheral) (principal); L97.811 Non-pressure chronic ulcer of other part of right lower leg limited to breakdown of skin; L97.211 Non-pressure chronic ulcer of right calf limited to breakdown of skin; L97.511 Non-pressure chronic ulcer of other part of right foot limited to breakdown of skin; L97.421 Non-pressure chronic ulcer of left heel and midfoot limited to breakdown of skin; F17.200 Nicotine dependence, unspecified, uncomplicated; E11.51 Type 2 diabetes mellitus with diabetic peripheral angiopathy without gangrene
CPT/HCPCS: 97597

== ENCOUNTER → 2020-06-07 14:57 | Outpatient (CLI) | payer MEDICARE, OTHER, SELFPAY ==
[2020-05-02 11:21] VITALS: PULSE 125; RESP 32; O2SAT 100; BMI 27.3
== END ==
PROVIDERS: PCP Internal Medicine; Referring Provider Internal Medicine; Visit Provider Family Medicine
DX: I87.2 Venous insufficiency (chronic) (peripheral) (principal); L97.811 Non-pressure chronic ulcer of other part of right lower leg limited to breakdown of skin; R60.0 Localized edema
CPT/HCPCS: 29581

== ENCOUNTER → 2020-06-20 11:25 | Outpatient (CLI) | payer MEDICARE, OTHER, SELFPAY ==
[2020-05-02 11:21] VITALS: PULSE 125; RESP 32; O2SAT 100; BMI 27.3
== END ==
PROVIDERS: PCP Internal Medicine; Referring Provider Internal Medicine; Visit Provider Family Medicine
DX: I87.2 Venous insufficiency (chronic) (peripheral) (principal); L97.811 Non-pressure chronic ulcer of other part of right lower leg limited to breakdown of skin; R60.0 Localized edema; E11.51 Type 2 diabetes mellitus with diabetic peripheral angiopathy without gangrene; J43.2 Centrilobular emphysema; R00.0 Tachycardia, unspecified; Z72.0 Tobacco use
CPT/HCPCS: 11042; 99213

== ENCOUNTER → 2020-06-30 10:23 | Outpatient (CLI) | payer MEDICARE, OTHER, SELFPAY ==
[2020-05-02 11:21] VITALS: PULSE 125; RESP 32; O2SAT 100; BMI 27.3
== END ==
PROVIDERS: PCP Internal Medicine; Referring Provider Internal Medicine; Visit Provider Family Medicine
DX: I87.2 Venous insufficiency (chronic) (peripheral) (principal); L97.811 Non-pressure chronic ulcer of other part of right lower leg limited to breakdown of skin
CPT/HCPCS: 29581

== ENCOUNTER → 2020-07-04 14:41 | Outpatient (CLI) | payer MEDICARE, OTHER, SELFPAY ==
[2020-05-02 11:21] VITALS: PULSE 125; RESP 32; O2SAT 100; BMI 27.3
== END ==
PROVIDERS: PCP Internal Medicine; Referring Provider Internal Medicine; Visit Provider Family Medicine
DX: I87.2 Venous insufficiency (chronic) (peripheral) (principal); L97.811 Non-pressure chronic ulcer of other part of right lower leg limited to breakdown of skin; E11.622 Type 2 diabetes mellitus with other skin ulcer; E11.51 Type 2 diabetes mellitus with diabetic peripheral angiopathy without gangrene; R60.0 Localized edema; J43.9 Emphysema, unspecified; I35.0 Nonrheumatic aortic (valve) stenosis; F17.200 Nicotine dependence, unspecified, uncomplicated
CPT/HCPCS: 97597; 99212; 99213

== ENCOUNTER → 2020-07-11 11:40 | Outpatient (CLI) | payer MEDICARE, OTHER, SELFPAY ==
[2020-05-02 11:21] VITALS: PULSE 125; RESP 32; O2SAT 100; BMI 27.3
== END ==
PROVIDERS: PCP Internal Medicine; Referring Provider Internal Medicine; Visit Provider Family Medicine
DX: I87.2 Venous insufficiency (chronic) (peripheral) (principal); L97.811 Non-pressure chronic ulcer of other part of right lower leg limited to breakdown of skin; I73.9 Peripheral vascular disease, unspecified; R06.02 Shortness of breath; Z72.0 Tobacco use; R60.0 Localized edema; J43.9 Emphysema, unspecified; I35.0 Nonrheumatic aortic (valve) stenosis; L08.9 Local infection of the skin and subcutaneous tissue, unspecified
CPT/HCPCS: 87070; 87075; 87077; 87186; 87205; 97597; 99212

== ENCOUNTER → 2020-07-18 10:55 | Outpatient (CLI) | payer MEDICARE, OTHER, SELFPAY ==
[2020-05-02 11:21] VITALS: PULSE 125; RESP 32; O2SAT 100; BMI 27.3
== END ==
PROVIDERS: PCP Internal Medicine; Referring Provider Internal Medicine; Visit Provider Family Medicine
DX: I87.2 Venous insufficiency (chronic) (peripheral) (principal); L97.811 Non-pressure chronic ulcer of other part of right lower leg limited to breakdown of skin; I73.9 Peripheral vascular disease, unspecified; R60.0 Localized edema; J43.9 Emphysema, unspecified; I35.0 Nonrheumatic aortic (valve) stenosis; L08.9 Local infection of the skin and subcutaneous tissue, unspecified; B95.61 Methicillin susceptible Staphylococcus aureus infection as the cause of diseases classified elsewhere; F17.200 Nicotine dependence, unspecified, uncomplicated
CPT/HCPCS: 11042; 11045; 99214

== ENCOUNTER → 2020-07-20 14:41 | Outpatient (ROUT) | payer MEDICARE, OTHER, SELFPAY ==
[2020-05-02 11:21] VITALS: PULSE 125; RESP 32; O2SAT 100; BMI 27.3
[2020-07-20 16:17] LABS: Alanine Aminotransferase 15 IU/L (<35); Albumin 3.7 g/dL (3.5-5.0); Albumin Globulin Ratio 1.2 (1.0-2.8); Alkaline Phosphatase 166 U/L (38-126); Aspartate Aminotransferase 28 IU/L (14-36); BUN Creatinine Ratio 32.6 (6-22); Bilirubin Total 2.2 mg/dL (0.2-1.3); Blood Urea Nitrogen 15 mg/dL (7-17); Calcium 9.2 mg/dL (8.4-10.2); Carbon Dioxide 25 mmol/L (22-32); Chloride 94 mmol/L (98-107); Cholesterol 140 mg/dL (140-199); Estimated Glomerular Filt Rate > 60.0 mL/min (>60); Glucose 232 mg/dL (80-110); HDL Cholesterol 42 mg/dL (40-60); HEMOLYSIS 23 (0-50); LDL Cholesterol Calculated 74 mg/dL (<100); Potassium 3.8 mmol/L (3.4-5.1); Sodium 133 mmol/L (137-145); Total Protein 6.7 g/dL (6.3-8.2); Triglycerides 122 mg/dL (35-150)
[2020-07-20 16:34] LABS: Hemoglobin A1C% w Est Avg Glu 7.9 % (4.0-6.0)
== END ==
PROVIDERS: PCP Internal Medicine; Visit Provider Internal Medicine
DX: E11.9 Type 2 diabetes mellitus without complications (principal); E78.49 Other hyperlipidemia; I10 Essential (primary) hypertension
CPT/HCPCS: 80053; 80061; 82043; 82570; 83036

== ENCOUNTER → 2020-07-25 10:43 | Outpatient (CLI) | payer MEDICARE, OTHER, SELFPAY ==
[2020-05-02 11:21] VITALS: PULSE 125; RESP 32; O2SAT 100; BMI 27.3
== END ==
PROVIDERS: PCP Internal Medicine; Referring Provider Internal Medicine; Visit Provider Family Medicine
DX: I87.2 Venous insufficiency (chronic) (peripheral) (principal); L97.811 Non-pressure chronic ulcer of other part of right lower leg limited to breakdown of skin; I73.9 Peripheral vascular disease, unspecified; R60.0 Localized edema; J43.9 Emphysema, unspecified; E11.622 Type 2 diabetes mellitus with other skin ulcer; L08.9 Local infection of the skin and subcutaneous tissue, unspecified; B95.61 Methicillin susceptible Staphylococcus aureus infection as the cause of diseases classified elsewhere; F17.200 Nicotine dependence, unspecified, uncomplicated
CPT/HCPCS: 11042; 11045; 99213

== ENCOUNTER → 2020-07-28 13:05 | Outpatient (CLI) | payer MEDICARE, OTHER, SELFPAY ==
[2020-05-02 11:21] VITALS: PULSE 125; RESP 32; O2SAT 100; BMI 27.3
== END ==
PROVIDERS: PCP Internal Medicine; Referring Provider Dentist Oral and Maxillofacial Surgery; Visit Provider Family Medicine
DX: I87.2 Venous insufficiency (chronic) (peripheral) (principal); L97.811 Non-pressure chronic ulcer of other part of right lower leg limited to breakdown of skin
CPT/HCPCS: 29581

== ENCOUNTER → 2020-08-01 11:05 | Outpatient (CLI) | payer MEDICARE, OTHER, SELFPAY ==
[2020-05-02 11:21] VITALS: PULSE 125; RESP 32; O2SAT 100; BMI 27.3
== END ==
PROVIDERS: PCP Internal Medicine; Referring Provider Internal Medicine; Visit Provider Family Medicine
DX: I87.2 Venous insufficiency (chronic) (peripheral) (principal); L97.811 Non-pressure chronic ulcer of other part of right lower leg limited to breakdown of skin; R60.0 Localized edema
CPT/HCPCS: 29581; 99212

== ENCOUNTER → 2020-08-04 11:09 | Outpatient (CLI) | payer MEDICARE, OTHER, SELFPAY ==
[2020-05-02 11:21] VITALS: PULSE 125; RESP 32; O2SAT 100; BMI 27.3
== END ==
PROVIDERS: PCP Internal Medicine; Referring Provider Internal Medicine; Visit Provider Nurse Practitioner Family
DX: I87.2 Venous insufficiency (chronic) (peripheral); L97.811 Non-pressure chronic ulcer of other part of right lower leg limited to breakdown of skin; L97.821 Non-pressure chronic ulcer of other part of left lower leg limited to breakdown of skin
CPT/HCPCS: 29581

== ENCOUNTER → 2020-08-07 10:59 | Outpatient (CLI) | payer MEDICARE, OTHER, SELFPAY ==
[2020-05-02 11:21] VITALS: PULSE 125; RESP 32; O2SAT 100; BMI 27.3
== END ==
PROVIDERS: PCP Internal Medicine; Referring Provider Internal Medicine; Visit Provider Family Medicine
DX: L08.89 Other specified local infections of the skin and subcutaneous tissue (principal); I87.2 Venous insufficiency (chronic) (peripheral); L97.811 Non-pressure chronic ulcer of other part of right lower leg limited to breakdown of skin; L97.211 Non-pressure chronic ulcer of right calf limited to breakdown of skin; I73.9 Peripheral vascular disease, unspecified; L08.9 Local infection of the skin and subcutaneous tissue, unspecified; R60.0 Localized edema; F17.200 Nicotine dependence, unspecified, uncomplicated; M79.604 Pain in right leg
CPT/HCPCS: 11042; 11045; 87070; 87077; 87147; 87186; 87205; 99213

== ENCOUNTER → 2020-08-07 14:53 | Outpatient (ROUT) | payer MEDICARE, OTHER, SELFPAY ==
[2020-05-02 11:21] VITALS: PULSE 125; RESP 32; O2SAT 100; BMI 27.3
== END ==
PROVIDERS: PCP Internal Medicine; Visit Provider Family Medicine
DX: L08.89 Other specified local infections of the skin and subcutaneous tissue (principal)
CPT/HCPCS: 87070; 87075; 87077; 87147; 87186; 87205